=== PATIENT | female | born 1955 | race Caucasian/White ===

== ENCOUNTER 2019-02-06 10:57 | Emergency (ER) | payer MEDICARE, MEDICAID, SELFPAY ==
[2019-02-06 11:20] VITALS: BP 136/90; PULSE 78; RESP 16; TEMP 36.8; O2SAT 97; BMI 28.1
--- NOTE | 2019-02-06 11:35 | W.ED.BACK ---
HPI - Back Pain/Injury General: Chief Complaint: Back Pain/Injury Stated Complaint: back pain lower Time Seen by Provider: 02/06/19 11:35 Source: patient Mode of arrival: ambulatory Limitations: no limitations History of Present Illness: HPI Narrative: back pain x yesterday; went to stand up and immediately noticed pain; reports chronic lower back pain; has first appointment with pain management next month MD elicited complaint: back pain Pertinent past history: prior back pain Onset (ago): day(s) Timing: constant Severity: moderate Similar Symptoms Previously: Yes Radiation: none Exacerbating factors: movement Relieving factors: supine Associated symptoms: Reports no associated symptoms and difficulty walking (secondary to pain) Work related injury: No Review of Systems Musc: Reports: back pain; Denies: neck pain, extremity pain or extremity swelling Neuro: Reports: difficulty walking (secondary to pain); Denies: headache, numbness in extremities, weakness in extremities, changes in sensation, lack of coordination or frequent falls PFSH ED PFSH: Statuses (acute, chronic, etc) shown below reflect problem list status as previously entered and may not be historically accurate Family History Grandmother Breast cancer Maternal Mother Hypertension Heart disease Father Abdominal aneurysm Hypertension Social History Smoking and tobacco status: current every day smoker cigarettes Packs smoked per day: 1 Alcohol intake: never Lives independently: Yes Household members: children Marital status: Legally Current occupational status: disabled History of recent travel: No Physical Exam Const: COMMON NORMALS: no apparent distress, average body habitus, oriented x3, no limitations, healthy appearing, alert and well nourished Resp: COMMON NORMALS: normal respiratory effort and clear to auscultation bilaterally AUSCULTATION: clear to auscultation bilaterally Cardio: COMMON NORMALS: regular rate and regular rhythm RATE: regular rate RHYTHM: regular rhythm Back/Pelvis: LUMBAR SPINE/LOWER BACK: Yes pain with ROM and Yes lumbar spinal tenderness Lumbar spinal tenderness location: L3, L4 and L5 Neuro: COMMON NORMALS: oriented x3 SENSORIUM/ORIENTATION: Yes alert Course ED course: [address] [address] XRay Report Signed Patient: Rachana Gomez MR#: [id number] : 1955 Acct:[id number] Age/Sex: 63 / F ADM Date: 02/06/19 Loc: ER Attending Dr: Ordering Physician: Kavitha Plummer Date of Service: 02/06/19 Procedure(s): XR lumbar spine 2-3V* 25354 Accession Number(s): [id number] Report Number: [id number] WS: [id number] Lumbar spine, 3 views, 02/06/2019 Clinical Data: back injury Comparison: Lateral lumbar spine, 12/05/2018. Findings: No compression fractures or subluxation is seen. There is disc space narrowing at L3-L4, L4-L5 and L5-S1. The transverse processes and SI joints are normal. There is a posterior lumbar fusion with bilateral pedicle screws at L4, L5 and S1 and connected with rods. Laminectomies at L4 and L5 are noted. There is a slight dextroscoliosis. There are clips in the right upper quadrant from a cholecystectomy. There is calcification in the wall of the abdominal aorta but no aneurysm is seen. XR/XR lumbar spine 2-3V* 32614 Impression: 1. Intact posterior lumbar fusion from L4 through S1. 2. Degenerative disc narrowing at L3-L4, L4-L5 and L5-S1. 3. Slight dextroscoliosis of lumbar spine. 4. Laminectomies at L4 and L5. Dictated By: Ros Muller MD Signed By: Ros Muller MD Signed Date/Time:02/06/19 1230 DD/ 1224 Vital Signs: Vital signs: Vital Signs Temperature 98.3 F 02/06/19 11:20 Pulse Rate 78 02/06/19 11:20 Respiratory Rate 16 02/06/19 11:20 Blood Pressure 136/90 02/06/19 11:20 Pulse Oximetry 97 02/06/19 11:20 MDM - Back Pain/Injury Medical Records: Attestation: I reviewed the patient's medical records. Discharge Plan Discharge Patient Disposition: Home, Self-Care Clinical Impression: Lumbar back pain Condition: Stable Prescriptions: New cyclobenzaprine 10 mg tablet 10 mg PO Q8H Qty: 14 RF: 0 prednisone 10 mg tablets,dose pack See Rx Instructions .ROUTE .COMPLEX Qty: 21 RF: 0 No Action sumatriptan succinate 100 mg tablet 100 mg PO PRN PRN (Reason: Migraine Headache) RF: 0 multivitamin Capsule 1 cap PO DAILY RF: 0 olmesartan 40 mg tablet 40 mg PO DAILY RF: 0 Discharge Orders: Discharge Order (Routine); Ordered 02/06/19 Ordered By: Kavitha Plummer Referrals: Padmini Haddad NP [Primary Care Provider] - Discharge Activity: Increase activity as tolerated Patient Instructions: Chronic Back Pain (ED), Back Pain (ED) Activity Restrictions/Additional Instructions: Follow up with primary care within a week for continued pain Coding Level of Care Code ED Blast Furnace Keeper for Chg Fwd Exam Problem Focused
--- NOTE | 2019-02-06 11:36 | PC.NURSE ---
pt to room. pt c/o severe pain to lower mid back. Pt reports lifting a lot yesterday. pt has trouble ambulating today.
--- NOTE | 2019-02-06 11:46 | XR_ITS ---
WS: [id number] Lumbar spine, 3 views, 02/06/2019 Clinical Data: back injury Comparison: Lateral lumbar spine, 12/05/2018. Findings: No compression fractures or subluxation is seen. There is disc space narrowing at L3-L4, L4-L5 and L5 -S1. The transverse processes and SI joints are normal. There is a posterior lumbar fusion with bilateral pedicle screws at L4, L5 and S1 and connected with rods. Laminectomies at L4 and L5 are noted. There is a slight dextroscoliosis. There are clips in the right upper quadrant from a cholecystectomy. There is calcification in the wall of the abdominal aor ta but no aneurysm is seen. XR/XR lumbar spine 2-3V* 25919 Impression: 1. Intact posterior lumbar fusion from L4 through S1. 2. Degenerative disc narrowing at L3-L4, L4-L5 and L5-S1. 3. Slight dextroscoliosis of lumbar spine. 4. Laminectomies at L4 and L5.
--- NOTE | 2019-02-06 11:57 | PC.NURSE ---
pt off unit to radiology by stretcher with tech at this time
[2019-02-06] MEDS: fentaNYL 50 mcg/mL INJ 2mL IV (12:12)
[2019-02-06] MEDS: ondansetron 2 mg/ML SDV 2 mL 4 MG IM (12:12)
--- NOTE | 2019-02-06 12:16 | PC.NURSE ---
fentanyl given IM injection
[2019-02-06 12:51] VITALS: BP 122/79; PULSE 80; RESP 18; O2SAT 94
== END 2019-02-06 12:51 | disposition home or self-care (01) ==
PROVIDERS: Emergency Provider Physician Assistant; Family Provider Nurse Practitioner Family; PCP Nurse Practitioner Family
DX: M54.5 Low back pain (principal); F17.210 Nicotine dependence, cigarettes, uncomplicated
CPT/HCPCS: 72100; 96374; 99281; J2405; J3010

== ENCOUNTER → 2019-02-14 10:21 | Outpatient (BNVA) | payer MEDICARE, MEDICAID, SELFPAY | PROVIDERS: Family Provider Nurse Practitioner Family; PCP Nurse Practitioner Family; Visit Provider Nurse Practitioner Family | DX: N30.90 Cystitis, unspecified without hematuria (principal) | CPT/HCPCS: 81001; 87086 ==

== ENCOUNTER 2019-03-11 06:00 | Outpatient (CLI) | payer MEDICARE, MEDICAID, SELFPAY | END 2019-03-11 06:01 | disposition home or self-care (01) | LOC: SPT 11:18 | PROVIDERS: Family Provider Nurse Practitioner Family; PCP Nurse Practitioner Family; Referring Provider Specialist; Visit Provider Specialist | DX: M96.1 Postlaminectomy syndrome, not elsewhere classified (principal) | CPT/HCPCS: L0637 ==

== ENCOUNTER → 2019-03-27 08:53 | Outpatient (BNVA) | payer MEDICARE, MEDICAID, SELFPAY | PROVIDERS: Family Provider Nurse Practitioner Family; PCP Nurse Practitioner Family; Referring Provider Nurse Practitioner Family; Visit Provider Anesthesiology Pain Medicine | DX: M43.17 Spondylolisthesis, lumbosacral region (principal); M96.1 Postlaminectomy syndrome, not elsewhere classified; M79.651 Pain in right thigh; M79.652 Pain in left thigh; M54.2 Cervicalgia; M25.512 Pain in left shoulder; F17.210 Nicotine dependence, cigarettes, uncomplicated; Z79.891 Long term (current) use of opiate analgesic | CPT/HCPCS: 99214; 99999 ==

== ENCOUNTER 2019-04-03 10:41 | Outpatient (CLI) | payer MEDICARE, MEDICAID, SELFPAY ==
--- NOTE | 2019-04-03 11:37 | ECG_ITS ---
NAME OF STUDY: DOBUTAMINE STRESS ECHOCARDIOGRAM INDICATION: Chest Pain, PROCEDURE: At the baseline, the blood pressure was with a heart rate of. The electrocardiogram showed normal sinus rhythm with some nonspecific T wave changes; poor R wave progression. Echocardiogram pictures were taken of the standard views prior to the dobutamine fusion The dobutamine was infused over a period of 10 minutes and 28 seconds. The maximum heart rate obtained was 146 (92 % of the maximum predicted heart rate). The blood pressure at that time was 199/101 mmHg. The patient did not have any chest pain or any significant electrocardiogram changes with the dobutamine infusion. The physical examination remained unchanged. No arrhythmias were seen on the monitor. Echocardiographic pictures were taken of the standard views with a low and peak dobutamine infusion and also during the recovery phase During the recovery phase, the patient did not have any specific symptoms. The blood pressure at the end of the recovery phase was 153/93 with a heart rate of 93 per minute. CONCLUSION: 1. Normal EKG response to dobutamine fusion. 2. No dobutamine induced chest pain or cardiac arrhythmia. 3. Hypertensive response to dobutamine fusion 4. Echocardiogram which was retaken at the baseline, during the dobutamine infusion and at the recovery phases; see separate report. Electronically Signed On 04-04-2019 11:11:49 SENIOR MAINTENANCE TECHNICIAN by Apolinar Lara M.D. [email or web address]
--- NOTE | 2019-04-03 11:37 | USCV_ITS ---
Rachana Gomez Age: 63 Gender: F : 1955 Exam Date: 04/03/2019 12:07 Ordering Phys: Apolinar Lara MD ([email or web address]) Technologist: Margie Cervantes Exam Location: [facility] [place] Indication: CHEST PAIN Rhythm: Sinus Patient History: AAA,HLD,HTN,Asthma,Smoking Cardiac Medications: Olmesartan Medications in past 24 hours: Olmesartan Contrast: Total Dose (mL): Stress Results Protocol: Pharmacologic Peak Dose (???g/kg/min): 30 Duration (min:sec): 10:28 Atropine:(mg) 0.5 Target HR: 134 Double Product: 48446 Resting HR: 68 Resting BP: 142 / 97 Peak HR: 146 Peak BP: 202 / 102 Max Predicted HR: 158 92 % Max Predicted HR Stress Summary: The hemodynamic response to stress was normal. BP Response: Normal Reason for Termination: The patients target heart rate was achieved, Protocol complete Cardiac Symptoms: None ECG Analysis Resting EKG: Please see separate report Stress EKG: Please see separate report Arrhythmia: Please see separate report MEASUREMENTS (Male/Female) Normal Values FINDINGS The baseline echocardiogram revealed normal LV size and ejection fraction. Segmental wall motion analysis revealing no gross wall motion normalities. The aortic valve was found to be minimally thickened. Aortic root appeared to be of normal size. The mitral valve morphology appears to be within normal limits. Because of the heavy artifacts are noted with the extracardiac structures, the other cardiac structures could not be visualized well With the low and the peak dobutamine fusion, there was good augmentation of all the segments with no dobutamine induced wall motion normalities. During the recovery phase, there was no new wall motion normalities. CONCLUSIONS Normal echocardiographic response to dobutamine fusion No significant coronary ischemia, based on the above findings Dr Apolinar Lara MD FAC (Electronically Signed) Final Date: 04 April 2019 10:30 S
[2019-04-03 11:38] VITALS: BMI 28.3
[2019-04-03] MEDS: DOBUTtamine 200 MG in sodium chloride 0.9% 34 ML 12 MG IV (12:09)
[2019-04-03] MEDS: atropine 0.1 mg/mL Syr 10 mL 0.5 MG IVP (12:24)
[2019-04-03 12:26] VITALS: BP 161/93; PULSE 93
== END 2019-04-03 10:42 | disposition home or self-care (01) ==
LOC: CDL 10:42
PROVIDERS: Family Provider Nurse Practitioner Family; PCP Nurse Practitioner Family; Visit Provider Internal Medicine Cardiovascular Disease
DX: R07.89 Other chest pain (principal)
CPT/HCPCS: 93017; 93350; 96375; J0461; J1250; J7050

== ENCOUNTER 2019-04-14 13:00 | Outpatient (CLI) | payer MEDICARE, MEDICAID, SELFPAY ==
--- NOTE | 2019-04-14 13:07 | CT_ITS ---
WS: [id number] CT LUNG CANCER SCREENING DLP: 65.79 mGy.cm DIvol: 1.97 mGy CLINICAL INFORMATION SCREENING VISIT: Baseline COMPARISON: 02/06/2015 FINDINGS Diagnostic quality: Satisfactory Comments: None. Lung Nodules: 2 mm micronodule LEFT upper lobe. Benign granulomata lingula. There is some very minima l groundglass attenuation in the periphery of the lower lung alex bilaterally. Lungs: Hyperexpanded lungs from emphysema. Heart: Normal size heart. Slight increased amount of pericardial fat. Other findings: No mediastinal or hilar adenopathy. Small hiatal hernia. Increase in thoracic kyphosi s. No osteoblastic or osteolytic bone disease. Prior gastric bypass. Bilateral breast implants. CT/CT lung screening [id number] IMPRESSION: LUNG-RADS: 1-Negative FOLLOW UP:
== END 2019-04-14 13:01 | disposition home or self-care (01) ==
LOC: CT 13:01
PROVIDERS: Family Provider Nurse Practitioner Family; PCP Nurse Practitioner Family; Visit Provider Nurse Practitioner Family
DX: Z12.2 Encounter for screening for malignant neoplasm of respiratory organs (principal); Z87.891 Personal history of nicotine dependence
CPT/HCPCS: G0297

== ENCOUNTER → 2019-04-24 09:35 | Outpatient (BNVA) | payer MEDICARE, MEDICAID, SELFPAY | PROVIDERS: Family Provider Nurse Practitioner Family; PCP Nurse Practitioner Family; Visit Provider Anesthesiology Pain Medicine | DX: M43.17 Spondylolisthesis, lumbosacral region (principal); M96.1 Postlaminectomy syndrome, not elsewhere classified; M79.651 Pain in right thigh; M79.652 Pain in left thigh; J45.40 Moderate persistent asthma, uncomplicated; F17.210 Nicotine dependence, cigarettes, uncomplicated; Z79.891 Long term (current) use of opiate analgesic | CPT/HCPCS: 99214 ==

== ENCOUNTER 2019-05-07 08:22 | Outpatient (CLI) | payer MEDICARE, MEDICAID, SELFPAY ==
--- NOTE | 2019-05-07 09:00 | IR_ITS ---
WS: [id number] LUMBAR MYELOGRAM HISTORY: lumbar pain COMPARISON: 12/05/2018 FLUOROSCOPY TIME: 1.5 minutes. Procedure, risks and complications were explained to the patient. Risks including bleeding, infection , headaches, allergic reaction and seizures. Consent has been obtained. With the patient in prone position the skin over the lumbar region is cleansed with ChloraPrep and an esthetized with lidocaine. 22-gauge spinal needle is inserted into the thecal sac at the appropriate level determined by fluoroscopy. Omnipaque 240; 12 ml is injected slowly under fluoroscopy with no co mplications. Needle bevel is perpendicular to the longitudinal fibers of the dura. Stylet is reinsert ed prior to removal of the needle. Patient tolerated the procedure well. Patient will proceed to CT f or further evaluation. Posterior lumbar fusion from L4 to S1. Hardware is intact. Suspect L5 anterolisthesis. This will be b mao evaluated on the CT to follow. Large laminectomy defects at L4 and L5. Bone grafting at the L4- 5 levels bilaterally. Posterior lumbar alignment is normal from L1 to L5. There is focal stenosis at the L3-4 level due to combination of disc disease and ligamentum flavum hypertrophy. Mild narrowing of the thecal sac also at the L2-3 level and L1-2. Scattered calcifications within the aorta. Less than 2 mm retrolisthesis of L3 on neutral imaging. During flexion L3 anterolisthesis by 4 mm and 1 mm retrolisthesis during extension. IR/[place] [id number] IMPRESSION: 1. Status post lumbar myelogram. 2. Flexion-extension instability of L3. 3. Prior posterior lumbar fusion from L4 to S1 with large laminectomy defects at L4 and L5. 4. Central canal stenosis at L3-4 is moderate to severe. Additional mild steno sis at the L2-3 and L1-2 levels. These will be further evaluated on the CT to f ollow.
[2019-05-07 09:11] LABS: INR 0.94 (0.8-1.2)
[2019-05-07] MEDS: iohexol 240 mg/mL 50 mL Btl INTRATHECA (09:30)
--- NOTE | 2019-05-07 11:30 | CT_ITS ---
WS: [id number] CT MYELOGRAM LUMBAR SPINE HISTORY: lumbar pain TECHNIQUE: Contiguous 2.5 mm axial imaging performed from T12 through the mid sacral level. Bone and soft tissue windows reviewed. Sagittal and coronal reformats are submitted and reviewed. DLP: 5727.[address] scans at [facility] use at least one of these dose optimization techniques: automat ed exposure control; mA and/or kV adjustment per patient size (includes targeted exams where dose is matched to clinical indication); or iterative reconstruction. COMPARISON: 12/05/2018 Imaging performed in supine and prone position to better distribute the contrast within the thecal sa c. Study is limited by motion. L5 anterolisthesis by 8.9 mm. Prior posterior lumbar fusion from L4 to S1 bilaterally. No lucency ab und the hardware or fracture identified. Bone grafting is also present at the surgical site. Large la minectomy defects at L4 and L5. Moderate disc space narrowing at L4-5 and L5-S1. No fracture. Mild ar achnoiditis at the L4-5 level. L1-L2: Mild ligamentum flavum hypertrophy. No stenosis. L2-L3: Ligamentum flavum hypertrophy and facet arthropathy. No significant stenosis. L3-L4: Significant diffuse disc bulging. There is ligamentum flavum hypertrophy and facet arthropathy . There is at least moderate central and subarticular recess stenosis. Unfortunately patient was unab le to remain still for this examination. Only mild bilateral foraminal narrowing. There is mass effec t upon the RIGHT lateral thecal sac suspicious for a disc protrusion. L4-L5: Significant artifact at the L4-5 level. Cannot exclude new disc protrusions but there is no st enosis appreciated. L5-S1: Significant artifact from the patient's hardware. No significant stenosis. Since of atherosclerosis within the aorta. Prior cholecystectomy. Nonobstructing LEFT renal calcifica tion. CT/CT lumbar spine w con [id number] IMPRESSION: 1. Status post lumbar myelogram. 2. Significant limitations due to extensive motion artifact and hardware artif act. 3. Prior lumbar fusion from L4 to S1 is intact with no complications apparent. 4. At least moderate central and subarticular recess stenosis at L3-4 due to d isc disease and facet disease. 5. L5 anterolisthesis by 8.9 mm.
== END 2019-05-07 08:23 | disposition home or self-care (01) ==
LOC: RAD 08:23
PROVIDERS: Family Provider Nurse Practitioner Family; PCP Nurse Practitioner Family; Visit Provider Specialist
DX: Z01.812 Encounter for preprocedural laboratory examination (principal); M43.27 Fusion of spine, lumbosacral region; M51.36 Other intervertebral disc degeneration, lumbar region; M48.061 Spinal stenosis, lumbar region without neurogenic claudication
CPT/HCPCS: 62304; 72120; 72132; 85610; Q9966

== ENCOUNTER 2019-06-10 07:59 | Outpatient (CLI) | payer MEDICARE, MEDICAID, SELFPAY ==
--- NOTE | 2019-06-10 08:00 | USCV_ITS ---
BadgerRachana parker Age: 63 Gender: F : 1955 Exam Date: 06/10/2019 08:05 Ordering Phys: Padmini Haddad NP Technologist: Yusra Junior [place] [facility] [place]ication: VISION CHANGE IN RT EYE Risk Factors: Unknown Previous Vascular Surgery: RT EYE SURGERY TO REPAIR HOLE PER PT Right Brachial BP: / Left Brachial BP: / Right Left Velocity (cm/s) Spectral Plaque Velocity (cm/s) Spectral Plaque Syst/Diast Broadening Syst/Diast Broadening 73.90/ 17.60 Prox CCA 63.40 / 17.80 79.40/ 29.80 Mid CCA 102.90/ 41.40 43.00/ 15.40 Distal CCA 101.80/ 34.70 58.80/ 21.80 Prox ICA 60.10 / 23.10 67.40/ 21.80 Mid ICA 61.40 / 24.30 56.20/ 19.80 Distal ICA 64.80 / 27.50 76.10 ECA 98.40 0.85 ICA/CCA 0.63 Antegrade Vertebral Antegrade 44.30/ 12.60 cm/s 44.50/ 15.50 cm/s Tri Subclavian Tri 48.90 78.70 FINDINGS Moderate scattered plaques of the right bifurcation proximal internal carotid artery. Minimal plaques of the left bifurcation and internal carotid artery. Normal Doppler flow velocities. Antegrade flow in the vertebral arteries bilaterally. CONCLUSIONS Moderate scattered plaques at the right bifurcation proximal internal carotid artery. Minimal plaques of the left bifurcation and internal carotid artery. No significant stenosis, based on the above findings. No previous studies available for comparison Dr Apolinar Lara MD [facility] (Electronically Signed) Final Date: 10 Jun 2019 15:48 S
== END 2019-06-10 08:00 | disposition home or self-care (01) ==
PROVIDERS: Family Provider Nurse Practitioner Family; PCP Nurse Practitioner Family; Visit Provider Nurse Practitioner Family
DX: H53.9 Unspecified visual disturbance (principal); H53.8 Other visual disturbances; I65.21 Occlusion and stenosis of right carotid artery
CPT/HCPCS: 93880

== ENCOUNTER → 2019-07-01 14:59 | Outpatient (BNVA) | payer MEDICARE, MEDICAID, SELFPAY | PROVIDERS: Family Provider Nurse Practitioner Family; PCP Nurse Practitioner Family; Visit Provider Anesthesiology Pain Medicine | DX: M54.41 Lumbago with sciatica, right side (principal); M54.42 Lumbago with sciatica, left side; M43.17 Spondylolisthesis, lumbosacral region; M96.1 Postlaminectomy syndrome, not elsewhere classified; M54.9 Dorsalgia, unspecified; J45.40 Moderate persistent asthma, uncomplicated; F17.210 Nicotine dependence, cigarettes, uncomplicated; Z79.891 Long term (current) use of opiate analgesic | CPT/HCPCS: 99213 ==

== ENCOUNTER 2019-07-08 06:00 | Outpatient (RCR) | payer MEDICARE, MEDICAID, SELFPAY | END 2019-08-05 23:59 | disposition home or self-care (01) | LOC: GPT 06:00 | PROVIDERS: PCP Nurse Practitioner Family; Referring Provider Specialist; Visit Provider Specialist | DX: G89.29 Other chronic pain (principal); M54.2 Cervicalgia; M54.9 Dorsalgia, unspecified | CPT/HCPCS: 97032; 97110; 97140; 97162; 97530; G0283 ==

== ENCOUNTER 2019-07-17 14:22 | Outpatient (CLI) | payer MEDICARE, MEDICAID, SELFPAY ==
--- NOTE | 2019-07-17 14:30 | XRR_ITS ---
PROCEDURE INFORMATION: Exam: XR Lumbosacral Spine, 2 or 3 Views Exam date and time: 07/17/2019 2:47 PM Age: 64 years old Clinical indication: Low back pain; Prior surgery; Surgery type: Date and type of surgery not provided; Additional info: Lumbar pain TECHNIQUE: Imaging protocol: XR of the lumbosacral spine, 2 or 3 views. COMPARISON: No relevant prior studies available. FINDINGS: Vertebrae: Laminectomy and pedicle screw fixation extending from L4-S1 with poor visualization of the L5-S1 articulation. No significant malalignment or instability in the visualized lumbar spine. Degenerative change. Gastrointestinal tract: Bowel dilatation and prominent stool. Vasculature: Vascular calcification. XR/XR lumbar spine f/e only [id number] IMPRESSION: Laminectomy and pedicle screw fixation extending from L4-S1 with poor visualization of the L5-S1 articulation.
== END 2019-07-17 14:23 | disposition home or self-care (01) ==
LOC: RADWPI 14:24
PROVIDERS: Family Provider Nurse Practitioner Family; PCP Nurse Practitioner Family; Visit Provider Specialist
DX: M54.5 Low back pain (principal); M96.1 Postlaminectomy syndrome, not elsewhere classified
CPT/HCPCS: 72120

== ENCOUNTER 2019-07-23 11:40 | Outpatient (CLI) | payer MEDICARE, MEDICAID, SELFPAY ==
--- NOTE | 2019-07-23 11:48 | MM_ITS ---
WS: [id number] BILATERAL DIGITAL SCREENING MAMMOGRAPHY WITH CAD CLINICAL INFORMATION: screening HISTORY: Screening mammogram. No current complaints. COMPARISON: April 05, 2017 TECHNIQUE: Bilateral CC and MLO views. FINDINGS: Postoperative changes bilateral breast implants. History of bilateral breast reduction. Scattered fibroglandular densities bilaterally. No suspicious focal mass, asymmetry, calcifications, or architectural distortion. No evidence of malignancy. Stable lucent centered and dystrophic calcifi cations. MM/[place] [id number] IMPRESSION: BI-RADS: 2-Benign FOLLOW UP: 1 Year Follow-up Recommend return to annual screening mammography.
== END 2019-07-23 11:41 | disposition home or self-care (01) ==
PROVIDERS: PCP Nurse Practitioner Family; Visit Provider Nurse Practitioner
DX: Z12.31 Encounter for screening mammogram for malignant neoplasm of breast (principal)
CPT/HCPCS: 77067

== ENCOUNTER → 2019-07-30 09:57 | Outpatient (BNVA) | payer MEDICARE, MEDICAID, SELFPAY | PROVIDERS: PCP Nurse Practitioner Family; Visit Provider Anesthesiology Pain Medicine | DX: M54.2 Cervicalgia (principal); M43.17 Spondylolisthesis, lumbosacral region; M54.9 Dorsalgia, unspecified; M96.1 Postlaminectomy syndrome, not elsewhere classified; J45.40 Moderate persistent asthma, uncomplicated; F17.210 Nicotine dependence, cigarettes, uncomplicated; Z79.891 Long term (current) use of opiate analgesic | CPT/HCPCS: 99213; 99214 ==

== ENCOUNTER → 2019-08-29 08:20 | Outpatient (BNVA) | payer MEDICARE, MEDICAID, SELFPAY | PROVIDERS: PCP Nurse Practitioner Family; Visit Provider Anesthesiology Pain Medicine | DX: M54.2 Cervicalgia (principal); M43.17 Spondylolisthesis, lumbosacral region; M96.1 Postlaminectomy syndrome, not elsewhere classified; M54.9 Dorsalgia, unspecified; J45.40 Moderate persistent asthma, uncomplicated; F17.210 Nicotine dependence, cigarettes, uncomplicated; Z79.891 Long term (current) use of opiate analgesic | CPT/HCPCS: 99213; 99214 ==

== ENCOUNTER → 2019-09-03 09:49 | Outpatient (BNVA) | payer MEDICARE, MEDICAID, SELFPAY | PROVIDERS: PCP Nurse Practitioner Family; Visit Provider Podiatrist Foot & Ankle Surgery | DX: M25.571 Pain in right ankle and joints of right foot (principal) | CPT/HCPCS: 73610 ==

== ENCOUNTER 2019-09-03 14:27 | Outpatient (CLI) | payer MEDICARE, MEDICAID, SELFPAY | END 2019-09-03 14:28 | disposition home or self-care (01) | LOC: SPT 14:28 | PROVIDERS: PCP Nurse Practitioner Family; Visit Provider Podiatrist Foot & Ankle Surgery | DX: G57.80 Other specified mononeuropathies of unspecified lower limb (principal); M25.571 Pain in right ankle and joints of right foot | CPT/HCPCS: 73610; 97760; L1902 ==

== ENCOUNTER → 2019-09-29 08:46 | Outpatient (BNVA) | payer MEDICARE, MEDICAID, SELFPAY | PROVIDERS: PCP Nurse Practitioner Family; Visit Provider Anesthesiology Pain Medicine | DX: M54.42 Lumbago with sciatica, left side (principal); M54.41 Lumbago with sciatica, right side; M43.17 Spondylolisthesis, lumbosacral region; M96.1 Postlaminectomy syndrome, not elsewhere classified; M54.9 Dorsalgia, unspecified; M54.2 Cervicalgia; J45.40 Moderate persistent asthma, uncomplicated; F17.210 Nicotine dependence, cigarettes, uncomplicated; Z79.891 Long term (current) use of opiate analgesic | CPT/HCPCS: 99213; 99214 ==

== ENCOUNTER → 2019-12-18 09:19 | Outpatient (BNVA) | payer MEDICARE, MEDICAID, SELFPAY | PROVIDERS: PCP Nurse Practitioner Family; Visit Provider Anesthesiology Pain Medicine | DX: M43.17 Spondylolisthesis, lumbosacral region (principal); M96.1 Postlaminectomy syndrome, not elsewhere classified; M54.9 Dorsalgia, unspecified; M54.2 Cervicalgia; J45.40 Moderate persistent asthma, uncomplicated; E16.2 Hypoglycemia, unspecified; F17.210 Nicotine dependence, cigarettes, uncomplicated; Z79.891 Long term (current) use of opiate analgesic | CPT/HCPCS: 99213 ==

== ENCOUNTER → 2020-01-15 08:59 | Outpatient (BNVA) | payer MEDICARE, MEDICAID, SELFPAY | PROVIDERS: PCP Nurse Practitioner Family; Visit Provider Anesthesiology Pain Medicine | DX: M54.9 Dorsalgia, unspecified (principal); M96.1 Postlaminectomy syndrome, not elsewhere classified; M54.2 Cervicalgia; M43.17 Spondylolisthesis, lumbosacral region; J45.909 Unspecified asthma, uncomplicated; M79.18 Myalgia, other site | CPT/HCPCS: 20553; 99213; J1030; J3490 ==

== ENCOUNTER → 2020-02-12 09:02 | Outpatient (BNVA) | payer MEDICARE, MEDICAID, SELFPAY | PROVIDERS: PCP Nurse Practitioner Family; Visit Provider Anesthesiology Pain Medicine | DX: M54.9 Dorsalgia, unspecified (principal); M96.1 Postlaminectomy syndrome, not elsewhere classified; M54.2 Cervicalgia; M43.17 Spondylolisthesis, lumbosacral region; J45.40 Moderate persistent asthma, uncomplicated; F17.210 Nicotine dependence, cigarettes, uncomplicated; Z79.891 Long term (current) use of opiate analgesic | CPT/HCPCS: 99213; 99214 ==

== ENCOUNTER → 2020-02-13 08:54 | Outpatient (BNVA) | payer MEDICARE, MEDICAID, SELFPAY | PROVIDERS: PCP Nurse Practitioner Family; Visit Provider Nurse Practitioner Family | DX: E78.2 Mixed hyperlipidemia (principal); I10 Essential (primary) hypertension | CPT/HCPCS: 80053; 80061; 84439; 84443; 85025 ==

== ENCOUNTER → 2020-02-27 08:16 | Outpatient (BNVA) | payer MEDICARE, MEDICAID, SELFPAY | PROVIDERS: PCP Nurse Practitioner Family; Visit Provider Anesthesiology Pain Medicine | DX: G89.29 Other chronic pain (principal); M54.5 Low back pain; F17.210 Nicotine dependence, cigarettes, uncomplicated | CPT/HCPCS: 62323 ==

== ENCOUNTER 2020-07-12 07:50 | Outpatient (CLI) | payer MEDICARE, MEDICAID, SELFPAY ==
--- NOTE | 2020-07-12 07:56 | MM_ITS ---
WS: [id number] BILATERAL DIGITAL DIAGNOSTIC MAMMOGRAM MAMMOGRAPHY WITH CAD CLINICAL INFORMATION: RIGHT BREAST LUM COMPARISON: July 23, 2019 TECHNIQUE: Bilateral CC, MLO, and ML views. FINDINGS: History of breast reduction Scattered fibroglandular densities bilaterally. Punctate and lucent centered calcifications. Postoper ative changes bilateral breast implants appear intact. No mammographic abnormalities in the area of p alpable concern. No suspicious focal mass, asymmetry, calcifications, or architectural distortion. Ultrasound right br east is pending. ULTRASOUND BREAST RIGHT TECHNIQUE: Ultrasound right breast focused area of concern. CLINICAL INFORMATION: RIGHT BREAST LUMP FINDINGS: Ultrasound right breast 5:00 position and 11:00 position. Additional ultrasound right axilla in the a debbie of concern. Ultrasound in the areas of concern demonstrate no evidence of cystic or solid lesion. Normal breast parenchyma. No suspicious abnormalities. No lesions to target for biopsy. MM/[id number] IMPRESSION: BI-RADS: 2-Benign FOLLOW UP: 1 Year Follow-up Recommend return to annual screening mammography.
== END 2020-07-12 07:51 | disposition home or self-care (01) ==
LOC: RADSHAW 07:55
PROVIDERS: PCP Nurse Practitioner Family; Visit Provider Nurse Practitioner Family
DX: N63.10 Unspecified lump in the right breast, unspecified quadrant (principal)
CPT/HCPCS: 76642; 77066

== ENCOUNTER 2020-07-20 08:10 | Outpatient (CLI) | payer MEDICARE, MEDICAID, SELFPAY ==
--- NOTE | 2020-07-20 08:18 | CT_ITS ---
WS: [id number] LDCT LUNG CANCER SCREENING TECHNIQUE: Noncontrast CT of the chest with coronal and sagittal reformatted images. CLINICAL INFORMATION: NICOTINE DEPENDENCE,CIGARETTES COMPARISON: April 14, 2019 DLP: 53.79 mGy.cm DIvol: 1.[address] scans at [facility] use at least one of these dose optimization techniques: automat ed exposure control; mA and/or kV adjustment per patient size (includes targeted exams where dose is matched to clinical indication); or iterative reconstruction. FINDINGS: Hyperinflation. Mild chronic emphysematous changes. Calcified granuloma left upper lobe. Noncalcified nodule right lower lobe measuring 4.3 mm unchanged since April 14, 2019. Small amount of subpleural fibrosis or atelectasis right lower lobe. Small cluster of nodules in the super segment left lower lo be largest measuring 3.5 mm in a tree-in-bud configuration Aortic calcification. No mediastinal or hilar lymphadenopathy. Bilateral breast implants. Prior gastr ic bypass. Small esophageal hiatal hernia. Adrenal glands are normal. CT/CT lung screening [id number] IMPRESSION: LUNG-RADS: 2-Benign Appearance or Behavior FOLLOW UP: 12 Month: Continue annual screening with LDCT
--- NOTE | 2020-07-20 08:32 | USCV_ITS ---
Rachana Gomez Age: 65 Gender: F : 1955 Exam Date: 07/20/2020 08:42 Ordering Phys: Warren Grigsby Technologist: BEATA Exam Location: [facility] [place] Indication: FAM HX AAA AND CARDIAC ANEURYSM HISTORY: GASTRIC BYPASS-INC BOWEL GAS AND PT PAIN LEVEL Diameter (cm) AP x Transverse x Length Velocity (cm/s) Waveform Prox Aorta: 2.16 x 2.16 x 2.12 24.90 Mid Aorta: 2.48 x 2.35 x 2.61 22.90 Distal Aorta: 2.48 x 2.32 x 2.06 26.30 Right Iliac Prox: 0.91 x x Left Iliac Prox: 0.82 x x Stent Prox Landing x x Aneurysmal Sac Max x x Lt Lat Sac Dim Rt Lat Sac Dim Stent Dist Landing x x Right Iliac Stent x x Left Iliac Stent x x Right Renal Art Left Renal Art FINDINGS: Normal abdominal aortic dimensions Minimal plaques in the abdominal aorta. Normal Doppler flow velocity CONCLUSIONS Normal abdominal aortic dimensions with no evidence of aneurysm. Minimal plaques in the abdominal aorta. No significant stenosis in the abdominal aorta, based on the above findings Dr Apolinar Lara MD [facility] (Electronically Signed) Final Date: 20 July 2020 10:08 S
--- NOTE | 2020-07-20 09:17 | XR_ITS ---
WS: [id number] DEXA (DUAL ENERGY X-RAY ABSORPTIOMETRY) Bone mineral density was performed using a Pricelock machine. HISTORY: DETENTION USE OF SYSTEMIC STEROID, VITAMIN D DEFICIENCY COMPARISON: None available. Left forearm BMD: 0.702 g/cm2. T score: -2.0 Z score: -0.7 Total hip BMD: Left: 0.788 g/cm2. T score: -1.7 Z score: -1.1 Right: 0.773 g/cm2. T score: -1.9 Z score: -1.2 10 year probability of a major osteoporotic fracture is 18%. XR/XR DEXA axial skeleton* [id number] IMPRESSION: OSTEOPENIA based upon the WHO classification for females.
== END 2020-07-20 08:11 | disposition home or self-care (01) ==
LOC: RAD 08:13
PROVIDERS: PCP Nurse Practitioner Family; Visit Provider Nurse Practitioner
DX: Z12.2 Encounter for screening for malignant neoplasm of respiratory organs (principal); F17.210 Nicotine dependence, cigarettes, uncomplicated; Z79.52 Long term (current) use of systemic steroids; E55.9 Vitamin D deficiency, unspecified; Z84.89 Family history of other specified conditions; M85.88 Other specified disorders of bone density and structure, other site
CPT/HCPCS: 71271; 76706; 77080

== ENCOUNTER → 2020-08-12 17:05 | Outpatient (BNVA) | payer MEDICARE, MEDICAID, SELFPAY | PROVIDERS: PCP Nurse Practitioner Family; Visit Provider Nurse Practitioner Family | DX: R53.1 Weakness (principal); M79.661 Pain in right lower leg; M25.561 Pain in right knee; I83.90 Asymptomatic varicose veins of unspecified lower extremity; Z68.29 Body mass index [BMI] 29.0-29.9, adult | CPT/HCPCS: 81000 ==

== ENCOUNTER 2020-08-13 10:54 | Outpatient (CLI) | payer MEDICARE, MEDICAID, SELFPAY ==
--- NOTE | 2020-08-13 11:00 | USCV_ITS ---
[place] Age: 65 Gender: F : 1955 Exam Date: 08/13/2020 11:08 Ordering Phys: Padmini Haddad NP Technologist: Yusra Junior Exam Location: [facility] [place] Indication: PAIN IN RT LEG IN RT POP FOSSA HISTORY: Pt has pain in RT leg at and below knee. PROCEDURES: Venous duplex imaging was performed in only the right lower extremity. The following venous structures were evaluated: common femoral vein, profunda vein, proximal portion of the greater saphenous vein, superficial femoral vein, and the popliteal vein. In addition, the posterior tibial and peroneal trunk were evaluated. Serial compression, augmentation maneuvers, and spectral Doppler flow evaluation were performed. FINDINGS: NO DVT seen in any vessel examined. There is a 2 cm section of a superficial vessel below the know that is non compressible and has no color flow seen. CONCLUSIONS No DVT right lower extremity. Acute, below the knee right lower extremity superficial vein thrombosis. Dr. Zofia Salazar DO (Electronically Signed) Final Date: 13 August 2020 12:48 S
== END 2020-08-13 10:55 | disposition home or self-care (01) ==
PROVIDERS: PCP Nurse Practitioner Family; Visit Provider Nurse Practitioner Family
DX: M79.661 Pain in right lower leg (principal); M25.561 Pain in right knee; I83.90 Asymptomatic varicose veins of unspecified lower extremity; I82.811 Embolism and thrombosis of superficial veins of right lower extremity
CPT/HCPCS: 93971

== ENCOUNTER 2020-08-24 13:32 | Outpatient (CLI) | payer MEDICARE, MEDICAID, SELFPAY | END 2020-08-24 13:33 | disposition home or self-care (01) | LOC: LAB 10-26 12:35 | PROVIDERS: PCP Nurse Practitioner Family; Visit Provider Nurse Practitioner Family | DX: R53.83 Other fatigue (principal); S30.861A Insect bite (nonvenomous) of abdominal wall, initial encounter; W57.XXXA Bitten or stung by nonvenomous insect and other nonvenomous arthropods, initial encounter | CPT/HCPCS: 80053; 85025; 85651; 86000; 86140; 86618; 86666; 86757 ==

== ENCOUNTER 2020-09-07 12:32 | Outpatient (CLI) | payer MEDICARE, MEDICAID, SELFPAY ==
--- NOTE | 2020-09-07 12:39 | CT_ITS ---
WS: [id number] CT scan of the head, 09/07/2020 Clinical Data: M62.81 - Muscle weakness (generalized) Comparison: MRI of the head and brain, 07/12/2018. DLP: 992.[address] scans at [facility] use at least one of these dose optimization techniques: automat ed exposure control; mA and/or kV adjustment per patient size (includes targeted exams where dose is matched to clinical indication); or iterative reconstruction. Findings: The ventricular system is normal without shift. No recent infarct or hemorrhage is seen. There are no abnormal intracerebral masses. The cerebellum and brainstem are not remarkable. Bony windows of the skull and skull base show no fractures or erosions. The mastoid air cells, data analysis intern al auditory canals, sella turcica, intraorbital contents, and paranasal sinuses are unremarkable. CT/CT head wo con* [id number] Impression: Negative CT scan of the head
== END 2020-09-07 12:33 | disposition home or self-care (01) ==
PROVIDERS: PCP Nurse Practitioner Family; Visit Provider Nurse Practitioner Family
DX: M62.81 Muscle weakness (generalized) (principal); R29.898 Other symptoms and signs involving the musculoskeletal system; R51.9 Headache, unspecified
CPT/HCPCS: 70450; 80053; 85025; 85651; 86000; 86140; 86618; 86666; 86757

== ENCOUNTER 2021-01-11 20:00 | Outpatient (CLI) | payer MEDICARE, MEDICAID, SELFPAY | END 2021-01-11 20:01 | disposition home or self-care (01) | LOC: SLEEP 01-12 07:16 | PROVIDERS: PCP Nurse Practitioner Family; Visit Provider Nurse Practitioner | DX: G47.33 Obstructive sleep apnea (adult) (pediatric) (principal) | CPT/HCPCS: 95810 ==

== ENCOUNTER 2021-01-19 12:36 | Outpatient (CLI) | payer MEDICARE, MEDICAID, SELFPAY ==
--- NOTE | 2021-01-19 12:45 | USCV_ITS ---
Rachana Gomez Age: 65 Gender: F : 1955 Exam Date: 01/19/2021 13:23 Ordering Phys: Warren Grigsby Technologist: Roxanne Enciso [place]am [place] [facility] [place] Indication: RLE PAIN AND SWELLING HISTORY: Lower extremity swelling. Lower extremity pain. PROCEDURES: Venous duplex imaging was performed in only the right lower extremity. The following venous structures were evaluated: common femoral vein, profunda vein, proximal portion of the greater saphenous vein, superficial femoral vein, and the popliteal vein. In addition, the posterior tibial and peroneal trunk were evaluated. Serial compression, augmentation maneuvers, and spectral Doppler flow evaluation were performed. FINDINGS: No evidence of DVT seen in any vessel visualized at this time. CONCLUSIONS No evidence of right lower extremity DVT. Chet Quintero MD (Electronically Signed) Final Date: 19 January 2021 17:05 S
== END 2021-01-19 12:37 | disposition home or self-care (01) ==
PROVIDERS: PCP Nurse Practitioner Family; Visit Provider Nurse Practitioner
DX: M79.661 Pain in right lower leg (principal); I83.11 Varicose veins of right lower extremity with inflammation; M79.89 Other specified soft tissue disorders
CPT/HCPCS: 93971

== ENCOUNTER 2021-02-07 20:00 | Outpatient (CLI) | payer MEDICARE, MEDICAID, SELFPAY | END 2021-02-07 20:01 | disposition home or self-care (01) | LOC: SLEEP 02-08 07:32 | PROVIDERS: PCP Nurse Practitioner Family; Visit Provider Nurse Practitioner | DX: G47.33 Obstructive sleep apnea (adult) (pediatric) (principal) | CPT/HCPCS: 95811 ==

== ENCOUNTER → 2021-04-05 09:43 | Outpatient (BNVA) | payer MEDICARE, MEDICAID, SELFPAY | PROVIDERS: PCP Nurse Practitioner Family; Visit Provider Nurse Practitioner Family | DX: E53.8 Deficiency of other specified B group vitamins (principal); E61.1 Iron deficiency; I10 Essential (primary) hypertension; E55.9 Vitamin D deficiency, unspecified | CPT/HCPCS: 80053; 80061; 82306; 82607; 82728; 83550; 84443; 85025 ==

== ENCOUNTER → 2021-05-24 13:57 | Outpatient (BNVA) | payer MEDICARE, MEDICAID, SELFPAY | PROVIDERS: PCP Nurse Practitioner Family; Referring Provider Nurse Practitioner; Visit Provider Orthopaedic Surgery | DX: M25.512 Pain in left shoulder (principal); F17.210 Nicotine dependence, cigarettes, uncomplicated | CPT/HCPCS: 73030; 99203 ==

== ENCOUNTER 2021-06-08 13:55 | Outpatient (CLI) | payer MEDICARE, MEDICAID, SELFPAY ==
--- NOTE | 2021-06-08 15:07 | XR_ITS ---
WS: [id number] Lumbar spine with flexion and extension lateral, 06/08/2021. Clinical Data: LOW BACK PAIN Comparison: Lateral lumbar spine, 07/17/2019. Findings: There are pedicle screws at L4, L5 and S1 with connecting rods. There is degenerative disc narrowing at L4-L5 and L5-S1 with 0.6 cm anterior subluxation of L5 on S1. The posterior lumbar fusion is stabl e. There is mild limitation of motion. Osteoporosis of the lumbar vertebral bodies is noted. No limitation of motion or subluxation is seen. There is calcification of the wall of the abdominal aorta but no aneurysm. There are clips in the abd omen from surgery. XR/XR lumbar spine f/e only [id number] Impression: 1. Stable posterior lumbar fusion L4-S1. 2. Degenerative disc narrowing at L4-L5 and L5-S1 with 0.6 cm anterior subluxat ion of L5 on S1.
== END 2021-06-08 13:56 | disposition home or self-care (01) ==
LOC: RAD 13:58
PROVIDERS: PCP Nurse Practitioner Family; Visit Provider Nurse Practitioner Family
DX: R32 Unspecified urinary incontinence (principal); M54.50 Low back pain, unspecified; R29.898 Other symptoms and signs involving the musculoskeletal system; M48.07 Spinal stenosis, lumbosacral region; Z98.1 Arthrodesis status
CPT/HCPCS: 72120

== ENCOUNTER 2021-06-13 07:32 | Outpatient (CLI) | payer MEDICARE, MEDICAID, SELFPAY ==
--- NOTE | 2021-06-13 08:45 | MR_ITS ---
WS: [id number] MRI LEFT SHOULDER NONCONTRAST TECHNIQUE: Sagittal T2, coronal T1, T2 and proton density imaging. Axial gradient PDE imaging. CLINICAL INFORMATION: pain COMPARISON: None. FINDINGS: Moderate degenerative arthritis AC joint with mild edema. Slight downsloping acromion. Slight subacro mial spurring. Subacromial space is preserved. Tiny undersurface tear in the distal supraspinatus. Mild tendinopathy distal supraspinatus. Normal in fraspinatus. Normal teres minor. Normal subscapularis. Normal biceps tendon in the bicipital groove. Normal biceps labral anchor. Glenoid labrum appears grossly normal. Normal bone marrow signal. Mild t hickening with T2 signal abnormality involving the intra-articular biceps tendon compatible with tend inopathy MR/MR shoulder LT wo con* [id number] IMPRESSION: 1. Moderate degenerative arthritis at the AC joint with slight downsloping acr omion. Subacromial spurring. 2. Tiny undersurface tear distal supraspinatus with mild tendinopathy. 3. Rotator cuff is otherwise normal. 4. Mild thickening with tendinopathy involving the intra-articular biceps tend on. Normal biceps tendon in the bicipital groove. 5. Normal biceps labral anchor. Glenoid labrum appears grossly normal.
== END 2021-06-13 07:33 | disposition home or self-care (01) ==
LOC: RAD 07:33
PROVIDERS: PCP Nurse Practitioner Family; Visit Provider Orthopaedic Surgery
DX: R52 Pain, unspecified (principal); M25.512 Pain in left shoulder; M19.012 Primary osteoarthritis, left shoulder; M75.22 Bicipital tendinitis, left shoulder
CPT/HCPCS: 73221

== ENCOUNTER → 2021-07-05 15:35 | Outpatient (BNVA) | payer MEDICARE, MEDICAID, SELFPAY | PROVIDERS: PCP Nurse Practitioner Family; Visit Provider Orthopaedic Surgery | DX: M25.511 Pain in right shoulder (principal); M25.512 Pain in left shoulder; M67.911 Unspecified disorder of synovium and tendon, right shoulder; M67.912 Unspecified disorder of synovium and tendon, left shoulder | CPT/HCPCS: 20610; 99213; J0702; J3490 ==

== ENCOUNTER → 2021-07-11 14:04 | Outpatient (BNVA) | payer MEDICARE, MEDICAID, SELFPAY | PROVIDERS: PCP Nurse Practitioner; Visit Provider Internal Medicine Cardiovascular Disease | DX: I10 Essential (primary) hypertension (principal); E78.2 Mixed hyperlipidemia; R53.83 Other fatigue; R00.2 Palpitations; R07.89 Other chest pain; R55 Syncope and collapse; I49.1 Atrial premature depolarization; I49.3 Ventricular premature depolarization | CPT/HCPCS: 93229; 99204 ==

== ENCOUNTER 2021-08-09 09:00 | Outpatient (CLI) | payer MEDICARE, MEDICAID, SELFPAY ==
--- NOTE | 2021-08-09 09:18 | MR_ITS ---
WS: [id number] MRI BRAIN WITHOUT CONTRAST HISTORY: MIOSIS/MUSCLE WEAKNESS COMPARISON: 07/12/2018 TECHNIQUE: Diffusion imaging, multiplanar T1, T2 and FLAIR imaging obtained. No evidence for acute infarct or hemorrhage. Hatfield-white matter differentiation is normal. Moderate progression of T2 and FLAIR signal hyperintensities. Distribution is periventricular and sub cortical throughout the white matter. Patchy and confluent signal abnormalities with progression. No hemorrhage. Ventricles and extra-axial spaces are normal. No inferior displacement of cerebellar tonsils. The sella turcica and pituitary gland are unremarkabl e. Dural venous sinuses and hopland of Teresa demonstrate no abnormality on this unenhanced studies. Paranasal sinuses: Clear. Mastoid air cells: Normal. Calvarium and scalp: Intact. MR/MR head wo con* [id number] IMPRESSION: 1. No acute infarct. 2. Advancing T2 and FLAIR signal hyperintensities throughout the brain since 2 019. More than expected signal abnormalities for patient's age. These findings can be related to smoking history, hypertension, migraines or small vessel dise ase. Less likely demyelination.
== END 2021-08-09 09:01 | disposition home or self-care (01) ==
PROVIDERS: PCP Nurse Practitioner; Visit Provider Nurse Practitioner
DX: H57.03 Miosis (principal); M62.81 Muscle weakness (generalized)
CPT/HCPCS: 70551

== ENCOUNTER 2021-08-10 12:43 | Outpatient (CLI) | payer MEDICARE, MEDICAID, SELFPAY ==
--- NOTE | 2021-08-10 13:45 | USCV_ITS ---
Rachana Gomez Age: 66 Gender: F : 1955 Exam Date: 08/10/2021 13:11 Ordering Phys: Apolinar Lara MD ([email or web address]) Technologist: Scott Christie Exam Location: [facility] – [place] Indication: chest pain BP: 142 / 88 HR: 72 Rhythm: Sinus Technical Quality: Adequate MEASUREMENTS (Male / Female) Normal Values 2D ECHO LV Diastolic Diameter PLAX 3.7 cm 4.2 - 5.9 / 3.9 - 5.3 cm LV Systolic Diameter PLAX 2.5 cm IVS Diastolic Thickness 1.1 cm 0.6 - 1.0 / 0.6 - 0.9 cm IVS Systolic Thickness 1.3 cm LVPW Diastolic Thickness 1.0 cm 0.6 - 1.0 / 0.6 - 0.9 cm LVPW Systolic Thickness 0.9 cm LVOT Diameter 2.0 cm LV Ejection Fraction 2D Teich 58.9 % LV Ejection Fraction MOD 2C 66.7 % LV Ejection Fraction 2C AL 67.1 % LA Diameter 3.2 cm LA Width 3.6 cm LA Height 3.9 cm RA Width 3.2 cm RA Height 4.0 cm Aorta at Sinotubular Diameter 2.4 cm IVC Diameter 2.0 cm M-MODE Aortic Annulus Diameter 3.2 cm LA Ao Ratio MM 1.0 MV E Point Septal Separation 0.8 cm DOPPLER AV Peak Velocity 131.0 cm/s LVOT Peak Velocity 104.0 cm/s AV Area Cont Eq vti 3.0 cm squared AV Area Cont Eq pk 2.5 cm squared MV Peak Velocity 108.0 cm/s MV Area PHT 5.1 cm squared Mitral E to A Ratio 0.9 MV E' Velocity 42.5 cm/s Mitral E to MV E' Ratio 9.3 Mitral E to LV E' Lateral Ratio 11.3 Mitral E to LV E' Septal Ratio 7.9 Right Atrial Pressure 3.0 mmHg RV Acceleration Time 0.1 s RV Ejection Time 0.3 s RV AcT/ET 0.3 FINDINGS Left Ventricle Normal left ventricular size and systolic function, EF 68 %. Mild left ventricular hypertrophy. No regional wall motion abnormalities. Right Ventricle Normal right ventricular size and systolic function. Right Atrium Normal right atrial size. Left Atrium Normal left atrial size. Mitral Valve Mild mitral valve regurgitation. Aortic Valve No gross abnormalities noted Tricuspid Valve No gross abnormalities noted Pulmonic Valve Pulmonic valve not well visualized. Pericardium No pericardial effusion. Aorta Normal ascending aorta dimension. IVC Normal inferior vena cava. CONCLUSIONS Normal left ventricular size and systolic function, EF 68 %. Mild left ventricular hypertrophy. No regional wall motion abnormalities. Mild mitral valve regurgitation. There is no pericardial effusion. There are no intracardiac masses. No similar previous studies are available for comparison Dr Apolinar Lara MD FACC (Electronically Signed) Final Date: 10 August 2021 22:40 S
== END 2021-08-10 12:44 | disposition home or self-care (01) ==
LOC: RAD 12:44
PROVIDERS: PCP Nurse Practitioner; Visit Provider Internal Medicine Cardiovascular Disease
DX: I34.0 Nonrheumatic mitral (valve) insufficiency (principal); R06.00 Dyspnea, unspecified; R07.9 Chest pain, unspecified
CPT/HCPCS: 93306

== ENCOUNTER → 2021-09-05 08:24 | Outpatient (BNVA) | payer MEDICARE, MEDICAID, SELFPAY | PROVIDERS: PCP Nurse Practitioner; Visit Provider Internal Medicine Rheumatology | DX: M05.79 Rheumatoid arthritis with rheumatoid factor of multiple sites without organ or systems involvement (principal); Z11.59 Encounter for screening for other viral diseases; Z98.1 Arthrodesis status; M43.16 Spondylolisthesis, lumbar region; Z71.85 Encounter for immunization safety counseling; Z11.1 Encounter for screening for respiratory tuberculosis | CPT/HCPCS: 73130; 99204 ==

== ENCOUNTER 2021-09-05 19:18 | Emergency (ER) | payer MEDICARE, MEDICAID, SELFPAY ==
[2021-09-05 19:24] VITALS: BP 151/81; PULSE 90; RESP 28; TEMP 37.1; O2SAT 92; BMI 30.9
--- NOTE | 2021-09-05 19:27 | ECG_ITS ---
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 Measurements Intervals [place] Rate: 94 P: 70 [place]: 176 QRS: -3 QRSD: 72 T: 77 QT: 329 QTc: 413 Interpretive Statements SINUS RHYTHM LOW QRS VOLTAGE IN PRECORDIAL LEADS [QRS DEFLECTION < 1.0 mV IN CHEST LEADS] POSSIBLE ANTERIOR MYOCARDIAL INFARCTION , PROBABLY OLD [30 ms Q WAVE IN V3/V4, OR R < 0.2 mV IN V4] Compared to ECG 01/22/2019 12:43:51 Low QRS voltage now present Myocardial infarct finding still present Electronically Signed On 09-06-2021 7:11:08 CDT by Juan Flores M.D. [email or web address]
--- NOTE | 2021-09-05 19:27 | XRR_ITS ---
PROCEDURE INFORMATION: Exam: XR Chest Exam date and time: 09/05/2021 11:39 PM Age: 66 years old Clinical indication: Chest pressure; Patient HX: C/O chest pain; Additional info: Cp TECHNIQUE: Imaging protocol: Radiologic exam of the chest. Views: 1 view. COMPARISON: CR Chest 1 [place] [id number] 01/22/2019 11:28 AM FINDINGS: Lungs: Trace bibasilar atelectasis. No significant airspace consolidation concerning for pneumonia. Pleural spaces: No pneumothorax. No pleural effusion. Heart/Mediastinum: The cardiomediastinal silhouette is within normal limits. Bones/joints: Unremarkable. XR/XR chest 1V portable [id number] IMPRESSION: Trace bibasilar atelectasis. No significant airspace consolidation concerning for pneumonia.
[2021-09-05 19:52] LABS: Basophils % 0.4 %; Eosinophils # 0.2 10^3/uL (0.0-0.8); Eosinophils % 2.5 %; Hematocrit 45.6 % (37.0-47.0); Hemoglobin 14.6 g/dL (11.5-15.3); Lymphocytes # 3.2 10^3/uL (0.8-4.8); Lymphocytes % 33.7 %; Mean Corpuscular Hemoglobin 28.6 pg (28.0-34.0); Mean Corpuscular Volume 89.2 fl (81-99); Mean Platelet Volume 10.2 fL (7.4-10.4); Monocytes # 0.8 10^3/uL (0.2-0.9); Monocytes % 8.1 %; Neutrophils # 5.22 10^3/uL (1.8-7.7); Neutrophils % 54.9 %; Nucleated Red Blood Cells % 0 %; Platelet Count 293 10^3/cmm (130-400); Red Blood Count 5.11 10^6/uL (4.1-5.3); Red Cell Distribution Width 14.3 % (12.1-15.1); White Blood Count 9.5 10^3/uL (4.0-10.0)
[2021-09-05 20:19] LABS: Troponin(5th) Baseline 6 ng/L (0-10)
[2021-09-05 20:27] LABS: Alanine Aminotransferase 11 U/L (0-33); Alkaline Phosphatase 95 IU/L (35-105); Blood Urea Nitrogen 17 mg/dL (8-23); Calcium 9.1 mg/dL (8.5-10.5); Carbon Dioxide 20 mmol/L (22-29); Chloride 102 mmol/L (98-107); Glucose 99 mg/dL (65-115); Lipase 55 U/L (13-60); Osmolality Calculated 288 mOsm/kg (285-295); Sodium 138 mmol/L (136-145); Total Bilirubin 0.2 mg/dL (0.15-1.2)
[2021-09-05 20:28] LABS: Anion Gap 20.4 (5-19); Potassium 4.4 mmol/L (3.5-5.1)
[2021-09-05 20:29] LABS: Aspartate Amino Transferase 16 U/L (0-32)
--- NOTE | 2021-09-05 21:27 | ECG_ITS ---
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 Measurements Intervals [place] Rate: 83 P: 52 PA: 185 QRS: -3 QRSD: 78 T: 67 QT: 368 QTc: 434 Interpretive Statements SINUS RHYTHM LOW QRS VOLTAGE IN PRECORDIAL LEADS [QRS DEFLECTION < 1.0 mV IN CHEST LEADS] PATTERN CONSISTENT WITH PULMONARY DISEASE Compared to ECG 09/05/2021 19:24:41 Myocardial infarct finding no longer present Electronically Signed On 09-07-2021 6:38:06 CDT by Apolinar Lara M.D. [id number]
[2021-09-05 23:09] VITALS: BP 130/79; PULSE 78; RESP 18; TEMP 36.6; O2SAT 96
--- NOTE | 2021-09-05 23:13 | PC.NURSE ---
patient brought back into triage and vitals rechecked , IV to left forearm removed 2ndary to pain. patient c/o increased wrapping around pain. j carlos instructed of wait and awaiting room in back.
[2021-09-05 23:41] LABS: Troponin 5 2HR 9.42 ng/L (0-10); Troponin 5 2HR Delta 3.42 ABS# (0-10)
--- NOTE | 2021-09-05 23:49 | W.ED.CHESTPA ---
HPI - Chest Pain General: Chief Complaint: Chest Pain Stated Complaint: back/chest pain Time Seen by Provider: 09/05/21 23:08 Source: patient and EMS Mode of arrival: EMS Limitations: no limitations History of Present Illness: 66-year-old female states that tonight around 5:30 PM started having some back pain states the pain started in her right upper back and then wrapped around to her chest. States pain is sharp in nature seem to be worse with some movement. She denies any shortness of breath states her pain is improved since been here and is currently 1-2 out of 10. She denies any fevers denies any vomiting or diarrhea. Associated symptoms: Deny abdominal pain, dyspnea, fever(s), nausea or vomiting Review of Systems Const: Denies: fever(s), chills, body aches or change in appetite Eyes: Denies: blurry vision or eye discomfort ENMT: Denies: throat pain or dental pain Card: Reports: chest pain Resp: Denies: dyspnea GI: Denies: abdominal pain, nausea, vomiting or diarrhea : Denies: dysuria Musc: Reports: back pain Skin/Breast: Denies: rash Neuro: Denies: headache(s) Psych: Denies: depression Jose Juan/Lymph: Denies: easy bruising All/Imm: Denies: urticaria PFSH ED PFSH: Medical History Enrolled in chronic care management High risk medication use History of tobacco use Hyperlipidemia Pt had severe muscle cramps with statins and Zetia. Zetia was not bad Hypertension Patient has a family history of aneurysm, father had a aneurysm of the abdominal aorta. Mother had aneurysm in the heart?. She had a CTA of the abdomen and was found to have no evidence of aneurysm. She had an abnormal aortic duplex lamination July 2020 which was unremarkable. Immunization counseling Joint pain Lumbar post-laminectomy syndrome Opioid contract exists Reactive airway disease Recurrent cystitis Seropositive rheumatoid arthritis of multiple sites Smoker Spondylolisthesis at L5-S1 level Ulcer Surgical History H/O gastric bypass (~2000) H/O left wrist surgery H/O: hysterectomy History of cholecystectomy History of lumbar fusion (2006) Hx of appendectomy Status post lumbar spine surgery for decompression of spinal cord (~1995) Status post lumbar spine surgery for decompression of spinal cord (~1991) Family History Grandmother Breast cancer Maternal Cancer Mother Heart abnormality, Onset Age: 47 aneurysm ruptured CAD (coronary artery disease) at 57 of heart aneurysm Cancer Father Abdominal aneurysm, Onset Age: 67 of the same Hypertension Family/Other CAD (coronary artery disease) Cancer Brother CAD (coronary artery disease) always had heart problems Diabetes Lung disease Brother Diabetes Grandfather Stroke Other Aneurysm of abdominal aorta Denies family history of Clotting disorder Dementia Chronic kidney disease (CKD) Suicide Anesthesia complication Bleeding disorder Social History Smoking and tobacco status: current every day smoker (1.5 PPD) cigarettes [ Other cigarette details: 1 pk in the last week ] Alcohol intake: never Caregiver/support person: Yes Lives independently: Yes Household members: children Marital status: Legally Current occupational status: disabled Current occupation: disabled History of recent travel: No Physical Exam Const: COMMON NORMALS: no acute distress, patient oriented x3 and healthy appearing HENMT: COMMON NORMALS: normocephalic and atraumatic HEAD & SCALP: normocephalic and atraumatic Eye: COMMON NORMALS: Equal, round and reactive pupils present and EOMs intact bilaterally PUPIL: Yes Equal, round and reactive pupils present Neck/C-Spine: COMMON NORMALS: full ROM and supple Chest: COMMONS NORMALS: normal inspection of the chest and normal palpation of entire chest wall Resp: COMMON NORMALS: normal respiratory effort, No retractions, No use of accessory muscles and clear to auscultation bilaterally AUSCULTATION: clear to auscultation bilaterally Cardio: COMMON NORMALS: regular rate, regular rhythm and No murmurs present (Cardio) RATE: regular rate RHYTHM: regular rhythm GI: COMMON NORMALS: Normal to inspection, nondistended, normoactive bowel sounds present, Soft to palpation, non-tender and no masses PALPATION: Yes Soft to palpation Extremity: COMMON NORMALS: normal to inspection and full ROM Neuro: COMMON NORMALS: patient oriented x3, moves all extremities and no focal motor deficits Psych: COMMON NORMALS: mental status grossly normal, Normal thought process present and cooperative THOUGHT PROCESS: Normal thought process present Skin: COMMON NORMALS: no rashes or lesions noted and no wounds GENERAL SKIN EXAM: no rashes or lesions noted Course Vital Signs: Vital signs: Vital Signs Temperature 98 F 09/05/21 23:09 Pulse Rate 75 09/06/21 02:00 Respiratory Rate 15 09/06/21 02:00 Blood Pressure 129/74 09/06/21 02:00 Pulse Oximetry 93 09/06/21 01:30 Oxygen Delivery Me thod 09/05/21 23:09 MDM - Chest Pain Medical Decision Making Patient presents for chest pains atypical in nature her troponins here are negative patient CT showed a possible pneumonia versus atelectasis we will start her on antibiotic she is stable for discharge she already has cardiology follow-up and follow-up as scheduled return if worsening she understands agrees to plan. Lab Data : 09/05/21 19:33 09/05/21 19:33 Radiology Impressions Chest X-Ray 09/05/21 19:27 IMPRESSION: Trace bibasilar atelectasis. No significant airspace consolidation concerning for pneumonia. Chest CTA 09/06/21 00:22 IMPRESSION: 1. No pulmonary embolism identified. 2. Focal area of peripheral consolidation in the right middle lobe may be consistent with pneumonia versus atelectasis. The remainder of the lung parenchyma is clear. 3. Small hiatal hernia. Laboratory Results WBC 9.5 10^3/uL (4.0-10.0) 09/05/21 19:33 RBC 5.11 10^6/uL (4.1-5.3) 09/05/21 19:33 Hgb 14.6 g/dL (11.5-15.3) 09/05/21 19:33 Hct 45.6 % (37.0-47.0) 09/05/21 19:33 MCV 89.2 fl (81-99) 09/05/21 19:33 MCH 28.6 pg (28.0-34.0) 09/05/21 19: MCHC 32.0 g/dL (30.0-36.0) 09/05/21 19:33 RDW 14.3 % (12.1-15.1) 09/05/21 19:33 Plt Count 293 10^3/cmm (130-400) 09/05/21 19: MPV 10.2 fL (7.4-10.4) 09/05/21 19:33 Neut % (Auto) 54.9 % 09/05/21 19: Lymph % (Auto) 33.7 % 09/05/21 19: Mcmullen % (Auto) 8.1 % 09/05/21 19:33 Eos % (Auto) 2.5 % 09/05/21 19:33 Baso % (Auto) 0.4 % 09/05/21 19: Neut # (Auto) 5.22 10^3/uL (1.8-7.7) 09/05/21 19: Lymph # (Auto) 3.2 10^3/uL (0.8-4.8) 09/05/21 19: Mcmullen # (Auto) 0.8 10^3/uL (0.2-0.9) 09/05/21 19: Eos # (Auto) 0.2 10^3/uL (0.0-0.8) 09/05/21 19: Baso # (Auto) 0.0 10^3/uL (0.0-0.1) 09/05/21 19: Nucleated RBC % (auto) 0 % 09/05/21: Nucleated RBCs # 0.0 /100WBC 09/05/21 19: D-Dimer 0.96 ug/mIFEU (0-0.59) H 09/05/21 23:58 Sodium 138 mmol/L (136-145) 09/05/21 19:33 Potassium 4.4 mmol/L (3.5-5.1) 09/05/21 19:33 Chloride 102 mmol/L (98-107) 09/05/21 19:33 Carbon Dioxide 20 mmol/L (22-29) L 09/05/21 19:33 Anion Gap 20.4 (5-19) H 09/05/21 19:33 BUN 17 mg/dL (8-23) 09/05/21 19:33 Creatinine 0.8 mg/dL (0.5-0.9) 09/05/21 19:33 GFR Calculation 72.0 mL/min (90-130) L 09/05/21 19:33 Glucose 99 mg/dL (65-115) 09/05/21 19:33 Calculated Osmolality 288 mOsm/kg (285-295) 09/05/21 19:33 Calcium 9.1 mg/dL (8.5-10.5) 09/05/21 19:33 Total Bilirubin 0.2 mg/dL (0.15-1.2) 09/05/21 19:33 AST 16 U/L (0-32) 09/05/21 19:33 ALT 11 U/L (0-33) 09/05/21 19:33 Alkaline Phosphatase 95 IU/L (35-105) 09/05/21 19:33 Troponin T Baseline 6 ng/L (0-10) 09/05/21 19:33 Troponin T 120 Minute 9.42 ng/L (0-10) 09/05/21 23:18 Delta Troponin T 3.42 ABS# (0-10) 09/05/21 23:18 Troponin T Hi Sens 6Hr 6.96 ng/L (0-10) 09/06/21 01:09 Troponin T Hi Sens 6Hr Delta 0.96 ng/L (0-12) 09/06/21 01:09 Total Protein 7.0 g/dL (6.6-8.7) 09/05/21 19:33 Albumin 4.0 g/dL (3.5-5.2) 09/05/21 19:33 Globulin 3.0 g/dL (1.3-4.6) 09/05/21 19:33 Lipase 55 U/L (13-60) 09/05/21 19:33 EKG Data EKG 1: I personally reviewed and interpreted this EKG as follows: EKG interpretation date: 09/05/21 EKG interpretation time: 19:24 Interpretation: nsr hr [address] or t wave abnormalities qrs 72 qtc 381 EKG 2: I personally reviewed and interpreted this EKG as follows: EKG interpretation date: 09/05/21 EKG interpretation time: 23:14 Interpretation: nsr hr [address] or t wave abnormalities qrs 78 qtc 408 Discharge Plan Discharge Patient Disposition: Home Clinical Impression: Chest pain, Pneumonia Condition: Stable Prescriptions: New doxycycline hyclate 100 mg capsule 100 mg PO BID 7 Days Qty: 14 0RF No Action coenzyme Q10 [Co Q-10] 200 mg capsule 200 mg PO DAILY tizanidine 4 mg tablet 4 mg PO TID PRN (Reason: muscle spasticity) Qty: 90 0RF triamcinolone acetonide 0.1 % ointment 1 applic topical BID Qty: 80 0RF Rx Instructions: to itchy areas prn ammonium lactate 12 % cream 1 applic topical DAILY Qty: 385 3RF Rx Instructions: neck down sucralfate [Carafate] 1 gram tablet 1 g PO Q6H Qty: 360 2RF albuterol sulfate 2.5 mg/0.5 mL solution for nebulization 2.5 mg INHALATION Q4H PRN [id number] Injectable IM calcium carbonate 600 mg calcium (1,500 mg) tablet 1,200 mg PO DAILY (DME) ASO ankle brace See Rx Instructions .Route .MEDSUPPLY Qty: 1 0RF Rx Instructions: As directed All Day Allergy (cetirizine) 10 mg capsule 10 mg PO DAILY PRN zolpidem [Ambien] 10 mg tablet 10 mg PO .at night PRN (Reason: insomnia) Qty: 30 2RF diclofenac sodium 1 % gel 2 g TOPICAL QID Qty: 100 1RF tramadol 50 mg tablet 50 mg PO TID PRN (Reason: pain) Qty: 60 1RF prednisone 10 mg tablet See Rx Instructions PO DAILY Qty: 90 1RF Rx Instructions: take BID [id number] then 1 tab daily [id number] then stay on 0.5 tab daily orally daily; lamotrigine 200 mg tablet 200 mg PO DAILY amlodipine 10 mg tablet 10 mg PO DAILY 90 Days Qty: 90 3RF albuterol sulfate [ProAir HFA] 90 mcg/actuation HFA aerosol inhaler 2 puff INHALATION Q6H PRN (Reason: shortness of breath or wheezing) Qty: 18 3RF (DME) OneTouch Ultra Blue Test Strip Strip See Rx Instructions .ROUTE .MEDSUPPLY Qty: 100 3RF Rx Instructions: As directed fluticasone propionate [Flonase Allergy Relief] 50 mcg/actuation spray,suspension 1 spray intranasal DAILY Qty: 15.8 5RF Rx Instructions: administer into each nostril Breo Ellipta 200-25 mcg/dose blister with device See Rx Instructions .ROUTE .COMPLEX Qty: 180 0RF Dose Instruction: INHALE 1 PUFF BY MOUTH DAILY Rx Instructions: INHALE 1 PUFF BY MOUTH DAILY ezetimibe 10 mg tablet See Rx Instructions .ROUTE .COMPLEX Qty: 90 0RF Dose Instruction: TAKE 1 TABLET BY MOUTH DAILY Rx Instructions: TAKE 1 TABLET BY MOUTH DAILY magnesium oxide 400 mg (241.3 mg magnesium) tablet 400 mg PO BID Qty: 180 3RF dexlansoprazole [Dexilant] 30 mg capsule,biphase delayed releas See Rx Instructions .ROUTE .COMPLEX Qty: 90 0RF Dose Instruction: TAKE 1 CAPSULE BY MOUTH DAILY Rx Instructions: TAKE 1 CAPSULE BY MOUTH DAILY metoprolol tartrate 25 mg tablet 25 mg PO BID Qty: 180 3RF olmesartan 40 mg tablet See Rx Instructions .ROUTE .COMPLEX Qty: 90 3RF Dose Instruction: TAKE 1 TABLET BY MOUTH DAILY Rx Instructions: TAKE 1 TABLET BY MOUTH DAILY multivitamin Capsule 1 cap PO DAILY Discharge Orders: Discharge ED (Routine); Ordered 09/06/21 Ordered By: Sherry Jean Referrals: Warren Grigsby FNP [Primary Care Provider] - 1-3 days Discharge Diet: Advance as tolerated Discharge Activity: Resume usual activity Patient Instructions: Chest Pain (ED), Pneumonia (ED) Coding Level of Care Code ED Dust 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
[2021-09-05 23:57] VITALS: RESP 20
[2021-09-05] MEDS: fentaNYL 50 mcg/mL INJ 2mL IVP (23:57)
[2021-09-05] MEDS: ondansetron 2 mg/ML SDV 2 mL 4 MG IVP (23:57)
[2021-09-06] VITALS: BP 186/98; PULSE 74; RESP 20; O2SAT 96
[2021-09-06 00:21] LABS: D Dimer 0.96 ug/mIFEU (0-0.59)
--- NOTE | 2021-09-06 00:22 | CTR_ITS ---
PROCEDURE INFORMATION: Exam: CTA Chest With Contrast Exam date and time: 09/06/2021 12:50 AM Age: 66 years old Clinical indication: Pain and abnormal findings; Abnormal diagnostic tests; Elevated d-dimer; Chest pressure; Prior surgery; Surgery type: Breast aug. Patient HX: C/O chest pain with radiation to RT upper back. Elevated ddimer. ; Additional info: Cp TECHNIQUE: Imaging protocol: Computed tomographic angiography of the chest with contrast. 3D rendering (Not supervised by radiologist): MIP and/or 3D reconstructed images were created by the technologist. Radiation optimization: All CT scans at this facility use at least one of these dose optimization techniques: automated exposure control; mA and/or kV adjustment per patient size (includes targeted exams where dose is matched to clinical indication); or iterative reconstruction. Contrast material: OMNI 350; Contrast volume: 64 ml; Contrast route: INTRAVENOUS (IV); COMPARISON: CT Chest/Abdomen/Pelvis w IV* 02/06/2015 12:41 AM RADIATION DOSE METRICS: Total DLP (mGy-cm): 387.36 FINDINGS: Pulmonary arteries: No central or segmental filling pulmonary artery filling defects are identified. Aorta: The aorta is not opacified with contrast. The aorta is normal in course and caliber. Lungs: Dependent bibasilar atelectasis. Peripheral consolidation in the lateral segment of the right middle lobe along the peripheral margin adjacent to the oblique and horizontal fissures measuring up to 1.7 cm. Pleural spaces: No pneumothorax. No pleural effusion. Heart: The heart is within normal limits for size. No pericardial effusion is seen. Lymph nodes: Calcified left hilar lymph node. Gallbladder and bile ducts: The gallbladder is surgically absent. Stomach and bowel: Postsurgical changes in the stomach noted. Small hiatal hernia. Bones/joints: Multilevel degenerative changes in the spine. Soft tissues: Partially visualized bilateral breast implants noted. CT/CT angio chest PE protcl [id number] IMPRESSION: 1. No pulmonary embolism identified. 2. Focal area of peripheral consolidation in the right middle lobe may be consistent with pneumonia versus atelectasis. The remainder of the lung parenchyma is clear. 3. Small hiatal hernia.
[2021-09-06] MEDS: ondansetron 2 mg/ML SDV 2 mL 4 MG IVP (00:48)
[2021-09-06] MEDS: iohexol 350 mg/mL 100 mL Btl IV (01:04)
--- NOTE | 2021-09-06 01:27 | ECG_ITS ---
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 Measurements Intervals [place] Rate: 64 P: 44 [place]: 191 QRS: -29 QRSD: 88 T: 56 QT: 403 QTc: 418 Interpretive Statements SINUS RHYTHM BORDERLINE LEFT AXIS DEVIATION [QRS AXIS < -20] Compared to ECG 09/05/2021 23:14:06 No significant changes Electronically Signed On 09-07-2021 6:39:47 CDT by Apolinar Lara M.D. [id number]
[2021-09-06 01:30] VITALS: BP 135/73; PULSE 70; RESP 19; O2SAT 93
[2021-09-06 01:35] LABS: Troponin 5 6HR 6.96 ng/L (0-10)
[2021-09-06 01:45] LABS: Troponin 5 6HR Delta 0.96 ng/L (0-12)
[2021-09-06 02:00] VITALS: BP 129/74; PULSE 75; RESP 15
[2021-09-06 03:15] VITALS: BP 132/68; PULSE 59; RESP 20; O2SAT 94
[2021-09-06 03:47] VITALS: BP 132/68; PULSE 59; RESP 20; O2SAT 94
== END 2021-09-06 03:52 | disposition home or self-care (01) ==
PROVIDERS: Emergency Provider Emergency Medicine; PCP Nurse Practitioner
DX: R07.9 Chest pain, unspecified (principal); J18.9 Pneumonia, unspecified organism; E78.5 Hyperlipidemia, unspecified; I10 Essential (primary) hypertension; F17.210 Nicotine dependence, cigarettes, uncomplicated
CPT/HCPCS: 36415; 71045; 71275; 80053; 83540; 83690; 84484; 85025; 85378; 86480; 86803; 86812; 87517; 93005; 96374; 96375; 96376; 99285; J2405; J3010; Q9967

== ENCOUNTER 2021-09-07 13:56 | Oncology outpatient (recurring) (ONCR) | payer MEDICARE, MEDICAID, SELFPAY ==
[2021-09-17 11:34] LABS: Basophils # 0.1 10^3/uL (0.0-0.1); Basophils % 0.4 %; Eosinophils # 0.1 10^3/uL (0.0-0.8); Eosinophils % 0.5 %; Hematocrit 45.2 % (37.0-47.0); Hemoglobin 14.5 g/dL (11.5-15.3); Lymphocytes # 2.3 10^3/uL (0.8-4.8); Lymphocytes % 18.7 %; Mean Corpuscular HGB Conc 32.1 g/dL (30.0-36.0); Mean Corpuscular Hemoglobin 28.3 pg (28.0-34.0); Mean Corpuscular Volume 88.3 fl (81-99); Mean Platelet Volume 10.2 fL (7.4-10.4); Monocytes # 0.5 10^3/uL (0.2-0.9); Monocytes % 4.5 %; Neutrophils % 75.3 %; Nucleated Red Blood Cells % 0 %; Platelet Count 362 10^3/cmm (130-400); Red Blood Count 5.12 10^6/uL (4.1-5.3); Red Cell Distribution Width 14.2 % (12.1-15.1); White Blood Count 12.1 10^3/uL (4.0-10.0)
[2021-09-17 11:49] LABS: Ferritin 19 ng/mL (15-150); Homocysteine 18.13; Iron 63 ug/dL (37-145); Percent Saturation 15.4 % (20-50); Total Iron Binding Capacity 407 mcg/dl; Unsaturated Iron Binding 344 ug/dL (112-347)
[2021-09-17 12:04] LABS: Vitamin B12 508 pg/mL (232-1245)
[2021-09-17 12:05] LABS: Folate Level 6.8 ng/mL (4.8-37.3)
[2021-09-17 12:58] LABS: 25 Hydroxy Vitamin D > 100 ng/mL (30-100)
[2021-09-19 18:43] LABS: Copper Level 122 mcg/dL (70-175)
[2021-09-21 22:43] LABS: Methylmalonic Acid 343 nmol/L (87-318)
== END 2021-10-05 23:59 | disposition home or self-care (01) ==
PROVIDERS: PCP Nurse Practitioner; Visit Provider Internal Medicine Medical Oncology
DX: D50.9 Iron deficiency anemia, unspecified (principal); D51.9 Vitamin B12 deficiency anemia, unspecified; E55.9 Vitamin D deficiency, unspecified; K90.9 Intestinal malabsorption, unspecified; F17.210 Nicotine dependence, cigarettes, uncomplicated; Z79.899 Other long term (current) drug therapy
CPT/HCPCS: 36415; 82306; 82525; 82607; 82728; 82746; 83090; 83540; 83550; 83921; 85025; 99204

== ENCOUNTER → 2021-09-12 13:51 | Outpatient (BNVA) | payer MEDICARE, MEDICAID, SELFPAY | PROVIDERS: PCP Nurse Practitioner; Visit Provider Internal Medicine Cardiovascular Disease | DX: R07.89 Other chest pain (principal); E78.2 Mixed hyperlipidemia; J45.40 Moderate persistent asthma, uncomplicated; I10 Essential (primary) hypertension; I77.9 Disorder of arteries and arterioles, unspecified; F17.210 Nicotine dependence, cigarettes, uncomplicated | CPT/HCPCS: 99214 ==

== ENCOUNTER 2021-09-27 13:55 | Outpatient (CLI) | payer MEDICARE, MEDICAID, SELFPAY ==
--- NOTE | 2021-09-27 14:12 | PFTS_ITS ---
Date of Study:09/27/21 Date of Dictation: MECHANICS: Forced vital capacity (FVC) is . Forced expiratory volume in one second (FEV1) is . FEV1/FVC is . FLOW VOLUME LOOP: . LUNG VOLUMES: Total lung capacity (TLC) is . Residual volume (RV) is . DIFFUSING CAPACITY FOR CARBON MONOXIDE: . INTERPRETATION: The pulmonary function tests are . mechanics and lung volumes. Gas exchange (DLCO) is . MTDD
== END 2021-09-27 13:56 | disposition home or self-care (01) ==
LOC: RT 13:56
PROVIDERS: PCP Nurse Practitioner; Visit Provider Internal Medicine Rheumatology
DX: M06.9 Rheumatoid arthritis, unspecified (principal); R09.89 Other specified symptoms and signs involving the circulatory and respiratory systems
CPT/HCPCS: 94060; 94726; J7611

== ENCOUNTER 2021-10-07 08:46 | Outpatient (CLI) | payer MEDICARE, MEDICAID, SELFPAY ==
--- NOTE | 2021-10-07 09:18 | CT_ITS ---
WS: [id number] LDCT LUNG CANCER SCREENING HISTORY: HX OF TOBACCO USE/NICOTINE Dependence, cigarettes TECHNIQUE: Axial imaging performed from the apices to 1 cm below the costophrenic angles. Coronal and sagittal reformats are submitted with axial MIP series. All CT scans at [facility] use at least one of these dose optimization techniques: automated exposure control; mA and/or kV adjustment per patient size (includes targeted exams where dose is matched to clinical indication); or iterativ e reconstruction. DLP: 75.81 mGy.cm DIvol: Mean CTDIvol: 1.60 (mGy) COMPARISON: 04/14/2019 and 07/20/2020 Diagnostic quality: Satisfactory Lung Nodules: New noncalcified nodule in the superior segment LEFT lower lobe measures 5 mm. Stable R IGHT lower lobe pulmonary nodule measuring 4 mm. No additional nodules are identified of concern. Hyp erexpansion with chronic emphysema. Heart: Normal size heart. No pericardial effusion. Other findings: Mild atherosclerosis aorta. No adenopathy. Bilateral breast implants. Moderate-sized hiatal hernia with postoperative clips at the GE junction. History of prior gastric bypass. No adrena l mass. Our cholecystectomy. Increase in thoracic kyphosis. CT/CT lung screening [id number] IMPRESSION: LUNG-RADS: 3-Probably Benign FOLLOW UP: 6 Month LDCT OTHER FINDINGS (S MODIFIER): None.
== END 2021-10-07 08:47 | disposition home or self-care (01) ==
LOC: RAD 08:48
PROVIDERS: PCP Nurse Practitioner; Visit Provider Nurse Practitioner
DX: Z12.2 Encounter for screening for malignant neoplasm of respiratory organs (principal); Z87.891 Personal history of nicotine dependence
CPT/HCPCS: 71271

== ENCOUNTER 2021-10-07 10:09 | Outpatient (CLI) | payer MEDICARE, MEDICAID, SELFPAY ==
--- NOTE | 2021-10-07 10:30 | CTR_ITS ---
PROCEDURE INFORMATION: Exam: CT Chest Without Contrast; Diagnostic Exam date and time: 10/07/2021 10:23 AM Age: 66 years old Clinical indication: Pain and condition or disease; Other: Rheumatoid arthritis; Angina pectoris; Prior surgery; Surgery type: Gb, breast reduction; Additional info: M06.9 - rheumatoid arthritis, unspecified TECHNIQUE: Imaging protocol: Diagnostic computed tomography of the chest without contrast. Radiation optimization: All CT scans at this facility use at least one of these dose optimization techniques: automated exposure control; mA and/or kV adjustment per patient size (includes targeted exams where dose is matched to clinical indication); or iterative reconstruction. COMPARISON: CT angio chest PE protcl [id number] 09/06/2021 12:50 AM RADIATION DOSE METRICS: Total DLP (mGy-cm): 700.67 FINDINGS: Tubes, catheters and devices: Bilateral mammographic implants. Lungs: Stable small peripheral 3 mm right upper lobe nodule image 5/28. 4 mm right lower lobe nodule image 5/30. New. Left upper lobe granuloma. Stable left upper lobe 4 mm nodule superior segment image 5/13. Pleural spaces: Unremarkable. No pneumothorax. No pleural effusion. Heart: Mild coronary artery calcifications. Lymph nodes: Unremarkable. No enlarged lymph nodes. Vasculature: Unremarkable. No aortic aneurysm. Diaphragm: Bariatric surgery with small hiatal hernia. Gallbladder and bile ducts: Cholecystectomy clips. Bones/joints: Unremarkable. No acute fracture. Soft tissues: Unremarkable. Other findings: Granulomatous disease involving the left hilum. CT/CT chest wo con [id number] IMPRESSION: 1. Small nodules. Most are stable with 1 new. 2. For patients at low risk (minimal or absent history of smoking and of other known risk factors), no routine follow-up is indicated. For patients at high risk (history of smoking or of other known risk factors), consider optional CT Chest at 12 months. (Reference: Bharat) REFERENCES: Bharat Dover, et al. Guidelines for Management of Incidental Pulmonary Nodules Detected on CT Images: From the Fleischner Society 2017. Radiology. 2017;284(1):228-243.
== END 2021-10-07 10:10 | disposition home or self-care (01) ==
PROVIDERS: PCP Nurse Practitioner; Visit Provider Internal Medicine Rheumatology
DX: R06.9 Unspecified abnormalities of breathing (principal); R91.8 Other nonspecific abnormal finding of lung field; Z12.2 Encounter for screening for malignant neoplasm of respiratory organs; Z87.891 Personal history of nicotine dependence
CPT/HCPCS: 71250; 71271

== ENCOUNTER 2021-10-07 10:12 | Outpatient (CLI) | payer MEDICARE, MEDICAID, SELFPAY ==
--- NOTE | 2021-10-07 10:18 | CTR_ITS ---
PROCEDURE INFORMATION: Exam: CT Neck With Contrast Exam date and time: 10/07/2021 10:29 AM Age: 66 years old Clinical indication: Prior surgery; Surgery type: Tmj; Patient HX: RT ear pain with swelling around ear, but none today x 1 year; Additional info: Otalgia right ear, localized swelling mass and lump neck TECHNIQUE: Imaging protocol: Computed tomography of the neck with contrast. Radiation optimization: All CT scans at this facility use at least one of these dose optimization techniques: automated exposure control; mA and/or kV adjustment per patient size (includes targeted exams where dose is matched to clinical indication); or iterative reconstruction. Contrast material: OMNI 350; Contrast volume: 95 ml; Contrast route: INTRAVENOUS (IV); COMPARISON: CT cervical spin wo con* [id number] 06/08/2018 5:18 PM RADIATION DOSE METRICS: Total DLP (mGy-cm): 270.46 FINDINGS: Pharynx: Unremarkable. No significant tonsillar enlargement. Larynx: Unremarkable. Epiglottis is normal. Prevertebral and retropharyngeal spaces: Unremarkable. Salivary glands: Normal. Glands are normal in size. Thyroid: Normal. No enlarged or calcified nodules. Lymph nodes: Unremarkable. No lymphadenopathy. Trachea: Visualized trachea is unremarkable. Lungs: Visualized lungs appear clear. Bones/joints: There is no evidence of spinal stenosis or neural foraminal narrowing. Temporomandibular joints appear well aligned. Internal derangement or meniscal pathology not evaluated with CT. Vasculature: There is atherosclerotic change at carotid bifurcations. There is no hemodynamically significant carotid or vertebral artery stenosis. Soft tissues: No evidence of soft tissue abscess or definite soft tissue swelling. No evidence focal mass. CT/CT neck w con* [id number] IMPRESSION: Unremarkable soft tissue neck.
[2021-10-07] MEDS: iohexol 350 mg/mL 100 mL Btl IV (10:38)
== END 2021-10-07 10:13 | disposition home or self-care (01) ==
LOC: RAD 10:14
PROVIDERS: PCP Nurse Practitioner; Visit Provider Specialist
DX: H92.01 Otalgia, right ear (principal); R22.1 Localized swelling, mass and lump, neck
CPT/HCPCS: 70491

== ENCOUNTER 2021-10-18 12:54 | Oncology outpatient (recurring) (ONCR) | payer MEDICARE, MEDICAID, SELFPAY ==
[2021-10-18] MEDS: ferric carboxy (IVPB) 750 MG in sodium chloride 0.9% (100 ml) 100 ML 345 MG IV (13:15)
[2021-10-18 13:46] VITALS: BP 119/76; PULSE 71; RESP 16; TEMP 36.7; O2SAT 95
== END 2021-11-04 23:59 | disposition home or self-care (01) ==
PROVIDERS: PCP Nurse Practitioner; Visit Provider Internal Medicine Medical Oncology
DX: Z79.899 Other long term (current) drug therapy (principal); E61.1 Iron deficiency; M67.911 Unspecified disorder of synovium and tendon, right shoulder; M25.512 Pain in left shoulder
CPT/HCPCS: 96365; 99213; 99214; J1439

== ENCOUNTER 2021-10-25 06:00 | Outpatient (RCR) | payer MEDICARE, MEDICAID, SELFPAY | END 2021-11-04 23:59 | disposition home or self-care (01) | LOC: GPT 06:00 | PROVIDERS: PCP Nurse Practitioner; Visit Provider Orthopaedic Surgery | DX: M25.512 Pain in left shoulder (principal); M25.511 Pain in right shoulder | CPT/HCPCS: 97110; 97140; 97162 ==

== ENCOUNTER → 2021-10-31 13:31 | Outpatient (BNVA) | payer MEDICARE, MEDICAID, SELFPAY | PROVIDERS: PCP Nurse Practitioner; Visit Provider Internal Medicine Rheumatology | DX: M05.79 Rheumatoid arthritis with rheumatoid factor of multiple sites without organ or systems involvement (principal); R94.2 Abnormal results of pulmonary function studies; Z79.899 Other long term (current) drug therapy; Z71.85 Encounter for immunization safety counseling; R91.8 Other nonspecific abnormal finding of lung field; Z98.890 Other specified postprocedural states; Z98.84 Bariatric surgery status; M76.61 Achilles tendinitis, right leg; M76.62 Achilles tendinitis, left leg | CPT/HCPCS: 99214 ==

== ENCOUNTER 2021-11-05 06:00 | Outpatient (RCR) | payer MEDICARE, MEDICAID, SELFPAY | END 2021-12-05 23:59 | disposition home or self-care (01) | LOC: GPT 06:00 | PROVIDERS: PCP Nurse Practitioner; Visit Provider Orthopaedic Surgery | DX: M25.512 Pain in left shoulder (principal); M25.511 Pain in right shoulder | CPT/HCPCS: 97110; 97140; 97535 ==

== ENCOUNTER → 2021-11-17 08:53 | Outpatient (BNVA) | payer MEDICARE, MEDICAID, SELFPAY | PROVIDERS: PCP Nurse Practitioner; Visit Provider Internal Medicine Pulmonary Disease | DX: R91.8 Other nonspecific abnormal finding of lung field (principal); M05.79 Rheumatoid arthritis with rheumatoid factor of multiple sites without organ or systems involvement; J45.40 Moderate persistent asthma, uncomplicated; F17.210 Nicotine dependence, cigarettes, uncomplicated; Z98.84 Bariatric surgery status; D50.9 Iron deficiency anemia, unspecified | CPT/HCPCS: 99204 ==

== ENCOUNTER 2021-11-21 13:55 | Oncology outpatient (recurring) (ONCR) | payer MEDICARE, MEDICAID, SELFPAY ==
[2021-11-17 10:40] LABS: Basophils # 0.1 10^3/uL (0.0-0.1); Basophils % 0.6 %; Eosinophils # 0.7 10^3/uL (0.0-0.8); Eosinophils % 5.8 %; Hematocrit 48.4 % (37.0-47.0); Hemoglobin 15.3 g/dL (11.5-15.3); Lymphocytes # 3.4 10^3/uL (0.8-4.8); Lymphocytes % 28.4 %; Mean Corpuscular HGB Conc 31.6 g/dL (30.0-36.0); Mean Corpuscular Hemoglobin 28.5 pg (28.0-34.0); Mean Corpuscular Volume 90.3 fl (81-99); Mean Platelet Volume 10.6 fL (7.4-10.4); Monocytes # 1.3 10^3/uL (0.2-0.9); Monocytes % 10.9 %; Neutrophils # 6.35 10^3/uL (1.8-7.7); Neutrophils % 53.9 %; Nucleated Red Blood Cells % 0 %; Platelet Count 258 10^3/cmm (130-400); Red Blood Count 5.36 10^6/uL (4.1-5.3); Red Cell Distribution Width 17.2 % (12.1-15.1); White Blood Count 11.8 10^3/uL (4.0-10.0)
[2021-11-17 11:07] LABS: Alanine Aminotransferase 16 U/L (0-33); Albumin Level 4.3 g/dL (3.5-5.2); Alkaline Phosphatase 101 U/L (35-105); Anion Gap 14.3 (5-19); Aspartate Amino Transferase 14 U/L (0-32); Blood Urea Nitrogen 21 mg/dL (8-23); Calcium 9.4 mg/dL (8.5-10.5); Carbon Dioxide 28 mmol/L (22-29); Chloride 103 mmol/L (98-107); Ferritin 367 ng/mL (15-150); Globulin 3.1 g/dL (1.3-4.6); Glucose 74 mg/dL (65-115); Iron 99 ug/dL (37-145); Osmolality Calculated 294 mOsm/kg (285-295); Percent Saturation 32.7 % (20-50); Potassium 4.3 mmol/L (3.5-5.1); Sodium 141 mmol/L (136-145); Total Bilirubin 0.3 mg/dL (0.15-1.2); Total Iron Binding Capacity 302 mcg/dl; Total Protein 7.4 g/dL (6.6-8.7); Unsaturated Iron Binding 203 ug/dL (112-347)
[2021-11-18 17:07] LABS: Alternaria Alternata (M6) Ige <0.10 kU/L; Alternaria Class 0; Bermuda Class 0; Bermuda Grass (G2) Ige <0.10 kU/L; Cat Dander (E1) Ige <0.10 kU/L; Cat Dander Class 0; Common Ragweed (Short) (W1) Ig <0.10 kU/L; D. Farinae Class 0; Dermatophagoides Class 0; Dermatophagoides Farinae (D2) <0.10 kU/L; Dermatophagoides Pteronyssinus <0.10 kU/L; Dog Dander (E5) Ige <0.10 kU/L; Dog Dander Class 0; Elm (T8) Ige <0.10 kU/L; Elm Class 0; English Plantain (W9) Ige <0.10 kU/L; English Plantain Class 0; House Dust (Greer) (H1) Ige <0.10 kU/L; House Dust (Hollister- Stier) <0.10 kU/L; House Dust Class 0; Immunoglobulin E 70 kU/L (<OR=114); Johnson Grass (G10) Ige <0.10 kU/L; Johnson Grass Cl 0; June Grass Class 0; June Grass(Kentucky Blue) (G8) <0.10 kU/L; Lamb'S Quarters (Goose Foot) <0.10 kU/L; Lamb'S Quarters Class 0; Maple (Box Elder) (T1) Ige <0.10 kU/L; Maple Class 0; Meadow Fescue (G4) Ige <0.10 kU/L; Meadow Fescue Class 0; Mucor Racemosus Class 0; Oak (T7) Ige <0.10 kU/L; Oak Class 0; Orchard Grass (Cocksfoot) (G3) <0.10 kU/L; Penicillium Class 0; Penicillium Notatum (M1) Ige <0.10 kU/L; Perennial Rye Grass (G5) Ige <0.10 kU/L; Perennial Rye Grass Class 0; Ragweeed Class 0; Rough Marsh Elder (W16) Ige <0.10 kU/L; Rough Marsh Elder Class 0; Sweet Vernal Class 0; Sweet Vernal Grass (G1) Ige <0.10 kU/L; Timothy Grass (G6) Ige <0.10 kU/L; Timothy Grass Class 0
[2021-11-21 15:54] LABS: Add Urine Microscopic? NO; Charge for UA Resulting for Rev
[2021-11-21 16:09] LABS: Urine Appearance Clear (CLEAR); Urine Color Yellow (Yellow)
[2021-11-21 16:10] LABS: Bilirubin Urine Neg (Negative); Blood Urine Neg (Negative); Glucose Urine UA Norm (Normal); Ketones Urine Negative (Negative); Leukocyte Esterase Urine Negative (Negative); Nitrate Urine Negative (Negative); Protein Urine Neg (Negative); Specific Gravity, Urine 1.015 (1.005-1.030); Sulfosalicylic Acid Urine Negative (Negative); Urobilinogen Urine Norm (Negative); pH Urine 5 (5-7)
== END 2021-12-05 23:59 | disposition home or self-care (01) ==
PROVIDERS: Internal Medicine Pulmonary Disease; PCP Nurse Practitioner; Visit Provider Internal Medicine Medical Oncology
DX: Z79.899 Other long term (current) drug therapy (principal); E61.1 Iron deficiency; D51.9 Vitamin B12 deficiency anemia, unspecified; E55.9 Vitamin D deficiency, unspecified; F17.210 Nicotine dependence, cigarettes, uncomplicated; Z98.84 Bariatric surgery status
CPT/HCPCS: 80053; 81003; 82728; 82785; 83540; 83550; 85025; 86003; 99213

== ENCOUNTER 2021-11-25 15:08 | Outpatient (CLI) | payer MEDICARE, MEDICAID, SELFPAY ==
--- NOTE | 2021-11-25 15:00 | USCV_ITS ---
[place] Rachana Age: 66 Gender: F : 1955 Exam Date: 11/25/2021 15:22 Ordering Phys: Apolinar Lara MD ([email or web address]) Technologist: LILY [place] [facility] [place]ication: WEAK RT FOOT PULSE Risk Factors: Previous Vascular Surgery: RIGHT LEFT BP: 98.00 / 63.00 BP: 110.0/ 63.00 0 Waveform Velocity (cm/s) Velocity (cm/s) Waveform Monophasic 50.5 Iliac Prox Monophasic 52.0 Iliac Mid Monophasic 59.0 Iliac Distal Monophasic 46.6 GUEST RELATIONS REPRESENTATIVE Monophasic 40.4 SFA Prox Monophasic 46.6 SFA Mid Monophasic 31.6 SFA Dist Monophasic 28.3 POP Monophasic 16.4 CLINICAL RESEARCH MANAGER Monophasic 15.0 DPA 0.7 YORDY FINDINGS See measurements listed above. Monophasic flow throughout RT leg Resting YORDY of 0.7 on the right side. Monophasic Doppler waveforms throughout with a slightly diminished velocity Mild to moderate diffuse plaques iliac and minimal plaques in the femoral artery CONCLUSIONS 1. Abnormal resting YORDY on the right side, suggesting moderate peripheral artery disease. 2. Abnormal Doppler waveforms and velocities suggesting hemodynamically significant aortoiliac disease. Consider exercise YORDY to better evaluate the functional significance . Dr Apolinar Lara MD [facility] (Electronically Signed) Final Date: 25 November 2021 16:36 S
== END 2021-11-25 15:09 | disposition home or self-care (01) ==
LOC: RAD 15:11
PROVIDERS: PCP Nurse Practitioner; Visit Provider Internal Medicine Cardiovascular Disease
DX: R09.89 Other specified symptoms and signs involving the circulatory and respiratory systems (principal); M79.604 Pain in right leg; R60.0 Localized edema
CPT/HCPCS: 93926

== ENCOUNTER → 2021-12-01 09:30 | Outpatient (BNVA) | payer MEDICARE, MEDICAID, SELFPAY | PROVIDERS: PCP Nurse Practitioner; Visit Provider Physician Assistant | DX: M54.50 Low back pain, unspecified (principal); M79.604 Pain in right leg; M79.605 Pain in left leg; R53.1 Weakness; Z98.1 Arthrodesis status; T84.216A Breakdown (mechanical) of internal fixation device of vertebrae, initial encounter; M47.814 Spondylosis without myelopathy or radiculopathy, thoracic region; M43.9 Deforming dorsopathy, unspecified | CPT/HCPCS: 72072; 72110 ==

== ENCOUNTER 2021-12-01 12:20 | Emergency (ER) | payer MEDICARE, MEDICAID, SELFPAY ==
[2021-12-01 13:02] VITALS: BP 111/73; PULSE 74; RESP 15; TEMP 36.6; O2SAT 95; BMI 29.8
--- NOTE | 2021-12-01 13:09 | PC.NURSE ---
Urine collected in triage and taken to lab
[2021-12-01 13:14] LABS: Add Urine Microscopic? NO; Charge for UA Resulting for Rev
[2021-12-01 13:18] LABS: Bilirubin Urine Neg (Negative); Blood Urine Neg (Negative); Glucose Urine UA Trace (Normal); Ketones Urine Negative (Negative); Leukocyte Esterase Urine Negative (Negative); Nitrate Urine Negative (Negative); Protein Urine Neg (Negative); Specific Gravity, Urine 1.015 (1.005-1.030); Urine Appearance Clear (CLEAR); Urine Color Yellow (Yellow); Urobilinogen Urine Norm (Negative); pH Urine 5 (5-7)
== END 2021-12-01 14:41 | disposition left against medical advice (07) ==
PROVIDERS: Emergency Medicine; Emergency Provider Family Medicine; PCP Nurse Practitioner
DX: Z53.21 Procedure and treatment not carried out due to patient leaving prior to being seen by health care provider (principal)
CPT/HCPCS: 81003

== ENCOUNTER 2021-12-02 13:50 | Emergency (ER) | payer MEDICARE, MEDICAID, SELFPAY ==
[2021-12-02 13:54] VITALS: BP 109/69; PULSE 71; RESP 15; TEMP 36.4; O2SAT 96; BMI 29.9
--- NOTE | 2021-12-02 14:20 | W.ED.ABDPA2 ---
Documented by User: Lorri Rucker PA-C 12/02/21 16:50 HPI - Abdominal Pain General: Chief Complaint: Abdominal Pain Stated Complaint: low abd pain Time Seen by Provider: 12/02/21 14:19 Source: patient Mode of arrival: ambulatory Limitations: no limitations History of Present Illness: 66-year-old female presents to the ER today for abdominal pain that is been worsening over the last 2 weeks. Patient reports it started about 2 weeks ago in the lower abdomen and was intermittent. Patient reports last night during the night the pain became severe and began migrating upwards. Patient reports she has pain around her umbilicus at this time. She reports it is a burning/stabbing pain that is constant. Patient denies any pain with urination. She reports 3 bowel movements yesterday which were normal. Patient went to her doctor who sent her to the ER yesterday however patient reports there was a significant wait so she went home. Patient reports pain worsened overnight so she is here again today. She reports nausea but no vomiting. Denies any fever or chills. Patient history of cholecystectomy, appendectomy, and total hysterectomy. Review of Systems General: Reports: 10 or more systems reviewed and unremarkable except in HPI and below PFSH ED PFSH: Medical History B12 deficiency COPD (chronic obstructive pulmonary disease) Enrolled in chronic care management High risk medication use History of hepatitis B History of nephrolithiasis History of tobacco use Hyperlipidemia Pt had severe muscle cramps with statins and Zetia. Zetia was not bad Hypertension Patient has a family history of aneurysm, father had a aneurysm of the abdominal aorta. Mother had aneurysm in the heart?. She had a CTA of the abdomen and was found to have no evidence of aneurysm. She had an abnormal aortic duplex lamination July 2020 which was unremarkable. Iron deficiency anemia Lumbar post-laminectomy syndrome Lung nodules Opioid contract exists Reactive airway disease Recurrent cystitis Seropositive rheumatoid arthritis of multiple sites Spondylolisthesis at L5-S1 level Ulcer Surgical History H/O gastric bypass (~2000) H/O left wrist surgery H/O: hysterectomy History of cholecystectomy History of lumbar fusion (2006) Hx of appendectomy Status post lumbar spine surgery for decompression of spinal cord (~1995) Status post lumbar spine surgery for decompression of spinal cord (~1991) Family History Grandmother Breast cancer Maternal Cancer Mother Heart abnormality, Onset Age: 47 aneurysm ruptured CAD (coronary artery disease) at 57 of heart aneurysm Cancer Father Abdominal aneurysm, Onset Age: 67 of the same Hypertension Family/Other CAD (coronary artery disease) Cancer Brother CAD (coronary artery disease) always had heart problems Diabetes Lung disease Brother Diabetes Grandfather Stroke Other Aneurysm of abdominal aorta Denies family history of Clotting disorder Dementia Chronic kidney disease (CKD) Suicide Anesthesia complication Bleeding disorder Social History Smoking and tobacco status: current every day smoker cigarettes Packs smoked per day: 1 [ Other cigarette details: 1 pk in the last week ] Quit status (tobacco): has quit using tobacco Year quit tobacco: 1998 through 2013 Former quit date comment: 4ppd x 50 years; wants to quit; currently 2ppd Alcohol intake: never Caregiver/support person: Yes Lives independently: Yes Household members: children Marital status: Legally Current occupational status: disabled Current occupation: disabled History of recent travel: No Physical Exam Const: COMMON NORMALS: average body habitus, patient oriented x3, no limitations, healthy appearing, alert and well nourished; apparent distress (pt appears very uncomfortable) HENMT: COMMON NORMALS: external ears normal, Normal external nose present and moist oral mucous membranes NOSE: Normal external nose present EXTERNAL EAR: Yes external ears normal Eye: COMMON NORMALS: conjunctivae normal CONJUNCTIVA: Yes conjunctivae normal Resp: COMMON NORMALS: normal respiratory effort EFFORT & INSPECTION: Yes able to speak in complete sentences Cardio: COMMON NORMALS: regular rate and regular rhythm RATE: regular rate RHYTHM: regular rhythm GI: COMMON NORMALS: Soft to palpation AUSCULTATION: Yes normoactive bowel sounds PALPATION: Yes Soft to palpation, Yes Tenderness to palpation present (GI) (periumbilical, suprapubic) and No Palpable mass present Extremity: COMMON NORMALS: full ROM Neuro: COMMON NORMALS: patient oriented x3 SENSORIUM/ORIENTATION: Yes alert Psych: COMMON NORMALS: mental status grossly normal, Normal thought process present and cooperative THOUGHT PROCESS: Normal thought process present Skin: COMMON NORMALS: no rashes or lesions noted and no wounds GENERAL SKIN EXAM: no rashes or lesions noted Course ED course: Patient presents to the ER today for worsening abdominal pain x2 weeks. This became severe last night during the night. This is described as lower abdominal pain now working its way into the mid abdomen. Patient is tender to palpation and appears uncomfortable. We will get lab work, UA, and CT abdomen pelvis with contrast. Vital Signs: Vital signs: Vital Signs Temperature 97.6 F 12/02/21 13:54 Pulse Rate 81 12/02/21 17:13 Respiratory Rate 16 12/02/21 17:13 Blood Pressure 154/88 12/02/21 17:13 Pulse Oximetry 96 12/02/21 13:54 Oxygen Delivery Me thod 12/02/21 13:54 MDM - Abdominal Pain Medical Decision Making UA is normal, lab work is unremarkable. CT is unremarkable. Patient reports pain is slightly better with the fentanyl. Discussed results with patient. There is nothing that indicates any acute abdomen. Dr. Guevara also saw this patient and felt abdominal exam was unremarkable. We did discuss treatment options with patient. We will try Bentyl in the case of abdominal spasms. Patient last had a colonoscopy about 6 years ago so she likely would be due for another given these issues. We discussed a referral however patient would like to see a physician at [place] as it is closer to home for her. She will follow-up with her PCP to discuss referral. Return to the ER with new or worsening symptoms. Patient verbalized understanding and is in agreement with the treatment plan. Lab Data : 12/02/21 14:45 12/02/21 15:10 Labs/Radiology: Radiology Impressions Abdomen/Pelvis CT 12/02/21 14:35 IMPRESSION: No acute intra-abdominal or intrapelvic pathology. Laboratory Results WBC 5.8 10^3/uL (4.0-10.0) 12/02/21 14:45 RBC 4.79 10^6/uL (4.1-5.3) 12/02/21 14:45 Hgb 13.7 g/dL (11.5-15.3) 12/02/21 14:45 Hct 41.7 % (37.0-47.0) 12/02/21 14:45 MCV 87.1 fl (81-99) 12/02/21 14:45 MCH 28.6 pg (28.0-34.0) 12/02/21 14:45 MCHC 32.9 g/dL (30.0-36.0) 12/02/21 14:45 RDW 15.7 % (12.1-15.1) H 12/02/21 14:45 Plt Count 306 10^3/cmm (130-400) 12/02/21 14:45 MPV 9.7 fL (7.4-10.4) 12/02/21 14:45 Neut % (Auto) 42.3 % 12/02/21 14:45 Lymph % (Auto) 41.5 % 12/02/21 14:45 [place] % (Auto) 8.9 % 12/02/21 14:45 Eos % (Auto) 6.3 % 12/02/21 14:45 Baso % (Auto) 0.7 % 12/02/21 14:45 Neut # (Auto) 2.44 10^3/uL (1.8-7.7) 12/02/21 14:45 Lymph # (Auto) 2.4 10^3/uL (0.8-4.8) 12/02/21 14:45 [place] # (Auto) 0.5 10^3/uL (0.2-0.9) 12/02/21 14:45 Eos # (Auto) 0.4 10^3/uL (0.0-0.8) 12/02/21 14:45 Baso # (Auto) 0.0 10^3/uL (0.0-0.1) 12/02/21 14:45 Nucleated RBC % (auto) 0 % 12/02/21 14:45 Nucleated RBCs # 0.0 /100WBC 12/02/21 14:45 Sodium 137 mmol/L (136-145) 12/02/21 15:10 Potassium 4.4 mmol/L (3.5-5.1) 12/02/21 15:10 Chloride 103 mmol/L (98-107) 12/02/21 15:10 Carbon Dioxide 23 mmol/L (22-29) 12/02/21 15:10 Anion Gap 15.4 (5-19) 12/02/21 15:10 BUN 15 mg/dL (8-23) 12/02/21 15:10 Creatinine 0.8 mg/dL (0.5-0.9) 12/02/21 15:10 GFR Calculation 72.0 mL/min (90-130) L 12/02/21 15:10 Glucose 96 mg/dL (65-115) 12/02/21 15:10 Calculated Osmolality 285 mOsm/kg (285-295) 12/02/21 15:10 Calcium 9.2 mg/dL (8.5-10.5) 12/02/21 15:10 Total Bilirubin 0.2 mg/dL (0.15-1.2) 12/02/21 15:10 AST 15 U/L (0-32) 12/02/21 15:10 ALT 14 U/L (0-33) 12/02/21 15:10 Alkaline Phosphatase 90 U/L (35-105) 12/02/21 15:10 Total Protein 7.1 g/dL (6.6-8.7) 12/02/21 15:10 Albumin 3.6 g/dL (3.5-5.2) 12/02/21 15:10 Globulin 3.5 g/dL (1.3-4.6) 12/02/21 15:10 Lipase 65 U/L (13-60) H 12/02/21 15:10 Urine Color Yellow (Yellow) 12/02/21 14:20 Urine Appearance Clear (CLEAR) 12/02/21 14:20 Urine pH 5 (5-7) 12/02/21 14:20 Ur Specific [place] 1.010 (1.005-1.030) 12/02/21 14:20 Urine Protein Neg (Negative) 12/02/21 14:20 Urine Glucose (UA) Norm (Normal) 12/02/21 14:20 Urine Ketones Negative (Negative) 12/02/21 14:20 Urine Blood Neg (Negative) 12/02/21 14:20 Urine Nitrate Negative (Negative) 12/02/21 14:20 Urine Bilirubin Neg (Negative) 12/02/21 14:20 Urine Urobilinogen Norm mg/dL (Negative) 12/02/21 14:20 Ur Leukocyte Esterase Negative (Negative) 12/02/21 14:20 Critical Care Time Critical Care Time: Critical Care Time: No Discharge Plan Discharge Patient Disposition: Home Clinical Impression: Abdominal pain, acute Condition: Stable Prescriptions: New dicyclomine 10 mg capsule 10 mg PO TID Qty: 20 0RF No Action coenzyme Q10 [Co Q-10] 200 mg capsule 200 mg PO DAILY tizanidine 4 mg tablet 4 mg PO TID PRN (Reason: muscle spasticity) Qty: 90 0RF triamcinolone acetonide 0.1 % ointment 1 applic topical BID Qty: 80 0RF Rx Instructions: to itchy areas prn ammonium lactate 12 % cream 1 applic topical DAILY Qty: 385 3RF Rx Instructions: neck down albuterol sulfate 2.5 mg/0.5 mL solution for nebulization 2.5 mg INHALATION Q4H PRN [id number] Injectable IM calcium carbonate 600 mg calcium (1,500 mg) tablet 1,200 mg PO DAILY All Day Allergy (cetirizine) 10 mg capsule 10 mg PO DAILY PRN diclofenac sodium 1 % gel 2 g TOPICAL QID Qty: 100 1RF tramadol 50 mg tablet 50 mg PO TID PRN (Reason: pain) Qty: 60 1RF prednisone 10 mg tablet See Rx Instructions PO DAILY Qty: 90 1RF Rx Instructions: take BID [id number] then 1 tab daily [id number] then stay on 0.5 tab daily orally daily; lamotrigine 200 mg tablet 200 mg PO DAILY amlodipine 10 mg tablet 10 mg PO DAILY 90 Days Qty: 90 3RF fluticasone propionate [Flonase Allergy Relief] 50 mcg/actuation spray,suspension 1 spray intranasal DAILY PRN Rx Instructions: administer into each nostril magnesium oxide 400 mg (241.3 mg magnesium) tablet 400 mg PO BID PRN zaleplon 10 mg capsule 10 mg PO BEDTIME Qty: 30 0RF clopidogrel [Plavix] 75 mg tablet 75 mg PO DAILY nifedipine 60 mg tablet extended release 60 mg PO BID albuterol sulfate [ProAir HFA] 90 mcg/actuation HFA aerosol inhaler 2 puff INHALATION Q6H PRN (Reason: shortness of breath or wheezing) Qty: 18 3RF (DME) OneTouch Ultra Blue Test Strip Strip See Rx Instructions .ROUTE .MEDSUPPLY Qty: 100 3RF Rx Instructions: As directed Breo Ellipta 200-25 mcg/dose blister with device See Rx Instructions .ROUTE .COMPLEX Qty: 180 0RF Dose Instruction: INHALE 1 PUFF BY MOUTH DAILY Rx Instructions: INHALE 1 PUFF BY MOUTH DAILY metoprolol tartrate 25 mg tablet 25 mg PO BID Qty: 180 3RF leflunomide 20 mg tablet 20 mg PO DAILY Qty: 30 3RF olmesartan 40 mg tablet See Rx Instructions .ROUTE .COMPLEX Qty: 90 0RF Dose Instruction: TAKE 1 TABLET BY MOUTH DAILY Rx Instructions: TAKE 1 TABLET BY MOUTH DAILY dexlansoprazole [Dexilant] 30 mg capsule,biphase delayed releas See Rx Instructions .ROUTE .COMPLEX Qty: 90 0RF Dose Instruction: TAKE 1 CAPSULE BY MOUTH DAILY Rx Instructions: TAKE 1 CAPSULE BY MOUTH DAILY methocarbamol 750 mg tablet See Rx Instructions .ROUTE .COMPLEX Qty: 90 0RF Dose Instruction: TAKE 1 TABLET BY MOUTH THREE TIMES A DAY NEEDED FOR SPASMS Rx Instructions: TAKE 1 TABLET BY MOUTH THREE TIMES A DAY NEEDED FOR SPASMS multivitamin Capsule 1 cap PO DAILY Discharge Orders: Discharge ED (Routine); Ordered 12/02/21 Ordered By: Lorri Rucker Referrals: Warren Grigsby WELDER APPRENTICE [Primary Care Provider] - Discharge Diet: Usual diet Discharge Activity: Resume usual activity Patient Instructions: Abdominal Pain (ED), Opioid Safety, Pain Management Activity Restrictions/Additional Instructions: Take dicyclomine as prescribed. Follow-up with PCP to discuss a referral for a possible colonoscopy. Return to the ER with new or worsening symptoms. Coding Level of Care Code ED Court Specialist for Chg Fwd Exam Comprehensive Documented by User: Richmond Guevara DO 12/02/21 17:58 HPI - Abdominal Pain General: Chief Complaint: Abdominal Pain Stated Complaint: low abd pain Time Seen by Provider: 12/02/21 14:19 PFSH ED PFSH: Medical History B12 deficiency COPD (chronic obstructive pulmonary disease) Enrolled in chronic care management High risk medication use History of hepatitis B History of nephrolithiasis History of tobacco use Hyperlipidemia Pt had severe muscle cramps with statins and Zetia. Zetia was not bad Hypertension Patient has a family history of aneurysm, father had a aneurysm of the abdominal aorta. Mother had aneurysm in the heart?. She had a CTA of the abdomen and was found to have no evidence of aneurysm. She had an abnormal aortic duplex lamination July 2020 which was unremarkable. Iron deficiency anemia Lumbar post-laminectomy syndrome Lung nodules Opioid contract exists Reactive airway disease Recurrent cystitis Seropositive rheumatoid arthritis of multiple sites Spondylolisthesis at L5-S1 level Ulcer Surgical History H/O gastric bypass (~2000) H/O left wrist surgery H/O: hysterectomy History of cholecystectomy History of lumbar fusion (2006) Hx of appendectomy Status post lumbar spine surgery for decompression of spinal cord (~1995) Status post lumbar spine surgery for decompression of spinal cord (~1991) Family History Grandmother Breast cancer Maternal Cancer Mother Heart abnormality, Onset Age: 47 aneurysm ruptured CAD (coronary artery disease) at 57 of heart aneurysm Cancer Father Abdominal aneurysm, Onset Age: 67 of the same Hypertension Family/Other CAD (coronary artery disease) Cancer Brother CAD (coronary artery disease) always had heart problems Diabetes Lung disease Brother Diabetes Grandfather Stroke Other Aneurysm of abdominal aorta Denies family history of Clotting disorder Dementia Chronic kidney disease (CKD) Suicide Anesthesia complication Bleeding disorder Social History Smoking and tobacco status: current every day smoker cigarettes Packs smoked per day: 1 [ Other cigarette details: 1 pk in the last week ] Quit status (tobacco): has quit using tobacco Year quit tobacco: 1998 through 2013 Former quit date comment: 4ppd x 50 years; wants to quit; currently 2ppd Alcohol intake: never Caregiver/support person: Yes Lives independently: Yes Household members: children Marital status: Legally Current occupational status: disabled Current occupation: disabled History of recent travel: No Course Vital Signs: Vital signs: Vital Signs Temperature 97.6 F 12/02/21 13:54 Pulse Rate 81 12/02/21 17:13 Respiratory Rate 16 12/02/21 17:13 Blood Pressure 154/88 12/02/21 17:13 Pulse Oximetry 96 12/02/21 13:54 Oxygen Delivery Me thod 12/02/21 13:54 MDM - Abdominal Pain Medical Decision Making UA is normal, lab work is unremarkable. CT is unremarkable. Patient reports pain is slightly better with the fentanyl. Discussed results with patient. There is nothing that indicates any acute abdomen. Dr. Guevara also saw this patient and felt abdominal exam was unremarkable. We did discuss treatment options with patient. We will try Bentyl in the case of abdominal spasms. Patient last had a colonoscopy about 6 years ago so she likely would be due for another given these issues. We discussed a referral however patient would like to see a physician at [place] as it is closer to home for her. She will follow-up with her PCP to discuss referral. Return to the ER with new or worsening symptoms. Patient verbalized understanding and is in agreement with the treatment plan. Patient seen and examined reviewed the chart agree with assessment history and plan my exam was unremarkable particularly the abdomen is nontender no guarding or rebound normal bowel sounds chest and lungs are clear. Patient will be discharged home with dicyclomine follow-up with primary care we offered to set up the patient with surgery for possible endoscopy if symptoms persist she would rather follow-up with her primary care doctor. Medical Records I reviewed the patient's medical records. Lab Data I reviewed the patient's lab results. : 12/02/21 14:45 12/02/21 15:10 Labs/Radiology: Radiology Impressions Abdomen/Pelvis CT 12/02/21 14:35 IMPRESSION: No acute intra-abdominal or intrapelvic pathology. Laboratory Results WBC 5.8 10^3/uL (4.0-10.0) 12/02/21 14:45 RBC 4.79 10^6/uL (4.1-5.3) 12/02/21 14:45 Hgb 13.7 g/dL (11.5-15.3) 12/02/21 14:45 Hct 41.7 % (37.0-47.0) 12/02/21 14:45 MCV 87.1 fl (81-99) 12/02/21 14:45 MCH 28.6 pg (28.0-34.0) 12/02/21 14:45 MCHC 32.9 g/dL (30.0-36.0) 12/02/21 14:45 RDW 15.7 % (12.1-15.1) H 12/02/21 14:45 Plt Count 306 10^3/cmm (130-400) 12/02/21 14:45 MPV 9.7 fL (7.4-10.4) 12/02/21 14:45 Neut % (Auto) 42.3 % 12/02/21 14:45 Lymph % (Auto) 41.5 % 12/02/21 14:45 [place] % (Auto) 8.9 % 12/02/21 14:45 Eos % (Auto) 6.3 % 12/02/21 14:45 Baso % (Auto) 0.7 % 12/02/21 14:45 Neut # (Auto) 2.44 10^3/uL (1.8-7.7) 12/02/21 14:45 Lymph # (Auto) 2.4 10^3/uL (0.8-4.8) 12/02/21 14:45 [place] # (Auto) 0.5 10^3/uL (0.2-0.9) 12/02/21 14:45 Eos # (Auto) 0.4 10^3/uL (0.0-0.8) 12/02/21 14:45 Baso # (Auto) 0.0 10^3/uL (0.0-0.1) 12/02/21 14:45 Nucleated RBC % (auto) 0 % 12/02/21 14:45 Nucleated RBCs # 0.0 /100WBC 12/02/21 14:45 Sodium 137 mmol/L (136-145) 12/02/21 15:10 Potassium 4.4 mmol/L (3.5-5.1) 12/02/21 15:10 Chloride 103 mmol/L (98-107) 12/02/21 15:10 Carbon Dioxide 23 mmol/L (22-29) 12/02/21 15:10 Anion Gap 15.4 (5-19) 12/02/21 15:10 BUN 15 mg/dL (8-23) 12/02/21 15:10 Creatinine 0.8 mg/dL (0.5-0.9) 12/02/21 15:10 GFR Calculation 72.0 mL/min (90-130) L 12/02/21 15:10 Glucose 96 mg/dL (65-115) 12/02/21 15:10 Calculated Osmolality 285 mOsm/kg (285-295) 12/02/21 15:10 Calcium 9.2 mg/dL (8.5-10.5) 12/02/21 15:10 Total Bilirubin 0.2 mg/dL (0.15-1.2) 12/02/21 15:10 AST 15 U/L (0-32) 12/02/21 15:10 ALT 14 U/L (0-33) 12/02/21 15:10 Alkaline Phosphatase 90 U/L (35-105) 12/02/21 15:10 Total Protein 7.1 g/dL (6.6-8.7) 12/02/21 15:10 Albumin 3.6 g/dL (3.5-5.2) 12/02/21 15:10 Globulin 3.5 g/dL (1.3-4.6) 12/02/21 15:10 Lipase 65 U/L (13-60) H 12/02/21 15:10 Urine Color Yellow (Yellow) 12/02/21 14:20 Urine Appearance Clear (CLEAR) 12/02/21 14:20 Urine pH 5 (5-7) 12/02/21 14:20 Ur Specific [place] 1.010 (1.005-1.030) 12/02/21 14:20 Urine Protein Neg (Negative) 12/02/21 14:20 Urine Glucose (UA) Norm (Normal) 12/02/21 14:20 Urine Ketones Negative (Negative) 12/02/21 14:20 Urine Blood Neg (Negative) 12/02/21 14:20 Urine Nitrate Negative (Negative) 12/02/21 14:20 Urine Bilirubin Neg (Negative) 12/02/21 14:20 Urine Urobilinogen Norm mg/dL (Negative) 12/02/21 14:20 Ur Leukocyte Esterase Negative (Negative) 12/02/21 14:20 Discharge Plan Discharge Patient Disposition: Home Clinical Impression: Abdominal pain, acute Condition: Stable Prescriptions: New dicyclomine 10 mg capsule 10 mg PO TID Qty: 20 0RF No Action coenzyme Q10 [Co Q-10] 200 mg capsule 200 mg PO DAILY tizanidine 4 mg tablet 4 mg PO TID PRN (Reason: muscle spasticity) Qty: 90 0RF triamcinolone acetonide 0.1 % ointment 1 applic topical BID Qty: 80 0RF Rx Instructions: to itchy areas prn ammonium lactate 12 % cream 1 applic topical DAILY Qty: 385 3RF Rx Instructions: neck down albuterol sulfate 2.5 mg/0.5 mL solution for nebulization 2.5 mg INHALATION Q4H PRN [id number] Injectable IM calcium carbonate 600 mg calcium (1,500 mg) tablet 1,200 mg PO DAILY All Day Allergy (cetirizine) 10 mg capsule 10 mg PO DAILY PRN diclofenac sodium 1 % gel 2 g TOPICAL QID Qty: 100 1RF tramadol 50 mg tablet 50 mg PO TID PRN (Reason: pain) Qty: 60 1RF prednisone 10 mg tablet See Rx Instructions PO DAILY Qty: 90 1RF Rx Instructions: take BID [id number] then 1 tab daily [id number] then stay on 0.5 tab daily orally daily; lamotrigine 200 mg tablet 200 mg PO DAILY amlodipine 10 mg tablet 10 mg PO DAILY 90 Days Qty: 90 3RF fluticasone propionate [Flonase Allergy Relief] 50 mcg/actuation spray,suspension 1 spray intranasal DAILY PRN Rx Instructions: administer into each nostril magnesium oxide 400 mg (241.3 mg magnesium) tablet 400 mg PO BID PRN zaleplon 10 mg capsule 10 mg PO BEDTIME Qty: 30 0RF clopidogrel [Plavix] 75 mg tablet 75 mg PO DAILY nifedipine 60 mg tablet extended release 60 mg PO BID albuterol sulfate [ProAir HFA] 90 mcg/actuation HFA aerosol inhaler 2 puff INHALATION Q6H PRN (Reason: shortness of breath or wheezing) Qty: 18 3RF (DME) OneTouch Ultra Blue Test Strip Strip See Rx Instructions .ROUTE .MEDSUPPLY Qty: 100 3RF Rx Instructions: As directed Breo Ellipta 200-25 mcg/dose blister with device See Rx Instructions .ROUTE .COMPLEX Qty: 180 0RF Dose Instruction: INHALE 1 PUFF BY MOUTH DAILY Rx Instructions: INHALE 1 PUFF BY MOUTH DAILY metoprolol tartrate 25 mg tablet 25 mg PO BID Qty: 180 3RF leflunomide 20 mg tablet 20 mg PO DAILY Qty: 30 3RF olmesartan 40 mg tablet See Rx Instructions .ROUTE .COMPLEX Qty: 90 0RF Dose Instruction: TAKE 1 TABLET BY MOUTH DAILY Rx Instructions: TAKE 1 TABLET BY MOUTH DAILY dexlansoprazole [Dexilant] 30 mg capsule,biphase delayed releas See Rx Instructions .ROUTE .COMPLEX Qty: 90 0RF Dose Instruction: TAKE 1 CAPSULE BY MOUTH DAILY Rx Instructions: TAKE 1 CAPSULE BY MOUTH DAILY methocarbamol 750 mg tablet See Rx Instructions .ROUTE .COMPLEX Qty: 90 0RF Dose Instruction: TAKE 1 TABLET BY MOUTH THREE TIMES A DAY NEEDED FOR SPASMS Rx Instructions: TAKE 1 TABLET BY MOUTH THREE TIMES A DAY NEEDED FOR SPASMS multivitamin Capsule 1 cap PO DAILY Discharge Orders: Discharge ED (Routine); Ordered 12/02/21 Ordered By: Lorri Rucker Referrals: Warren Grigsby FNP [Primary Care Provider] - Discharge Diet: Usual diet Discharge Activity: Resume usual activity Patient Instructions: Abdominal Pain (ED), Opioid Safety, Pain Management Activity Restrictions/Additional Instructions: Take dicyclomine as prescribed. Follow-up with PCP to discuss a referral for a possible colonoscopy. Return to the ER with new or worsening symptoms. Coding Level of Care Code ED Court Specialist for Cindi Fwd Exam Comprehensive
[2021-12-02 14:31] LABS: Add Urine Microscopic? NO; Charge for UA Resulting for Rev
--- NOTE | 2021-12-02 14:35 | CTR_ITS ---
PROCEDURE INFORMATION: Exam: CT Abdomen And Pelvis With Contrast Exam date and time: 12/02/2021 3:27 PM Age: 66 years old Clinical indication: Abdominal pain; Localized; Lower; Prior surgery; Surgery date: 6+ months; Surgery type: Gastric bypass, hyster, gb, appy, lumbar fusion; Additional info: Lower abdominal pain TECHNIQUE: Imaging protocol: Computed tomography of the abdomen and pelvis with contrast. Radiation optimization: All CT scans at this facility use at least one of these dose optimization techniques: automated exposure control; mA and/or kV adjustment per patient size (includes targeted exams where dose is matched to clinical indication); or iterative reconstruction. Contrast material: OMNI 350; Contrast volume: 100 ml; Contrast route: INTRAVENOUS (IV); COMPARISON: CT abdomen pelvis wo/w [id number] 08/21/2016 9:26 AM RADIATION DOSE METRICS: Total DLP (mGy-cm): 704.25 FINDINGS: Liver: Normal. No mass. Gallbladder and bile ducts: The gallbladder has been surgically removed. There is mild intra and extrahepatic biliary ductal dilatation, likely secondary to post cholecystectomy status. Pancreas: Normal. No ductal dilation. Spleen: Normal. No splenomegaly. Adrenal glands: Normal. No mass. Kidneys and ureters: Normal. No hydronephrosis. Stomach and bowel: The patient is status post Judith-en-Y gastric bypass. There is diverticulosis without evidence of diverticulitis. Appendix: There has been an appendectomy. Intraperitoneal space: Unremarkable. No free air. No significant fluid collection. Vasculature: Moderate diffuse atherosclerotic disease is present. Right proximal renal artery stent noted. Lymph nodes: Unremarkable. No enlarged lymph nodes. Urinary bladder: Unremarkable as visualized. Reproductive: The uterus is surgically absent. Bones/joints: The patient is status post L4-S1 posterior fusion. Degenerative changes of the spine seen. Soft tissues: Bilateral breast implants noted. CT/CT abdomen pelvis w con* [id number] IMPRESSION: No acute intra-abdominal or intrapelvic pathology.
[2021-12-02 14:36] LABS: Bilirubin Urine Neg (Negative); Blood Urine Neg (Negative); Glucose Urine UA Norm (Normal); Ketones Urine Negative (Negative); Leukocyte Esterase Urine Negative (Negative); Nitrate Urine Negative (Negative); Protein Urine Neg (Negative); Urine Appearance Clear (CLEAR); Urine Color Yellow (Yellow); Urobilinogen Urine Norm (Negative); pH Urine 5 (5-7)
[2021-12-02 14:48] VITALS: RESP 16
[2021-12-02] MEDS: fentaNYL 50 mcg/mL INJ 2mL IVP (14:48)
[2021-12-02 14:51] LABS: Basophils % 0.7 %; Eosinophils # 0.4 10^3/uL (0.0-0.8); Eosinophils % 6.3 %; Hematocrit 41.7 % (37.0-47.0); Hemoglobin 13.7 g/dL (11.5-15.3); Lymphocytes # 2.4 10^3/uL (0.8-4.8); Lymphocytes % 41.5 %; Mean Corpuscular HGB Conc 32.9 g/dL (30.0-36.0); Mean Corpuscular Hemoglobin 28.6 pg (28.0-34.0); Mean Corpuscular Volume 87.1 fl (81-99); Mean Platelet Volume 9.7 fL (7.4-10.4); Monocytes # 0.5 10^3/uL (0.2-0.9); Monocytes % 8.9 %; Neutrophils # 2.44 10^3/uL (1.8-7.7); Neutrophils % 42.3 %; Nucleated Red Blood Cells % 0 %; Platelet Count 306 10^3/cmm (130-400); Red Blood Count 4.79 10^6/uL (4.1-5.3); Red Cell Distribution Width 15.7 % (12.1-15.1); White Blood Count 5.8 10^3/uL (4.0-10.0)
[2021-12-02] MEDS: iohexol 350 mg/mL 100 mL Btl IV (15:29)
[2021-12-02 15:34] LABS: Alanine Aminotransferase 14 U/L (0-33); Albumin Level 3.6 g/dL (3.5-5.2); Alkaline Phosphatase 90 U/L (35-105); Anion Gap 15.4 (5-19); Aspartate Amino Transferase 15 U/L (0-32); Blood Urea Nitrogen 15 mg/dL (8-23); Calcium 9.2 mg/dL (8.5-10.5); Carbon Dioxide 23 mmol/L (22-29); Chloride 103 mmol/L (98-107); Globulin 3.5 g/dL (1.3-4.6); Glucose 96 mg/dL (65-115); Lipase 65 U/L (13-60); Osmolality Calculated 285 mOsm/kg (285-295); Potassium 4.4 mmol/L (3.5-5.1); Sodium 137 mmol/L (136-145); Total Bilirubin 0.2 mg/dL (0.15-1.2); Total Protein 7.1 g/dL (6.6-8.7)
[2021-12-02 17:13] VITALS: BP 154/88; PULSE 81; RESP 16
== END 2021-12-02 17:15 | disposition home or self-care (01) ==
PROVIDERS: Emergency Provider Physician Assistant; PCP Nurse Practitioner
DX: R10.9 Unspecified abdominal pain (principal)
CPT/HCPCS: 74177; 80053; 81003; 83690; 85025; 96374; 99285; J3010; Q9967

== ENCOUNTER 2021-12-06 06:00 | Outpatient (RCR) | payer MEDICARE, MEDICAID, SELFPAY | END 2022-01-04 23:59 | disposition home or self-care (01) | LOC: GPT 06:00 | PROVIDERS: PCP Nurse Practitioner; Visit Provider Orthopaedic Surgery | DX: M25.512 Pain in left shoulder (principal); M25.511 Pain in right shoulder | CPT/HCPCS: 97110; 97140 ==

== ENCOUNTER 2021-12-26 12:57 | Outpatient (CLI) | payer MEDICARE, MEDICAID, SELFPAY ==
--- NOTE | 2021-12-26 13:00 | MR_ITS ---
WS: [id number] MRI LUMBAR SPINE NONCONTRAST TECHNIQUE: Sagittal T1, T2 and STIR imaging. Axial T1 and T2 imaging. CLINICAL INFORMATION: pain COMPARISON: CT May 07, 2019 FINDINGS: Mild lumbar curve convex RIGHT. No acute compression. Pedicle screw fixation L4-S1. Hardware results in susceptibility artifact which degrades images in the lower lumbar spine. L1-L2: Normal. L2-L3: Mild annular bulging with moderate central canal stenosis. Impingement traversing L3 nerve ric ts bilaterally. Moderate facet arthropathy. Foramen are patent. L3-L4: Moderate central canal stenosis. Images degraded at this level. Narrowing of the subarticular recess bilaterally. Foramen appear patent. L4-L5: Hardware degrades images at this level. Spinal canal appears patent. Laminectomy defects. L5-S1: Not well visualized due to susceptibility artifact. Spinal canal appears patent with laminecto my defects. Visualized pelvic bony structures: Normal. Paravertebral soft tissues: Normal. A few small disc protrusions in the mid thoracic spine seen on the licensed massage therapist imaging. Moderate atheromatous disease in the distal abdominal aorta. Aorta measures 2.5 x 2.8 cm AP by transv erse. MR/MR lumbar spine wo con* [id number] IMPRESSION: 1. Images degraded in the lower lumbar spine due to susceptibility artifact fr om hardware. 2. Mild annular bulging L2-L3 with mild to moderate central canal stenosis and impingement traversing L3 nerve roots bilaterally. This is similar to the prio r myelogram May 07, 2019 3. Moderate central canal stenosis L3-L4 with narrowing of the subarticular re cess bilaterally. This appears progressed compared to the prior myelogram. 4. Spinal canal appears patent at L4-L5 and L5-S1.
== END 2021-12-26 12:58 | disposition home or self-care (01) ==
LOC: RAD 12:58
PROVIDERS: PCP Nurse Practitioner; Visit Provider Physician Assistant
DX: M51.26 Other intervertebral disc displacement, lumbar region (principal); M48.061 Spinal stenosis, lumbar region without neurogenic claudication
CPT/HCPCS: 72148; 99203

== ENCOUNTER 2022-01-05 06:00 | Outpatient (RCR) | payer MEDICARE, MEDICAID, SELFPAY | END 2022-02-04 23:59 | disposition home or self-care (01) | LOC: GPT 06:00 | PROVIDERS: PCP Nurse Practitioner; Visit Provider Orthopaedic Surgery | DX: M25.512 Pain in left shoulder (principal); M25.511 Pain in right shoulder | CPT/HCPCS: 97110; 97140; 97530 ==

== ENCOUNTER 2022-02-03 13:07 | Outpatient (CLI) | payer MEDICARE, MEDICAID, SELFPAY ==
--- NOTE | 2022-02-03 13:45 | USCV_ITS ---
Rachana Gomez Age: 66 Gender: F : 1955 Exam Date: 02/03/2022 14:47 Ordering Phys: Apolinar Lara MD ([email or web address]) Technologist: Christ Reyes Exam Location: [facility] [place] Indication: claudication/hx of rt iliac stent RIGHT LEFT Brachial 128.00 mmHg Brachial 127.00 mmHg Pressure (mmHg) Waveform Pressure (mmHg) Waveform 1.07 Ankle/Brachial Index 1.05 1.04 Post-Exercise Ankle Brachial Index 0.99 FINDINGS Resting YORDY 1.07 on the right and 1.05 on the left Post exercise YORDY of 1.04 on the right and 0.99 on the left CONCLUSIONS No significant arterial obstruction based on the above findings Dr Apolinar Lara MD [facility] (Electronically Signed) Final Date: 03 February 2022 18:04 S
== END 2022-02-03 13:08 | disposition home or self-care (01) ==
LOC: RAD 13:10
PROVIDERS: PCP Nurse Practitioner; Visit Provider Internal Medicine Cardiovascular Disease
DX: I77.9 Disorder of arteries and arterioles, unspecified (principal); I73.9 Peripheral vascular disease, unspecified
CPT/HCPCS: 93922

== ENCOUNTER → 2022-02-08 12:47 | Outpatient (BNVA) | payer MEDICARE, MEDICAID, SELFPAY | PROVIDERS: PCP Nurse Practitioner; Visit Provider Internal Medicine Rheumatology | DX: M05.79 Rheumatoid arthritis with rheumatoid factor of multiple sites without organ or systems involvement (principal); Z79.899 Other long term (current) drug therapy; Z71.85 Encounter for immunization safety counseling; R91.8 Other nonspecific abnormal finding of lung field; F17.210 Nicotine dependence, cigarettes, uncomplicated; Z98.84 Bariatric surgery status; M43.27 Fusion of spine, lumbosacral region; Z98.890 Other specified postprocedural states; M76.61 Achilles tendinitis, right leg; M76.62 Achilles tendinitis, left leg | CPT/HCPCS: 36415; 80076; 82565; 85025; 86140; 99214 ==

== ENCOUNTER → 2022-03-20 13:48 | Outpatient (BNVA) | payer MEDICARE, MEDICAID, SELFPAY | PROVIDERS: PCP Nurse Practitioner; Visit Provider Internal Medicine Cardiovascular Disease | DX: I10 Essential (primary) hypertension (principal); R07.89 Other chest pain; J45.40 Moderate persistent asthma, uncomplicated; E78.2 Mixed hyperlipidemia; I83.811 Varicose veins of right lower extremity with pain; M79.606 Pain in leg, unspecified; F17.210 Nicotine dependence, cigarettes, uncomplicated | CPT/HCPCS: 99214 ==

== ENCOUNTER → 2022-05-10 12:55 | Outpatient (BNVA) | payer MEDICARE, MEDICAID, SELFPAY | PROVIDERS: PCP Nurse Practitioner; Visit Provider Internal Medicine Rheumatology | DX: M05.79 Rheumatoid arthritis with rheumatoid factor of multiple sites without organ or systems involvement (principal); Z79.899 Other long term (current) drug therapy; Z71.85 Encounter for immunization safety counseling; R91.8 Other nonspecific abnormal finding of lung field | CPT/HCPCS: 36415; 80076; 82565; 85025; 86140; 99214 ==

== ENCOUNTER 2022-06-15 12:13 | Outpatient (CLI) | payer MEDICARE, MEDICAID, SELFPAY ==
--- NOTE | 2022-06-15 12:30 | USCV_ITS ---
Rachana Gomez Age: 66 Gender: F : 1955 Exam Date: 06/15/2022 13:18 Ordering Phys: Apolinar Lara MD ([email or web address]) Technologist: [place] [facility] [place]: HISTORY: hx rt leg ablation PROCEDURES: Right duplex Venous Insufficiency study of the Deep and Superficial systems was carried out according to normal protocol with the patient in supine positon for deep system and dependent position for the superficial system. FINDINGS: there is some reflux in the juntion of the great saph on the rt. The rest of the gsaph has been ablated the are several varicositys in the leg that are random and not connected to the great or lesser saph system. Venous reflux was noted at the right saphenofemoral junction. Reflux time of 0.817-second. No significant venous reflux in the greater saphenous vein distal to the saphenofemoral junction. The proximal, mid and distal greater saphenous vein segments were found to be absent the greater saphenous vein at the below-knee segment was found to be patent with no significant reflux. The proximal and mid segments of the small saphenous veins also were found to be patent there were no significant venous reflux. CONCLUSIONS 1. The greater saphenous vein on the right side was found to be ablated. 2. Patent saphenofemoral junction with significant reflux of greater than 500 ms was noted on the right side 3. No significant venous reflux was noted at the below-knee segment of the greater saphenous vein or in the small saphenous vein segments Dr Apolinar Lara MD [facility] (Electronically Signed) Final Date: 15 Jun 2022 16:54 S
== END 2022-06-15 12:14 | disposition home or self-care (01) ==
LOC: RAD 12:16
PROVIDERS: PCP Nurse Practitioner; Visit Provider Internal Medicine Cardiovascular Disease
DX: I83.811 Varicose veins of right lower extremity with pain (principal); I77.9 Disorder of arteries and arterioles, unspecified; M79.606 Pain in leg, unspecified; R29.898 Other symptoms and signs involving the musculoskeletal system
CPT/HCPCS: 93971

== ENCOUNTER → 2022-07-05 13:03 | Outpatient (BNVA) | payer MEDICARE, MEDICAID, SELFPAY | PROVIDERS: PCP Nurse Practitioner; Referring Provider Nurse Practitioner; Visit Provider Dermatology | DX: L70.0 Acne vulgaris (principal); L57.0 Actinic keratosis; L57.8 Other skin changes due to chronic exposure to nonionizing radiation; D69.2 Other nonthrombocytopenic purpura; D17.24 Benign lipomatous neoplasm of skin and subcutaneous tissue of left leg; D17.23 Benign lipomatous neoplasm of skin and subcutaneous tissue of right leg | CPT/HCPCS: 11104; 17000; 17003; 99213 ==

== ENCOUNTER → 2022-07-17 13:05 | Outpatient (BNVA) | payer MEDICARE, MEDICAID, SELFPAY | PROVIDERS: PCP Nurse Practitioner; Visit Provider Nurse Practitioner Family | DX: L82.0 Inflamed seborrheic keratosis (principal); L02.91 Cutaneous abscess, unspecified; Z48.02 Encounter for removal of sutures; L85.3 Xerosis cutis; L57.8 Other skin changes due to chronic exposure to nonionizing radiation; L81.4 Other melanin hyperpigmentation; D22.5 Melanocytic nevi of trunk; Z71.89 Other specified counseling | CPT/HCPCS: 17110; 99024; 99213 ==

== ENCOUNTER 2022-07-21 13:11 | Outpatient (CLI) | payer MEDICARE, MEDICAID, SELFPAY ==
[2022-07-21 13:54] LABS: Anion Gap 14.4 (5-19); Blood Urea Nitrogen 21 mg/dL (8-23); Calcium 8.5 mg/dL (8.5-10.5); Carbon Dioxide 24 mmol/L (22-29); Chloride 108 mmol/L (98-107); Glomerular Filtration Rate 62.6 mL/min (90-130); Glucose 79 mg/dL (65-115); Osmolality Calculated 296 mOsm/kg (285-295); Potassium 4.4 mmol/L (3.5-5.1); Sodium 142 mmol/L (136-145)
== END 2022-07-21 13:12 | disposition home or self-care (01) ==
LOC: LAB 13:14
PROVIDERS: PCP Nurse Practitioner; Visit Provider Nurse Practitioner Family
DX: R00.2 Palpitations (principal); R07.9 Chest pain, unspecified; I77.9 Disorder of arteries and arterioles, unspecified; R07.89 Other chest pain; R03.0 Elevated blood-pressure reading, without diagnosis of hypertension
CPT/HCPCS: 36415; 80048

== ENCOUNTER 2022-08-05 06:00 | Outpatient (RCR) | payer MEDICARE, MEDICAID, SELFPAY | END 2022-09-04 23:59 | disposition home or self-care (01) | LOC: GPT 06:00 | PROVIDERS: Visit Provider Nurse Practitioner | DX: M54.6 Pain in thoracic spine (principal) | CPT/HCPCS: 97110; 97140; 97161 ==

== ENCOUNTER → 2022-08-15 12:41 | Outpatient (BNVA) | payer MEDICARE, MEDICAID, SELFPAY | PROVIDERS: PCP Nurse Practitioner; Visit Provider Internal Medicine Rheumatology | DX: M05.79 Rheumatoid arthritis with rheumatoid factor of multiple sites without organ or systems involvement (principal); Z79.899 Other long term (current) drug therapy; Z71.85 Encounter for immunization safety counseling | CPT/HCPCS: 99214 ==

== ENCOUNTER → 2022-08-17 15:50 | Outpatient (BNVA) | payer MEDICARE, MEDICAID, SELFPAY | PROVIDERS: Visit Provider Nurse Practitioner Family | DX: L57.8 Other skin changes due to chronic exposure to nonionizing radiation (principal); L57.0 Actinic keratosis; L85.3 Xerosis cutis; D22.5 Melanocytic nevi of trunk | CPT/HCPCS: 17004; 99213 ==

== ENCOUNTER 2022-09-05 06:00 | Outpatient (RCR) | payer MEDICARE, MEDICAID, SELFPAY | END 2022-10-05 23:59 | disposition home or self-care (01) | LOC: GPT 06:00 | PROVIDERS: PCP Internal Medicine Rheumatology; Visit Provider Nurse Practitioner | DX: M54.6 Pain in thoracic spine (principal) | CPT/HCPCS: 97032; 97110; 97112; 97140; 97164 ==

== ENCOUNTER 2022-09-13 13:49 | Outpatient (CLI) | payer MEDICARE, MEDICAID, SELFPAY ==
--- NOTE | 2022-09-13 14:02 | MR_ITS ---
WS: [id number] MRI RIGHT WRIST WITHOUT CONTRAST. COMPARISON: None Multiplanar, multisequence imaging is performed without contrast. Moderate narrowing of the radial ulnar joint. There is also narrowing of the distal ulnar carpal join t. Marrow edema in the lunate is probably from impaction from the distal ulna. There is a large amoun t of fluid in the distal radial ulnar joint and abnormal signal throughout a large portion of the TFC C. Findings are consistent with significant tear involving the TFCC. Suspect ulnar impaction syndrome also against the lunate. There is a small amount of fluid extending through the TFCC along the tract extending towards the abnormal lunate. Scapholunate interval is not widened. IMPRESSION: 1. Abnormal signal throughout a large portion of the TFCC and distal radial ulnar joint effusion. Fin dings consistent with a TFCC tear. 2. Edema and subchondral cystic changes in the lunate. Suspect there is impaction upon the lunate fro m the ulna.
== END 2022-09-13 13:50 | disposition home or self-care (01) ==
PROVIDERS: Visit Provider Nurse Practitioner
DX: M25.531 Pain in right wrist (principal); R93.6 Abnormal findings on diagnostic imaging of limbs; R60.0 Localized edema
CPT/HCPCS: 73221

== ENCOUNTER 2022-09-18 14:53 | Outpatient (CLI) | payer MEDICARE, MEDICAID, SELFPAY ==
[2022-09-18 15:27] LABS: Basophils % 0.5 %; Eosinophils # 0.2 10^3/uL (0.0-0.8); Hematocrit 43.2 % (37.0-47.0); Hemoglobin 13.7 g/dL (11.5-15.3); Lymphocytes # 2.4 10^3/uL (0.8-4.8); Lymphocytes % 31.5 %; Mean Corpuscular HGB Conc 31.7 g/dL (30.0-36.0); Mean Corpuscular Hemoglobin 30.5 pg (28.0-34.0); Mean Corpuscular Volume 96.2 fl (81-99); Mean Platelet Volume 10.2 fL (7.4-10.4); Monocytes # 0.8 10^3/uL (0.2-0.9); Monocytes % 10.8 %; Neutrophils # 4.07 10^3/uL (1.8-7.7); Neutrophils % 53.9 %; Nucleated Red Blood Cells % 0 %; Platelet Count 283 10^3/cmm (130-400); Red Blood Count 4.49 10^6/uL (4.1-5.3); Red Cell Distribution Width 15.5 % (12.1-15.1); White Blood Count 7.6 10^3/uL (4.0-10.0)
[2022-09-18 15:50] LABS: Alanine Aminotransferase 21 U/L (0-33); Albumin Level 4.2 g/dL (3.5-5.2); Alkaline Phosphatase 78 U/L (35-105); Aspartate Amino Transferase 18 U/L (0-32); C Reactive Protein 4.8 mg/L (0.0-4.9); Globulin 2.3 g/dL (1.3-4.6); Glomerular Filtration Rate 71.8 mL/min (90-130); Total Bilirubin 0.2 mg/dL (0.15-1.2); Total Protein 6.5 g/dL (6.6-8.7)
== END 2022-09-18 14:54 | disposition home or self-care (01) ==
LOC: LAB 14:57
PROVIDERS: PCP Internal Medicine Rheumatology; Visit Provider Internal Medicine Rheumatology
DX: M05.79 Rheumatoid arthritis with rheumatoid factor of multiple sites without organ or systems involvement (principal); Z79.899 Other long term (current) drug therapy; I49.9 Cardiac arrhythmia, unspecified; I10 Essential (primary) hypertension; J45.40 Moderate persistent asthma, uncomplicated; E78.2 Mixed hyperlipidemia; I83.811 Varicose veins of right lower extremity with pain; F17.210 Nicotine dependence, cigarettes, uncomplicated
CPT/HCPCS: 36415; 80076; 82565; 85025; 86140; 99214

== ENCOUNTER 2022-10-06 06:00 | Outpatient (RCR) | payer MEDICARE, MEDICAID, SELFPAY | END 2022-11-04 23:59 | disposition home or self-care (01) | LOC: GPT 06:00 | PROVIDERS: PCP Internal Medicine Rheumatology; Visit Provider Nurse Practitioner | DX: M54.6 Pain in thoracic spine (principal) | CPT/HCPCS: 97110; 97112; 97140; 97164 ==

== ENCOUNTER 2022-10-13 12:54 | Outpatient (CLI) | payer MEDICARE, MEDICAID, SELFPAY ==
--- NOTE | 2022-10-13 13:03 | USCV_ITS ---
Rachana Gomez Age: 67 Gender: F : 1955 Exam Date: 10/13/2022 13:37 Ordering Phys: Warren Grigsby Technologist: USHA Exam Location: [facility] [place] Indication: Abnormal diagnostic imaging HISTORY: Diameter (cm) AP x Transverse x Length Velocity (cm/s) Waveform Prox Aorta: 1.64 x 1.94 x 62.10 Mid Aorta: 1.91 x 1.97 x 57.90 Distal Aorta: 2.75 x 2.28 x 4.21 Right Iliac Prox: 0.94 x 1.23 x 229.70 Left Iliac Prox: 0.89 x 1.18 x 125.60 Stent Prox Landing x x Aneurysmal Sac Max x x Lt Lat Sac Dim Rt Lat Sac Dim Stent Dist Landing x x Right Iliac Stent x x Left Iliac Stent x x Right Renal Art Left Renal Art FINDINGS: CONCLUSIONS Aneurysmal fusiform distal abdominal aorta measuring 2.7 x 2.2 x 4.2cm Minimal arteriovascular disease within the abdominal aorta. Normal iliac arteries Chet Quintero MD (Electronically Signed) Final Date: 13 October 2022 15:43 S
== END 2022-10-13 12:55 | disposition home or self-care (01) ==
PROVIDERS: PCP Internal Medicine Rheumatology; Visit Provider Nurse Practitioner
DX: I71.40 Abdominal aortic aneurysm, without rupture, unspecified (principal); R93.89 Abnormal findings on diagnostic imaging of other specified body structures
CPT/HCPCS: 76706

== ENCOUNTER 2022-10-18 12:43 | Outpatient (CLI) | payer MEDICARE, MEDICAID, SELFPAY ==
--- NOTE | 2022-10-18 12:58 | MM_ITS ---
WS: [id number] BILATERAL 3D TOMOSYNTHESIS DIGITAL SCREENING MAMMOGRAPHY WITH CAD CLINICAL INFORMATION: SCREENING HISTORY: Screening mammogram. No current complaints. COMPARISON: 2020 TECHNIQUE: Bilateral CC and MLO views. FINDINGS: History of breast reduction. Bilateral breast implants appear intact. Scattered fibroglandular densities bilaterally. No suspicious focal mass, asymmetry, calcifications, or architectural distortion. No evidence of malignancy. Punctate and lucent centered calcifications. IMPRESSION: MM/[place] [id number] BI-RADS: 2-Benign FOLLOW UP: 1 Year Follow-up Recommend return to annual screening mammography.
== END 2022-10-18 12:44 | disposition home or self-care (01) ==
PROVIDERS: PCP Internal Medicine Rheumatology; Visit Provider Nurse Practitioner
DX: Z12.31 Encounter for screening mammogram for malignant neoplasm of breast (principal)
CPT/HCPCS: 77063; 77067

== ENCOUNTER 2022-11-05 06:00 | Outpatient (RCR) | payer MEDICARE, MEDICAID, SELFPAY | END 2022-12-05 23:59 | disposition home or self-care (01) | LOC: GPT 06:00 | PROVIDERS: PCP Internal Medicine Rheumatology; Visit Provider Nurse Practitioner | DX: M54.6 Pain in thoracic spine (principal) | CPT/HCPCS: 97110; 97112; 97140; 97535 ==

== ENCOUNTER → 2022-11-14 13:16 | Outpatient (BNVA) | payer MEDICARE, MEDICAID, SELFPAY | PROVIDERS: PCP Internal Medicine Rheumatology; Visit Provider Internal Medicine Rheumatology | DX: Z79.899 Other long term (current) drug therapy; M05.79 Rheumatoid arthritis with rheumatoid factor of multiple sites without organ or systems involvement; Z71.85 Encounter for immunization safety counseling; R91.8 Other nonspecific abnormal finding of lung field | CPT/HCPCS: 36415; 86704; 86706; 87340; 99214 ==

== ENCOUNTER → 2022-11-15 16:29 | Outpatient (BNVA) | payer MEDICARE, MEDICAID, SELFPAY | PROVIDERS: PCP Internal Medicine Rheumatology; Visit Provider Internal Medicine Pulmonary Disease | DX: R04.2 Hemoptysis (principal); R91.8 Other nonspecific abnormal finding of lung field; M05.79 Rheumatoid arthritis with rheumatoid factor of multiple sites without organ or systems involvement; J45.40 Moderate persistent asthma, uncomplicated; F17.210 Nicotine dependence, cigarettes, uncomplicated; J98.8 Other specified respiratory disorders; J30.2 Other seasonal allergic rhinitis | CPT/HCPCS: 87070; 87205; 99214 ==

== ENCOUNTER 2022-11-24 06:14 | Outpatient (CLI) | payer MEDICARE, MEDICAID, SELFPAY ==
--- NOTE | 2022-11-24 06:30 | CTR_ITS ---
PROCEDURE INFORMATION: Exam: CT Chest Without Contrast; Diagnostic Exam date and time: 11/24/2022 6:29 AM Age: 67 years old Clinical indication: Condition or disease and abnormal findings; Abnormal radiologic exam of lung or chest; Lung condition and disease; Pulmonary nodule, solitary; Prior surgery; Surgery date: 6+ months; Surgery type: Breast reduction; Additional info: F/u lung nodules TECHNIQUE: Imaging protocol: Diagnostic computed tomography of the chest without contrast. Radiation optimization: All CT scans at this facility use at least one of these dose optimization techniques: automated exposure control; mA and/or kV adjustment per patient size (includes targeted exams where dose is matched to clinical indication); or iterative reconstruction. REPORTING DATA: Count of CT and Cardiac NM exams in prior 12 months: This patient has received [address] and 0 known cardiac nuclear medicine studies in the 12 months prior to the current study. COMPARISON: CT chest wo con [id number] 10/07/2021 10:23 AM RADIATION DOSE METRICS: Total DLP (mGy-cm): 480.5 FINDINGS: Lungs: Lung windows demonstrate noncalcified nodule with mild lobular/irregular border in the posterior aspect of the left upper lobe. This demonstrates an increase in size from prior exam 10/07/2021 suggesting developing mass. This measures 12 x 9 mm on axial image 17 of series 5 (lung windows). Small 4 mm noncalcified nodule lower right lung is unchanged with prior exam. Small calcified granuloma again seen mid to upper left lung. Previously noted small nodule peripheral mid to upper right lung is improved from prior exam. No focal infiltrate or consolidation. Mild emphysematous change. Pleural spaces: No pleural effusion or pneumothorax. Heart: No cardiomegaly. No pericardial effusion. Mild coronary artery calcification. Lymph nodes: A few calcified nodes around the mediastinal and hilar region, chronic with prior exam. Findings indicate benign healed granulomatous disease with small calcified granuloma mid to upper left lung. No significant lymphadenopathy. Vasculature: Mild arteriosclerosis of the thoracic aorta. Thoracic aorta and pulmonary arteries appear unremarkable for unenhanced exam. Proximal right renal artery stent. Diaphragm: Mild hiatal hernia. Postsurgical changes involving the stomach and GE junction. Gallbladder and bile ducts: Postsurgical changes of prior cholecystectomy. Bones/joints: Mild spondylotic change thoracic spine. Soft tissues: Bilateral breast implants noted. CT/CT chest wo con [id number] IMPRESSION: 1. Interval change with increase in size of noncalcified nodule with mild lobular/irregular borders within the posterior aspect of the left upper lobe in relation to prior exam, measuring 12 x 9 mm. Findings are worrisome for developing mass and malignancy requires exclusion. This is not pleural-based. 2. Other nonacute findings as noted above, which are without significant change with prior exam. COMMENTS: In the absence of a history or active diagnosis of lung cancer, it is recommended that this patient with emphysema be evaluated for enrollment in a low dose CT lung cancer screening program.
== END 2022-11-24 06:15 | disposition home or self-care (01) ==
LOC: RAD 06:15
PROVIDERS: PCP Nurse Practitioner; Visit Provider Internal Medicine Pulmonary Disease
DX: R91.8 Other nonspecific abnormal finding of lung field (principal)
CPT/HCPCS: 71250

== ENCOUNTER 2022-12-05 05:29 | Day surgery (SDC) | payer MEDICARE, MEDICAID, SELFPAY ==
[2022-12-05] VITALS (14 sets, daily range): BP systolic 98–131; BP diastolic 52–84; PULSE 60–78; RESP 14–27; TEMP 36.1–36.3; O2SAT 92–100; BMI 30.3
--- NOTE | 2022-12-05 05:54 | ECG_ITS ---
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 Measurements Intervals Fonda Rate: 56 P: 39 NV: 200 QRS: -3 QRSD: 80 T: 44 QT: 421 QTc: 407 Interpretive Statements SINUS BRADYCARDIA Compared to ECG 09/06/2021 01:20:31 Sinus rhythm no longer present Electronically Signed On 12-05-2022 8:27:09 CDT by Zandra Draper M.D. [id number]
[2022-12-05] MEDS: sodium chloride 0.9% 1,000 ML 30 ML IV (06:20)
--- NOTE | 2022-12-05 06:22 | SC_ITS ---
WS: [id number] C-ARM RADIOGRAPHS CHEST; 2 IMAGES HISTORY: left lower lobe lung nodule COMPARISON: None available. Imaging is provided for Dr. Cook during bronchoscopy guided lung biopsy. IMPRESSION: Imaging provided for lung biopsy by bronchoscopy..
[2022-12-05 06:40] LABS: Basophils # 0.1 10^3/uL (0.0-0.1); Basophils % 0.4 %; Eosinophils # 0.2 10^3/uL (0.0-0.8); Hematocrit 41.6 % (36-47); Lymphocytes # 3.6 10^3/uL (0.8-4.8); Lymphocytes % 30.9 %; Mean Corpuscular HGB Conc 32.9 g/dL (30-55); Mean Corpuscular Hemoglobin 31.4 pg (27-33); Mean Corpuscular Volume 95.4 fl (85-98); Mean Platelet Volume 10.1 fL (7.4-10.4); Monocytes % 8.4 %; Neutrophils # 6.79 10^3/uL (1.8-7.7); Nucleated Red Blood Cells % 0 %; Platelet Count 266 10^3/cmm (157-399); Red Blood Count 4.36 10^6/uL (3.85-5.65); Red Cell Distribution Width 15.3 % (12.1-15.1); White Blood Count 11.72 10^3/uL (3.29-11.43)
[2022-12-05 06:55] LABS: Anion Gap 12.3 (5-19); Blood Urea Nitrogen 21 mg/dL (8-23); Calcium 9.1 mg/dL (8.5-10.5); Carbon Dioxide 27 mmol/L (22-29); Chloride 103 mmol/L (98-107); Glomerular Filtration Rate 83.7 mL/min (90-130); Glucose 97 mg/dL (65-115); Osmolality Calculated 289 mOsm/kg (285-295); Potassium 4.3 mmol/L (3.5-5.1); Sodium 138 mmol/L (136-145)
--- NOTE | 2022-12-05 07:02 | P.ANESASSM_ITS ---
Pre-Anesthetic Assessment Height/Weight: Height 1.68 m Weight 85.275 kg Temp Pulse Resp BP Pulse Ox O2 Del Method 97.4 F L 60 18 116/84 97 Room Air 12/05/22 06:29 12/05/22 06:29 12/05/22 06:29 12/05/22 06:29 12/05/22 06:29 12/05/22 06:29 Operation Date: 12/05/22 07:00 Proposed Procedures p ION navigational bronch with EBUS, 44214, 25315, 71183, 35131, 13768, 50963, 61090, 26280, 26738, 65942, 34991, 00922, 28103,R91.8(Not Applicable) - Shailesh Cook MD s Ebus(Not Applicable) - Shailesh Cook MD Familial anesthetic complications: None Was Beta Roseanne taken within 24 hours: N/A Was Clonidine taken within 24 hours: N/A Last intake: Intake Last Liquid Date 12/04/22 Last Liquid Time 20:00 Last Solid Date 12/04/22 Last Solid Time 18:00 Social No alcohol and No tobacco Exam alert, oriented x 3, clear to auscultation bilaterally and regular rate & rhythm Airway Mallampati: Class II Dentition: false Pulmonary Asthma CV/HEM Stable Angina (negative stress test in 2019), Arrythmia (15 beat V tach on holter), Hypertension and Peripheral Vascular Disease GI Gastroesophageal Reflux Disease [facility] [place] Rheumatoid Arthritis Anesthetic Plan ASA status: 3 Anesthesia: General Risk of > 500 ml blood loss (7ml/kg in children): No Medications/Allergies Home Medications Medication Instructions Recorded Confirmed Last Taken Type multivitamin 1 cap PO DAILY 02/06/19 12/01/22 12/04/22 History albuterol sulfate 2.5 mg/0.5 mL 2.5 mg inhalation Q4H PRN 02/07/19 12/01/22 12/04/22 History solution for nebulization Shortness Of Breath [id number] intramuscular 1 ea IM .QMONTH 02/07/19 12/01/22 11/28/22 History calcium carbonate 600 mg calcium 1,200 mg PO DAILY 04/21/19 12/01/22 12/04/22 History (1,500 mg) tablet albuterol sulfate 90 mcg/actuation 2 puff inhalation Q6H PRN 05/19/19 12/01/22 12/01/22 Rx aerosol inhaler (ProAir HFA) shortness of breath or wheezing #18 grams blood sugar diagnostic (OneTouch #100 ea 02/09/20 11/15/22 Unknown Rx Ultra Blue Test Strip) cetirizine 10 mg capsule (All Day 10 mg PO DAILY PRN Allergic 02/02/21 12/01/22 Unknown History Allergy (cetirizine)) Reaction fluticasone propionate 50 1 spray intranasal DAILY PRN 09/07/21 12/01/22 Unknown History mcg/actuation nasal Congestion spray,suspension (Flonase Allergy Relief) zaleplon 10 mg capsule 10 mg PO BEDTIME #30 caps 09/07/21 12/01/22 11/30/22 Rx clopidogrel 75 mg tablet (Plavix) 75 mg PO DAILY 11/21/21 12/01/22 11/29/22 History prednisone 10 mg tablet 5 mg PO DAILY PRN joint pain #30 02/08/22 12/01/22 Unknown Rx tabs dicyclomine 10 mg capsule 10 mg PO QID 03/20/22 12/01/22 12/04/22 History furosemide 20 mg tablet (Lasix) 20 mg PO DAILY #90 tabs 10/04/22 12/01/22 12/04/22 Rx prednisone 20 mg tablet See Rx Instructions PO .COMPLEX 10/10/22 12/01/22 Unknown Rx PRN joint pain flare #30 tabs metoprolol tartrate 25 mg tablet 25 mg PO BID 30 days #60 tabs 10/25/22 12/01/22 12/05/22 04:30 Rx adalimumab 40 mg/0.8 mL 40 mg (0.8 mL) SUBCUT Q14D #2 ea 11/14/22 12/01/22 12/01/22 Rx subcutaneous pen kit (Humira Pen) folic acid 1 mg tablet 1 mg PO DAILY #30 tabs 11/14/22 12/01/22 12/04/22 Rx tramadol 50 mg tablet 50 mg PO TID PRN pain #30 tabs 11/14/22 12/01/22 Unknown Rx shankar 1 tab PO DAILY 11/15/22 12/01/22 12/04/22 History methotrexate sodium 2.5 mg tablet See Rx Instructions PO .Q7days #90 11/21/22 12/01/22 12/01/22 Rx tabs ammonium lactate 12 % topical cream 1 applic topical DAILY PRN Rash 12/01/22 12/01/22 Unknown History dexlansoprazole 30 mg 30 mg PO .QOTHERDAY 12/01/22 12/01/22 12/04/22 History capsule,biphase delayed release (Dexilant) fluticasone furoate 200 1 inh inhalation DAILY 12/01/22 12/01/22 11/30/22 History mcg-vilanterol 25 mcg/dose inhalation powder (Breo Ellipta) methocarbamol 750 mg tablet 750 mg PO TID PRN muscle spasms 12/01/22 12/01/22 Unknown History olmesartan 40 mg tablet 40 mg PO DAILY 12/01/22 12/01/22 12/04/22 History triamcinolone acetonide 0.1 % 1 applic topical BID PRN Itching 12/01/22 12/01/22 Unknown History topical ointment diclofenac sodium 1 % topical gel 2 g topical QID PRN pain 12/05/22 12/01/22 12/01/22 History Allergies Allergy/AdvReac Type Severity Reaction Status Date / Time aspirin Allergy ALGY-Difficulty Verified 12/01/22 11:53 Breathing cyclobenzaprine Allergy ANGRY Verified 12/01/22 11:53 [From Flexeril] hydromorphone [From Dilaudid] Allergy ALGY-Anaphy Verified 12/01/22 11:53 laxis morphine Allergy ALGY-Anaphy Verified 12/01/22 11:53 laxis Penicillins Allergy ALGY-Anaphy Verified 12/01/22 11:53 laxis sulfacetamide Allergy ALGY-Anaphy Verified 12/01/22 11:53 laxis dobutamine AdvReac Severe unknown Verified 12/01/22 11:53 ketorolac [From Toradol] AdvReac Unknown abdominal Verified 12/01/22 11:53 pain Current Medications Generic Name Dose Route Start Last Admin Trade Name Freq PRN Reason Stop Dose Admin Sodium Chloride 1,000 mls @ 30 mls/hr 12/05/22 06:00 12/05/22 06:20 Sodium Chloride 0.9% IV 12/06/22 05:59 30 mls/hr .Q24H BÁRBARA Administration PFSH Anesthesia Medical History B12 deficiency COPD (chronic obstructive pulmonary disease) Enrolled in chronic care management High risk medication use History of hepatitis B History of nephrolithiasis History of tobacco use Hyperlipidemia Pt had severe muscle cramps with statins and Zetia. Hypertension Patient has a family history of aneurysm, father had a aneurysm of the abdominal aorta. Mother had aneurysm in the heart?. She had a CTA of the abdomen and was found to have no evidence of aneurysm. She had an abnormal aortic duplex lamination July 2020 which was unremarkable. Iron deficiency anemia Lumbar post-laminectomy syndrome Lung nodules Opioid contract exists Reactive airway disease Recurrent cystitis Seropositive rheumatoid arthritis of multiple sites Spondylolisthesis at L5-S1 level Ulcer Surgical History H/O gastric bypass (~2000) H/O left wrist surgery H/O: hysterectomy History of cholecystectomy History of lumbar fusion (2006) Hx of appendectomy Status post lumbar spine surgery for decompression of spinal cord (~1995) Status post lumbar spine surgery for decompression of spinal cord (~1991) Family History Grandmother Breast cancer Maternal Cancer Mother Heart abnormality, Onset Age: 47 aneurysm ruptured CAD (coronary artery disease) at 57 of heart aneurysm Cancer Father Abdominal aneurysm, Onset Age: 67 of the same Hypertension Family/Other CAD (coronary artery disease) Cancer Brother CAD (coronary artery disease) always had heart problems Diabetes Lung disease Brother Diabetes Grandfather Stroke Other Aneurysm of abdominal aorta Denies family history of Clotting disorder Dementia Chronic kidney disease (CKD) Suicide Anesthesia complication Bleeding disorder Social History Smoking and tobacco/nicotine status: current every day tobacco/nicotine user cigarettes Packs smoked per day: 2 Years cigarettes smoked: 51 [ Other cigarette details: currently smoking 0.5-1.0 ppd] Alcohol intake: never Substance/Drug Use: never Caregiver/support person: Yes Lives independently: Yes Household members: children Marital status: Legally Current occupational status: disabled Current occupation: disabled Data Anesthesia 12/05/22 06:30 12/05/22 06:30 Short CBC 12/05/22 Range/Units 06:30 WBC 11.72 H (3.29-11.43) 10^3/uL Hgb 13.70 (11.27-16.99) g/dL Hct 41.6 (36-47) % MCV 95.4 (85-98) fl Plt Count 266 (157-399) 10^3/cmm Neut % (Auto) 58.0 % Neut # (Auto) 6.79 (1.8-7.7) 10^3/uL BMP 12/05/22 06:30 Sodium 138 Potassium 4.3 Chloride 103 Carbon Dioxide 27 BUN 21 Creatinine 0.7 Glucose 97 Calcium 9.1 Cardiac Studies: Echocardiogram 08/10/21 Stress Echocardiogram 04/03/19 Cardiac Event Monitor 07/12/21
--- NOTE | 2022-12-05 07:05 | P.HPUD_ITS ---
Surgery/Procedure H&P Update DATE OF PROCEDURE: December 05, 2022 DATE H&P PERFORMED: 11/15/22 H&P UPDATE INFORMATION: I have reviewed H&P completed within last 30 days, I have examined patient prior to procedure, No changes to prior documentation and Changes to prior documentation as noted here (Follow-up CT chest 11/24/2022- interval increase in noncalcified left lower lobe nodule 12 x 9 mm) CHANGES TO PREVIOUS DOCUMENTATION: #Multiple small pulmonary nodules on CT chest 10/07/2021 with new 5 mm left upper lobe granuloma-rest of them were stable In this patient with underlying rheumatoid arthritis-these nodules may be rhe umatoid nodules -However given her significant smoking history over 100 pack years (4 pack/day for 25 years ; quit in 1998 and again restarted smoking 1 pack/day from 2013 and continues to half to 1 pack/day)-as per screening protocol for lesions less than 6 mm in high risk patients-she underwent annual CT chest 11/24/2022-which showed interval change in increase in size of noncalcified nodule with mild lobar/irregular borders within the posterior aspect of left upper lobe measuring 12 x 9 mm. Findings worrisome for developing mass and malignancy requires exclusion. PREOP DIAGNOSIS: Suspicious left upper lobe nodule for malignancy PRIMARY INDICATION FOR PROCEDURE: Suspicious left upper lobe nodule-to rule out malignancy PLANNED PROCEDURE: Operation Date: 12/05/22 07:00 Proposed Procedures p ION navigational bronch with EBUS, 36664, 61220, 95260, 13185, 40910, 16076, 05328, 57367, 32734, 90530, 11187, 76678, 39018,R91.8(Not Applicable) - Shailesh Cook MD s Ebus(Not Applicable) - Shailesh Cook MD
[2022-12-05] MEDS: lidocaine 1% INJ 10 mL (per mL) 20 ML XX (08:54)
--- NOTE | 2022-12-05 08:58 | P.OP_ITS ---
Operative Report Date of procedure: December 05, 2022 Pre-op diagnosis: Increasing noncalcified superior segment of left lower lobe-suspicious for malignancy Post-op diagnosis: other (Atypical cells/histiocytes) Procedure done: 48546 Dx Bronchoscope w/Washings or airway inspection 10556 Bx Bronchoscope w/Brushings or protected brushings 07211 Dx Bronchoscope w/BAL 68235 Bronch with computer image guided Navigational Bronchoscopy 85033 Bronchoscopy w/Transbronchial lung biopsy(s), single lobe 22921 Bronchoscopy w/Transbronchial needle aspiration biopsy(s), tracheal, main stem, and/or lobar bronchus 84817 Bronchoscopy w/ therapeutic aspiration of the tracheobronchial tree (clearance of airway secretions, removal of mucus plugs) 31074 EBUS Sampling 1/2 nodes 29601 EBUS Diag or Interven Peripheral lesion (radial EBUS) Surgeon: Shailesh Cook MD Complications: none Brief History: Ms. Rachana Gomez is a 67-year-old female with past medical history of seropositive rheumatoid arthritis, COPD initially in November [address] Urrutia for pulmonary nodule.? Patient had for back per day for 50 years smoking history; she quit interim from 1998 through 2013. She is using Breo inhaler and albuterol inhaler and neb marla.? Patient had a pulmonary function test on 09/27/2021 which showed postbronchodilator FVC 3.32 L 99% predicted and FEV1 2.85 L 110% predicted with significant bronchodilator response.? Lung volumes are normal.? Gas transfer is not measured.? Pulmonary function test suggestive of reversible mild? obstructive ventilatory disease Patient had a low-dose CT on 10/07/2021 mentioned small peripheral 4 mm right lower lobe nodule, 4 mm right lower lobe nodule, new left upper lobe 5 mm nodule superior segment . For some reason on the same day CT chest reported stable 3 mm right upper lobe nodule, 4 mm right lower lobe nodule, stable left upper lobe 4 mm nodule superior segment, a new left upper lobe granuloma Given her significant smoking history-at high risk for malignancy-a 12-month CT scan is ordered for follow-up. Patient comes after 1 year to my clinic with complaint of mild hemoptysis in 1st week of november 2022 and resolved by itself; she has cough and productive sputum and slightly brownish. no fever and chills. Repeat CT scan 11/24/2022-showed interval increase in size of noncalcified nodule in superior segment of left lower lobe now measuring 12 x 9 mm. Findings worrisome for developing mass and malignancy. There are few calcified nodes around the mediastinal hilar region which are chronic. Today she comes for bronchoscopic evaluation-navigational bronchoscopy guided biopsy of superior segment left lower lobe nodule, endobronchial ultrasound- guided biopsies of hilar/mediastinal lymph nodes. Currently she is on Humira, Mtx, for? seropositive rheumatoid arthritis She has iron deficiency anemia following previous gastric bypass-being followed up? hematology She had rigth femoral angiogram at [facility] november 2021 and had a stent placed and started on plavix, which was temporarily held 5 days prior to the procedure today. Procedure: 15641 Dx Bronchoscope w/Washings or airway inspection 18885 Bx Bronchoscope w/Brushings or protected brushings 23234 Dx Bronchoscope w/BAL 48479 Bronch with computer image guided Navigational Bronchoscopy 20428 Bronchoscopy w/Transbronchial lung biopsy(s), single lobe 09558 Bronchoscopy w/Transbronchial needle aspiration biopsy(s), tracheal, main stem, and/or lobar bronchus 75711 Bronchoscopy w/ therapeutic aspiration of the tracheobronchial tree (clearance of airway secretions, removal of mucus plugs) 88997 EBUS Sampling 1/2 nodes 69259 EBUS Diag or Interven Peripheral lesion (radial EBUS) Indication: Description of the procedure: The procedure was explained to the patient and the consent was obtained. The patient was brought to the OR. Anesthesia: The patient underwent endotracheal intubation for general anesthesia. Local anesthesia: The distal trachea-Adela, right and left mainstem bronchi were anesthetized with 1% lidocaine, 3 mL. Following induction of general anesthesia, the flexible bronchoscope was advanced through the ET tube. The lower trachea mucosa appeared normal, no endotracheal lesion was seen. The adela was sharp. The adela, the right and left mainstem bronchi are anesthetized with 1% lidocaine. In a systematic manner bilateral bronchial tree was then examined. The bronchoscope was then introduced into the right mainstem bronchus. The right upper lobe, right middle lobe and right lower lobe bronchi were examined up to the third subsegmental level and no abnormalities were identified.Mucosa appeared normal with no endobronchial lesion, active bleeding or mucous plug.There were significant clear secretions which were suctioned right away.(88547). The bronchoscope was advanced into the left mainstem bronchus. The mucosa appeared normal with no endobronchial lesions. The left upper lobe, lingula and left lower lobe bronchi were examined up to the third subsegmental level and no abnormalities were identified. Mucosa appeared normal with no endobronchial lesion, active bleeding or mucous plug. There were clear secretions in left lower lobe-which were suctioned right away.(89844) After initial inspection as well as airway clearance with flexible bronchoscope(46631), ION robotic assisted navigational bronchoscope (29160) was introduced-and Lesion in superior segment of left lower lobe was accessed. After confirming the location with radial EBUS (64046), noted to have good eccentric signal, under the fluoroscopy guidance -we were able to obtain biopsies using fine-needle, brushing, forceps.There was some evidence of grade 2 bleeding-cold saline was instilled. BAL was also taken from superior segment of left lower lobe segment. After making sure there is no active bleeding navigational bronchoscope was retracted and introduced Endobronchial ultrasound EBUS (15183). With the help of EBUS, identified lymph nodes at station 11 L. Fine-needle aspiration biopsies were taken from lymph nodes at station 11 L. (94036) After taking the biopsies EBUS retracted-diagnostic bronchoscope was introduced to check for any evidence of active bleeding. There was some evidence of bleeding-controlled with instillation of cold saline. After making sure there is no active bleeding bronchoscope was retracted and procedure terminated. Samples: A. Lesion in superior segment of left lower lobe 1. Total of 5 passes were made using needle aspiration(45385); 1 pass was placed on a slide and sent for rapid onsite evaluation-pathology reported seeing histiocytes; rest of the material placed in formalin for histopathology review. 2. Targeting the same area 5 passes were made using forceps (32642); 1 pass was placed on a slide and sent for rapid onsite evaluation-pathology reported seeing histiocytes; rest of the material placed in formalin for histopathology review 3. Targeting the same area 1 pass were made using Cytobrush (19707);material placed in formalin for histopathology review 4. Bronchoscope was wedged at the entrance of the superior segment of left lower lobe, 20 mL of saline was instilled and returned 13 mL of bronchoalveolar lavage (47511). The fluid was mixed with blood and specks of tissue. Samples for cell count, cytology, cultures B. EBUS guided Fine-needle aspiration biopsies were taken from station 11 L (47813) 1. Total of 4 passes were made using needle aspiration(91852) from station 11 L; 1 pass was placed on a slide and sent for rapid onsite evaluation-pathology reported Highly suspicious cells for malignancy; all the material was placed in formalin and sent for histopathology Complications: None.The patient was extubated and brought to the PACU in stable condition. Patient has been complaining of right-sided chest pain-EKG did not show Acute ST-T wave changes. Chest x-ray no evidence of pneumothorax. She received fentanyl 25 mcg and DuoNeb nebulization-tells that the pain has improved. Postprocedure chest x-ray: There is no evidence of pneumothorax Disposition: Patient can be discharged home in stable condition. Discharge instructions: Counseled patient to return to ER if she develops persistent chest pain or shortness of breath Pt is aware that I am going to call her to update final biopsy results once available. Related Problem List Diagnoses (1) Left lower lobe pulmonary nodule:
[2022-12-05 09:00] LABS: Cyto Order Verification Order Verified
[2022-12-05] MEDS: fentaNYL 50 mcg/mL INJ 2mL IVP (09:20)
--- NOTE | 2022-12-05 09:33 | XR_ITS ---
WS: [id number] PORTABLE CHEST HISTORY: post ion COMPARISON: 09/05/2021 Subsegmental atelectasis at the LEFT lung base. No mass. No hemorrhage or lobar collapse post biopsy. No pleural effusion or pneumothorax. Cardiac size: Normal. Mediastinum/Aorta: Mild atherosclerosis aorta. No osseous abnormality seen. IMPRESSION: 1. No pneumothorax or complication status post LEFT lung biopsy. 2. Notified Shailesh Cook MD at 12/05/2022 10:00 AM.
--- NOTE | 2022-12-05 09:38 | ECG_ITS ---
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 Measurements Intervals [place] Rate: 58 P: 43 [place]: 175 QRS: 5 QRSD: 91 T: 46 QT: 440 QTc: 433 Interpretive Statements SINUS BRADYCARDIA Compared to ECG 12/05/2022 06:33:54 No significant changes Electronically Signed On 12-05-2022 12:20:59 CDT by Zandra Draper M.D. [id number]
[2022-12-05] MEDS: ipratropium-albuterol 3 mL Neb INHALATION (09:44)
--- NOTE | 2022-12-05 10:40 | ANE.PACU2 ---
Inpatient post-anesthesia follow up: Airway intact: Yes Vital signs: Temperature 97 F Pulse Rate 62 Respiratory Rate 18 Blood Pressure 101/60 Pulse Oximetry 97 Oxygen Delivery Me thod Room Air Oxygen Flow Rate 1 Fraction of Inspir ed Oxygen Hydration adequate: Yes Pain level: 1 Mental status: Baseline
[2022-12-05 11:18] LABS: Total Cells Counted Bronch 200
[2022-12-05 11:19] LABS: Apprearance, Bronch Wash Bloody (CLEAR); Color, Bronc Wash Slight Pink
== END 2022-12-05 10:44 | disposition home or self-care (01) ==
PROVIDERS: Anesthesiology; PCP Nurse Practitioner; Visit Provider Internal Medicine Pulmonary Disease
PROC: 0BJ08ZZ Inspection of Tracheobronchial Tree, Via Natural or Artificial Opening Endoscopic (ICD-10-PCS; CPT 31622; principal; 2022-12-05 07:00)
PROC: BB4BZZZ Ultrasonography of Pleura (ICD-10-PCS; 2022-12-05 07:00)
DX: C34.32 Malignant neoplasm of lower lobe, left bronchus or lung (principal); K21.9 Gastro-esophageal reflux disease without esophagitis; M06.9 Rheumatoid arthritis, unspecified; J44.9 Chronic obstructive pulmonary disease, unspecified; Z79.899 Other long term (current) drug therapy; E78.5 Hyperlipidemia, unspecified; I10 Essential (primary) hypertension; F17.210 Nicotine dependence, cigarettes, uncomplicated
CPT/HCPCS: 31623; 31624; 31627; 31628; 31629; 31645; 31652; 31654; 36415; 71045; 76000; 80048; 80503; 85025; 87070; 87205; 88112; 88305; 89050; 93005; A7003; J0330; J1100; J2250; J2405; J2704; J2710; J3010; J3490; J7030

== ENCOUNTER 2022-12-06 06:00 | Outpatient (RCR) | payer MEDICARE, MEDICAID, SELFPAY | END 2023-01-04 23:59 | disposition home or self-care (01) | LOC: GPT 06:00 | PROVIDERS: PCP Nurse Practitioner; Visit Provider Nurse Practitioner | DX: M54.6 Pain in thoracic spine (principal) | CPT/HCPCS: 97110; 97112; 97140; 97164 ==

== ENCOUNTER 2023-01-02 14:17 | Outpatient (CLI) | payer MEDICARE, MEDICAID, SELFPAY ==
--- NOTE | 2023-01-02 08:00 | PETR_ITS ---
PROCEDURE INFORMATION: Exam: PET/CT Skull Base to Mid-thigh Exam date and time: 01/02/2023 9:52 AM Age: 67 years old Clinical indication: Abnormal findings; Pulmonary nodules; Prior surgery; Surgery date: 6+ months; Surgery type: Breast reduction LABS AND CLINICAL REPORTS: Glucose: 95 mg/dl Treatment strategy for malignancy (PET staging): Initial Staging (PI) TECHNIQUE: Imaging protocol: Following at least four-hour fasting and following the injection of radiopharmaceutical, low dose CT images were obtained. Then, PET images were obtained. Attenuation corrected images were constructed using the CT scan. Fused images of PET and CT were reviewed. The standardized uptake values (SUV) reported below are maximum values within a region of interest, expressed in gm/ml. Exam includes orbital meatal line to mid-thigh. Radiopharmaceutical: 10.74 mCi F-18 FDG (Fluorodeoxyglucose), IV. Time of imaging post radiopharmaceutical administration: 1 hour Injection site: Right wrist COMPARISON: CT chest con [id number] 11/24/2022 6:29 AM FINDINGS: Brain: Visualized brain has normal physiologic uptake. Pharynx: No abnormal uptake. Larynx: No abnormal uptake. Lungs, pleura and trachea: 1.5 x 1.4 cm nodule in the superior segment of the left lower lobe measures 9 SUV compatible with malignancy. 5 mm calcified granuloma in the left upper lobe, 3 mm calcified granuloma in the right middle lobe. No pleural effusion. Heart: Normal physiologic uptake. There is no cardiomegaly. Coronary artery calcification is present. There is no pericardial effusion. Mediastinal space: No abnormal uptake. There is a small hiatal hernia. Liver: No abnormal uptake. Gallbladder and bile ducts: No abnormal uptake. Status post cholecystectomy. Pancreas: No abnormal uptake. Spleen: No abnormal uptake. No splenomegaly. Adrenal glands: No abnormal uptake. No nodules. Kidneys and ureters: Normal physiologic uptake. No hydronephrosis. Stomach and bowel: Short segments of increased uptake in the small bowel in the lower and mid abdomen with no corresponding CT abnormality are likely benign. No abnormal dilatation of the bowel. Status post proximal partial gastrectomy with anastomosis between the distal esophagus and jejunum. Mild diverticulosis in the sigmoid colon. Intraperitoneal and retroperitoneal spaces: No abnormal uptake. No ascites. Urinary bladder: Normal physiologic uptake. Reproductive: No abnormal uptake. The uterus is absent post surgically. Vasculature: No abnormal uptake. No aortic aneurysm. Stent in the right renal artery. Stent in the right external iliac artery. Lymph nodes: No abnormal uptake. No lymphadenopathy in the head, neck, chest, abdomen, pelvis, and extremities. 0.9 cm calcified granuloma within normal size left hilar lymph node. Bones/joints: No abnormal uptake in the visualized axial and appendicular skeleton. Status post L4 and L5 posterior laminectomy with L4-S1 fusion with bilateral transpedicular internal fixation. Soft tissues: No abnormal uptake in the visualized head, neck, chest, abdomen, pelvis, and extremities. Bilateral breast implants are in place. PET/PET skulltothi INITIAL [id number] IMPRESSION: 1.5 cm lung nodule in the left lower lobe with high uptake of 9 SUV suggestive of malignancy. No evidence of FDG avid metastatic disease.
== END 2023-01-02 14:18 | disposition home or self-care (01) ==
LOC: RAD 14:18
PROVIDERS: PCP Nurse Practitioner; Visit Provider Internal Medicine Pulmonary Disease
DX: R91.8 Other nonspecific abnormal finding of lung field (principal); Z98.890 Other specified postprocedural states
CPT/HCPCS: 78815; A9552

== ENCOUNTER 2023-01-05 06:00 | Outpatient (RCR) | payer MEDICARE, MEDICAID, SELFPAY | END 2023-02-04 23:59 | disposition home or self-care (01) | LOC: GPT 06:00 | PROVIDERS: PCP Nurse Practitioner; Visit Provider Nurse Practitioner | DX: M54.6 Pain in thoracic spine (principal) | CPT/HCPCS: 97110; 97112; 97140; 97164 ==

== ENCOUNTER 2023-01-09 07:41 | Outpatient (CLI) | payer MEDICARE, MEDICAID, SELFPAY | END 2023-01-09 07:42 | disposition home or self-care (01) | LOC: RT 07:41 | PROVIDERS: PCP Nurse Practitioner; Visit Provider Internal Medicine Pulmonary Disease | DX: R91.1 Solitary pulmonary nodule (principal) | CPT/HCPCS: 94010; 94726; 94729 ==

== ENCOUNTER 2023-01-17 08:16 | Outpatient (CLI) | payer MEDICARE, MEDICAID, SELFPAY ==
--- NOTE | 2023-01-17 08:45 | MR_ITS ---
WS: [id number] MRI BRAIN WITH AND WITHOUT CONTRAST HISTORY: lung cancer COMPARISON: 08/09/2021 TECHNIQUE: Multiplanar imaging performed through the brain with MultiHance 5 ml's IV. Limited contras t injection. No acute infarcts are seen. [place]-white matter differentiation is well preserved. There are numerous p atchy bilateral T2 and FLAIR signal hyperintensities throughout the white matter. Greatest distributi on in the periventricular region. Mild progression since 08/10/2019. None of these areas enhance. No susceptibility artifacts or prior lacunar infarcts. Ventricles and extra-axial spaces are normal. Clivus and pituitary gland are normal. Visualized posterior fossa and brainstem are also normal. Postcontrast images are negative for masses or vascular malformations. Dural venous sinuses are normal. Paranasal sinuses: Well aerated with no significant disease. Mastoid air cells: Small bilateral mastoid air cell effusions. Calvarium and scalp: Normal. IMPRESSION: 1. No enhancing masses or vascular malformations identified. 2. Advanced patchy T2 and FLAIR signal abnormalities throughout the white matter. More than expected for the patient's age. Very mild progression since 08/09/2021. Consider additional etiologies beyond s mall vessel ischemic disease such as vasculitis, demyelination. These changes can be seen with diabet es and hypertension and migraines.
[2023-01-17] MEDS: gadobenate dimeglumine 20 mL vial IV (09:58)
== END 2023-01-17 08:17 | disposition home or self-care (01) ==
LOC: RAD 08:17
PROVIDERS: PCP Nurse Practitioner; Visit Provider Internal Medicine
DX: C34.92 Malignant neoplasm of unspecified part of left bronchus or lung (principal)
CPT/HCPCS: 70553; A9577

== ENCOUNTER 2023-02-21 10:26 | Oncology outpatient (recurring) (ONCR) | payer MEDICARE, MEDICAID, SELFPAY ==
--- NOTE | 2023-02-21 12:14 | PC.NURSE ---
Patient scheduled today for peripheral lab draw. Attempt to obtain vascular access was attempted four times without success. Patient was taken to [facility] lab for peripheral lab draw. Patient verbalized understanding.
[2023-02-21 12:17] LABS: Basophils # 0.1 10^3/uL (0.0-0.1); Basophils % 0.5 %; Eosinophils # 0.3 10^3/uL (0.0-0.8); Eosinophils % 2.4 %; Hematocrit 43.1 % (36-47); Lymphocytes # 3.2 10^3/uL (0.8-4.8); Lymphocytes % 26.9 %; Mean Corpuscular HGB Conc 32.5 g/dL (30-55); Mean Corpuscular Volume 95.6 fl (85-98); Mean Platelet Volume 9.5 fL (7.4-10.4); Monocytes # 1.3 10^3/uL (0.2-0.9); Neutrophils # 7.03 10^3/uL (1.8-7.7); Neutrophils % 58.7 %; Nucleated Red Blood Cells % 0 %; Platelet Count 332 10^3/cmm (157-399); Red Blood Count 4.51 10^6/uL (3.85-5.65); Red Cell Distribution Width 13.8 % (12.1-15.1); White Blood Count 11.99 10^3/uL (3.29-11.43)
[2023-02-21 12:32] LABS: Alanine Aminotransferase 48 U/L (0-33); Albumin Level 3.8 g/dL (3.5-5.2); Alkaline Phosphatase 114 U/L (35-105); Anion Gap 17.3 (5-19); Aspartate Amino Transferase 18 U/L (0-32); Blood Urea Nitrogen 21 mg/dL (8-23); Calcium 9.9 mg/dL (8.5-10.5); Carbon Dioxide 26 mmol/L (22-29); Chloride 97 mmol/L (98-107); Globulin 3.5 g/dL (1.3-4.6); Glomerular Filtration Rate 71.8 mL/min (90-130); Glucose 103 mg/dL (65-115); Osmolality Calculated 285 mOsm/kg (285-295); Potassium 4.3 mmol/L (3.5-5.1); Sodium 136 mmol/L (136-145); Total Bilirubin 0.5 mg/dL (0.15-1.2); Total Protein 7.3 g/dL (6.6-8.7)
== END 2023-03-07 23:59 | disposition home or self-care (01) ==
PROVIDERS: PCP Nurse Practitioner; Visit Provider Internal Medicine
DX: C34.92 Malignant neoplasm of unspecified part of left bronchus or lung (principal); Z87.891 Personal history of nicotine dependence; J44.9 Chronic obstructive pulmonary disease, unspecified; Z79.899 Other long term (current) drug therapy
CPT/HCPCS: 36415; 80053; 85025; 99213

== ENCOUNTER → 2023-03-07 10:00 | Outpatient (BNVA) | payer MEDICARE, MEDICAID, SELFPAY | PROVIDERS: PCP Nurse Practitioner; Visit Provider Nurse Practitioner Family | DX: L57.8 Other skin changes due to chronic exposure to nonionizing radiation (principal); D22.4 Melanocytic nevi of scalp and neck; L81.4 Other melanin hyperpigmentation; L56.5 Disseminated superficial actinic porokeratosis (DSAP); L82.0 Inflamed seborrheic keratosis | CPT/HCPCS: 17000; 17110; 99213 ==

== ENCOUNTER → 2023-03-13 13:25 | Outpatient (BNVA) | payer MEDICARE, MEDICAID, SELFPAY | PROVIDERS: PCP Nurse Practitioner; Visit Provider Internal Medicine Rheumatology | DX: M05.79 Rheumatoid arthritis with rheumatoid factor of multiple sites without organ or systems involvement (principal); Z79.899 Other long term (current) drug therapy; Z71.85 Encounter for immunization safety counseling; R91.8 Other nonspecific abnormal finding of lung field | CPT/HCPCS: 99214 ==

== ENCOUNTER → 2023-03-15 15:00 | Outpatient (BNVA) | payer MEDICARE, MEDICAID, SELFPAY | PROVIDERS: PCP Nurse Practitioner; Visit Provider Surgery | DX: Z90.2 Acquired absence of lung [part of] (principal); C34.92 Malignant neoplasm of unspecified part of left bronchus or lung; M79.2 Neuralgia and neuritis, unspecified | CPT/HCPCS: 71046; 99204; 99214 ==

== ENCOUNTER 2023-03-29 13:30 | Oncology outpatient (recurring) (ONCR) | payer MEDICARE, MEDICAID, SELFPAY ==
[2023-03-28 08:14] VITALS: BP 164/92; PULSE 78; RESP 18; TEMP 36.6; O2SAT 98
[2023-03-28 08:20] LABS: Basophils % 0.2 %; Eosinophils # 0.3 10^3/uL (0.0-0.8); Eosinophils % 3.5 %; Hematocrit 39.4 % (36-47); Lymphocytes # 3.2 10^3/uL (0.8-4.8); Lymphocytes % 38.2 %; Mean Corpuscular HGB Conc 33.5 g/dL (30-55); Mean Corpuscular Hemoglobin 30.3 pg (27-33); Mean Corpuscular Volume 90.4 fl (85-98); Mean Platelet Volume 9.6 fL (7.4-10.4); Monocytes # 0.8 10^3/uL (0.2-0.9); Monocytes % 9.3 %; Neutrophils % 48.6 %; Nucleated Red Blood Cells % 0 %; Platelet Count 277 10^3/cmm (157-399); Red Blood Count 4.36 10^6/uL (3.85-5.65); Red Cell Distribution Width 13.5 % (12.1-15.1); White Blood Count 8.46 10^3/uL (3.29-11.43)
[2023-03-28 08:35] LABS: Alanine Aminotransferase 13 U/L (0-33); Alkaline Phosphatase 95 U/L (35-105); Anion Gap 15.5 (5-19); Aspartate Amino Transferase 14 U/L (0-32); Blood Urea Nitrogen 17 mg/dL (8-23); Calcium 9.2 mg/dL (8.5-10.5); Carbon Dioxide 25 mmol/L (22-29); Chloride 103 mmol/L (98-107); Creatinine Clr Calc Pharmacy 78.4022; Glomerular Filtration Rate 83.7 mL/min (90-130); Glucose 93 mg/dL (65-115); Osmolality Calculated 289 mOsm/kg (285-295); Potassium 4.5 mmol/L (3.5-5.1); Sodium 139 mmol/L (136-145); Total Bilirubin 0.3 mg/dL (0.15-1.2)
[2023-03-29 13:28] VITALS: BP 148/78; PULSE 74; RESP 18; TEMP 36.6; O2SAT 98
[2023-03-29 14:57] VITALS: BP 152/80; PULSE 60; RESP 18; TEMP 36.6; O2SAT 96
[2023-03-29] MEDS: ondansetron 4 MG Tablet 8 MG PO (15:24)
--- NOTE | 2023-03-29 16:15 | PC.NURSE ---
Patient came into the infusion center with nausea and emesis of liquid mucous. New orders for IV hydration and zofran. I attemptedd to start IV with veins rolling and hard to get it started with her request to just give her the Zofran oral and she would be ok because she didn't want to be stuck again. I did give her oral zofran and offered water or soda but she decline except to swallow what she had with her pills. She left the infusion suite with no emesis.[email or web address]
== END 2023-04-05 23:59 | disposition home or self-care (01) ==
PROVIDERS: PCP Nurse Practitioner; Visit Provider Internal Medicine
DX: I49.9 Cardiac arrhythmia, unspecified (principal); I77.9 Disorder of arteries and arterioles, unspecified; I10 Essential (primary) hypertension; E78.2 Mixed hyperlipidemia; I83.811 Varicose veins of right lower extremity with pain; Z79.899 Other long term (current) drug therapy; Z53.9 Procedure and treatment not carried out, unspecified reason
CPT/HCPCS: 36415; 80053; 85025; 87517; 99214; 99215; Q0162

== ENCOUNTER → 2023-04-04 11:17 | Outpatient (BNVA) | payer MEDICARE, MEDICAID, SELFPAY | PROVIDERS: PCP Nurse Practitioner; Referring Provider Internal Medicine; Visit Provider Surgery | DX: Z95.828 Presence of other vascular implants and grafts (principal); C34.92 Malignant neoplasm of unspecified part of left bronchus or lung; M79.2 Neuralgia and neuritis, unspecified; Z79.899 Other long term (current) drug therapy | CPT/HCPCS: 99204 ==

== ENCOUNTER 2023-04-13 11:13 | Day surgery (SDC) | payer MEDICARE, MEDICAID, SELFPAY ==
--- NOTE | 2023-04-13 11:36 | ECG_ITS ---
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 Measurements Intervals [place] Rate: 64 P: 50 NC: 182 QRS: -47 QRSD: 88 T: 43 QT: 402 QTc: 417 Interpretive Statements SINUS RHYTHM PATTERN CONSISTENT WITH PULMONARY DISEASE LEFT ANTERIOR FASCICULAR BLOCK [QRS AXIS <= -45, QR IN I, RS IN II] Compared to ECG 12/05/2022 09:55:56 Left anterior fascicular block now present Sinus bradycardia no longer present Electronically Signed On 04-13-2023 18:03:23 IT RISK AND ASSURANCE MANAGER by Apolinar Lara M.D. [id number]
[2023-04-13 11:38] VITALS: BP 156/78; PULSE 66; RESP 18; TEMP 36.7; O2SAT 97
--- NOTE | 2023-04-13 11:39 | P.HPUD_ITS ---
Surgery/Procedure H&P Update DATE OF PROCEDURE: April 13, 2023 DATE H&P PERFORMED: 04/04/23 H&P UPDATE INFORMATION: I have reviewed H&P completed within last 30 days, I have examined patient prior to procedure, No changes to prior documentation and H&P is in [facility] E[place] on date indicated PLANNED PROCEDURE: Operation Date: 04/13/23 13:00 Proposed Procedures p [id number] port placement C34.92(Not Applicable) - Chris Posadas MD
--- NOTE | 2023-04-13 11:39 | W.PM.OPSUD ---
Surgery/Procedure H&P Update DATE OF PROCEDURE: April 13, 2023 DATE H&P PERFORMED: 04/04/23 H&P UPDATE INFORMATION: I have reviewed H&P completed within last 30 days, I have examined patient prior to procedure, No changes to prior documentation and H&P is in [facility] [place] EMR on date indicated PLANNED PROCEDURE: Operation Date: 04/13/23 13:00 Proposed Procedures p [id number] port placement C34.92(Not Applicable) - Chris Posadas MD
[2023-04-13] MEDS: sodium chloride 0.9% 1,000 ML 30 ML IV (12:29)
--- NOTE | 2023-04-13 12:50 | ANES.PREANE2 ---
Pre-Anesthetic Assessment Height/Weight: Height 1.7 m Weight 86.183 kg Temp Pulse Resp BP Pulse Ox O2 Del Method 98.0 F 66 18 156/78 97 Room Air 04/13/23 11:38 04/13/23 11:38 04/13/23 11:38 04/13/23 11:38 04/13/23 11:38 04/13/23 11:44 Operation Date: 04/13/23 13:00 Proposed Procedures p [id number] port placement C34.92(Not Applicable) - Chris Posadas MD Familial anesthetic complications: None Was Beta Roseanne taken within 24 hours: Yes Was Clonidine taken within 24 hours: N/A Last intake: Intake Last Liquid Date 04/12/23 Last Liquid Time 03:00 Last Solid Date 04/12/23 Last Solid Time 19:00 Social No alcohol and No tobacco Exam alert, oriented x 3, clear to auscultation bilaterally and regular rate & rhythm Airway Mallampati: Class II Dentition: false Pulmonary Asthma CV/HEM Stable Angina (negative stress test in 2019), Arrythmia (15 beat V tach on holter), Hypertension and Peripheral Vascular Disease GI Gastroesophageal Reflux Disease [facility] [place] Rheumatoid Arthritis Anesthetic Plan ASA status: 3 Anesthesia: General and MAC Risk of > 500 ml blood loss (7ml/kg in children): No Medications/Allergies Home Medications Medication Instructions Recorded Confirmed Last Taken Type albuterol sulfate 2.5 mg/0.5 mL 2.5 mg inhalation Q4H PRN 02/07/19 04/12/23 12/04/22 History solution for nebulization Shortness Of Breath [id number] intramuscular 1 ea IM .QMONTH 02/07/19 04/12/23 03/22/23 History albuterol sulfate 90 mcg/actuation 2 puff inhalation Q6H PRN 05/19/19 04/12/23 04/13/23 Rx aerosol inhaler (ProAir HFA) shortness of breath or wheezing #18 grams blood sugar diagnostic (OneTouch #100 ea 02/09/20 04/04/23 Unknown Rx Ultra Blue Test Strip) cetirizine 10 mg capsule (All Day 10 mg PO DAILY PRN Allergic 02/02/21 04/12/23 Unknown History Allergy (cetirizine)) Reaction fluticasone propionate 50 1 spray intranasal DAILY PRN 09/07/21 04/12/23 Unknown History mcg/actuation nasal Congestion spray,suspension (Flonase Allergy Relief) clopidogrel 75 mg tablet (Plavix) 75 mg PO DAILY 11/21/21 04/12/23 04/05/23 History dicyclomine 10 mg capsule 10 mg PO QID 03/20/22 04/12/23 04/12/23 History furosemide 20 mg tablet (Lasix) 20 mg PO DAILY #90 tabs 10/04/22 04/12/23 04/05/23 Rx metoprolol tartrate 25 mg tablet 25 mg PO BID 30 days #60 tabs 10/25/22 04/12/23 04/13/23 Rx dexlansoprazole 30 mg 30 mg PO DAILY 12/01/22 04/13/23 04/12/23 History capsule,biphase delayed release (Dexilant) fluticasone furoate 200 1 inh inhalation DAILY 12/01/22 04/12/23 04/13/23 History mcg-vilanterol 25 mcg/dose inhalation powder (Breo Ellipta) methocarbamol 750 mg tablet 750 mg PO TID PRN muscle spasms 12/01/22 04/12/23 Unknown History olmesartan 40 mg tablet 40 mg PO DAILY 12/01/22 04/12/23 04/13/23 History prednisone 20 mg tablet See Rx Instructions .Route 01/15/23 04/12/23 Unknown Rx .COMPLEX #30 tabs lactulose 20 gram/30 mL oral 20 g (30 mL) PO .COMPLEX 02/27/23 04/12/23 Unknown Rx solution constipation #1,200 mL folic acid 1 mg tablet 1 mg PO DAILY #30 tabs 03/13/23 04/12/23 04/05/23 Rx methotrexate sodium 2.5 mg tablet See Rx Instructions PO Q7D #30 tabs 03/13/23 04/13/23 03/30/23 Rx prednisone 5 mg tablet 5 mg PO DAILY #30 tabs 03/13/23 04/12/23 Unknown Rx tramadol 50 mg tablet 50 mg PO TID PRN pain #60 tabs 03/13/23 04/12/23 03/29/23 Rx hydrocodone 10 mg-acetaminophen 1 tab PO Q6H PRN pain 3 days #10 03/29/23 04/12/23 Unknown Rx 325 mg tablet tabs ondansetron HCl 8 mg tablet 8 mg PO Q8H 5 days #15 tabs 03/29/23 04/12/23 Unknown Rx zolpidem 10 mg tablet (Ambien) 10 mg PO ONCE SLEEP 04/04/23 04/12/23 04/12/23 History ondansetron HCl 4 mg tablet 4 mg PO QID PRN Nausea/vomiting 04/09/23 04/12/23 Unknown Rx #30 tabs Allergies Allergy/AdvReac Type Severity Reaction Status Date / Time aspirin Allergy ALGY-Difficulty Verified 04/04/23 11:59 Breathing cyclobenzaprine Allergy ANGRY Verified 04/04/23 11:59 [From Flexeril] hydromorphone [From Dilaudid] Allergy ALGY-Anaphy Verified 04/04/23 11:59 laxis morphine Allergy ALGY-Anaphy Verified 04/04/23 11:59 laxis oxycodone [From OxyContin] Allergy ADR-Irritab Verified 04/04/23 11:59 le Penicillins Allergy ALGY-Anaphy Verified 04/04/23 11:59 laxis Sulfa (Sulfonamide Allergy ALGY-Anaphy Verified 04/13/23 11:31 Antibiotics) laxis ketorolac [From Toradol] AdvReac Unknown abdominal Verified 04/04/23 11:59 pain Current Medications Generic Name Dose Route Start Last Admin Trade Name Freq PRN Reason Stop Dose Admin Sodium Chloride 1,000 mls @ 30 mls/hr 04/13/23 11:30 04/13/23 12:29 Sodium Chloride 0.9% IV 04/14/23 11:29 30 mls/hr .Q24H BÁRBARA Administration PFSH Anesthesia Medical History Squamous cell carcinoma of left lung Lung nodules COPD (chronic obstructive pulmonary disease) History of hepatitis B B12 deficiency Iron deficiency anemia History of nephrolithiasis High risk medication use Seropositive rheumatoid arthritis of multiple sites Ulcer Recurrent cystitis Enrolled in chronic care management Opioid contract exists History of tobacco use Spondylolisthesis at L5-S1 level Lumbar post-laminectomy syndrome Hyperlipidemia Pt had severe muscle cramps with statins and Zetia. Reactive airway disease Hypertension Patient has a family history of aneurysm, father had a aneurysm of the abdominal aorta. Mother had aneurysm in the heart?. She had a CTA of the abdomen and was found to have no evidence of aneurysm. She had an abnormal aortic duplex lamination July 2020 which was unremarkable. Surgical History History of lobectomy of lung LL lobectomy due to Cancer...02/14/23 Spfd Hx of appendectomy H/O: hysterectomy History of cholecystectomy H/O gastric bypass (~2000) H/O left wrist surgery Status post lumbar spine surgery for decompression of spinal cord (~1991) History of lumbar fusion (2006) Status post lumbar spine surgery for decompression of spinal cord (~1995) Family History Grandmother Breast cancer Maternal Cancer Mother Heart abnormality, Onset Age: 47 aneurysm ruptured CAD (coronary artery disease) at 57 of heart aneurysm Cancer Father Abdominal aneurysm, Onset Age: 67 of the same Hypertension Family/Other CAD (coronary artery disease) Cancer Brother CAD (coronary artery disease) always had heart problems Diabetes Lung disease Brother Diabetes Grandfather Stroke Other Aneurysm of abdominal aorta Denies family history of Clotting disorder Dementia Chronic kidney disease (CKD) Suicide Anesthesia complication Bleeding disorder Social History Smoking and tobacco/nicotine status: former use of tobacco/nicotine Quit status (tobacco/nicotine): has quit using Year quit tobacco: January 2023 Former quit date comment: smoked 35 years Alcohol intake: never Substance/Drug Use: never Caregiver/support person: Yes Lives independently: Yes Household members: children Marital status: Legally Current occupational status: disabled Current occupation: disabled Data Anesthesia Cardiac Studies: Echocardiogram 08/10/21 Stress Echocardiogram 04/03/19 Cardiac Event Monitor 07/12/21
--- NOTE | 2023-04-13 14:03 | SC_ITS ---
WS: [id number] C-ARM RADIOGRAPHS CHEST; 2 IMAGES HISTORY: port placement COMPARISON: None available. Intraoperative imaging during RIGHT Mediport placement. Mediport projects over the RIGHT thorax. IMPRESSION: Intraoperative imaging during RIGHT Mediport placement.
[2023-04-13] MEDS: vancomycin 1,000 MG in sodium chloride 0.9% 250 ML 250 MG IV (14:26)
[2023-04-13] MEDS: lidocaine-epi 1% 20 mL INJ INJECTION (15:04)
[2023-04-13] MEDS: heparin, porcine 1,000 unit/mL INJ 10 mL 10000 UNIT IRRIGATION (15:05)
--- NOTE | 2023-04-13 15:17 | P.OP_ITS ---
Operative Report Date of procedure: April 13, 2023 Pre-op diagnosis: Lung cancer Post-op diagnosis: lung cancer Post-op findings: Normal vascular anatomy Procedure done: Insertion of right IJ Port-A-Cath Implants: Bard Port-A-Cath Specimens removed/disposition: None Surgeon: Chris Posadas MD Manipulator Operator: MINERVA OR Staff Estimated blood loss: 5 Complications: None Brief History: 67-year-old female who presents to my clinic for evaluation for Port-A-Cath placement. After discussion of all risk and benefits as documented in my preop note we decided to proceed. Procedure: Patient was brought into the OR. She was placed in the supine position. Mother anesthesia sedation was given. The neck was prepped and draped in the usual sterile fashion and a timeout was conducted. The right IJ vein was localized with ultrasound and local anesthesia was infiltrated on the subcutaneous tissue on top of the vein. The right IJ vein was then cannulated with an 18-gauge needle under direct ultrasound visualization, needle tip was seen entering the vein and immediate return of blood was noted, a wire was advanced over the needle into the vein and the needle was removed. Position of the wire was verified with ultrasound and fluoroscopy. The wire was clamped to the drapes and I placed my attention to the chest. Local anesthesia was infiltrated in the right upper chest in the area that was marked in the preoperative evaluation, I also infiltrated local in a tract from these area of the chest to the wire insertion site in the neck. A 15 blade was used to make a 3.5 cm incision on the skin of the chest, the incision was deepened with electrocautery and electrocautery was used to create a subcutaneous pocket to help support. I then used a hemostat to create a tunnel between the chest and the neck area. A 0.5 cm incision was made at the level of the wire insertion site on the neck. I then placed the Port-A-Cath in the pocket and tunneled the catheter using the provided tunneler from the chest to the neck. The catheter was cut to length after being measured under fluoroscopy. I then advanced an introducer and peel- off sheath over the wire under direct fluoroscopic guidance, I subsequently removed the introducer and wire leaving the peel-off sheath in place. The catheter was advanced through the peel-off sheath and the peel-off sheath was removed leaving the catheter in place. Fluoroscopy confirmed adequate position of the catheter. The catheter was accessed and was noted to have good blood return and flushing correctly, I then hep-locked the catheter. The wound was closed in layers using #3-0 Vicryl for the subcutaneous tissue and #4 Monocryl for the skin, Dermabond was applied. At the end of the procedure all counts were correct, the patient tolerated well the procedure and transferred to the PACU in stable condition.
[2023-04-13 15:28] VITALS: BP 144/89; PULSE 71; RESP 14; TEMP 36.4; O2SAT 96
[2023-04-13 15:33] VITALS: BP 120/82; PULSE 75; RESP 16; O2SAT 96
[2023-04-13 15:38] VITALS: BP 142/82; PULSE 76; RESP 16; O2SAT 96
[2023-04-13 15:41] VITALS: BP 134/73; PULSE 74; RESP 16; O2SAT 96
[2023-04-13] MEDS: TRAMadol 50 mg Tablet PO (15:52)
--- NOTE | 2023-04-13 15:59 | ANE.PACU2 ---
Inpatient post-anesthesia follow up: Airway intact: Yes Vital signs: Temperature 97.6 F Pulse Rate 74 Respiratory Rate 16 Blood Pressure 134/73 Pulse Oximetry 96 Oxygen Delivery Me thod Room Air Oxygen Flow Rate Fraction of Inspir ed Oxygen Hydration adequate: Yes Nausea and vomiting: No Pain level: 2 Pain level: Chronic back pain; no surgical pain. Mental status: Baseline
== END 2023-04-13 16:10 | disposition home or self-care (01) ==
PROVIDERS: PCP Nurse Practitioner; Visit Provider Surgery
PROC: (CPT 36561; principal; 2023-04-13 13:00)
DX: C34.90 Malignant neoplasm of unspecified part of unspecified bronchus or lung (principal); K21.9 Gastro-esophageal reflux disease without esophagitis; M05.89 Other rheumatoid arthritis with rheumatoid factor of multiple sites; Z79.891 Long term (current) use of opiate analgesic; E78.5 Hyperlipidemia, unspecified; I10 Essential (primary) hypertension; Z87.891 Personal history of nicotine dependence
CPT/HCPCS: 36561; 76000; 77001; 93005; C1788; J1644; J2250; J2704; J3010; J3370; J7030; J7050

== ENCOUNTER 2023-04-18 13:10 | Outpatient (CLI) | payer MEDICARE, MEDICAID, SELFPAY ==
[2023-04-18] MEDS: iohexol 350 mg/mL 500 mL Btl (per mL) PO (14:17)
[2023-04-18] MEDS: iohexol 350 mg/mL 500 mL Btl (per mL) IV (14:29)
--- NOTE | 2023-04-18 16:00 | CT_ITS ---
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 TECHNIQUE: Contiguous 5 mm axial imaging performed through the chest, abdomen and pelvis with IV cont rast, oral contrast has been provided. Coronal and sagittal reformats chest. Coronal and sagittal ref ormats through the abdomen and pelvis. All CT scans at [facility] use at least one of these d ose optimization techniques: automated exposure control; mA and/or kV adjustment per patient size (in cludes targeted exams where dose is matched to clinical indication); or iterative reconstruction. CONTRAST: Omnipaque 350; 100 mL IV. DLP: 981.00 mGy.cm COMPARISON: 11/24/2022 and 12/02/[address]: Status post LEFT lower lobectomy. There is a small layering LEFT pleural effusion which is new since 11/24/2022. Benign granuloma LEFT upper lobe. Surgical anastomotic sutures proximal LEFT lo wer lobe bronchus. No new mass or pulmonary nodule. Atherosclerosis aorta. No mediastinal or hilar ad enopathy. Heart size remains normal. Postsurgical changes at the GE junction. Bilateral breast implan ts. RIGHT subclavian Mediport. No destructive bone lesions. Abdomen CT: Negative liver and spleen. Prior cholecystectomy with mild intrahepatic and extrahepatic bile duct dilatation. No obstructing lesion or stones in the distal common bile duct. Mild pancreatic atrophy. No pancreatic duct dilatation. No adrenal mass. Moderate plaque abdominal aorta. Celiac axi s and SMA are well opacified. Renal artery calcifications. No renal obstruction. Focal areas of corti pratik thinning RIGHT kidney. No GI tract obstruction. No colitis or enteritis. Constipation. Normal appendix. Pelvic CT: No well-distended urinary bladder. No free fluid or adenopathy. Prior hysterectomy. RIGHT iliac artery stent. Posterior lumbar fusion L4-S1. IMPRESSION: 1. Status post LEFT lower lobectomy since the prior study. 2. New small LEFT pleural effusion. 3. No mediastinal or hilar adenopathy. 4. Prior cholecystectomy and hysterectomy. 5. No metastatic disease to the liver or adrenal glands.
== END 2023-04-18 13:11 | disposition home or self-care (01) ==
LOC: RAD 13:11
PROVIDERS: PCP Nurse Practitioner; Visit Provider Internal Medicine
DX: C34.32 Malignant neoplasm of lower lobe, left bronchus or lung (principal); J90 Pleural effusion, not elsewhere classified; Z90.2 Acquired absence of lung [part of]; Z90.49 Acquired absence of other specified parts of digestive tract; Z90.710 Acquired absence of both cervix and uterus
CPT/HCPCS: 71260; 74177; Q9967

== ENCOUNTER 2023-04-22 19:22 | Emergency (ER) | payer MEDICARE, MEDICAID, SELFPAY ==
[2023-04-22 19:23] VITALS: BP 111/88; PULSE 80; RESP 22; TEMP 36.6; O2SAT 100; BMI 28.1
--- NOTE | 2023-04-22 19:41 | ECG_ITS ---
[facility] Test Date: 2023-04-22 Pat Name: Rachana Gomez Department: Room: Gender: Female Ash Collector: : 1955 Requested By: German Yan Order Number: [id number] Jay Jay MD: Apolinar Lara M.D. Measurements Intervals [place] Rate: 77 P: 68 OH: 183 QRS: -2 QRSD: 94 T: 78 QT: 411 QTc: 467 Interpretive Statements SINUS RHYTHM Non specific T wave changes Compared to ECG 04/13/2023 11:42:18 Left anterior fascicular block no longer present Electronically Signed On 04-22-2023 21:44:47 CDT by Apolinar Lara M.D. [id number]
[2023-04-22] MEDS: sodium chloride 0.9% 1,000 ML 999 ML IV (20:17)
[2023-04-22] MEDS: haloperidol inj 5 mg/mL INJ 1 mL 3 MG IVP (20:23)
--- NOTE | 2023-04-22 20:23 | CTR_ITS ---
PROCEDURE INFORMATION: Exam: CT Abdomen And Pelvis With Contrast Exam date and time: 04/22/2023 8:54 PM Age: 67 years old Clinical indication: Abdominal pain; Localized; Right upper quadrant (ruq); Prior surgery; Surgery date: 6+ months; Surgery type: Chest port. Mastectomy. Gastric bypass. Left lower lobectomy. Gb. Appy. Hysterectomy. Lubar fusion. Patient HX: C/O ruq pain. History of squamous cell lung cancer. ; Additional info: Abd pain, ruq HX of lung cancer TECHNIQUE: Imaging protocol: Computed tomography of the abdomen and pelvis with contrast. Radiation optimization: All CT scans at this facility use at least one of these dose optimization techniques: automated exposure control; mA and/or kV adjustment per patient size (includes targeted exams where dose is matched to clinical indication); or iterative reconstruction. Contrast material: OMNI 350; Contrast volume: 100 ml; Contrast route: INTRAVENOUS (IV); COMPARISON: CT chest abdpel w/*[id number] 04/18/2023 2:24 PM RADIATION DOSE METRICS: Total DLP (mGy-cm): 676.55 FINDINGS: Pleural spaces: Continued mild loculated left pleural fluid collection. Liver: Normal. No mass. Gallbladder and bile ducts: Stable cholecystectomy. Dilatation of the intra-and extrahepatic biliary tree which can be normal following cholecystectomy. Pancreas: Normal. No ductal dilation. Spleen: Normal. No splenomegaly. Adrenal glands: Normal. No mass. Kidneys and ureters: Normal. No hydronephrosis. Stomach and bowel: Continued partial gastrectomy gastrojejunostomy. Interval appearance of mild bowel wall thickening in the transverse colon, splenic flexure and ascending colon consistent with mild infectious colitis versus inflammatory bowel disease. Residual high density barium in the left colon. Appendix: No evidence of appendicitis. Intraperitoneal space: Unremarkable. No free air. No significant fluid collection. Vasculature: Calcification of the thoracic aorta and/or great vessels consistent with atherosclerotic vessel disease. Calcification of the abdominal aorta and/or iliac arteries consistent with atherosclerotic vessel disease. Stable right renal artery endovascular stent which appears patent. Continued patent right external iliac artery endovascular stent. Stable one or more calcified pelvic phleboliths. Lymph nodes: Stable calcified bilateral hilar nodes and/or mediastinal nodes and/or lung granulomas consistent with old granulomatous disease. Urinary bladder: Unremarkable as visualized. Reproductive: Stable hysterectomy. Bones/joints: Stable multilevel lower lumbar laminectomy. Soft tissues: Stable bilateral breast implants. Other findings: Stable postoperative changes over the lumbar spine with metallic fixation and metallic artifact. CT/CT abdomen pelvis w con* [id number] IMPRESSION: 1. Continued mild loculated left pleural fluid collection. 2. Continued partial gastrectomy gastrojejunostomy. 3. Dilatation of the intra-and extrahepatic biliary tree which can be normal following cholecystectomy. 4. Interval appearance of mild bowel wall thickening in the transverse colon, splenic flexure and ascending colon consistent with mild infectious colitis versus inflammatory bowel disease.
[2023-04-22 20:24] LABS: Basophils # 0.1 10^3/uL (0.0-0.1); Basophils % 1.4 %; Eosinophils # 0.1 10^3/uL (0.0-0.8); Eosinophils % 3.3 %; Hematocrit 38.1 % (36-47); Lymphocytes % 47.8 %; Mean Corpuscular HGB Conc 33.9 g/dL (30-55); Mean Corpuscular Hemoglobin 29.9 pg (27-33); Mean Corpuscular Volume 88.2 fl (85-98); Mean Platelet Volume 10.9 fL (7.4-10.4); Monocytes # 0.6 10^3/uL (0.2-0.9); Monocytes % 13.3 %; Neutrophils # 1.43 10^3/uL (1.8-7.7); Neutrophils % 33.5 %; Nucleated Red Blood Cells % 0 %; Platelet Count 169 10^3/cmm (157-399); Red Blood Count 4.32 10^6/uL (3.85-5.65); Red Cell Distribution Width 14.1 % (12.1-15.1); White Blood Count 4.27 10^3/uL (3.29-11.43)
[2023-04-22 20:26] VITALS: RESP 22; O2SAT 99
[2023-04-22] MEDS: fentaNYL 50 mcg/mL INJ 2mL IVP (20:26)
--- NOTE | 2023-04-22 20:39 | ED_ITS ---
HPI - Abdominal Pain 2 General: Chief Complaint: Abdominal Pain Stated Complaint: abdomen pain post chemo Time Seen by Provider: 04/22/23 19:38 History of Present Illness: 67-year-old female with a history of lef t-sided lung cancer. She had her first chemotherapy induction 6 days ago. She comes in complaining of widespread pain, vomiting several times today, generalized weakness. Most of her pain is to the right upper quadrant. She has a history of multiple abdominal surgeries including gastric bypass and cholecystectomy. She notes that her kidneys hurt, and her esophagus feels tight . She is quite anxious on presentation and exam. Associated Symptoms: Reports chills, nausea and vomiting; Denies diarrhea, dysuria, fever(s) and hematemesis Review of Systems 2 Const: Reports: chills, body aches and change in appetite; Denies: fever(s) ENMT: Reports: throat pain Card: Reports: chest pain and palpitations Resp: Reports: dyspnea; Denies: productive cough or non-productive cough GI: Reports: abdominal pain, nausea and vomiting; Denies: hematemesis or diarrhea : Reports: flank pain; Denies: dysuria Musc: Reports: back pain Neuro: Reports: headache(s) Psych: Reports: anxiety PFSH ED 2 PFSH: Medical History Squamous cell carcinoma of left lung Lung nodules COPD (chronic obstructive pulmonary disease) History of hepatitis B B12 deficiency Iron deficiency anemia History of nephrolithiasis High risk medication use Seropositive rheumatoid arthritis of multiple sites Ulcer Recurrent cystitis Enrolled in chronic care management Opioid contract exists History of tobacco use Spondylolisthesis at L5-S1 level Lumbar post-laminectomy syndrome Hyperlipidemia Pt had severe muscle cramps with statins and Zetia. Reactive airway disease Hypertension Patient has a family history of aneurysm, father had a aneurysm of the abdominal aorta. Mother had aneurysm in the heart?. She had a CTA of the abdomen and was found to have no evidence of aneurysm. She had an abnormal aortic duplex lamination July 2020 which was unremarkable. Surgical History History of lobectomy of lung LL lobectomy due to Cancer...02/14/23 Spfd Hx of appendectomy H/O: hysterectomy History of cholecystectomy H/O gastric bypass (~2000) H/O left wrist surgery Status post lumbar spine surgery for decompression of spinal cord (~1991) History of lumbar fusion (2006) Status post lumbar spine surgery for decompression of spinal cord (~1995) Family History Grandmother Breast cancer Maternal Cancer Mother Heart abnormality, Onset Age: 47 aneurysm ruptured CAD (coronary artery disease) at 57 of heart aneurysm Cancer Father Abdominal aneurysm, Onset Age: 67 of the same Hypertension Family/Other CAD (coronary artery disease) Cancer Brother CAD (coronary artery disease) always had heart problems Diabetes Lung disease Brother Diabetes Grandfather Stroke Other Aneurysm of abdominal aorta Denies family history of Clotting disorder Dementia Chronic kidney disease (CKD) Suicide Anesthesia complication Bleeding disorder Social History Smoking and tobacco/nicotine status: former use of tobacco/nicotine Quit status (tobacco/nicotine): has quit using Year quit tobacco: January 2023 Former quit date comment: smoked 35 years Alcohol intake: never Substance/Drug Use: never Caregiver/support person: Yes Lives independently: Yes Household members: children Marital status: Legally Current occupational status: disabled Current occupation: disabled Physical Exam 2 Const: GENERAL APPEARANCE: in distress and anxious HENMT: COMMON NORMALS: normocephalic, atraumatic and Normal external nose present HEAD & SCALP: normocephalic and atraumatic FACE & SINUS: normal facial exam NOSE: Normal external nose present Eye: COMMON NORMALS: Equal, round and reactive pupils present and EOMs intact bilaterally PUPIL: Yes Equal, round and reactive pupils present Neck/C-Spine: GENERAL: Yes trachea midline Chest: CHEST: Yes Symmetrical chest wall rise Resp: COMMON NORMALS: normal respiratory effort, No use of accessory muscles and clear to auscultation bilaterally AUSCULTATION: clear to auscultation bilaterally Cardio: COMMON NORMALS: regular rate and regular rhythm RATE: regular rate RHYTHM: regular rhythm GI: COMMON NORMALS: Soft to palpation PALPATION: Yes Soft to palpation, Yes Tenderness to palpation present (GI) Details: RUQ and No Guarding due to palpation present (GI) : BLADDER/KIDNEY EXAM: Yes CVA tenderness (Bilateral) Back/Pelvis: GENERAL BACK: Yes CVA tenderness (Bilateral) Extremity: COMMON NORMALS: no pedal edema Course 2 Vital Signs: Vital signs: Vital Signs Temperature 97.9 F 04/22/23 19:23 Pulse Rate 78 04/22/23 23:01 Respiratory Rate 18 04/22/23 23:01 Blood Pressure 152/91 04/22/23 23:01 Pulse Oximetry 96 04/22/23 23:01 Oxygen Delivery Me thod Room Air 04/22/23 19:23 MDM - Abdominal Pain Medical Decision Making Patient was given IV fluid, fentanyl, haloperidol for nausea. She is much calmer now. Laboratories pending. Creatinine is 1.2. Laboratory including CBC and BMP are otherwise nonremarkable. She is not neutropenic. Liver enzymes are nonremarkable. Urinalysis is not acute. 2-hour delta troponin is 0.47. CRP is only 10. CT of the abdomen pelvis shows mild bowel wall thickening in the transverse colon splenic flexure and ascending colon consistent with mild infectious colitis versus inflammatory colitis. Other findings appear chronic. She will be treated for enteritis/colitis with antibiotics, liquid diet, pain and nausea medication. She knows to return for any worsening or new symptoms. Lab Data 04/22/23 20:17 04/22/23 20:17 Labs/Radiology: Radiology Impressions Abdomen/Pelvis CT 04/22/23 20:23 IMPRESSION: 1. Continued mild loculated left pleural fluid collection. 2. Continued partial gastrectomy gastrojejunostomy. 3. Dilatation of the intra-and extrahepatic biliary tree which can be normal following cholecystectomy. 4. Interval appearance of mild bowel wall thickening in the transverse colon, splenic flexure and ascending colon consistent with mild infectious colitis versus inflammatory bowel disease. Laboratory Results WBC 4.27 10^3/uL (3.29-11.43) 04/22/23 20:17 RBC 4.32 10^6/uL (3.85-5.65) 04/22/23 20:17 Hgb 12.90 g/dL (11.27-16.99) 04/22/23 20:17 Hct 38.1 % (36-47) 04/22/23 20:17 MCV 88.2 fl (85-98) 04/22/23 20:17 MCH 29.9 pg (27-33) 04/22/23 20: MCHC 33.9 g/dL (30-55) 04/22/23 20:17 RDW 14.1 % (12.1-15.1) 04/22/23 20:17 Plt Count 169 10^3/cmm (157-399) 04/22/23 20:17 MPV 10.9 fL (7.4-10.4) H 04/22/23 20:17 Neut % (Auto) 33.5 % 04/22/23 20:17 Lymph % (Auto) 47.8 % 04/22/23 20:17 [place] % (Auto) 13.3 % 04/22/23 20:17 Eos % (Auto) 3.3 % 04/22/23 20:17 Baso % (Auto) 1.4 % 04/22/23 20:17 Neut # (Auto) 1.43 10^3/uL (1.8-7.7) L 04/22/23 20:17 Lymph # (Auto) 2.0 10^3/uL (0.8-4.8) 04/22/23 20:17 [place] # (Auto) 0.6 10^3/uL (0.2-0.9) 04/22/23 20:17 Eos # (Auto) 0.1 10^3/uL (0.0-0.8) 04/22/23 20:17 Baso # (Auto) 0.1 10^3/uL (0.0-0.1) 04/22/23 20:17 Nucleated RBC % (auto) 0 % 04/22/23 20:17 Nucleated RBCs # 0.0 /100WBC 04/22/23 20:17 Sodium 136 mmol/L (136-145) 04/22/23 20:17 Potassium 3.9 mmol/L (3.5-5.1) 04/22/23 20:17 Chloride 101 mmol/L (98-107) 04/22/23 20:17 Carbon Dioxide 22 mmol/L (22-29) 04/22/23 20:17 Anion Gap 16.9 (5-19) 04/22/23 20:17 BUN 25 mg/dL (8-23) H 04/22/23 20:17 Creatinine 1.2 mg/dL (0.5-0.9) H 04/22/23 20:17 GFR Calculation 44.9 mL/min (90-130) L 04/22/23 20:17 Glucose 101 mg/dL (65-115) 04/22/23 20:17 Calculated Osmolality 287 mOsm/kg (285-295) 04/22/23 20:17 Lactic Acid 1.1 mmol/L (0.5-2.2) 04/22/23 20:17 Calcium 9.3 mg/dL (8.5-10.5) 04/22/23 20:17 Total Bilirubin 0.8 mg/dL (0.15-1.2) 04/22/23 20:17 AST 15 U/L (0-32) 04/22/23 20:17 ALT 11 U/L (0-33) 04/22/23 20:17 Alkaline Phosphatase 133 U/L (35-105) H 04/22/23 20:17 Troponin T Baseline 10 ng/L (0-10) 04/22/23 20:17 Troponin T 120 Minute 10.47 ng/L (0-10) H 04/22/23 22:14 Delta Troponin T 0.47 ABS# (0-10) 04/22/23 22:14 C-Reactive Protein 10.4 mg/L (0.0-4.9) H 04/22/23 20:17 Total Protein 6.3 g/dL (6.6-8.7) L 04/22/23 20:17 Albumin 4.0 g/dL (3.5-5.2) 04/22/23 20:17 Globulin 2.3 g/dL (1.3-4.6) 04/22/23 20:17 Lipase 26 U/L (13-60) 04/22/23 20:17 Urine Color Dark yellow (Yellow) 04/22/23 21:20 Urine Appearance Sl hazy (CLEAR) A 04/22/23 21:20 Urine pH 5 (5-7) 04/22/23 21:20 Ur Specific [employer] 1.010 (1.005-1.030) 04/22/23 21:20 Urine Protein 2+ (Negative) H 04/22/23 21:20 Urine Glucose (UA) Trace (Normal) H 04/22/23 21:20 Urine Ketones 1+ (Negative) H 04/22/23 21:20 Urine Blood Neg (Negative) 04/22/23 21:20 Urine Nitrate Negative (Negative) 04/22/23 21:20 Urine Bilirubin 1+ (Negative) H 04/22/23 21:20 Urine Urobilinogen 1 mg/dL (Negative) H 04/22/23 21:20 Ur Leukocyte Esterase Negative (Negative) 04/22/23 21:20 Urine RBC 0-4 /hpf (0-2) H 04/22/23 21:20 Urine WBC 5-10 /hpf (0-5) H 04/22/23 21:20 Ur Squamous Epith Cells 5-10 /hpf (0-5) H 04/22/23 21:20 Amorphous Sediment Not Reportable 04/22/23 21:20 Urine Bacteria 1+ /hpf (NONE) H 04/22/23 21:20 Hyaline Casts 0-4 /lpf H 04/22/23 21:20 Urine Mucus 1+ /hpf 04/22/23 21:20 All radiology interpretation(s) finalized by discharge Discharge Plan Discharge Patient Disposition: Home Clinical Impression: Enteritis Condition: Stable Prescriptions: New Reglan 10 mg tablet 10 mg PO TID Qty: 21 0RF levofloxacin 500 mg tablet 500 mg PO DAILY 7 Days Qty: 7 0RF metronidazole 500 mg tablet 500 mg PO BID 7 Days Qty: 14 0RF Continued hydrocodone-acetaminophen 10-325 mg tablet 1 tab PO Q6H PRN (Reason: pain) Qty: 10 0RF No Action albuterol sulfate 2.5 mg/0.5 mL solution for nebulization 2.5 mg INHALATION Q4H PRN (Reason: Shortness Of Breath) [id number] Injectable 1 ea IM .QMONTH All Day Allergy (cetirizine) 10 mg capsule 10 mg PO DAILY PRN (Reason: Allergic Reaction) fluticasone propionate [Flonase Allergy Relief] 50 mcg/actuation spray,suspension 1 spray intranasal DAILY PRN (Reason: Congestion) Rx Instructions: administer into each nostril dicyclomine 10 mg capsule 10 mg PO QID clopidogrel [Plavix] 75 mg tablet 75 mg PO DAILY prednisone 5 mg tablet 5 mg PO DAILY Qty: 30 3RF methotrexate sodium 2.5 mg tablet See Rx Instructions PO Q7D Qty: 30 3RF Rx Instructions: take 6 tabs once weekly/every SUNDAY PO every 14 DAYS folic acid 1 mg tablet 1 mg PO DAILY Qty: 30 3RF zolpidem [Ambien] 10 mg tablet 10 mg PO ONCE albuterol sulfate [ProAir HFA] 90 mcg/actuation HFA aerosol inhaler 2 puff INHALATION Q6H PRN (Reason: shortness of breath or wheezing) Qty: 18 3RF (DME) OneTouch Ultra Blue Test Strip Strip See Rx Instructions .ROUTE .MEDSUPPLY Qty: 100 3RF Rx Instructions: As directed furosemide [Lasix] 20 mg tablet 20 mg PO DAILY Qty: 90 3RF metoprolol tartrate 25 mg tablet 25 mg PO BID 30 Days Qty: 60 5RF prednisone 20 mg tablet See Rx Instructions .ROUTE .COMPLEX Qty: 30 0RF Dose Instruction: TAKE 2 TABLETS EVERY DAY FOR 7 DAYS NEEDED FOR ARTHRITIS FLARE Rx Instructions: TAKE 2 TABLETS EVERY DAY FOR 7 DAYS NEEDED FOR ARTHRITIS FLARE lactulose 20 gram/30 mL solution 20 g PO .COMPLEX MDD 180 ml Qty: 1200 0RF Rx Instructions: 30 mL Q2H PRN until bowel movement, repeat every 72 hours as needed ondansetron HCl 8 mg tablet 8 mg PO Q8H 5 Days Qty: 15 1RF methocarbamol 750 mg tablet 750 mg PO TID PRN (Reason: muscle spasms) Rx Instructions: TAKE 1 TABLET BY MOUTH THREE TIMES A DAY NEEDED FOR SPASMS olmesartan 40 mg tablet 40 mg PO DAILY Rx Instructions: TAKE 1 TABLET BY MOUTH DAILY dexlansoprazole [Dexilant] 30 mg capsule,biphase delayed releas 30 mg PO DAILY fluticasone furoate-vilanterol [Breo Ellipta] 200-25 mcg/dose blister with device 1 inh inhalation DAILY Rx Instructions: INHALE 1 PUFF BY MOUTH DAILY ondansetron HCl 4 mg Tablet 4 mg PO QID PRN (Reason: Nausea/vomiting) Qty: 30 3RF tramadol 50 mg tablet 50 mg PO Q8H Qty: 14 0RF Discharge Orders: Discharge ED (Routine); Ordered 04/22/23 Ordered By: German Amos Referrals: Warren Grigsby FNP [Primary Care Provider] - Patient Instructions: Enteritis (ED), Opioid Safety, Pain Management Activity Restrictions/Additional Instructions: Follow a liquid diet for at least the next 24 hours. Take nausea medication scheduled as we discussed, Zofran every 8 hours, metoclopramide every 8 hours and alternating doses every 4. Pain medication as needed. Antibiotics as directed. Return for vomiting liquids or medications despite treatment as above, fever greater than 100 despite antibiotics as above, any other concerning symptoms. Call your doctor in the morning. Coding Level of Care Code ED [employer] Broker for Cindi Schmitz
[2023-04-22 20:42] LABS: Lactic Sepsis W/Reflex 1.1 mmol/L (0.5-2.2)
[2023-04-22 20:47] LABS: Alanine Aminotransferase 11 U/L (0-33); Alkaline Phosphatase 133 U/L (35-105); Anion Gap 16.9 (5-19); Aspartate Amino Transferase 15 U/L (0-32); Blood Urea Nitrogen 25 mg/dL (8-23); C Reactive Protein 10.4 mg/L (0.0-4.9); Calcium 9.3 mg/dL (8.5-10.5); Carbon Dioxide 22 mmol/L (22-29); Chloride 101 mmol/L (98-107); Creatinine Clr Calc Pharmacy 50.6831; Globulin 2.3 g/dL (1.3-4.6); Glomerular Filtration Rate 44.9 mL/min (90-130); Glucose 101 mg/dL (65-115); Lipase 26 U/L (13-60); Osmolality Calculated 287 mOsm/kg (285-295); Potassium 3.9 mmol/L (3.5-5.1); Sodium 136 mmol/L (136-145); Total Bilirubin 0.8 mg/dL (0.15-1.2); Total Protein 6.3 g/dL (6.6-8.7)
[2023-04-22 20:49] LABS: Troponin(5th) Baseline 10 ng/L (0-10)
[2023-04-22] MEDS: iohexol 350 mg/mL 500 mL Btl (per mL) IV (20:54)
[2023-04-22 21:38] LABS: Add Urine Microscopic? YES
[2023-04-22 21:39] LABS: Bilirubin Urine 1+ (Negative); Blood Urine Neg (Negative); Glucose Urine UA Trace (Normal); Ketones Urine 1+ (Negative); Leukocyte Esterase Urine Negative (Negative); Nitrate Urine Negative (Negative); Protein Urine 2+ (Negative); Urine Appearance SL Hazy (CLEAR); Urine Color Dark Yellow (Yellow); Urobilinogen Urine 1 mg/dL (Negative); pH Urine 5 (5-7)
[2023-04-22 21:40] LABS: Bacteria Urine 1+ /hpf; Hyaline Casts Urine 0-4 /lpf; Mucus Urine 1+ /hpf; RBC Urine 0-4 /hpf (0-2)
[2023-04-22 22:45] LABS: Troponin 5 2HR 10.47 ng/L (0-10); Troponin 5 2HR Delta 0.47 ABS# (0-10)
[2023-04-22 23:01] VITALS: BP 152/91; PULSE 78; RESP 18; O2SAT 96
== END 2023-04-22 22:56 | disposition home or self-care (01) ==
PROVIDERS: Emergency Provider Emergency Medicine; PCP Nurse Practitioner
DX: K52.9 Noninfective gastroenteritis and colitis, unspecified (principal); Z79.02 Long term (current) use of antithrombotics/antiplatelets; Z87.891 Personal history of nicotine dependence; Z85.118 Personal history of other malignant neoplasm of bronchus and lung; J44.9 Chronic obstructive pulmonary disease, unspecified; Z86.19 Personal history of other infectious and parasitic diseases; E78.5 Hyperlipidemia, unspecified; I10 Essential (primary) hypertension
CPT/HCPCS: 74177; 80053; 81001; 83605; 83690; 84484; 85025; 86140; 93005; 96361; 96374; 96375; 99285; J1630; J1642; J3010; J7030; Q9967

== ENCOUNTER 2023-04-23 12:30 | Oncology outpatient (recurring) (ONCR) | payer MEDICARE, MEDICAID, SELFPAY ==
[2023-04-11 15:59] LABS: Basophils # 0.1 10^3/uL (0.0-0.1); Basophils % 0.7 %; Eosinophils # 0.3 10^3/uL (0.0-0.8); Eosinophils % 2.5 %; Hematocrit 40.9 % (36-47); Lymphocytes # 4.2 10^3/uL (0.8-4.8); Lymphocytes % 42.9 %; Mean Corpuscular HGB Conc 32.5 g/dL (30-55); Mean Corpuscular Hemoglobin 30.2 pg (27-33); Mean Platelet Volume 9.6 fL (7.4-10.4); Monocytes % 9.9 %; Neutrophils % 43.8 %; Nucleated Red Blood Cells % 0 %; Platelet Count 368 10^3/cmm (157-399); Red Cell Distribution Width 14.3 % (12.1-15.1); White Blood Count 9.85 10^3/uL (3.29-11.43)
[2023-04-11 16:33] LABS: Alanine Aminotransferase 10 U/L (0-33); Albumin Level 4.4 g/dL (3.5-5.2); Alkaline Phosphatase 112 U/L (35-105); Anion Gap 18.2 (5-19); Aspartate Amino Transferase 13 U/L (0-32); Blood Urea Nitrogen 15 mg/dL (8-23); Calcium 9.7 mg/dL (8.5-10.5); Carbon Dioxide 25 mmol/L (22-29); Chloride 99 mmol/L (98-107); Globulin 3.5 g/dL (1.3-4.6); Glomerular Filtration Rate 71.8 mL/min (90-130); Glucose 111 mg/dL (65-115); Osmolality Calculated 288 mOsm/kg (285-295); Potassium 4.2 mmol/L (3.5-5.1); Sodium 138 mmol/L (136-145); Total Bilirubin 0.2 mg/dL (0.15-1.2); Total Protein 7.9 g/dL (6.6-8.7)
[2023-04-11 16:52] LABS: Hepatitis A Antibody IgM Non-Reactive (Nonreactive); Hepatitis B Core AB, Total Reactive (Nonreactive); Hepatitis B Surface Antigen Non-Reactive (Nonreactive); Hepatitis C Virus Antibody Non-Reactive (Nonreactive)
[2023-04-16 08:10] LABS: Basophils % 0.2 %; Eosinophils % 0.1 %; Hematocrit 39.9 % (36-47); Lymphocytes # 2.7 10^3/uL (0.8-4.8); Lymphocytes % 18.9 %; Mean Corpuscular HGB Conc 32.8 g/dL (30-55); Mean Corpuscular Volume 91.5 fl (85-98); Mean Platelet Volume 9.3 fL (7.4-10.4); Monocytes # 1.5 10^3/uL (0.2-0.9); Monocytes % 10.7 %; Neutrophils # 9.88 10^3/uL (1.8-7.7); Neutrophils % 69.5 %; Nucleated Red Blood Cells % 0 %; Platelet Count 367 10^3/cmm (157-399); Red Blood Count 4.36 10^6/uL (3.85-5.65); Red Cell Distribution Width 14.5 % (12.1-15.1); White Blood Count 14.22 10^3/uL (3.29-11.43)
[2023-04-16 08:47] LABS: Alanine Aminotransferase 11 U/L (0-33); Albumin Level 4.1 g/dL (3.5-5.2); Alkaline Phosphatase 95 U/L (35-105); Anion Gap 16.3 (5-19); Aspartate Amino Transferase 14 U/L (0-32); Blood Urea Nitrogen 17 mg/dL (8-23); Calcium 9.3 mg/dL (8.5-10.5); Carbon Dioxide 26 mmol/L (22-29); Chloride 102 mmol/L (98-107); Globulin 3.1 g/dL (1.3-4.6); Glomerular Filtration Rate 83.7 mL/min (90-130); Glucose 103 mg/dL (65-115); Osmolality Calculated 292 mOsm/kg (285-295); Potassium 4.3 mmol/L (3.5-5.1); Sodium 140 mmol/L (136-145); Thyroid Stimulating Hormone 0.93 uIU/mL (0.27-4.20); Total Bilirubin 0.2 mg/dL (0.15-1.2); Total Protein 7.2 g/dL (6.6-8.7)
[2023-04-16] MEDS: sodium chloride 0.9% 250 ML 75 ML IV (11:59)
[2023-04-16] MEDS: diphenhydrAMINE 50 mg/mL SDV 1mL 25 MG IVP (12:00)
[2023-04-16] MEDS: famotidine 20 mg/2 mL INJ IVP (12:06)
[2023-04-16] MEDS: OLANZapine 5 mg TABLET PO (12:09)
[2023-04-16] MEDS: acetaminophen 325 mg Tablet 650 MG PO (12:10)
[2023-04-16] MEDS: palonosetron 0.25 mg/5 mL SDV IVP (12:10)
[2023-04-16] MEDS: fosaprepitant 150 MG in sodium chloride 0.9% 150 ML 300 MG IV (12:14)
[2023-04-16] MEDS: DOCEtaxeL 149 MG in sodium chloride 0.9%(non-DEHP) 250 ML 264.899999999999977 MG IV (13:21)
[2023-04-16] MEDS: SODIUM CHLORIDE 0.9% IV (14:28)
[2023-04-16] MEDS: CISPLATIN IV (14:28)
[2023-04-16] MEDS: potassium chloride 20 MEQ in sodium chloride 0.9% 500 ML 500 MEQ IV (16:19)
[2023-04-16] MEDS: FUROsemide 10 mg/mL SDV 2mL 20 MG IVP (16:19)
[2023-04-16] MEDS: pegfilgrastim 6 mg/0.6 mL Kit (onpro) SUBCUT (17:17)
[2023-04-16 17:24] VITALS: BP 146/85; PULSE 65; RESP 16; TEMP 36.3; O2SAT 96
[2023-04-17 13:30] LABS: Hepatitis BE Antibody NON-REACTIVE (NON-REACTIVE)
[2023-04-17 15:41] LABS: Hepatitis B Virus DNA NOT DETECTED (NOT DETECTED); Hepatitis B Virus DNA PCR NOT DETECTED Log IU/mL (NOT DETECTED)
[2023-04-23] MEDS: sodium chloride 0.9% 1,000 ML 999 ML IV (12:47)
[2023-04-23] MEDS: famotidine 20 mg/2 mL INJ IVP (12:47)
[2023-04-23] MEDS: LORazepam 2 mg/mL INJ 1 mL 0.5 MG IVP (12:50)
[2023-04-23 13:39] VITALS: BP 145/87; PULSE 71; O2SAT 99
== END 2023-05-06 23:59 | disposition home or self-care (01) ==
PROVIDERS: PCP Nurse Practitioner; Visit Provider Internal Medicine
DX: C34.92 Malignant neoplasm of unspecified part of left bronchus or lung (principal); C34.32 Malignant neoplasm of lower lobe, left bronchus or lung; Z79.899 Other long term (current) drug therapy; Z53.9 Procedure and treatment not carried out, unspecified reason
CPT/HCPCS: 17110; 36415; 36591; 71260; 74177; 80053; 84443; 85025; 86705; 86706; 86707; 86709; 86803; 87340; 87517; 96365; 96367; 96375; 96377; 96413; 96415; 96417; 99214; 99215; J1100; J1200; J1453; J1642; J1940; J2060; J2469; J2506; J3475; J3480; J3490; J7030; J7040; J7050; J9060; J9171; Q9967

== ENCOUNTER 2023-04-24 12:45 | Outpatient (CLI) | payer MEDICARE, MEDICAID, SELFPAY | END 2023-04-24 12:46 | disposition home or self-care (01) | LOC: RT 12:46 | PROVIDERS: PCP Nurse Practitioner; Visit Provider Internal Medicine Pulmonary Disease | DX: R91.1 Solitary pulmonary nodule (principal) | CPT/HCPCS: 94010; 94726; 94729 ==

== ENCOUNTER → 2023-05-17 13:59 | Outpatient (BNVA) | payer MEDICARE, MEDICAID, SELFPAY | PROVIDERS: PCP Nurse Practitioner; Visit Provider Internal Medicine Pulmonary Disease | DX: C34.92 Malignant neoplasm of unspecified part of left bronchus or lung (principal); J45.40 Moderate persistent asthma, uncomplicated; M05.79 Rheumatoid arthritis with rheumatoid factor of multiple sites without organ or systems involvement; Z90.2 Acquired absence of lung [part of]; Z87.891 Personal history of nicotine dependence | CPT/HCPCS: 99214 ==

== ENCOUNTER 2023-05-18 10:26 | Emergency (ER) | payer MEDICARE, MEDICAID, SELFPAY ==
[2023-05-18 10:29] VITALS: BP 124/85; PULSE 63; RESP 16; TEMP 36.4; O2SAT 97; BMI 28.5
--- NOTE | 2023-05-18 11:27 | W.ED.EXTPRO ---
HPI - Extremity Problem General: Chief complaint: Extremity Problem,Nontraumatic Stated complaint: Right hand pain Time Seen by Provider: 05/18/23 10:39 Source: patient Mode of arrival: ambulatory Limitations: no limitations History of Present Illness: Patient is a 67-year-old female presents to ED today with a complaint of painful areas to her bilateral feet and right hand/finger. She began noticing these areas several days ago. She states it started on her feet. She noticed red knots that were very painful with walking. She initially thought it was related to her peripheral neuropathy that she was told was normal with her chemotherapy agents. She feels like her feet have slowly improved but has now noticed a red nodule near her right index MCP joint and feels like the finger itself is red and swollen. She has not had any recent injury or trauma or anything to introduce infection. She still maintains full range of motion of the digit. She has not noticed any lymphangitic streaking. Denies systemic symptoms, no fevers. As previously mentioned, she is undergoing active chemotherapy with cisplatin/docetaxel. MD Complaint: extremity pain, joint swelling and joint pain Onset (ago): day(s) Pain Consistency: constant Location: upper extremity and lower extremity Radiation: none Relieving factors: nothing Exacerbating factors: other (walking on feet) Associated symptoms: Reports no associated symptoms; Deny chest pain or fever(s) Context: other (chemotherapy, RA) Review of Systems Const: Denies: fever(s), chills, body aches, fatigue or malaise Card: Denies: chest pain Resp: Denies: dyspnea Musc: Reports: extremity pain (bilateral feet, R index finger) and joint pain (nodule overlying R MCP index joint); Denies: extremity swelling Skin/Breast: Reports: skin tenderness and new lesions Neuro: Reports: numbness in extremities (peripheral neuropathy); Denies: headache(s), weakness in extremities or sensory changes PFSH ED PFSH: Medical History Non-small cell lung cancer Squamous cell carcinoma of left lung Lung nodules COPD (chronic obstructive pulmonary disease) History of hepatitis B B12 deficiency Iron deficiency anemia History of nephrolithiasis High risk medication use Seropositive rheumatoid arthritis of multiple sites Ulcer Recurrent cystitis Enrolled in chronic care management Opioid contract exists History of tobacco use Spondylolisthesis at L5-S1 level Lumbar post-laminectomy syndrome Hyperlipidemia Pt had severe muscle cramps with statins and Zetia. Reactive airway disease Hypertension Patient has a family history of aneurysm, father had a aneurysm of the abdominal aorta. Mother had aneurysm in the heart?. She had a CTA of the abdomen and was found to have no evidence of aneurysm. She had an abnormal aortic duplex lamination July 2020 which was unremarkable. Surgical History History of lobectomy of lung LL lobectomy due to Cancer...02/14/23 Spfd Hx of appendectomy H/O: hysterectomy History of cholecystectomy H/O gastric bypass (~2000) H/O left wrist surgery Status post lumbar spine surgery for decompression of spinal cord (~1991) History of lumbar fusion (2006) Status post lumbar spine surgery for decompression of spinal cord (~1995) Family History Grandmother Breast cancer Maternal Cancer Mother Heart abnormality, Onset Age: 47 aneurysm ruptured CAD (coronary artery disease) at 57 of heart aneurysm Cancer Father Abdominal aneurysm, Onset Age: 67 of the same Hypertension Family/Other CAD (coronary artery disease) Cancer Brother CAD (coronary artery disease) always had heart problems Diabetes Lung disease Brother Diabetes Grandfather Stroke Other Aneurysm of abdominal aorta Denies family history of Clotting disorder Dementia Chronic kidney disease (CKD) Suicide Anesthesia complication Bleeding disorder Social History Smoking and tobacco/nicotine status: former use of tobacco/nicotine Quit status (tobacco/nicotine): has quit using Year quit tobacco: January 2023 Former quit date comment: smoked 35 years Alcohol intake: never Substance/Drug Use: never Caregiver/support person: Yes Lives independently: Yes Household members: children Marital status: Legally Current occupational status: disabled Current occupation: disabled Physical Exam Const: COMMON NORMALS: no acute distress, average body habitus, patient oriented x3, no limitations, alert and well nourished Lymph: LYMPHATIC: no lymphadenopathy noted and no lymphedema noted Extremity: COMMON NORMALS: full ROM, capillary refill normal, no clubbing, cyanosis or edema and no pedal edema GENERAL: Yes normal exam except as noted RIGHT UPPER EXTREMITY: Yes hand & digits OTHER: she states most of the nodules/areas to her feet have pretty well subsided; she has a erythematous nodule overlying R index dorsal MCP and radial aspect of digit appears red and tender; she maintains full ROM of IP joints and MCP joint; negative [place] signs; nothing to suggest infection/trauma Neuro: COMMON NORMALS: patient oriented x3, moves all extremities, no focal motor deficits and no sensory deficits noted SENSORIUM/ORIENTATION: Yes alert Course Vital Signs: Vital signs: Vital Signs Temperature 97.5 F L 05/18/23 10:29 Pulse Rate 100 05/18/23 13:10 Respiratory Rate 15 05/18/23 13:10 Blood Pressure 124/85 05/18/23 10:29 Pulse Oximetry 97 05/18/23 10:29 Oxygen Delivery Me thod Room Air 05/18/23 10:29 MDM - Extremity (Nontraumatic) Medical Decision Making DDx broad. She cannot take NSAIDs secondary to previous gastric bypass. She reportedly saw her primary care provider for this to placed her on antibiotics which she has yet to fill. Doubtful this is bacterial in nature however she can start these. Will place her on a steroid taper. I would like her to follow-up with primary care or possibly even her academic computing director. Return to ED precautions given. Lab Data 05/18/23 11:49 05/18/23 11:49 Laboratory Results WBC 11.69 10^3/uL (3.29-11.43) H 05/18/23 11:49 RBC 3.56 10^6/uL (3.85-5.65) L 05/18/23 11:49 Hgb 10.80 g/dL (11.27-16.99) L 05/18/23 11:49 Hct 33.8 % (36-47) L 05/18/23 11:49 MCV 94.9 fl (85-98) 05/18/23 11:49 MCH 30.3 pg (27-33) 05/18/23 11:49 MCHC 32.0 g/dL (30-55) 05/18/23 11:49 RDW 16.1 % (12.1-15.1) H 05/18/23 11:49 Plt Count 209 10^3/cmm (157-399) 05/18/23 11:49 MPV 10.2 fL (7.4-10.4) 05/18/23 11:49 Neut % (Auto) 67.7 % 05/18/23 11:49 Lymph % (Auto) 21.2 % 05/18/23 11:49 [place] % (Auto) 7.9 % 05/18/23 11:49 Eos % (Auto) 1.1 % 05/18/23 11:49 Baso % (Auto) 0.6 % 05/18/23 11:49 Neut # (Auto) 7.91 10^3/uL (1.8-7.7) H 05/18/23 11:49 Lymph # (Auto) 2.5 10^3/uL (0.8-4.8) 05/18/23 11:49 [place] # (Auto) 0.9 10^3/uL (0.2-0.9) 05/18/23 11:49 Eos # (Auto) 0.1 10^3/uL (0.0-0.8) 05/18/23 11:49 Baso # (Auto) 0.1 10^3/uL (0.0-0.1) 05/18/23 11:49 Nucleated RBC % (auto) 0 % 05/18/23 11:49 Nucleated RBCs # 0.0 /100WBC 05/18/23 11:49 Sodium 138 mmol/L (136-145) 05/18/23 11:49 Potassium 4.0 mmol/L (3.5-5.1) 05/18/23 11:49 Chloride 105 mmol/L (98-107) 05/18/23 11:49 Carbon Dioxide 24 mmol/L (22-29) 05/18/23 11:49 Anion Gap 13.0 (5-19) 05/18/23 11:49 BUN 13 mg/dL (8-23) 05/18/23 11:49 Creatinine 0.9 mg/dL (0.5-0.9) 05/18/23 11:49 GFR Calculation 62.6 mL/min (90-130) L 05/18/23 11:49 Glucose 130 mg/dL (65-115) H 05/18/23 11:49 Calculated Osmolality 288 mOsm/kg (285-295) 05/18/23 11:49 Calcium 8.7 mg/dL (8.5-10.5) 05/18/23 11:49 Total Bilirubin 0.2 mg/dL (0.15-1.2) 05/18/23 11:49 AST 20 U/L (0-32) 05/18/23 11:49 ALT 12 U/L (0-33) 05/18/23 11:49 Alkaline Phosphatase 131 U/L (35-105) H 05/18/23 11:49 C-Reactive Protein 3.0 mg/L (0.0-4.9) 05/18/23 11:49 Total Protein 6.1 g/dL (6.6-8.7) L 05/18/23 11:49 Albumin 3.7 g/dL (3.5-5.2) 05/18/23 11:49 Globulin 2.4 g/dL (1.3-4.6) 05/18/23 11:49 No radiology studies performed this visit Discharge Plan Discharge Patient Disposition: Home Clinical Impression: Painful skin lesion Condition: Stable Prescriptions: New prednisone 10 mg tablet 10 mg PO DAILY 7 Days Qty: 27 0RF Rx Instructions: 6 tabs on days 1-2, 5 tabs on days 3, 4 tabs on day 4, 3 tabs on day 5, 2 tabs on day 6, 1 tab on day 7 No Action albuterol sulfate 2.5 mg/0.5 mL solution for nebulization 2.5 mg INHALATION Q4H PRN (Reason: Shortness Of Breath) [id number] Injectable 1 ea IM .QMONTH fluticasone propionate [Flonase Allergy Relief] 50 mcg/actuation spray,suspension 1 spray intranasal DAILY PRN (Reason: Congestion) Rx Instructions: administer into each nostril dicyclomine 10 mg capsule 10 mg PO QID clopidogrel [Plavix] 75 mg tablet 75 mg PO DAILY prednisone 5 mg tablet 5 mg PO DAILY Qty: 30 3RF folic acid 1 mg tablet 1 mg PO DAILY Qty: 30 3RF dexamethasone 4 mg tablet 4 mg PO .COMPLEX PRN Rx Instructions: 4 mg orally twice a day for 3 days then once a day for 3 days; PRN; zolpidem [Ambien] 10 mg tablet 10 mg PO .qhs Qty: 30 0RF albuterol sulfate [ProAir HFA] 90 mcg/actuation HFA aerosol inhaler 2 puff INHALATION Q6H PRN (Reason: shortness of breath or wheezing) Qty: 18 3RF (DME) OneTouch Ultra Blue Test Strip Strip See Rx Instructions .ROUTE .MEDSUPPLY Qty: 100 3RF Rx Instructions: As directed furosemide [Lasix] 20 mg tablet 20 mg PO DAILY Qty: 90 3RF metoprolol tartrate 25 mg tablet 25 mg PO BID 30 Days Qty: 60 5RF prednisone 20 mg tablet See Rx Instructions .ROUTE .COMPLEX Qty: 30 0RF Dose Instruction: TAKE 2 TABLETS EVERY DAY FOR 7 DAYS NEEDED FOR ARTHRITIS FLARE Rx Instructions: TAKE 2 TABLETS EVERY DAY FOR 7 DAYS NEEDED FOR ARTHRITIS FLARE lactulose 20 gram/30 mL solution 20 g PO .COMPLEX MDD 180 ml Qty: 1200 0RF Rx Instructions: 30 mL Q2H PRN until bowel movement, repeat every 72 hours as needed ondansetron HCl 8 mg tablet 8 mg PO Q8H 5 Days Qty: 15 1RF prochlorperazine maleate [Compazine] 10 mg tablet 10 mg PO Q4H PRN (Reason: mild nausea and vomiting) Qty: 30 3RF lorazepam 1 mg tablet 0.5 - 1 mg PO Q6H PRN (Reason: Severe Nausea) Qty: 30 3RF methocarbamol 750 mg tablet 750 mg PO TID PRN (Reason: muscle spasms) Rx Instructions: TAKE 1 TABLET BY MOUTH THREE TIMES A DAY NEEDED FOR SPASMS olmesartan 40 mg tablet 40 mg PO DAILY Rx Instructions: TAKE 1 TABLET BY MOUTH DAILY dexlansoprazole [Dexilant] 30 mg capsule,biphase delayed releas 30 mg PO DAILY tramadol 50 mg tablet 50 mg PO Q8H Qty: 14 0RF Reglan 10 mg tablet 10 mg PO TID Qty: 21 0RF hydrocodone-acetaminophen 10-325 mg tablet 1 tab PO Q6H PRN (Reason: pain) Qty: 10 0RF Discharge Orders: Discharge ED (Routine); Ordered 05/18/23 Ordered By: Kavitha Plummer Referrals: Warren Grigsby FNP [Primary Care Provider] - Coding Level of Care Code ED Balance Truing Inspector for g Ainsley
[2023-05-18 11:57] LABS: Basophils # 0.1 10^3/uL (0.0-0.1); Basophils % 0.6 %; Eosinophils # 0.1 10^3/uL (0.0-0.8); Eosinophils % 1.1 %; Hematocrit 33.8 % (36-47); Lymphocytes # 2.5 10^3/uL (0.8-4.8); Lymphocytes % 21.2 %; Mean Corpuscular Hemoglobin 30.3 pg (27-33); Mean Corpuscular Volume 94.9 fl (85-98); Mean Platelet Volume 10.2 fL (7.4-10.4); Monocytes # 0.9 10^3/uL (0.2-0.9); Monocytes % 7.9 %; Neutrophils # 7.91 10^3/uL (1.8-7.7); Neutrophils % 67.7 %; Nucleated Red Blood Cells % 0 %; Platelet Count 209 10^3/cmm (157-399); Red Blood Count 3.56 10^6/uL (3.85-5.65); Red Cell Distribution Width 16.1 % (12.1-15.1); White Blood Count 11.69 10^3/uL (3.29-11.43)
[2023-05-18 12:17] LABS: Alanine Aminotransferase 12 U/L (0-33); Albumin Level 3.7 g/dL (3.5-5.2); Alkaline Phosphatase 131 U/L (35-105); Aspartate Amino Transferase 20 U/L (0-32); Blood Urea Nitrogen 13 mg/dL (8-23); Calcium 8.7 mg/dL (8.5-10.5); Carbon Dioxide 24 mmol/L (22-29); Chloride 105 mmol/L (98-107); Creatinine Clr Calc Pharmacy 67.9297; Globulin 2.4 g/dL (1.3-4.6); Glomerular Filtration Rate 62.6 mL/min (90-130); Glucose 130 mg/dL (65-115); Osmolality Calculated 288 mOsm/kg (285-295); Sodium 138 mmol/L (136-145); Total Bilirubin 0.2 mg/dL (0.15-1.2); Total Protein 6.1 g/dL (6.6-8.7)
[2023-05-18 13:10] VITALS: PULSE 100; RESP 15
== END 2023-05-18 13:11 | disposition home or self-care (01) ==
PROVIDERS: Emergency Provider Physician Assistant; PCP Nurse Practitioner
DX: L98.8 Other specified disorders of the skin and subcutaneous tissue (principal); Z79.02 Long term (current) use of antithrombotics/antiplatelets; Z87.891 Personal history of nicotine dependence; Z85.118 Personal history of other malignant neoplasm of bronchus and lung; J44.9 Chronic obstructive pulmonary disease, unspecified; Z86.19 Personal history of other infectious and parasitic diseases; E78.5 Hyperlipidemia, unspecified; I10 Essential (primary) hypertension; Z90.2 Acquired absence of lung [part of]
CPT/HCPCS: 80053; 85025; 86140; 99283

== ENCOUNTER 2023-06-05 07:30 | Oncology outpatient (recurring) (ONCR) | payer MEDICARE, MEDICAID, SELFPAY ==
[2023-05-07 08:40] LABS: Basophils # 0.1 10^3/uL (0.0-0.1); Basophils % 1.3 %; Eosinophils # 0.1 10^3/uL (0.0-0.8); Eosinophils % 1.7 %; Hematocrit 35.1 % (36-47); Lymphocytes # 2.7 10^3/uL (0.8-4.8); Lymphocytes % 32.2 %; Mean Corpuscular HGB Conc 32.2 g/dL (30-55); Mean Corpuscular Hemoglobin 29.7 pg (27-33); Mean Corpuscular Volume 92.4 fl (85-98); Mean Platelet Volume 9.9 fL (7.4-10.4); Monocytes # 1.2 10^3/uL (0.2-0.9); Monocytes % 14.2 %; Neutrophils # 4.23 10^3/uL (1.8-7.7); Nucleated Red Blood Cells % 0 %; Platelet Count 397 10^3/cmm (157-399); Red Cell Distribution Width 15.9 % (12.1-15.1); White Blood Count 8.45 10^3/uL (3.29-11.43)
[2023-05-07 08:48] LABS: Alanine Aminotransferase 10 U/L (0-33); Albumin Level 3.7 g/dL (3.5-5.2); Alkaline Phosphatase 108 U/L (35-105); Anion Gap 14.6 (5-19); Aspartate Amino Transferase 16 U/L (0-32); Blood Urea Nitrogen 12 mg/dL (8-23); Calcium 8.8 mg/dL (8.5-10.5); Carbon Dioxide 26 mmol/L (22-29); Chloride 107 mmol/L (98-107); Creatinine Clr Calc Pharmacy 51.2775; Globulin 2.5 g/dL (1.3-4.6); Glomerular Filtration Rate 44.9 mL/min (90-130); Glucose 96 mg/dL (65-115); Osmolality Calculated 298 mOsm/kg (285-295); Potassium 3.6 mmol/L (3.5-5.1); Sodium 144 mmol/L (136-145); Total Bilirubin 0.2 mg/dL (0.15-1.2); Total Protein 6.2 g/dL (6.6-8.7)
[2023-05-07] MEDS: acetaminophen 325 mg Tablet 650 MG PO (12:39)
[2023-05-07] MEDS: OLANZapine 5 mg TABLET PO (12:39)
[2023-05-07] MEDS: diphenhydrAMINE 50 mg/mL SDV 1mL 25 MG IVP (12:39)
[2023-05-07] MEDS: sodium chloride 0.9% 250 ML 75 ML IV (12:41)
[2023-05-07] MEDS: famotidine 20 mg/2 mL INJ IVP (12:43)
[2023-05-07] MEDS: palonosetron 0.25 mg/5 mL SDV IVP (12:49)
[2023-05-07] MEDS: fosaprepitant 150 MG in sodium chloride 0.9% 150 ML 300 MG IV (12:52)
[2023-05-07] MEDS: dexamethasone 10 mg/mL INJ 12 MG IVP (13:01)
[2023-05-07] MEDS: sodium chlor 0.9% + KCl 20 mEq 20 MEQ/1,000 ML BAG 1000 MEQ IV (13:07)
[2023-05-07] MEDS: magnesium sulfate premix 2 GM/50 ML PIGGYBACK IV (13:12)
[2023-05-07] MEDS: DOCEtaxeL 149 MG in sodium chloride 0.9%(non-DEHP) 250 ML 264.899999999999977 MG IV (14:23)
[2023-05-07] MEDS: SODIUM CHLORIDE 0.9% IV (15:28)
[2023-05-07] MEDS: CISPLATIN IV (15:28)
[2023-05-07] MEDS: potassium chloride 20 MEQ in sodium chloride 0.9% 500 ML 500 MEQ IV (16:45)
[2023-05-07] MEDS: FUROsemide 10 mg/mL SDV 2mL 20 MG IVP (16:46)
[2023-05-07] MEDS: pegfilgrastim 6 mg/0.6 mL Kit (onpro) SUBCUT (17:32)
[2023-05-07 17:43] VITALS: BP 137/83; PULSE 81; RESP 16; O2SAT 94
[2023-05-10] MEDS: sodium chloride 0.9% 1,000 ML 999 ML IV (13:30)
[2023-05-10] MEDS: OLANZapine 5 mg TABLET PO (14:07)
[2023-05-10 14:37] VITALS: BP 156/92; PULSE 74; RESP 16; TEMP 36.9; O2SAT 96
[2023-05-28 14:03] LABS: Basophils % 0.5 %; Eosinophils % 0.5 %; Hematocrit 33.3 % (36-47); Lymphocytes # 2.2 10^3/uL (0.8-4.8); Lymphocytes % 24.6 %; Mean Corpuscular HGB Conc 32.4 g/dL (30-55); Mean Corpuscular Hemoglobin 31.1 pg (27-33); Mean Platelet Volume 9.7 fL (7.4-10.4); Monocytes % 11.3 %; Neutrophils # 5.47 10^3/uL (1.8-7.7); Neutrophils % 62.6 %; Nucleated Red Blood Cells % 0 %; Platelet Count 221 10^3/cmm (157-399); Red Blood Count 3.47 10^6/uL (3.85-5.65); Red Cell Distribution Width 17.6 % (12.1-15.1); White Blood Count 8.73 10^3/uL (3.29-11.43)
[2023-05-28 14:22] LABS: Alanine Aminotransferase 9 U/L (0-33); Albumin Level 3.6 g/dL (3.5-5.2); Alkaline Phosphatase 89 U/L (35-105); Anion Gap 13.6 (5-19); Aspartate Amino Transferase 14 U/L (0-32); Blood Urea Nitrogen 18 mg/dL (8-23); Calcium 8.3 mg/dL (8.5-10.5); Carbon Dioxide 24 mmol/L (22-29); Chloride 104 mmol/L (98-107); Creatinine Clr Calc Pharmacy 61.4536; Globulin 2.4 g/dL (1.3-4.6); Glomerular Filtration Rate 55.5 mL/min (90-130); Glucose 307 mg/dL (65-115); Magnesium 1.8 mg/dL (1.7-2.3); Osmolality Calculated 297 mOsm/kg (285-295); Potassium 4.6 mmol/L (3.5-5.1); Sodium 137 mmol/L (136-145); Total Bilirubin 0.4 mg/dL (0.15-1.2)
[2023-06-05 07:57] LABS: Basophils % 0.5 %; Eosinophils # 0.1 10^3/uL (0.0-0.8); Eosinophils % 2.3 %; Hematocrit 34.2 % (36-47); Lymphocytes # 1.9 10^3/uL (0.8-4.8); Lymphocytes % 32.4 %; Mean Corpuscular HGB Conc 31.9 g/dL (30-55); Mean Corpuscular Hemoglobin 30.4 pg (27-33); Mean Corpuscular Volume 95.5 fl (85-98); Mean Platelet Volume 9.5 fL (7.4-10.4); Monocytes # 0.6 10^3/uL (0.2-0.9); Monocytes % 10.4 %; Neutrophils # 3.11 10^3/uL (1.8-7.7); Neutrophils % 53.9 %; Nucleated Red Blood Cells % 0 %; Platelet Count 294 10^3/cmm (157-399); Red Blood Count 3.58 10^6/uL (3.85-5.65); Red Cell Distribution Width 16.6 % (12.1-15.1); White Blood Count 5.77 10^3/uL (3.29-11.43)
[2023-06-05 08:28] LABS: Alanine Aminotransferase 10 U/L (0-33); Albumin Level 3.5 g/dL (3.5-5.2); Alkaline Phosphatase 99 U/L (35-105); Anion Gap 13.2 (5-19); Aspartate Amino Transferase 14 U/L (0-32); Blood Urea Nitrogen 11 mg/dL (8-23); Calcium 8.7 mg/dL (8.5-10.5); Carbon Dioxide 24 mmol/L (22-29); Chloride 105 mmol/L (98-107); Globulin 2.9 g/dL (1.3-4.6); Glomerular Filtration Rate 49.7 mL/min (90-130); Glucose 159 mg/dL (65-115); Magnesium 1.9 mg/dL (1.7-2.3); Osmolality Calculated 289 mOsm/kg (285-295); Potassium 4.2 mmol/L (3.5-5.1); Sodium 138 mmol/L (136-145); Total Bilirubin 0.2 mg/dL (0.15-1.2); Total Protein 6.4 g/dL (6.6-8.7)
[2023-06-05 08:32] LABS: Creatinine Clr Calc Pharmacy 53.8164
[2023-06-05] MEDS: sodium chlor 0.9% + KCl 20 mEq 20 MEQ/1,000 ML BAG 1000 MEQ IV (09:44)
[2023-06-05] MEDS: magnesium sulfate premix 2 GM/50 ML PIGGYBACK IV (09:45)
[2023-06-05] MEDS: sodium chloride 0.9% 250 ML 75 ML IV (10:55)
[2023-06-05] MEDS: fosaprepitant 150 MG in sodium chloride 0.9% 150 ML 300 MG IV (10:59)
[2023-06-05] MEDS: diphenhydrAMINE 50 mg/mL SDV 1mL 25 MG IVP (11:07)
[2023-06-05] MEDS: famotidine 20 mg/2 mL INJ IVP (11:08)
[2023-06-05] MEDS: palonosetron 0.25 mg/5 mL SDV IVP (11:08)
[2023-06-05] MEDS: [UNRECOGNIZED DRUG - REMARK] 264.300000000000011 MG IV (11:57)
[2023-06-05] MEDS: SODIUM CHLORIDE 0.9% IV (13:01)
[2023-06-05] MEDS: CISPLATIN IV (13:01)
[2023-06-05] MEDS: potassium chloride 20 MEQ in sodium chloride 0.9% 500 ML 425 MEQ IV (14:37)
[2023-06-05] MEDS: FUROsemide 10 mg/mL SDV 2mL 20 MG IVP (14:38)
[2023-06-05 16:09] VITALS: BP 150/88; PULSE 80; RESP 16; TEMP 36.5; O2SAT 97
== END 2023-06-05 23:59 | disposition home or self-care (01) ==
PROVIDERS: Nurse Practitioner Family; PCP Nurse Practitioner; Visit Provider Internal Medicine
DX: Z51.11 Encounter for antineoplastic chemotherapy (principal); Z53.9 Procedure and treatment not carried out, unspecified reason; C34.32 Malignant neoplasm of lower lobe, left bronchus or lung; Z87.891 Personal history of nicotine dependence; Z79.52 Long term (current) use of systemic steroids; R13.10 Dysphagia, unspecified; Z79.899 Other long term (current) drug therapy
CPT/HCPCS: 36591; 80053; 83735; 85025; 96360; 96367; 96368; 96375; 96377; 96413; 96415; 96417; 99213; 99214; J1100; J1200; J1453; J1642; J1940; J2469; J2506; J3475; J3480; J3490; J7030; J7040; J7050; J9060; J9171

== ENCOUNTER 2023-06-27 15:56 | Outpatient (CLI) | payer MEDICARE, MEDICAID, SELFPAY ==
--- NOTE | 2023-06-27 17:00 | CTR_ITS ---
PROCEDURE INFORMATION: Exam: CT Chest Without Contrast; Diagnostic Exam date and time: 06/27/2023 5:24 PM Age: 67 years old Clinical indication: Condition or disease; Other: Lung cancer; Lung condition and disease; Cancer of the lung; Unspecified; Prior surgery; Surgery date: 6+ months; Surgery type: Left lung surgery, gb, appy, hyst; Additional info: Restaging TECHNIQUE: Imaging protocol: Diagnostic computed tomography of the chest without contrast. Radiation optimization: All CT scans at this facility use at least one of these dose optimization techniques: automated exposure control; mA and/or kV adjustment per patient size (includes targeted exams where dose is matched to clinical indication); or iterative reconstruction. Other contrast: Oral, Omni, 50; COMPARISON: 1. CT chest abdpel w/*[id number] 04/18/2023 2:[address] chest 11/24/2022. RADIATION DOSE METRICS: Total DLP (mGy-cm): 764.08 FINDINGS: Tubes, catheters and devices: Right infusion port with tip in the SVC. Thyroid: The visualized thyroid gland is normal. Lungs: Postsurgical changes in the left lung, associated to prior lobectomy. Chronic scarring in the lower left lung segments. Benign calcified granuloma in the left lung. Compressive atelectasis in the left lower lung segments. Stable 4 mm nodule right lower lobe since November 2022 (series 3, image 33), of no particular concern at this time. It can be followed in future staging studies if necessary. No other discrete pulmonary nodules appreciated. No acute interstitial or airspace disease. Pleural spaces: There is a small left layering pleural effusion present. No right pleural effusion. There is no evidence of pneumothorax. Heart: There is calcification of the aortic valve annulus. Heart is of normal size and morphology. No pericardial thickening or effusion. Coronary arteries: There is mild atherosclerotic calcification of the coronary arteries. Mediastinal space: The mediastinal contour is normal. Lymph nodes: No concerning mediastinal, hilar, or axillary adenopathy by CT size criteria. Vasculature: The aorta demonstrates mild atherosclerotic calcification. The aorta is normal in course and caliber. The pulmonary arteries are normal in course and caliber. Diaphragm: A moderate hiatal hernia is present. Bones/joints: Mild multilevel degenerative changes of the spine, as manifested by multilevel anterior osteophytes and multilevel decrease in intervertebral disc space. No acute fracture, dislocation, or aggressive osseous lesion. Soft tissues: Bilateral breast implants are present. No acute body wall soft tissue findings. COMMENTS: Please review abdomen and pelvic CT performed on the same date for other findings. PROCEDURE INFORMATION: Exam: CT Abdomen And Pelvis Without Contrast Exam date and time: 06/27/2023 5:24 PM Age: 67 years old Clinical indication: Condition or disease; Other: Lung cancer; Lung condition and disease; Cancer of the lung; Unspecified; Prior surgery; Surgery date: 6+ months; Surgery type: Left lung surgery, gb, appy, hyst; Additional info: Restaging TECHNIQUE: Imaging protocol: Computed tomography of the abdomen and pelvis without contrast. Radiation optimization: All CT scans at this facility use at least one of these dose optimization techniques: automated exposure control; mA and/or kV adjustment per patient size (includes targeted exams where dose is matched to clinical indication); or iterative reconstruction. Other contrast: Oral, Omni, 50; COMPARISON: 1. CT abdomen pelvis w con* [id number] 04/22/2023 8:[address] chest 11/24/2022. RADIATION DOSE METRICS: Total DLP (mGy-cm): 764.08 FINDINGS: Esophagus: Prior gastrectomy with esophageal jejunal anastomosis. No anastomotic leakage or other complications. Diaphragm: A small hiatal hernia is present. Liver: Liver is enlarged measuring 18 cm. The liver is otherwise unremarkable. Gallbladder and bile ducts: Prior cholecystectomy. There is no evidence of biliary ductal dilation. Pancreas: There is diffuse atrophy of the pancreatic parenchyma. There is diffuse, benign fatty infiltration of the pancreas. The pancreas is otherwise unremarkable. Spleen: The spleen is normal. Adrenal glands: 12 mm nodule in the left adrenal gland with HU less than 10, consistent with a benign adrenal adenoma. It has been stable since November 2022. Adrenal glands are otherwise unremarkable. Kidneys and ureters: 8 mm hyperdense partially exophytic ovoid structure in the right kidney. The kidneys are otherwise unremarkable. There is no ureteral dilation. Stomach and bowel: Diffuse colonic diverticulosis is present. There is moderately excessive colonic stool content. No bowel obstruction or significant bowel wall thickening. Appendix: A normal appendix is identified. Intraperitoneal space: No free fluid, fluid collections, or pneumoperitoneum. Vasculature: The arterial vasculature demonstrates diffuse marked atherosclerotic calcification. Aneurysmal dilation of the infrarenal abdominal aorta measuring 3 cm in greatest diameter. This is stable from prior. Stable right external iliac artery stent. Stable right renal artery stent. Lymph nodes: There is no evidence of lymphadenopathy. Urinary bladder: The bladder is decompressed. Reproductive: There has been a hysterectomy. Bones/joints: Prior lumbosacral spine fixation without complications. Mild multilevel degenerative changes of the spine, as manifested by multilevel anterior osteophytes and multilevel decrease in intervertebral disc space. There is no evidence of acutely displaced skeletal fractures. Soft tissues: Calcified injection granulomas are noted in the subcutaneous tissues of the buttocks. No acute body wall soft tissue findings. CT/[place] [id number] IMPRESSION: 1. Stable small layering left pleural effusion. 2. Stable chronic left lung postsurgical changes. 3. No definite evidence for disease recurrence or metastasis, within the limits of this noncontrast examination. IMPRESSION: 1. No disease recurrence or metastasis, within the limits of this noncontrast examination. 2. 8 mm hyperdense partially exophytic ovoid structure in the right kidney. Too small to characterize but likely a hemorrhagic/proteinaceous cyst. Consider correlation with renal ultrasound. 3. Hepatomegaly. 4. Colonic diverticulosis. 5. Incidental findings as above. COMMENTS: 1. Please review chest CT performed concomitantly for other important findings. 2. Consistent with the [employer]'s Incidental Findings Committee white paper (J Am Padmini Radiol 2018): Any incidental renal lesion less than 1 cm or classified as too small to characterize, or any incidental cystic renal lesion characterized as simple-appearing, is likely benign. No follow-up imaging is recommended for these lesions per consensus recommendations based on imaging criteria.
[2023-06-27] MEDS: iohexol 350 mg/mL 500 mL Btl (per mL) PO (17:21)
== END 2023-06-27 15:57 | disposition home or self-care (01) ==
LOC: RAD 15:56
PROVIDERS: PCP Nurse Practitioner; Visit Provider Nurse Practitioner Family
DX: C34.32 Malignant neoplasm of lower lobe, left bronchus or lung (principal); J98.11 Atelectasis; I35.8 Other nonrheumatic aortic valve disorders; J84.10 Pulmonary fibrosis, unspecified; K44.9 Diaphragmatic hernia without obstruction or gangrene; R16.0 Hepatomegaly, not elsewhere classified; Z95.828 Presence of other vascular implants and grafts; Z90.49 Acquired absence of other specified parts of digestive tract; Z90.710 Acquired absence of both cervix and uterus; Z90.2 Acquired absence of lung [part of]; Z90.3 Acquired absence of stomach [part of]; K57.90 Diverticulosis of intestine, part unspecified, without perforation or abscess without bleeding
CPT/HCPCS: 71250; 74176; Q9967

== ENCOUNTER 2023-07-03 11:01 | Outpatient (CLI) | payer MEDICARE, MEDICAID, SELFPAY ==
[2023-07-03 11:51] LABS: Add Urine Microscopic? NO; Charge for UA Resulting for Rev
[2023-07-03 12:00] LABS: Bilirubin Urine Neg (Negative); Blood Urine Neg (Negative); Glucose Urine UA Norm (Normal); Ketones Urine Negative (Negative); Leukocyte Esterase Urine Negative (Negative); Nitrate Urine Negative (Negative); Protein Urine Neg (Negative); Specific Gravity, Urine 1.015 (1.005-1.030); Urine Appearance Clear (CLEAR); Urine Color Yellow (Yellow); Urobilinogen Urine Norm (Negative); pH Urine 5 (5-7)
[2023-07-03 12:22] LABS: Albumin Level 3.9 g/dL (3.5-5.2); Anion Gap 13.9 (5-19); Blood Urea Nitrogen 21 mg/dL (8-23); Calcium 8.5 mg/dL (8.5-10.5); Carbon Dioxide 25 mmol/L (22-29); Chloride 109 mmol/L (98-107); Glomerular Filtration Rate 32.2 mL/min (90-130); Glucose 86 mg/dL (65-115); Phosphorus 3.2 mg/dL (2.5-4.5); Potassium 4.9 mmol/L (3.5-5.1); Sodium 143 mmol/L (136-145)
[2023-07-03 14:53] LABS: Urine Creatinine 74 mg/dL (28-217); Urine Protein Random 11 mg/dL
[2023-07-03 14:55] LABS: UPRO/UCREAT Ratio 0.15 mg/mg CR
== END 2023-07-03 11:02 | disposition home or self-care (01) ==
PROVIDERS: PCP Nurse Practitioner; Visit Provider Nurse Practitioner Family
DX: N17.9 Acute kidney failure, unspecified (principal)
CPT/HCPCS: 36415; 80069; 81003; 82570; 84156; 99214

== ENCOUNTER 2023-07-04 13:04 | Oncology outpatient (recurring) (ONCR) | payer MEDICARE, MEDICAID, SELFPAY ==
[2023-06-26 08:44] LABS: Basophils % 0.4 %; Eosinophils # 0.1 10^3/uL (0.0-0.8); Eosinophils % 1.2 %; Hematocrit 31.3 % (36-47); Lymphocytes # 2.2 10^3/uL (0.8-4.8); Mean Corpuscular HGB Conc 32.3 g/dL (30-55); Mean Corpuscular Hemoglobin 30.6 pg (27-33); Mean Corpuscular Volume 94.8 fl (85-98); Mean Platelet Volume 9.1 fL (7.4-10.4); Monocytes # 0.8 10^3/uL (0.2-0.9); Monocytes % 15.8 %; Neutrophils # 1.77 10^3/uL (1.8-7.7); Neutrophils % 36.4 %; Nucleated Red Blood Cells % 0 %; Platelet Count 208 10^3/cmm (157-399); Red Cell Distribution Width 17.1 % (12.1-15.1); White Blood Count 4.87 10^3/uL (3.29-11.43)
[2023-06-26 09:01] LABS: Alanine Aminotransferase 8 U/L (0-33); Albumin Level 3.7 g/dL (3.5-5.2); Alkaline Phosphatase 99 U/L (35-105); Anion Gap 14.1 (5-19); Aspartate Amino Transferase 13 U/L (0-32); Carbon Dioxide 27 mmol/L (22-29); Chloride 104 mmol/L (98-107); Globulin 2.6 g/dL (1.3-4.6); Glomerular Filtration Rate 30.1 mL/min (90-130); Glucose 92 mg/dL (65-115); Potassium 5.1 mmol/L (3.5-5.1); Sodium 140 mmol/L (136-145); Total Bilirubin 0.2 mg/dL (0.15-1.2); Total Protein 6.3 g/dL (6.6-8.7)
[2023-06-26 09:17] LABS: Blood Urea Nitrogen 17 mg/dL (8-23); Calcium 8.9 mg/dL (8.5-10.5); Osmolality Calculated 291 mOsm/kg (285-295)
[2023-07-04 07:50] LABS: Basophils % 0.4 %; Eosinophils # 0.1 10^3/uL (0.0-0.8); Eosinophils % 1.6 %; Hematocrit 32.7 % (36-47); Lymphocytes # 1.9 10^3/uL (0.8-4.8); Lymphocytes % 34.4 %; Mean Corpuscular HGB Conc 31.8 g/dL (30-55); Mean Corpuscular Hemoglobin 30.3 pg (27-33); Mean Corpuscular Volume 95.3 fl (85-98); Mean Platelet Volume 9.1 fL (7.4-10.4); Monocytes # 0.4 10^3/uL (0.2-0.9); Monocytes % 7.9 %; Neutrophils # 3.08 10^3/uL (1.8-7.7); Neutrophils % 55.5 %; Nucleated Red Blood Cells % 0 %; Platelet Count 223 10^3/cmm (157-399); Red Blood Count 3.43 10^6/uL (3.85-5.65); White Blood Count 5.55 10^3/uL (3.29-11.43)
[2023-07-04 08:17] LABS: Alanine Aminotransferase 7 U/L (0-33); Albumin Level 3.6 g/dL (3.5-5.2); Alkaline Phosphatase 91 U/L (35-105); Anion Gap 14.3 (5-19); Aspartate Amino Transferase 14 U/L (0-32); Blood Urea Nitrogen 20 mg/dL (8-23); Calcium 8.5 mg/dL (8.5-10.5); Carbon Dioxide 23 mmol/L (22-29); Chloride 110 mmol/L (98-107); Globulin 2.6 g/dL (1.3-4.6); Glomerular Filtration Rate 32.2 mL/min (90-130); Glucose 176 mg/dL (65-115); Osmolality Calculated 303 mOsm/kg (285-295); Potassium 4.3 mmol/L (3.5-5.1); Sodium 143 mmol/L (136-145); Total Bilirubin 0.2 mg/dL (0.15-1.2); Total Protein 6.2 g/dL (6.6-8.7)
[2023-07-04] MEDS: ondansetron 2 mg/ML SDV 2 mL 8 MG IVP (09:28)
[2023-07-04] MEDS: sodium chloride 0.9% 1,000 ML 900 ML IV (09:28)
[2023-07-04 10:33] VITALS: BP 104/64; PULSE 66; RESP 17; TEMP 36.2; O2SAT 99
--- NOTE | 2023-07-04 13:09 | US_ITS ---
WS: [id number] ULTRASOUND RENAL TECHNIQUE: Ultrasound examination of both kidneys. CLINICAL INFORMATION: 8mm hyperdense ovoid structure in right kidney. COMPARISON: CT 06/27/2023 FINDINGS: RIGHT: RIGHT inferior pole cortical cyst measuring 6 x 7 x 5 mm corresponds to the prior CT findings Right kidney is normal in size and appearance. Echogenicity: Normal. Cortical thickness: 1.1 cm; Normal. Hydronephrosis: None. Perinephric fluid: None. Right kidney measures: 10.3 cm x 6.1 cm x 4.7 cm. LEFT: Left kidney is normal in size and appearance. Echogenicity: Normal. Cortical thickness: 1.2 cm; Normal. Hydronephrosis: None. Perinephric fluid: None. Left kidney measures: 10.6 cm x 4.6 cm x 4.7 cm. Normal visualized aorta with moderate atheromatous disease. Normal bladder. US/US renal BI* [id number] IMPRESSION: 1. No hydronephrosis in either kidney. 2. Normal bladder. 3. Tiny RIGHT renal cortical cyst with some internal debris measuring 6 x 7 x 5 mm corresponds to the prior CT findings inferior pole RIGHT kidney
--- NOTE | 2023-07-04 13:15 | USCV_ITS ---
Rachana Gomez Age: 67 Gender: F : 1955 Exam Date: 07/04/2023 10:50 Ordering Phys: Yue Ayala APRN Technologist: USHA [place] [facility] [place]ication: LLE PAIN AND SWELLING HISTORY: Lower extremity swelling. Lower extremity pain. PROCEDURES: Venous duplex imaging was performed in only the left lower extremity. The following venous structures were evaluated: common femoral vein, profunda vein, proximal portion of the greater saphenous vein, superficial femoral vein, and the popliteal vein. In addition, the posterior tibial and peroneal trunk were evaluated. Serial compression, augmentation maneuvers, and spectral Doppler flow evaluation were performed. FINDINGS: No evidence of DVT seen in any vessel visualized at this time. CONCLUSIONS No evidence of left lower extremity DVT. Chet Quintero MD (Electronically Signed) Final Date: 04 Jul 2023 13:34 S
== END 2023-07-06 23:59 | disposition home or self-care (01) ==
LOC: RAD 13:04 → ONCMED 18:41
PROVIDERS: Nurse Practitioner Family; PCP Nurse Practitioner; Visit Provider Internal Medicine Medical Oncology
DX: C34.32 Malignant neoplasm of lower lobe, left bronchus or lung (principal); Z53.9 Procedure and treatment not carried out, unspecified reason; R93.429 Abnormal radiologic findings on diagnostic imaging of unspecified kidney; M79.89 Other specified soft tissue disorders; I70.1 Atherosclerosis of renal artery; R39.11 Hesitancy of micturition; R13.10 Dysphagia, unspecified; Z79.899 Other long term (current) drug therapy
CPT/HCPCS: 36591; 76770; 80053; 83735; 85025; 93971; 96365; 96375; 99214; J2405; J7030

== ENCOUNTER 2023-07-13 06:04 | Outpatient (CLI) | payer MEDICARE, MEDICAID, SELFPAY ==
--- NOTE | 2023-07-13 06:15 | USCV_ITS ---
Rachana Gomez Age: 67 Gender: F : 1955 Exam Date: 07/13/2023 06:24 Ordering Phys: Stefania Jones Technologist: GAGE Exam Location[place] [facility] [place] Indication: HTN Aortic Velocity @ SMA (cm/s) 69.7 RIGHT KIDNEY LEFT KIDNEY Velocity (cm/s) Velocity (cm/s) Sys/Archuleta Sys/Archuleta Resistive Index Resistive Index 80.1 / 25.0 0.69 Proximal Renal Artery 39.1 / 15.2 0.61 70.5 / 27.5 0.61 Mid Renal Artery 36.7 / 12.9 0.65 92.3 / 23.7 0.74 Distal Renal Artery 45.0 / 14.1 0.69 38.3 / 13.7 0.64 Hilar 41.4 / 15.2 0.63 19.6 / 9.0 0.54 Upper Pole 27.5 / 8.7 0.68 17.5 / 5.1 0.71 Mid Pole 30.8 / 10.5 0.66 24.6 / 8.7 0.64 Lower Pole 19.9 / 6.9 0.65 0.80 Renal Aortic Ratio 0.64 Accleration Time (sec) 0.12 Hilar 0.12 0.12 Upper Pole 0.21 0.16 Mid Pole 0.30 0.17 Lower Pole 0.14 11.5 Kidney Length (cm) 10.3 FINDINGS No evidence of abdominal aortic aneurysm. There is no evidence of hemodynamically significant right renal artery stenosis. There is no evidence of hemodynamically significant left renal artery stenosis. CONCLUSIONS No sonographic evidence of hemodynamically significant renal artery stenosis bilaterally. Dr. Zofia Salazar DO (Electronically Signed) Final Date: 13 July 2023 10:02 S
== END 2023-07-13 06:05 | disposition home or self-care (01) ==
LOC: RAD 06:04
PROVIDERS: PCP Nurse Practitioner; Visit Provider Nurse Practitioner Family
DX: N17.9 Acute kidney failure, unspecified (principal); I70.1 Atherosclerosis of renal artery
CPT/HCPCS: 93975

== ENCOUNTER 2023-07-20 10:42 | Oncology outpatient (recurring) (ONCR) | payer MEDICARE, MEDICAID, SELFPAY ==
[2023-07-20 11:36] LABS: Basophils % 0.3 %; Eosinophils # 0.2 10^3/uL (0.0-0.8); Eosinophils % 2.2 %; Hematocrit 33.7 % (36-47); Lymphocytes # 2.4 10^3/uL (0.8-4.8); Lymphocytes % 24.1 %; Mean Corpuscular Hemoglobin 30.9 pg (27-33); Mean Corpuscular Volume 96.6 fl (85-98); Monocytes # 0.8 10^3/uL (0.2-0.9); Monocytes % 8.2 %; Neutrophils # 6.55 10^3/uL (1.8-7.7); Neutrophils % 64.8 %; Nucleated Red Blood Cells % 0 %; Platelet Count 234 10^3/cmm (157-399); Red Blood Count 3.49 10^6/uL (3.85-5.65); Red Cell Distribution Width 16.3 % (12.1-15.1); White Blood Count 10.11 10^3/uL (3.29-11.43)
[2023-07-20 11:56] LABS: Alanine Aminotransferase 12 U/L (0-33); Alkaline Phosphatase 96 U/L (35-105); Anion Gap 14.8 (5-19); Aspartate Amino Transferase 18 U/L (0-32); Blood Urea Nitrogen 27 mg/dL (8-23); Calcium 8.8 mg/dL (8.5-10.5); Carbon Dioxide 24 mmol/L (22-29); Chloride 107 mmol/L (98-107); Globulin 2.9 g/dL (1.3-4.6); Glomerular Filtration Rate 34.6 mL/min (90-130); Glucose 87 mg/dL (65-115); Osmolality Calculated 296 mOsm/kg (285-295); Potassium 4.8 mmol/L (3.5-5.1); Sodium 141 mmol/L (136-145); Total Bilirubin 0.2 mg/dL (0.15-1.2); Total Protein 6.9 g/dL (6.6-8.7)
== END 2023-08-05 23:59 | disposition home or self-care (01) ==
PROVIDERS: Nurse Practitioner Family; PCP Nurse Practitioner; Visit Provider Internal Medicine Medical Oncology
DX: C34.32 Malignant neoplasm of lower lobe, left bronchus or lung (principal)
CPT/HCPCS: 36591; 80053; 85025

== ENCOUNTER 2023-08-02 15:40 | Outpatient (CLI) | payer MEDICARE, MEDICAID, SELFPAY ==
[2023-08-02 16:46] LABS: Albumin Level 4.1 g/dL (3.5-5.2); Anion Gap 13.7 (5-19); Blood Urea Nitrogen 22 mg/dL (8-23); Calcium 8.9 mg/dL (8.5-10.5); Carbon Dioxide 24 mmol/L (22-29); Chloride 107 mmol/L (98-107); Glucose 73 mg/dL (65-115); Phosphorus 3.5 mg/dL (2.5-4.5); Potassium 4.7 mmol/L (3.5-5.1); Sodium 140 mmol/L (136-145)
[2023-08-02 16:51] LABS: Urine Creatinine 44 mg/dL (28-217); Urine Protein Random 5 mg/dL
[2023-08-02 16:52] LABS: UPRO/UCREAT Ratio 0.11 mg/mg CR
== END 2023-08-02 15:41 | disposition home or self-care (01) ==
LOC: RAD 15:43
PROVIDERS: PCP Nurse Practitioner; Visit Provider Nurse Practitioner Family
DX: N17.9 Acute kidney failure, unspecified (principal)
CPT/HCPCS: 36415; 80069; 82570; 84156

== ENCOUNTER 2023-08-08 09:52 | Oncology outpatient (recurring) (ONCR) | payer MEDICARE, MEDICAID, SELFPAY ==
[2023-08-08 10:36] LABS: Basophils % 0.4 %; Eosinophils # 0.3 10^3/uL (0.0-0.8); Eosinophils % 3.7 %; Hematocrit 33.2 % (36-47); Lymphocytes # 2.5 10^3/uL (0.8-4.8); Lymphocytes % 32.6 %; Mean Corpuscular HGB Conc 31.9 g/dL (30-55); Mean Corpuscular Hemoglobin 30.4 pg (27-33); Mean Corpuscular Volume 95.1 fl (85-98); Mean Platelet Volume 9.9 fL (7.4-10.4); Monocytes # 0.6 10^3/uL (0.2-0.9); Monocytes % 8.3 %; Neutrophils # 4.18 10^3/uL (1.8-7.7); Neutrophils % 54.7 %; Nucleated Red Blood Cells % 0 %; Platelet Count 214 10^3/cmm (157-399); Red Blood Count 3.49 10^6/uL (3.85-5.65); Red Cell Distribution Width 15.4 % (12.1-15.1); White Blood Count 7.63 10^3/uL (3.29-11.43)
[2023-08-08 11:07] LABS: Alanine Aminotransferase 11 U/L (0-33); Albumin Level 3.9 g/dL (3.5-5.2); Alkaline Phosphatase 93 U/L (35-105); Anion Gap 16.5 (5-19); Aspartate Amino Transferase 19 U/L (0-32); Blood Urea Nitrogen 26 mg/dL (8-23); Calcium 8.7 mg/dL (8.5-10.5); Carbon Dioxide 24 mmol/L (22-29); Chloride 106 mmol/L (98-107); Globulin 2.6 g/dL (1.3-4.6); Glomerular Filtration Rate 32.2 mL/min (90-130); Glucose 162 mg/dL (65-115); Osmolality Calculated 302 mOsm/kg (285-295); Potassium 4.5 mmol/L (3.5-5.1); Sodium 142 mmol/L (136-145); Thyroid Stimulating Hormone 2.09 uIU/mL (0.27-4.20); Total Bilirubin 0.2 mg/dL (0.15-1.2); Total Protein 6.5 g/dL (6.6-8.7)
[2023-08-08] MEDS: sodium chloride 0.9% 250 ML 75 ML IV (12:10)
[2023-08-08] MEDS: pembrolizumab 200 MG in sodium chloride 0.9% 250 ML 516 MG IV (12:12)
[2023-08-08 12:51] VITALS: BP 155/89; PULSE 78; RESP 17; TEMP 35.7; O2SAT 99
== END 2023-08-08 23:59 | disposition home or self-care (01) ==
PROVIDERS: PCP Nurse Practitioner; Visit Provider Internal Medicine Medical Oncology
DX: C34.32 Malignant neoplasm of lower lobe, left bronchus or lung (principal); Z51.12 Encounter for antineoplastic immunotherapy
CPT/HCPCS: 80053; 84443; 85025; 96413; A4222; J7050; J9271

== ENCOUNTER 2023-08-29 08:28 | Oncology outpatient (recurring) (ONCR) | payer MEDICARE, MEDICAID, SELFPAY ==
[2023-08-29 08:49] VITALS: BP 157/90; PULSE 75; RESP 16; TEMP 36.1; O2SAT 97
[2023-08-29] MEDS: pembrolizumab 200 MG in sodium chloride 0.9% 250 ML 516 MG IV (10:01)
== END 2023-08-29 23:59 | disposition home or self-care (01) ==
PROVIDERS: PCP Nurse Practitioner; Visit Provider Internal Medicine Medical Oncology
DX: C34.32 Malignant neoplasm of lower lobe, left bronchus or lung (principal); Z79.899 Other long term (current) drug therapy; Z51.12 Encounter for antineoplastic immunotherapy
CPT/HCPCS: A4222; J7050; J9271

== ENCOUNTER 2023-09-19 13:00 | Oncology outpatient (recurring) (ONCR) | payer MEDICARE, MEDICAID, SELFPAY ==
[2023-09-18 13:06] LABS: Basophils % 0.3 %; Eosinophils # 0.4 10^3/uL (0.0-0.8); Hematocrit 35.1 % (36-47); Lymphocytes # 2.5 10^3/uL (0.8-4.8); Lymphocytes % 28.8 %; Mean Corpuscular HGB Conc 32.8 g/dL (30-55); Mean Corpuscular Hemoglobin 30.7 pg (27-33); Mean Corpuscular Volume 93.6 fl (85-98); Mean Platelet Volume 9.5 fL (7.4-10.4); Monocytes # 0.6 10^3/uL (0.2-0.9); Monocytes % 6.9 %; Neutrophils # 5.27 10^3/uL (1.8-7.7); Neutrophils % 59.8 %; Nucleated Red Blood Cells % 0 %; Platelet Count 208 10^3/cmm (157-399); Red Blood Count 3.75 10^6/uL (3.85-5.65); Red Cell Distribution Width 14.4 % (12.1-15.1); White Blood Count 8.82 10^3/uL (3.29-11.43)
[2023-09-18 13:31] LABS: Alanine Aminotransferase 10 U/L (0-33); Alkaline Phosphatase 98 U/L (35-105); Anion Gap 14.3 (5-19); Aspartate Amino Transferase 14 U/L (0-32); Blood Urea Nitrogen 29 mg/dL (8-23); Calcium 8.8 mg/dL (8.5-10.5); Carbon Dioxide 24 mmol/L (22-29); Chloride 105 mmol/L (98-107); Globulin 2.9 g/dL (1.3-4.6); Glomerular Filtration Rate 32.2 mL/min (90-130); Glucose 110 mg/dL (65-115); Osmolality Calculated 294 mOsm/kg (285-295); Potassium 4.3 mmol/L (3.5-5.1); Sodium 139 mmol/L (136-145); Thyroid Stimulating Hormone 1.47 uIU/mL (0.27-4.20); Total Bilirubin 0.2 mg/dL (0.15-1.2); Total Protein 6.9 g/dL (6.6-8.7)
[2023-09-19] MEDS: pembrolizumab 200 MG in sodium chloride 0.9% 250 ML 516 MG IV (13:40)
[2023-09-19 14:04] LABS: Ferritin 102 ng/mL (15-150); Iron 39 ug/dL (37-145); Percent Saturation 13.4 % (20-50); Total Iron Binding Capacity 290 mcg/dl; Unsaturated Iron Binding 251 ug/dL (112-347)
[2023-09-19] MEDS: ondansetron 2 mg/ML SDV 2 mL 4 MG IVP (14:33)
[2023-09-19 14:44] VITALS: BP 131/85; PULSE 70; RESP 16; TEMP 36.4; O2SAT 96
== END 2023-09-19 23:59 | disposition home or self-care (01) ==
PROVIDERS: Nurse Practitioner Family; PCP Family Medicine; Visit Provider Internal Medicine Medical Oncology
DX: C34.32 Malignant neoplasm of lower lobe, left bronchus or lung (principal); Z79.899 Other long term (current) drug therapy; Z51.12 Encounter for antineoplastic immunotherapy; D64.9 Anemia, unspecified; Z53.9 Procedure and treatment not carried out, unspecified reason
CPT/HCPCS: 36591; 80053; 82728; 83540; 83550; 84443; 85025; 96375; 96413; 99214; A4222; J2405; J7050; J9271

== ENCOUNTER 2023-10-10 12:47 | Oncology outpatient (recurring) (ONCR) | payer MEDICARE, MEDICAID, SELFPAY ==
[2023-10-10 13:15] VITALS: BP 161/91; PULSE 66; RESP 16; TEMP 36.5; O2SAT 98
--- NOTE | 2023-10-10 14:09 | XR_ITS ---
WS: [id number] Examination: XR chest 2V* [id number] Reason for Exam: cough; shortness of breath Date: 10/09/2021 Comparison: 03/15/2023 Findings: The heart is not enlarged. The mediastinum is not widened. A right Port-A-Cath is identified in good position. The lungs are hyperinflated. Posterior basilar consolidative changes are noted on the left. This has improved in the interval XR/XR chest 2V* [id number] Impression: Persistent dense consolidation in the left posterior base
[2023-10-10] MEDS: pembrolizumab 200 MG in sodium chloride 0.9% 250 ML 516 MG IV (14:57)
[2023-10-10 15:37] VITALS: BP 173/80; PULSE 79; RESP 16; TEMP 36.7; O2SAT 98
== END 2023-10-10 23:59 | disposition home or self-care (01) ==
PROVIDERS: PCP Family Medicine; Visit Provider Internal Medicine Medical Oncology
DX: Z79.899 Other long term (current) drug therapy; Z51.12 Encounter for antineoplastic immunotherapy; R05.9 Cough, unspecified; R06.02 Shortness of breath; Z95.828 Presence of other vascular implants and grafts; J98.4 Other disorders of lung; J98.19 Other pulmonary collapse; C34.32 Malignant neoplasm of lower lobe, left bronchus or lung
CPT/HCPCS: 71046; 96413; A4222; J7050; J9271

== ENCOUNTER 2023-10-16 07:47 | Outpatient (CLI) | payer MEDICARE, MEDICAID, SELFPAY ==
--- NOTE | 2023-10-16 08:30 | PETR_ITS ---
PROCEDURE INFORMATION: Exam: PET/CT Skull Base to Mid-thigh Exam date and time: 10/16/2023 9:39 AM Age: 68 years old Clinical indication: Condition or disease; Prior surgery; Surgery date: 6+ months; Surgery type: Left lung lobectomy; Additional info: Surveillance LABS AND CLINICAL REPORTS: Glucose: 109 mg/dl Treatment strategy for malignancy (PET staging): Restaging (PS) TECHNIQUE: Imaging protocol: Following at least four-hour fasting and following the injection of radiopharmaceutical, low dose CT images were obtained. Then, PET images were obtained. Attenuation corrected images were constructed using the CT scan. Fused images of PET and CT were reviewed. The standardized uptake values (SUV) reported below are maximum values within a region of interest, expressed in gm/ml. Exam includes orbital meatal line to mid-thigh. Radiopharmaceutical: 11.9 mCi F-18 FDG (Fluorodeoxyglucose), IV. Time of imaging post radiopharmaceutical administration: 1 hour Injection site: Right internal jugular central venous port catheter COMPARISON: CT chest, abdomen and pelvis 06/27/2023, PT PET skull to thigh INIT [id number] 01/02/2023 9:52 AM FINDINGS: Brain: Visualized brain has normal physiologic uptake. Salivary glands: Uptake in the submandibular glands is likely physiologic or inflammatory, SUV max 3.2 on the right and 4.3 on the left, without definite correlating lesions on the CT images. Pharynx: No abnormal uptake. Larynx: No abnormal uptake. Lungs, pleura and trachea: There are postoperative changes in the left lung involving at least partial resection of the left lower lobe. The previously noted radiotracer avid left lower lobe nodule on the prior PET-CT is no longer identified. No new pulmonary nodules are identified. Uptake in the posterior pleural surface of the left lung at the level of the intercostal space between the posterior 6th and 7th ribs is new since the prior PET-CT, SUV max 5.8 on PET series 301, image 105, corresponding to CT series 202, image 240, associated with minimal pleural thickening in this region on the CT images. A small left pleural effusion has decreased in size compared with 06/27/2023. Heart: Normal physiologic uptake. Mediastinal space: No abnormal uptake. Esophagus: Uptake at the level of a surgical anastomosis between what appears to represent distal esophagus and small bowel is new adjacent 2 surgical clips, SUV max 5.3 on PET series 301, image 145, without a well-defined lesion in this location. Liver: No abnormal uptake. Gallbladder and biliary ducts: No abnormal uptake. Cholecystectomy clips are present. Pancreas: No abnormal uptake. Spleen: No abnormal uptake. Adrenal glands: No abnormal uptake. Kidneys and ureters: Normal physiologic uptake. Stomach and bowel: There are scattered colonic diverticula. Please refer to Esophagus findings above for additional findings. Vasculature: No abnormal uptake. There are diffuse atherosclerotic changes. A stent in the right external iliac artery is noted. Lymph nodes: No abnormal uptake. No lymphadenopathy in the head, neck, chest, abdomen, pelvis, and extremities. Skeleton: Degenerative changes in the spine are noted, with posterior metallic fusion from L4-L5 through L5-S1. Mild non radiotracer avid deformity of the right ischial tuberosity is noted, compatible with an old healed fracture. A bone graft harvest site involving the medial left iliac bone is noted on CT image 125. A rounded focus of sclerotic density in the anterolateral left 5th rib measuring 6 mm on series 202, image 219 is new compared with 06/27/2023, SUV max 2.0. There is a healed fracture of the posterior right 8th rib. Soft tissues: No abnormal uptake in the visualized head, neck, chest, abdomen, pelvis, and extremities. Bilateral breast implants are present. METRICS: Mediastinal blood pool: SUV max 2.5, SUV mean 2.1 PET/PET skull to thigh SUBS [id number] IMPRESSION: 1. Postoperative changes involving the left lower lobe are noted, with evidence of interval resection of the previously noted radiotracer avid left lower lobe nodule compared to the prior PET-CT. A new small focus of uptake (SUV max 5.8) in the posterior pleural surface on the left between the region of the 6th and 7th rib interspace is present, which may represent postoperative inflammatory changes. Residual or recurrent malignancy cannot be excluded. 2. A rounded focus of sclerotic density in the anterolateral left 5th rib is new compared with 06/27/2023 and demonstrates low-level uptake which is less than mediastinal blood pool activity. This uptake may reflect benign inflammatory changes associated with interval healing of a rib fracture in this location if there is history of interval trauma. A metastatic lesion cannot be excluded. 3. New uptake within a region surgical anastomosis between small bowel and the distal esophagus may be physiologic or inflammatory. A malignant etiology is less likely. Attention to this region on follow-up imaging is recommended. 4. Small left pleural effusion, decreased compared with 06/27/2023. 5. Additional nonurgent findings as detailed above.
== END 2023-10-16 07:48 | disposition home or self-care (01) ==
PROVIDERS: PCP Family Medicine; Visit Provider Nurse Practitioner Family
DX: C34.32 Malignant neoplasm of lower lobe, left bronchus or lung (principal); R91.8 Other nonspecific abnormal finding of lung field; Z90.2 Acquired absence of lung [part of]; R93.89 Abnormal findings on diagnostic imaging of other specified body structures; K57.90 Diverticulosis of intestine, part unspecified, without perforation or abscess without bleeding; Z95.820 Peripheral vascular angioplasty status with implants and grafts; M43.26 Fusion of spine, lumbar region; M51.36 Other intervertebral disc degeneration, lumbar region; R93.7 Abnormal findings on diagnostic imaging of other parts of musculoskeletal system
CPT/HCPCS: 78815; A9552

== ENCOUNTER → 2023-10-30 08:21 | Outpatient (BNVA) | payer MEDICARE, MEDICAID, SELFPAY | PROVIDERS: PCP Family Medicine; Visit Provider Internal Medicine Medical Oncology | DX: I10 Essential (primary) hypertension (principal); C34.32 Malignant neoplasm of lower lobe, left bronchus or lung | CPT/HCPCS: 80053; 84443; 85025 ==

== ENCOUNTER 2023-10-31 11:48 | Oncology outpatient (recurring) (ONCR) | payer MEDICARE, MEDICAID, SELFPAY | END 2023-11-05 23:59 | disposition home or self-care (01) | PROVIDERS: PCP Family Medicine; Visit Provider Internal Medicine Medical Oncology | DX: C34.32 Malignant neoplasm of lower lobe, left bronchus or lung (principal) | CPT/HCPCS: 78815; 99214; A9552 ==

== ENCOUNTER 2023-10-31 14:15 | Outpatient (CLI) | payer MEDICARE, MEDICAID, SELFPAY ==
[2023-10-31 14:42] LABS: Basophils % 0.6 %; Eosinophils # 0.3 10^3/uL (0.0-0.8); Eosinophils % 4.3 %; Hematocrit 35.3 % (36-47); Lymphocytes # 2.5 10^3/uL (0.8-4.8); Lymphocytes % 37.6 %; Mean Corpuscular HGB Conc 32.3 g/dL (30-55); Mean Corpuscular Hemoglobin 29.7 pg (27-33); Mean Corpuscular Volume 91.9 fl (85-98); Mean Platelet Volume 10.3 fL (7.4-10.4); Monocytes # 0.5 10^3/uL (0.2-0.9); Neutrophils # 3.35 10^3/uL (1.8-7.7); Neutrophils % 50.2 %; Nucleated Red Blood Cells % 0 %; Platelet Count 214 10^3/cmm (157-399); Red Blood Count 3.84 10^6/uL (3.85-5.65); Red Cell Distribution Width 14.3 % (12.1-15.1); White Blood Count 6.68 10^3/uL (3.29-11.43)
[2023-10-31 15:01] LABS: Albumin Level 3.7 g/dL (3.5-5.2); Anion Gap 15.4 (5-19); Blood Urea Nitrogen 25 mg/dL (8-23); Calcium 8.2 mg/dL (8.5-10.5); Carbon Dioxide 23 mmol/L (22-29); Chloride 103 mmol/L (98-107); Glomerular Filtration Rate 32.2 mL/min (90-130); Glucose 169 mg/dL (65-115); Phosphorus 3.9 mg/dL (2.5-4.5); Potassium 4.4 mmol/L (3.5-5.1); Sodium 137 mmol/L (136-145)
[2023-10-31 15:07] LABS: Urine Creatinine 103 mg/dL (28-217); Urine Protein Random 13 mg/dL
[2023-10-31 15:11] LABS: UPRO/UCREAT Ratio 0.13 mg/mg CR
== END 2023-10-31 14:16 | disposition home or self-care (01) ==
LOC: LAB 14:21
PROVIDERS: PCP Family Medicine; Visit Provider Nurse Practitioner Family
DX: N17.0 Acute kidney failure with tubular necrosis (principal)
CPT/HCPCS: 36415; 80069; 82570; 84156; 85025

== ENCOUNTER 2023-11-01 10:14 | Outpatient (CLI) | payer MEDICARE, MEDICAID, SELFPAY ==
--- NOTE | 2023-11-01 10:30 | CT_ITS ---
WS: [id number] CT CHEST, ABDOMEN AND PELVIS NONCONTRAST HISTORY: M89.9 - Disorder of bone, unspecified, history of lung cancer. TECHNIQUE: Contiguous 5 mm axial imaging performed through the chest, abdomen and pelvis without IV c ontrast, oral contrast has not been provided. Coronal and sagittal reformats chest. Coronal and sagit jessie reformats through the abdomen and pelvis. All CT scans at [facility] use at least one of these dose optimization techniques: automated exposure control; mA and/or kV adjustment per patient s ize (includes targeted exams where dose is matched to clinical indication); or iterative reconstructi on. CONTRAST: None DLP: 696.95 mGy.cm COMPARISON: 06/27/2023, 04/22/2023, PET/CT 10/16/[address]: Status post LEFT lower lobectomy. Volume loss in the LEFT thorax. No recurrent pulmonary ma ss or nodule identified by CT. The pleural nodule identified on the recent PET/CT is not identified b y CT. Stable 4 mm nodule RIGHT lower lobe since 04/14/2019. Mild postoperative pleural thickening and s carring on the LEFT. Mild atherosclerosis aorta. Normal size pulmonary artery. No adenopathy identifi ed on this unenhanced exam. Postoperative changes at the GE junction. No interval change in the appea augusto of the GE junction compared to prior CT examinations. Bilateral breast implants. RIGHT jugular Mediport. Heart size is normal. No pericardial or pleural effusions. No change in the sclerotic focus in the anterior LEFT fifth rib. Abdomen CT: Prior cholecystectomy. No mass is identified in the liver or spleen or adrenal glands on this unenhanced exam. Common bile duct is top normal size. Mild pancreatic atrophy. Mild ectasia abdo prudencio aorta to 2.9 cm. No renal obstruction. Reidentified is a very tiny hyperdense focus in the dante ex of the RIGHT kidney measuring 4 mm. Stomach is not distended. No small bowel obstruction or ischemic changes. Moderate constipation. Pelvic CT: Urinary bladder is well distended. No free fluid or adenopathy. RIGHT iliac artery stent. Posterior lumbar fusion from L4-S1. No destructive bone lesions. CT/[place] [id number] IMPRESSION: 1. No interval change in the sclerotic focus involving the anterior LEFT fifth rib. Sclerotic focus identified on the recent PET/CT of 10/16/2023. No addition al areas of sclerosis or suspicion. 2. LEFT lower lobectomy. No recurrent mass identified. The pleural nodule desc ribed by PET/CT between the sixth and seventh ribs is not evident by CT. 3. No adenopathy in the chest, abdomen or pelvis. 4. Postoperative changes at the GE junction are stable compared to the prior C Ts. No mass identified on this unenhanced exam. 5. Prior cholecystectomy.
== END 2023-11-01 10:15 | disposition home or self-care (01) ==
LOC: RAD 10:14
PROVIDERS: PCP Family Medicine; Visit Provider Family Medicine
DX: C34.90 Malignant neoplasm of unspecified part of unspecified bronchus or lung (principal); M89.9 Disorder of bone, unspecified; Z90.2 Acquired absence of lung [part of]; R91.1 Solitary pulmonary nodule; Z98.82 Breast implant status; Z90.49 Acquired absence of other specified parts of digestive tract; Z95.828 Presence of other vascular implants and grafts; K59.00 Constipation, unspecified; M43.26 Fusion of spine, lumbar region
CPT/HCPCS: 71250; 74176

== ENCOUNTER 2023-11-12 12:00 | Emergency (ER) | payer MEDICARE, MEDICAID, SELFPAY ==
--- NOTE | 2023-11-12 12:07 | XRR_ITS ---
PROCEDURE INFORMATION: Exam: XR Chest Exam date and time: 11/12/2023 12:19 PM Age: 68 years old Clinical indication: Pain; Angina pectoris; Prior surgery; Surgery date: 1-6 months; Surgery type: Breast aug lt lung port; Patient HX: HX of lung cancer; Additional info: Chest pain TECHNIQUE: Imaging protocol: Radiologic exam of the chest. Views: 1 view. COMPARISON: CT chest abdpel [id number] 11/01/2023 10:38 AM FINDINGS: Tubes, catheters and devices: Right-sided chest port catheter terminates over the area of the SVC. Lungs: No focal consolidation. Pleural spaces: No large pleural effusion. No distinct pneumothorax. Heart/Mediastinum: Cardiomediastinal silhouette is midline and normal in size. Vasculature: Calcific disease of the aorta. Bones/joints: Osseous structures are unchanged. XR/XR chest 1V portable [id number] IMPRESSION: No acute cardiopulmonary findings.
[2023-11-12 12:08] VITALS: BP 199/108; PULSE 77; RESP 24; TEMP 36.8; O2SAT 100; BMI 25.5
--- NOTE | 2023-11-12 12:51 | ECG_ITS ---
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 Measurements Intervals [place] Rate: 66 P: 62 SC: 162 QRS: -18 QRSD: 90 T: 51 QT: 401 QTc: 420 Interpretive Statements SINUS RHYTHM POSSIBLE RIGHT VENTRICULAR CONDUCTION DELAY [RSR (QR) IN V1/V2] Compared to ECG 04/22/2023 21:13:17 T-wave abnormality no longer present Electronically Signed On 11-13-2023 01:22:30 CDT by Apolinar Lara M.D. [id number]
[2023-11-12 12:59] VITALS: BP 182/105; PULSE 71; RESP 24; O2SAT 99
[2023-11-12] MEDS: nitroglycerin 0.4 mg sublingual Tablet SUBLINGUAL (12:59)
[2023-11-12 13:12] LABS: Basophils % 0.4 %; Eosinophils # 0.2 10^3/uL (0.0-0.8); Eosinophils % 2.5 %; Hematocrit 37.4 % (36-47); Lymphocytes # 2.8 10^3/uL (0.8-4.8); Lymphocytes % 36.8 %; Mean Corpuscular HGB Conc 32.4 g/dL (30-55); Mean Corpuscular Hemoglobin 29.7 pg (27-33); Mean Corpuscular Volume 91.9 fl (85-98); Mean Platelet Volume 9.9 fL (7.4-10.4); Monocytes # 0.7 10^3/uL (0.2-0.9); Monocytes % 8.6 %; Neutrophils # 3.95 10^3/uL (1.8-7.7); Neutrophils % 51.4 %; Nucleated Red Blood Cells % 0 %; Platelet Count 230 10^3/cmm (157-399); Red Blood Count 4.07 10^6/uL (3.85-5.65); Red Cell Distribution Width 15.1 % (12.1-15.1); White Blood Count 7.68 10^3/uL (3.29-11.43)
[2023-11-12 13:34] LABS: Troponin(5th) Baseline 14 ng/L (0-10)
[2023-11-12 13:42] LABS: Alanine Aminotransferase 7 U/L (0-33); Alkaline Phosphatase 60 U/L (35-105); Anion Gap 10.9 (5-19); Aspartate Amino Transferase 11 U/L (0-32); Blood Urea Nitrogen 15 mg/dL (8-23); Creatinine Clr Calc Pharmacy 63.7108; Globulin 1.3 g/dL (1.3-4.6); Glucose 65 mg/dL (65-115); Sodium 144 mmol/L (136-145); Total Bilirubin 0.2 mg/dL (0.15-1.2)
--- NOTE | 2023-11-12 13:55 | ED_ITS ---
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 She says been worsening for about 2 weeks now. She complains of a sharp chest pain in her left chest radiating to her left arm and her left upper back. She has no previous cardiac history. However she is on Plavix. No cough. Mild shortness of breath. No nausea or vomiting. No abdominal pain. Altered mental status. Related Data Home Medications Medication Instructions Recorded Confirmed albuterol sulfate 90 mcg/actuation 90 inh inhalation Q6H PRN Wheezing 11/12/23 11/12/23 aerosol inhaler (Proventil HFA) clopidogrel 75 mg tablet 75 mg PO DAILY 11/12/23 11/12/23 dexlansoprazole 30 mg 30 mg PO DAILY 11/12/23 11/12/23 capsule,biphase delayed release dicyclomine 10 mg capsule 10 mg PO TID 11/12/23 11/12/23 fluticasone furoate 200 1 inh inhalation DAILY 11/12/23 11/12/23 mcg-vilanterol 25 mcg/dose inhalation powder (Breo Ellipta) furosemide 20 mg tablet See Rx Instructions .Route 11/12/23 11/12/23 .COMPLEX PRN Edema metoprolol succinate 25 mg 25 mg PO DAILY 11/12/23 11/12/23 tablet,extended release 24 hr olmesartan 40 mg tablet 40 mg PO DAILY 11/12/23 11/12/23 sucralfate 1 gram tablet 1 mg PO DAILY 11/12/23 11/12/23 Previous Rx's Medication Instructions Recorded blood sugar diagnostic (OneTouch #100 ea 02/09/20 Ultra Blue Test Strip) zolpidem 10 mg tablet (Ambien) 10 mg PO .qhs SLEEP #30 tabs 10/22/23 prednisone 5 mg tablet 5 mg PO DIRECTED #60 tabs 10/31/23 amlodipine 10 mg tablet 10 mg PO DAILY #30 tabs 11/12/23 gabapentin 100 mg capsule 100 mg PO BID #60 caps 11/12/23 Allergies Allergy/AdvReac Type Severity Reaction Status Date / Time aspirin Allergy ALGY-Difficulty Verified 11/12/23 12:13 Breathing cyclobenzaprine Allergy ANGRY Verified 11/12/23 12:13 [From Flexeril] hydromorphone [From Dilaudid] Allergy ALGY-Anaphy Verified 11/12/23 12:13 laxis morphine Allergy ALGY-Anaphy Verified 11/12/23 12:13 laxis oxycodone [From OxyContin] Allergy ADR-Irritab Verified 11/12/23 12:13 le Penicillins Allergy ALGY-Anaphy Verified 11/12/23 12:13 laxis Sulfa (Sulfonamide Allergy ALGY-Anaphy Verified 11/12/23 12:13 Antibiotics) laxis ketorolac [From Toradol] AdvReac Unknown abdominal Verified 11/12/23 12:13 pain Review of Systems 2 Narrative: Constitutional symptoms: Negative except as documented in HPI. Skin symptoms: Negative except as documented in HPI. Eye symptoms: Negative except as documented in HPI. ENMT symptoms: Negative except as documented in HPI. Respiratory symptoms: Negative except as documented in HPI. Cardiovascular symptoms: Negative except as documented in HPI. Gastrointestinal symptoms: Negative except as documented in HPI. Genitourinary symptoms: Negative except as documented in HPI. Musculoskeletal symptoms: Negative except as documented in HPI. Neurologic symptoms: Negative except as documented in HPI. Psychiatric symptoms: Negative except as documented in HPI. Endocrine symptoms: Negative except as documented in HPI. PFSH ED 2 PFSH: Medical History B12 deficiency COPD (chronic obstructive pulmonary disease) Enrolled in chronic care management High risk medication use History of hepatitis B History of nephrolithiasis History of tobacco use Hyperlipidemia Pt had severe muscle cramps with statins and Zetia. Hypertension Patient has a family history of aneurysm, father had a aneurysm of the abdominal aorta. Mother had aneurysm in the heart?. She had a CTA of the abdomen and was found to have no evidence of aneurysm. She had an abnormal aortic duplex lamination July 2020 which was unremarkable. Iron deficiency anemia Lumbar post-laminectomy syndrome Lung nodules Non-small cell lung cancer Opioid contract exists Reactive airway disease Recurrent cystitis Seropositive rheumatoid arthritis of multiple sites Spondylolisthesis at L5-S1 level Squamous cell carcinoma of left lung Ulcer Surgical History H/O gastric bypass (~2000) H/O left wrist surgery H/O: hysterectomy History of cholecystectomy History of lobectomy of lung LL lobectomy due to Cancer...02/14/23 Spfd History of lumbar fusion (2006) Hx of appendectomy Status post lumbar spine surgery for decompression of spinal cord (~1995) Status post lumbar spine surgery for decompression of spinal cord (~1991) Family History Grandmother Breast cancer Maternal Cancer Mother Heart abnormality, Onset Age: 47 aneurysm ruptured CAD (coronary artery disease) at 57 of heart aneurysm Cancer Father Abdominal aneurysm, Onset Age: 67 of the same Hypertension Family/Other CAD (coronary artery disease) Cancer Brother CAD (coronary artery disease) always had heart problems Diabetes Lung disease Brother Diabetes Grandfather Stroke Other Aneurysm of abdominal aorta Denies family history of Clotting disorder Dementia Chronic kidney disease (CKD) Suicide Anesthesia complication Bleeding disorder Social History Smoking and tobacco/nicotine status: never used tobacco/nicotine Quit status (tobacco/nicotine): has quit using Year quit tobacco: January 2023 Former quit date comment: smoked 35 years Alcohol intake: never Substance/Drug Use: never Caregiver/support person: Yes Lives independently: Yes Household members: children Marital status: Legally Current occupational status: disabled Current occupation: disabled Female Reproductive History: Spontaneous abortions: No Physical Exam 2 Narrative: EXAM NARRATIVE: General: Alert, no acute distress. Skin: Warm, dry. Head: Normocephalic, atraumatic. Neck: Supple, trachea midline. Eye: Extraocular movements are intact. Ears, nose, mouth and throat: mucosa moist. Cardiovascular: Regular, Normal peripheral perfusion. Respiratory: Lungs are clear to auscultation, respirations are non-labored, breath sounds are equal, Symmetrical chest wall expansion. Gastrointestinal: Soft, Nontender, Non distended Musculoskeletal: Normal ROM, no deformity. Neurological: Alert and oriented, No focal neurological deficit observed. Psychiatric: Cooperative, appropriate mood & affect. Course 2 Vital Signs: Vital signs: Vital Signs Temperature 98.2 F 11/12/23 12:08 Pulse Rate 72 11/12/23 13:59 Respiratory Rate 25 H 11/12/23 13:59 Blood Pressure 161/116 11/12/23 13:59 Pulse Oximetry 100 11/12/23 13:59 Oxygen Delivery Me thod Room Air 11/12/23 13:59 MDM - Chest Pain Medical Decision Making Differential diagnosis for patient with chest pain includes but is not limited to and based on the above HPI, review of systems and physical exam: Pneumonia. unstable angina. angina. Acute coronary syndrome / PR. Pulmonary embolism. Costochondritis / musculoskeletal. Pleurisy. Pericarditis. Esophageal spasm. Pancreatis. Cholecystitis. Orders placed to evaluate differential diagnosis based on the above differential, HPI and physical exam EKG: Time 1201. Rate 76 normal sinus rhythm, No ST-T changes, no ectopy, normal SD & QRS intervals, This was reviewed and interpreted by myself the ER physician at 1205 Repeat EKG: Time 1251. Rate 66. Normal sinus rhythm, No ST-T changes, no ectopy, normal SD & QRS intervals, This was reviewed and interpreted by myself the ER physician at 1255. No significant changes from EKG done previously today in the emergency room. This EKG was repeated secondary to worsening chest pain Chest x-ray: No acute process. No infiltrate. No pneumothorax. This was reviewed and interpreted by myself the ER physician. Lab Review: Laboratory results were reviewed and interpreted by myself the emergency room physician. Lab work is unremarkable. No leukocytosis. No anemia. No renal failure. Serial markers are negative. I reviewed the patient's medical record. Reexamination: Patient is still complaining of chest pain. She has extensive allergy list. She is allergic to hydromorphone morphine and oxycodone. Also Toradol. She said she is taken a bunch of Tylenol already. She is basically demanding fentanyl, and whenever I tell her that I am not comfortable giving such a strong narcotic for chest pain with no obvious source she becomes angry and demands to be discharged. No increased work of breathing. No altered mental status. No focal motor deficits. Her blood pressure has come down. She also refused any nitroglycerin after the first dose. I did finally give the patient a Machias which she did not think she was allergic to. She is tolerated this. A CTA scan was done to complete her workup. CTA of the chest with PE protocol: No acute findings. There is evidence of previous left lung surgery but no evidence of any active cancer. The patient does have a hiatal hernia. This was reviewed and interpreted by myself the emergency room physician. I also reviewed the radiology report. Assessment and plan: Noncardiac chest pain - Discharged home - Discussed plan with patient. Answered any questions. - Evaluation and treatment of this problem were appropriate in the emergency setting. Lab Data 11/12/23 12:44 11/12/23 12:44 Radiology Impressions Chest X-Ray 11/12/23 12:07 IMPRESSION: No acute cardiopulmonary findings. Chest CTA 11/12/23 14:22 IMPRESSION: 1. No acute findings. 2. Hiatal hernia noted Laboratory Results WBC 7.68 10^3/uL (3.29-11.43) 11/12/23 12:44 RBC 4.07 10^6/uL (3.85-5.65) 11/12/23 12:44 Hgb 12.10 g/dL (11.27-16.99) 11/12/23 12:44 Hct 37.4 % (36-47) 11/12/23 12:44 MCV 91.9 fl (85-98) 11/12/23 12:44 MCH 29.7 pg (27-33) 11/12/23 12:44 MCHC 32.4 g/dL (30-55) 11/12/23 12:44 RDW 15.1 % (12.1-15.1) 11/12/23 12:44 Plt Count 230 10^3/cmm (157-399) 11/12/23 12:44 MPV 9.9 fL (7.4-10.4) 11/12/23 12:44 Neut % (Auto) 51.4 % 11/12/23 12:44 Lymph % (Auto) 36.8 % 11/12/23 12:44 [place] % (Auto) 8.6 % 11/12/23 12:44 Eos % (Auto) 2.5 % 11/12/23 12:44 Baso % (Auto) 0.4 % 11/12/23 12:44 Neut # (Auto) 3.95 10^3/uL (1.8-7.7) 11/12/23 12:44 Lymph # (Auto) 2.8 10^3/uL (0.8-4.8) 11/12/23 12:44 [place] # (Auto) 0.7 10^3/uL (0.2-0.9) 11/12/23 12:44 Eos # (Auto) 0.2 10^3/uL (0.0-0.8) 11/12/23 12:44 Baso # (Auto) 0.0 10^3/uL (0.0-0.1) 11/12/23 12:44 Nucleated RBC % (auto) 0 % 11/12/23 12:44 Nucleated RBCs # 0.0 /100WBC 11/12/23 12:44 Sodium 144 mmol/L (136-145) 11/12/23 12:44 Potassium 4.1 mmol/L (3.5-5.1) 11/12/23 12:44 Chloride 104 mmol/L (98-107) 11/12/23 12:44 Carbon Dioxide 22 mmol/L (22-29) 11/12/23 12:44 Anion Gap 10.9 (5-19) 11/12/23 12:44 BUN 15 mg/dL (8-23) 11/12/23 12:44 Creatinine 0.9 mg/dL (0.5-0.9) 11/12/23 12:44 GFR Calculation 37.5 mL/min (90-130) L 11/12/23 12:44 Glucose 65 mg/dL (65-115) 11/12/23 12:44 Calculated Osmolality 292 mOsm/kg (285-295) 11/12/23 12:44 Calcium 8.5 mg/dL (8.5-10.5) 11/12/23 12:44 Total Bilirubin 0.2 mg/dL (0.15-1.2) 11/12/23 12:44 AST 11 U/L (0-32) 11/12/23 12:44 ALT 7 U/L (0-33) 11/12/23 12:44 Alkaline Phosphatase 60 U/L (35-105) 11/12/23 12:44 Troponin T Baseline 14 ng/L (0-10) H 11/12/23 12:44 Troponin T 120 Minute 13.97 ng/L (0-10) H 11/12/23 14:08 Delta Troponin T -0.03 ABS# (0-10) L 11/12/23 14:08 NT-Pro-B Natriuret Pep 1140 pg/mL (0-125) H 11/12/23 12:44 Total Protein 6.5 g/dL (6.6-8.7) L 11/12/23 12:44 Albumin 4.0 g/dL (3.5-5.2) 11/12/23 12:44 Globulin 1.3 g/dL (1.3-4.6) 11/12/23 12:44 All radiology interpretation(s) finalized by discharge Discharge Plan Discharge Patient Disposition: Home Clinical Impression: Non-cardiac chest pain Condition: Stable Prescriptions: No Action zolpidem [Ambien] 10 mg tablet 10 mg PO .qhs Qty: 30 1RF prednisone 5 mg tablet 5 mg PO DIRECTED Qty: 60 0RF Rx Instructions: 2 tabs daily x 7 days, then 1 tab daily amlodipine 10 mg tablet 10 mg PO DAILY Qty: 30 5RF gabapentin 100 mg capsule 100 mg PO BID Qty: 60 1RF (DME) OneTouch Ultra Blue Test Strip Strip See Rx Instructions .ROUTE .MEDSUPPLY Qty: 100 3RF Rx Instructions: As directed sucralfate 1 gram tablet 1 mg PO DAILY clopidogrel 75 mg tablet 75 mg PO DAILY metoprolol succinate 25 mg tablet extended release 24 hr 25 mg PO DAILY albuterol sulfate [Proventil HFA] 90 mcg/actuation HFA aerosol inhaler 90 inh INHALATION Q6H PRN (Reason: Wheezing) dicyclomine 10 mg capsule 10 mg PO TID olmesartan 40 mg tablet 40 mg PO DAILY dexlansoprazole 30 mg capsule,biphase delayed releas 30 mg PO DAILY fluticasone furoate-vilanterol [Breo Ellipta] 200-25 mcg/dose blister with device 1 inh INHALATION DAILY furosemide 20 mg tablet See Rx Instructions .ROUTE .COMPLEX PRN (Reason: Edema) Rx Instructions: TAKE 1 TABLET BY MOUTH DAILY NEEDED FOR EDEMA PATIENT NEEDS A FOLLOW UP APPT FOR FURTHER REFILLS Discharge Orders: Discharge ED (Routine); Ordered 11/12/23 Ordered By: Frances Nina Referrals: Reno Jacob DO [Primary Care Provider] - Discharge Diet: Usual diet Discharge Activity: Increase activity as tolerated Patient Instructions: Noncardiac Chest Pain (ED) Activity Restrictions/Additional Instructions: Thank you for choosing [facility] for your healthcare needs today. Please realize this is an emergency room and that we are providing you with a medical screening exam and this may not be complete and all inclusive of all the testing and or work up that you may need to determine your ailment or severity of your illness. You have been screened and evaluated and felt safe for discharge. Health conditions do change or evolve sometimes and as such it is important that you follow up with your Primary Doctor to be re checked, 3-5 days is a general good time frame for follow up. You are always welcome to return to the ED for re assessment if your symptoms are worsening or you have new concerns Coding Level of Care Code ED Enterprise Systems Architect for Cindi Schmitz
[2023-11-12 13:59] VITALS: BP 161/116; PULSE 72; RESP 25; O2SAT 100
[2023-11-12] MEDS: hyDRALAzine 20 mg/mL INJ 1 mL 10 MG IVP (14:04)
--- NOTE | 2023-11-12 14:08 | ECG_ITS ---
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 Measurements Intervals [place] Rate: 76 P: 77 MN: 168 QRS: 10 QRSD: 78 T: 67 QT: 366 QTc: 413 Interpretive Statements SINUS RHYTHM Compared to ECG 04/22/2023 21:13:17 T-wave abnormality no longer present Electronically Signed On 11-13-2023 01:32:20 CDT by Apolinar Lara M.D. [id number] f
[2023-11-12 14:21] LABS: Calcium 8.5 mg/dL (8.5-10.5); Carbon Dioxide 22 mmol/L (22-29); Chloride 104 mmol/L (98-107); Glomerular Filtration Rate 37.5 mL/min (90-130); NT Pro B Type Natriuretic Pept 1140 pg/mL (0-125); Osmolality Calculated 292 mOsm/kg (285-295); Potassium 4.1 mmol/L (3.5-5.1); Total Protein 6.5 g/dL (6.6-8.7)
--- NOTE | 2023-11-12 14:22 | CTR_ITS ---
PROCEDURE INFORMATION: Exam: CTA Chest With Contrast Exam date and time: 11/12/2023 3:19 PM Age: 68 years old Clinical indication: Angina; Prior surgery; Surgery date: 6+ months; Surgery type: Lung; Additional info: Chest pain TECHNIQUE: Imaging protocol: Computed tomographic angiography of the chest with contrast. Exam focused on the arteries. 3D rendering (Not supervised by radiologist): MIP and/or 3D reconstructed images were created by the technologist. Radiation optimization: All CT scans at this facility use at least one of these dose optimization techniques: automated exposure control; mA and/or kV adjustment per patient size (includes targeted exams where dose is matched to clinical indication); or iterative reconstruction. Contrast material: OMNI 350; Contrast volume: 100 ml; Contrast route: INTRAVENOUS (IV); COMPARISON: CT angio chest PE protcl [id number] 09/06/2021 12:50 AM RADIATION DOSE METRICS: Total DLP (mGy-cm): 356 FINDINGS: Tubes, catheters and devices: A right-sided VAD is in good position with the catheter tip in the lower SVC. Pulmonary arteries: Normal. No pulmonary emboli. Aorta: Unremarkable. No aortic aneurysm. No aortic dissection. Lungs: There is evidence of previous left lung surgery. Pleural spaces: Unremarkable. No pneumothorax. No pleural effusion. Heart: Unremarkable. No cardiomegaly. No pericardial effusion. Lymph nodes: Unremarkable. No enlarged lymph nodes. Diaphragm: A hiatal hernia is noted in the lower mediastinum. Stomach: There is evidence of previous gastric surgery. Bones/joints: Unremarkable. No acute fracture. Soft tissues: Bilateral breast implants are noted. CT/CT angio chest PE protcl [id number] IMPRESSION: 1. No acute findings. 2. Hiatal hernia noted
[2023-11-12 14:49] LABS: Troponin 5 2HR 13.97 ng/L (0-10)
[2023-11-12 14:53] LABS: Troponin 5 2HR Delta -0.03 ABS# (0-10)
[2023-11-12] MEDS: HYDROcodone-acetaminophen 10-325 mg Tablet 1 TAB PO (15:03)
[2023-11-12] MEDS: iohexol 350 mg/mL 500 mL Btl (per mL) IV (15:27)
[2023-11-12 16:54] VITALS: BP 135/91; PULSE 80; RESP 19; O2SAT 98
--- NOTE | 2023-11-12 16:56 | PC.NURSE ---
At approximately 1445 nurse discovered patient at locked ED exit doors attempting to elope. Her port-a-cath was accessed, she stated she was going to go to the cancer center to have them take it out for her once she left. After redirecting patient to room patient verbalized she is frustrated because she wants fentanyl for pain and the doctor would not order it for her. She states she cannot take morphine, toradol, or dilaudid d/t hx of anaphylaxis. Successfully deescalated patient, she agreed to try hydrocodone for her pain.
== END 2023-11-12 17:01 | disposition home or self-care (01) ==
PROVIDERS: Physician Assistant; Emergency Provider Emergency Medicine; PCP Family Medicine
DX: R07.89 Other chest pain (principal); Z79.02 Long term (current) use of antithrombotics/antiplatelets; Z87.891 Personal history of nicotine dependence; Z85.118 Personal history of other malignant neoplasm of bronchus and lung; Z90.2 Acquired absence of lung [part of]; J44.9 Chronic obstructive pulmonary disease, unspecified; Z86.19 Personal history of other infectious and parasitic diseases; E78.5 Hyperlipidemia, unspecified; I10 Essential (primary) hypertension
CPT/HCPCS: 36415; 71045; 71275; 80053; 83880; 84484; 85025; 93005; 96374; 99285; J0360

== ENCOUNTER 2023-11-30 08:30 | Oncology outpatient (recurring) (ONCR) | payer MEDICARE, MEDICAID, SELFPAY ==
[2023-11-07 10:47] VITALS: BP 164/89; PULSE 84; RESP 16; TEMP 36.9; O2SAT 98
[2023-11-07] MEDS: iron sucrose 200 MG in sodium chloride 0.9% (100 ml) 100 ML 220 MG IV (11:16)
[2023-11-07] MEDS: sodium chloride 0.9% 250 ML 75 ML IV (11:16)
[2023-11-09] MEDS: iron sucrose 200 MG in sodium chloride 0.9% (100 ml) 100 ML 220 MG IV (10:39)
[2023-11-09 10:54] LABS: Basophils % 0.4 %; Eosinophils # 0.2 10^3/uL (0.0-0.8); Eosinophils % 2.5 %; Hematocrit 34.7 % (36-47); Lymphocytes # 1.7 10^3/uL (0.8-4.8); Lymphocytes % 24.1 %; Mean Corpuscular HGB Conc 32.9 g/dL (30-55); Mean Corpuscular Hemoglobin 30.1 pg (27-33); Mean Corpuscular Volume 91.6 fl (85-98); Mean Platelet Volume 9.8 fL (7.4-10.4); Monocytes # 0.5 10^3/uL (0.2-0.9); Monocytes % 6.6 %; Neutrophils % 66.3 %; Nucleated Red Blood Cells % 0 %; Platelet Count 224 10^3/cmm (157-399); Red Blood Count 3.79 10^6/uL (3.85-5.65); Red Cell Distribution Width 14.8 % (12.1-15.1)
[2023-11-09 11:09] LABS: Alanine Aminotransferase 9 U/L (0-33); Alkaline Phosphatase 90 U/L (35-105); Anion Gap 17.4 (5-19); Aspartate Amino Transferase 14 U/L (0-32); Blood Urea Nitrogen 26 mg/dL (8-23); Calcium 8.6 mg/dL (8.5-10.5); Carbon Dioxide 23 mmol/L (22-29); Chloride 100 mmol/L (98-107); Globulin 2.6 g/dL (1.3-4.6); Glomerular Filtration Rate 32.2 mL/min (90-130); Glucose 198 mg/dL (65-115); Osmolality Calculated 292 mOsm/kg (285-295); Potassium 4.4 mmol/L (3.5-5.1); Sodium 136 mmol/L (136-145); Total Bilirubin 0.3 mg/dL (0.15-1.2); Total Protein 6.6 g/dL (6.6-8.7)
[2023-11-14 12:41] VITALS: BP 170/102; PULSE 92; RESP 22; TEMP 36.8; O2SAT 99
[2023-11-14] MEDS: methylPREDNISolone sod succ 125 mg/2 mL INJ 60 MG IVP (12:50)
--- NOTE | 2023-11-14 12:50 | ECG_ITS ---
[facility] Test Date: 2023-11-14 Pat Name: Rachana Gomez Department: Room: Gender: Female Policy Adviser: : 1955 Requested By: Yue Ayala Order Number: [id number] Jay Jay MD: ABDIEL CHRISTENSEN Measurements Intervals [place] Rate: 85 P: 55 MD: 164 QRS: -16 QRSD: 72 T: 28 QT: 350 QTc: 418 Interpretive Statements SINUS RHYTHM LOW QRS VOLTAGE IN PRECORDIAL LEADS [QRS DEFLECTION < 1.0 mV IN CHEST LEADS] POSSIBLE RIGHT VENTRICULAR CONDUCTION DELAY [RSR (QR) IN V1/V2] POSSIBLE ANTERIOR MYOCARDIAL INFARCTION , PROBABLY OLD [30 ms Q WAVE IN V3/V4, OR R < 0.2 mV IN V4] POSSIBLE INFERIOR MYOCARDIAL INFARCTION , PROBABLY OLD [30 ms Q WAVE IN II/aVF] Compared to ECG 11/12/2023 12:51:28 Low QRS voltage now present Myocardial infarct finding now present Electronically Signed On 11-14-2023 20:05:13 CDT by ABDIEL CHRISTENSEN [email or web address].[email or web address].[employer]/store/[id number]
[2023-11-26 08:36] LABS: Basophils # 0.1 10^3/uL (0.0-0.1); Basophils % 0.6 %; Eosinophils # 0.1 10^3/uL (0.0-0.8); Eosinophils % 1.2 %; Hematocrit 34.7 % (36-47); Lymphocytes # 1.8 10^3/uL (0.8-4.8); Lymphocytes % 22.3 %; Mean Corpuscular HGB Conc 32.3 g/dL (30-55); Mean Corpuscular Hemoglobin 30.6 pg (27-33); Mean Corpuscular Volume 94.8 fl (85-98); Mean Platelet Volume 9.4 fL (7.4-10.4); Monocytes # 0.5 10^3/uL (0.2-0.9); Monocytes % 5.7 %; Neutrophils # 5.64 10^3/uL (1.8-7.7); Neutrophils % 69.8 %; Nucleated Red Blood Cells % 0 %; Platelet Count 213 10^3/cmm (157-399); Red Blood Count 3.66 10^6/uL (3.85-5.65); Red Cell Distribution Width 17.2 % (12.1-15.1); White Blood Count 8.08 10^3/uL (3.29-11.43)
[2023-11-26 09:01] LABS: Alanine Aminotransferase 10 U/L (0-33); Alkaline Phosphatase 81 U/L (35-105); Anion Gap 13.4 (5-19); Aspartate Amino Transferase 13 U/L (0-32); Blood Urea Nitrogen 29 mg/dL (8-23); Calcium 8.2 mg/dL (8.5-10.5); Carbon Dioxide 26 mmol/L (22-29); Chloride 106 mmol/L (98-107); Globulin 2.1 g/dL (1.3-4.6); Glomerular Filtration Rate 34.6 mL/min (90-130); Glucose 101 mg/dL (65-115); Osmolality Calculated 298 mOsm/kg (285-295); Potassium 4.4 mmol/L (3.5-5.1); Sodium 141 mmol/L (136-145); Total Bilirubin 0.3 mg/dL (0.15-1.2); Total Protein 6.1 g/dL (6.6-8.7)
[2023-11-26] MEDS: iron sucrose 200 MG in sodium chloride 0.9% (100 ml) 100 ML 220 MG IV (10:23)
[2023-11-26 11:08] VITALS: BP 135/93; PULSE 73; RESP 18; TEMP 36.8; O2SAT 97
== END 2023-12-06 23:59 | disposition home or self-care (01) ==
PROVIDERS: Nurse Practitioner Family; PCP Family Medicine; Visit Provider Internal Medicine Hematology & Oncology
DX: Z53.9 Procedure and treatment not carried out, unspecified reason (principal)
CPT/HCPCS: 36415; 80053; 85025; 93005; 96365; 99214; J1756; J2919; J7050

== ENCOUNTER 2023-12-11 08:23 | Oncology outpatient (recurring) (ONCR) | payer MEDICARE, MEDICAID, SELFPAY ==
[2023-12-11 08:47] LABS: Basophils % 0.5 %; Eosinophils # 0.1 10^3/uL (0.0-0.8); Eosinophils % 1.6 %; Hematocrit 35.9 % (36-47); Lymphocytes # 1.6 10^3/uL (0.8-4.8); Lymphocytes % 25.9 %; Mean Corpuscular HGB Conc 32.3 g/dL (30-55); Mean Corpuscular Hemoglobin 30.9 pg (27-33); Mean Corpuscular Volume 95.5 fl (85-98); Mean Platelet Volume 10.2 fL (7.4-10.4); Monocytes # 0.4 10^3/uL (0.2-0.9); Monocytes % 6.6 %; Neutrophils % 64.9 %; Nucleated Red Blood Cells % 0 %; Platelet Count 228 10^3/cmm (157-399); Red Blood Count 3.76 10^6/uL (3.85-5.65); Red Cell Distribution Width 18.2 % (12.1-15.1); White Blood Count 6.32 10^3/uL (3.29-11.43)
[2023-12-11 09:46] LABS: Alanine Aminotransferase 8 U/L (0-33); Albumin Level 3.9 g/dL (3.5-5.2); Alkaline Phosphatase 79 U/L (35-105); Anion Gap 14.5 (5-19); Aspartate Amino Transferase 14 U/L (0-32); Blood Urea Nitrogen 22 mg/dL (8-23); Calcium 8.5 mg/dL (8.5-10.5); Carbon Dioxide 26 mmol/L (22-29); Chloride 104 mmol/L (98-107); Creatinine Clr Calc Pharmacy 38.2265; Globulin 2.4 g/dL (1.3-4.6); Glomerular Filtration Rate 34.6 mL/min (90-130); Glucose 105 mg/dL (65-115); Lactate Dehydrogenase 191 U/L (135-214); Osmolality Calculated 294 mOsm/kg (285-295); Potassium 4.5 mmol/L (3.5-5.1); Sodium 140 mmol/L (136-145); Thyroid Stimulating Hormone 2.55 uIU/mL (0.27-4.20); Total Bilirubin 0.4 mg/dL (0.15-1.2); Total Protein 6.3 g/dL (6.6-8.7)
[2023-12-11] MEDS: pembrolizumab 200 MG in sodium chloride 0.9% 250 ML 516 MG IV (10:40)
== END 2023-12-11 23:59 | disposition home or self-care (01) ==
PROVIDERS: Internal Medicine Medical Oncology; PCP Family Medicine; Visit Provider Internal Medicine Hematology & Oncology
DX: C34.32 Malignant neoplasm of lower lobe, left bronchus or lung; D50.9 Iron deficiency anemia, unspecified; Z51.12 Encounter for antineoplastic immunotherapy; E03.9 Hypothyroidism, unspecified; Z79.899 Other long term (current) drug therapy
CPT/HCPCS: 80053; 83615; 84443; 85025; 96413; 99214; A4222; J7050; J9271

== ENCOUNTER → 2023-12-18 08:03 | Outpatient (BNVA) | payer MEDICARE, MEDICAID, SELFPAY | PROVIDERS: PCP Family Medicine; Visit Provider Internal Medicine Medical Oncology | DX: E03.9 Hypothyroidism, unspecified; C34.32 Malignant neoplasm of lower lobe, left bronchus or lung; D50.9 Iron deficiency anemia, unspecified; R79.89 Other specified abnormal findings of blood chemistry; E83.42 Hypomagnesemia; Z79.899 Other long term (current) drug therapy; M79.2 Neuralgia and neuritis, unspecified; E53.8 Deficiency of other specified B group vitamins | CPT/HCPCS: 80053; 82306; 82310; 82607; 82746; 83735; 83970; 84443; 85025 ==

== ENCOUNTER → 2023-12-25 12:46 | Outpatient (BNVA) | payer MEDICARE, MEDICAID, SELFPAY | PROVIDERS: PCP Family Medicine; Visit Provider Internal Medicine Rheumatology | DX: M05.79 Rheumatoid arthritis with rheumatoid factor of multiple sites without organ or systems involvement (principal); Z79.899 Other long term (current) drug therapy; Z71.85 Encounter for immunization safety counseling; R91.8 Other nonspecific abnormal finding of lung field; M76.61 Achilles tendinitis, right leg; C34.32 Malignant neoplasm of lower lobe, left bronchus or lung; M76.62 Achilles tendinitis, left leg | CPT/HCPCS: 99214 ==

== ENCOUNTER 2024-01-01 09:02 | Oncology outpatient (recurring) (ONCR) | payer MEDICARE, MEDICAID, SELFPAY ==
[2024-01-01 09:31] LABS: Basophils % 0.2 %; Eosinophils # 0.1 10^3/uL (0.0-0.8); Eosinophils % 1.6 %; Hematocrit 34.7 % (36-47); Lymphocytes # 2.4 10^3/uL (0.8-4.8); Lymphocytes % 29.7 %; Mean Corpuscular HGB Conc 32.6 g/dL (30-55); Mean Corpuscular Hemoglobin 30.5 pg (27-33); Mean Corpuscular Volume 93.5 fl (85-98); Mean Platelet Volume 9.9 fL (7.4-10.4); Monocytes # 0.7 10^3/uL (0.2-0.9); Monocytes % 8.2 %; Neutrophils # 4.84 10^3/uL (1.8-7.7); Neutrophils % 60.1 %; Nucleated Red Blood Cells % 0 %; Platelet Count 243 10^3/cmm (157-399); Red Blood Count 3.71 10^6/uL (3.85-5.65); Red Cell Distribution Width 16.3 % (12.1-15.1); White Blood Count 8.07 10^3/uL (3.29-11.43)
[2024-01-01 10:16] LABS: Alanine Aminotransferase 7 U/L (0-33); Albumin Level 3.8 g/dL (3.5-5.2); Alkaline Phosphatase 81 U/L (35-105); Anion Gap 15.2 (5-19); Aspartate Amino Transferase 13 U/L (0-32); Blood Urea Nitrogen 25 mg/dL (8-23); Carbon Dioxide 26 mmol/L (22-29); Chloride 106 mmol/L (98-107); Creatinine Clr Calc Pharmacy 38.4349; Globulin 2.2 g/dL (1.3-4.6); Glomerular Filtration Rate 34.6 mL/min (90-130); Glucose 77 mg/dL (65-115); Osmolality Calculated 297 mOsm/kg (285-295); Potassium 5.2 mmol/L (3.5-5.1); Sodium 142 mmol/L (136-145); Thyroid Stimulating Hormone 3.29 uIU/mL (0.27-4.20); Total Bilirubin 0.3 mg/dL (0.15-1.2)
[2024-01-01] MEDS: pembrolizumab 200 MG in sodium chloride 0.9% 250 ML 516 MG IV (10:53)
[2024-01-01 11:36] VITALS: BP 138/84; PULSE 73; RESP 16; TEMP 36.5; O2SAT 96
== END 2024-01-01 23:59 | disposition home or self-care (01) ==
PROVIDERS: Internal Medicine Medical Oncology; PCP Family Medicine; Visit Provider Internal Medicine Hematology & Oncology
DX: Z51.12 Encounter for antineoplastic immunotherapy (principal); C34.32 Malignant neoplasm of lower lobe, left bronchus or lung; Z87.891 Personal history of nicotine dependence; Z79.891 Long term (current) use of opiate analgesic; E03.9 Hypothyroidism, unspecified; D50.9 Iron deficiency anemia, unspecified; Z79.899 Other long term (current) drug therapy; M05.79 Rheumatoid arthritis with rheumatoid factor of multiple sites without organ or systems involvement
CPT/HCPCS: 80053; 84443; 85025; 96413; 99214; J7050; J9271

== ENCOUNTER 2024-01-18 10:11 | Oncology outpatient (recurring) (ONCR) | payer MEDICARE, MEDICAID, SELFPAY ==
--- NOTE | 2024-01-18 13:02 | PC.NURSE ---
patient to go to ER after PET scan to have port deaccessed.
== END 2024-01-21 13:56 | disposition home or self-care (01) ==
PROVIDERS: PCP Family Medicine; Visit Provider Internal Medicine Medical Oncology
DX: Z45.2 Encounter for adjustment and management of vascular access device (principal)

== ENCOUNTER 2024-01-18 15:14 | Emergency (ER) | payer MEDICARE, MEDICAID, SELFPAY ==
[2024-01-18 15:28] VITALS: BP 109/66; PULSE 66; RESP 18; TEMP 36.8; O2SAT 98; BMI 25.3
[2024-01-18 15:33] VITALS: BP 109/66; PULSE 66; RESP 18; TEMP 36.8; O2SAT 98
--- NOTE | 2024-01-18 15:33 | ED_ITS ---
HPI - General Adult General: Chief complaint: General Medical Stated complaint: needs deaccessed from port Time Seen by Provider: 01/18/24 15:31 Source: patient Mode of arrival: ambulatory Limitations: no limitations History of Present Illness: 68-year-old female who states that she w as getting a PET scan today she had her port accessed and oncology by time her PET scan was over oncology was close n eeds to have her port be accessed. She has no other complaints at this time Associated symptoms: Deny chest pain, dyspnea or rash Related Data Home Medications Medication Instructions Recorded Confirmed albuterol sulfate 90 mcg/actuation 90 inh inhalation Q6H PRN Wheezing 11/12/23 01/01/24 aerosol inhaler (Proventil HFA) clopidogrel 75 mg tablet 75 mg PO DAILY 11/12/23 01/01/24 dexlansoprazole 30 mg 30 mg PO DAILY 11/12/23 01/01/24 capsule,biphase delayed release dicyclomine 10 mg capsule 10 mg PO TID 11/12/23 01/01/24 fluticasone furoate 200 1 inh inhalation DAILY 11/12/23 01/01/24 mcg-vilanterol 25 mcg/dose inhalation powder (Breo Ellipta) furosemide 20 mg tablet See Rx Instructions .Route 11/12/23 01/01/24 .COMPLEX PRN Edema olmesartan 40 mg tablet 40 mg PO DAILY 11/12/23 01/01/24 sucralfate 1 gram tablet 1 mg PO DAILY 11/12/23 01/01/24 clonidine HCl 0.1 mg tablet mg PO BID 11/26/23 01/01/24 Previous Rx's Medication Instructions Recorded blood sugar diagnostic (OneTouch #100 ea 02/09/20 Ultra Blue Test Strip) zolpidem 10 mg tablet (Ambien) 10 mg PO .qhs SLEEP #30 tabs 10/22/23 amlodipine 10 mg tablet 10 mg PO DAILY #30 tabs 11/12/23 prednisone 5 mg tablet 5 mg PO DIRECTED #30 tabs 11/26/23 gabapentin 100 mg capsule 200 mg (2 x 100 mg) PO TID #90 caps 12/03/23 fentanyl 50 mcg/hr transdermal 1 patch transdermal Q72H 30 days 01/01/24 patch #10 ea metoprolol tartrate 25 mg tablet See Rx Instructions .Route 12/05/24 .COMPLEX #180 tabs Allergies Allergy/AdvReac Type Severity Reaction Status Date / Time aspirin Allergy ALGY-Difficulty Verified 01/01/24 09:31 Breathing cyclobenzaprine Allergy ANGRY Verified 01/01/24 09:31 [From Flexeril] hydromorphone [From Dilaudid] Allergy ALGY-Anaphy Verified 01/01/24 09:31 laxis morphine Allergy ALGY-Anaphy Verified 01/01/24 09:31 laxis oxycodone [From OxyContin] Allergy ADR-Irritab Verified 01/01/24 09:31 le Penicillins Allergy ALGY-Anaphy Verified 01/01/24 09:31 laxis Sulfa (Sulfonamide Allergy ALGY-Anaphy Verified 01/01/24 09:31 Antibiotics) laxis ketorolac [From Toradol] AdvReac Unknown abdominal Verified 01/01/24 09:31 pain Alpha Gal Allergy Unknown Uncoded 01/01/24 09:31 Review of Systems Const: Denies: fever(s) or chills Card: Denies: chest pain Resp: Denies: dyspnea GI: Denies: abdominal pain Skin/Breast: Denies: rash PFSH ED PFSH: Medical History Non-small cell lung cancer Squamous cell carcinoma of left lung Lung nodules COPD (chronic obstructive pulmonary disease) History of hepatitis B B12 deficiency Iron deficiency anemia History of nephrolithiasis High risk medication use Seropositive rheumatoid arthritis of multiple sites Ulcer Recurrent cystitis Enrolled in chronic care management Opioid contract exists History of tobacco use Spondylolisthesis at L5-S1 level Lumbar post-laminectomy syndrome Hyperlipidemia Pt had severe muscle cramps with statins and Zetia. Reactive airway disease Hypertension Surgical History History of lobectomy of lung LL lobectomy due to Cancer...02/14/23 Spfd Hx of appendectomy H/O: hysterectomy History of cholecystectomy H/O gastric bypass (~2000) H/O left wrist surgery Status post lumbar spine surgery for decompression of spinal cord (~1991) History of lumbar fusion (2006) Status post lumbar spine surgery for decompression of spinal cord (~1995) Family History Grandmother Breast cancer Maternal Cancer Mother Heart abnormality, Onset Age: 47 aneurysm ruptured CAD (coronary artery disease) at 57 of heart aneurysm Cancer Father Abdominal aneurysm, Onset Age: 67 of the same Hypertension Family/Other CAD (coronary artery disease) Cancer Brother CAD (coronary artery disease) always had heart problems Diabetes Lung disease Brother Diabetes Grandfather Stroke Other Aneurysm of abdominal aorta Denies family history of Clotting disorder Dementia Chronic kidney disease (CKD) Suicide Anesthesia complication Bleeding disorder Social History Smoking and tobacco/nicotine status: former use of tobacco/nicotine Quit status (tobacco/nicotine): has quit using Year quit tobacco: January 2023 Former quit date comment: smoked 35 years Alcohol intake: never Substance/Drug Use: never Caregiver/support person: Yes Lives independently: Yes Household members: children Marital status: Legally Current occupational status: disabled Current occupation: disabled Female Reproductive History: Spontaneous abortions: No Physical Exam Const: COMMON NORMALS: no acute distress HENMT: COMMON NORMALS: normocephalic HEAD & SCALP: normocephalic Eye: COMMON NORMALS: conjunctivae normal CONJUNCTIVA: Yes conjunctivae normal Chest: OTHER: Port in place that she has no redness or bleeding Resp: COMMON NORMALS: normal respiratory effort Extremity: COMMON NORMALS: normal to inspection Course Vital Signs: Vital signs: Vital Signs Temperature 98.2 F 01/18/24 15:28 Pulse Rate 66 01/18/24 15:28 Respiratory Rate 18 01/18/24 15:28 Blood Pressure 109/66 01/18/24 15:28 Pulse Oximetry 98 01/18/24 15:28 Oxygen Delivery Me thod Room Air 01/18/24 15:28 MDM - General Adult Medical Decision Making Patient presents to have her port be accessed nurse today access port she stable for discharge follow-up oncology No radiology studies performed this visit Discharge Plan Discharge Patient Disposition: Home Clinical Impression: Encounter to [facility] implanted intravenous (IV) port Condition: Stable Prescriptions: No Action zolpidem [Ambien] 10 mg tablet 10 mg PO .qhs Qty: 30 1RF prednisone 5 mg tablet 5 mg PO DIRECTED Qty: 30 2RF amlodipine 10 mg tablet 10 mg PO DAILY Qty: 30 5RF clonidine HCl 0.1 mg tablet PO BID gabapentin 100 mg capsule 200 mg PO TID Qty: 90 1RF fentanyl 50 mcg/hr patch 72 hour 1 patch transdermal Q72H 30 Days Qty: 10 0RF (DME) OneTouch Ultra Blue Test Strip Strip See Rx Instructions .ROUTE .MEDSUPPLY Qty: 100 3RF Rx Instructions: As directed metoprolol tartrate 25 mg tablet See Rx Instructions .ROUTE .COMPLEX Qty: 180 0RF Dose Instruction: TAKE 1 TABLET BY MOUTH TWICE A DAY Rx Instructions: TAKE 1 TABLET BY MOUTH TWICE A DAY sucralfate 1 gram tablet 1 mg PO DAILY clopidogrel 75 mg tablet 75 mg PO DAILY albuterol sulfate [Proventil HFA] 90 mcg/actuation HFA aerosol inhaler 90 inh INHALATION Q6H PRN (Reason: Wheezing) dicyclomine 10 mg capsule 10 mg PO TID olmesartan 40 mg tablet 40 mg PO DAILY dexlansoprazole 30 mg capsule,biphase delayed releas 30 mg PO DAILY fluticasone furoate-vilanterol [Breo Ellipta] 200-25 mcg/dose blister with device 1 inh INHALATION DAILY furosemide 20 mg tablet See Rx Instructions .ROUTE .COMPLEX PRN (Reason: Edema) Rx Instructions: TAKE 1 TABLET BY MOUTH DAILY NEEDED FOR EDEMA PATIENT NEEDS A FOLLOW UP APPT FOR FURTHER REFILLS Discharge Orders: Discharge ED (Routine); Ordered 01/18/24 Ordered By: Sherry Jean Referrals: Reno Jacob DO [Primary Care Provider] - Discharge Diet: Advance as tolerated Discharge Activity: Resume usual activity Coding Level of Care Code ED [employer] 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
== END 2024-01-18 15:37 | disposition home or self-care (01) ==
PROVIDERS: Emergency Provider Emergency Medicine; PCP Family Medicine
DX: Z45.2 Encounter for adjustment and management of vascular access device (principal); Z79.02 Long term (current) use of antithrombotics/antiplatelets; Z87.891 Personal history of nicotine dependence; J44.9 Chronic obstructive pulmonary disease, unspecified; I10 Essential (primary) hypertension; E78.5 Hyperlipidemia, unspecified
CPT/HCPCS: 99281

== ENCOUNTER 2024-01-22 08:03 | Oncology outpatient (recurring) (ONCR) | payer MEDICARE, MEDICAID, SELFPAY ==
--- NOTE | 2024-01-18 11:30 | PETR_ITS ---
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 Then, PET images were obtained. Attenuation corrected images were constructed using the CT scan. Fused images of PET and CT were reviewed. The standardized uptake values (SUV) reported below are maximum values within a region of interest, expressed in gm/ml. Exam includes orbital meatal line to mid-thigh. SUV normalization method: BodyWeight Radiopharmaceutical: 10.5 mCi F-18 FDG (Fluorodeoxyglucose), IV. Time of imaging post radiopharmaceutical administration: 48 minutes Injection site: chest port COMPARISON: PT PET skull to thigh SUBS [id number] 10/16/2023 9:39 AM FINDINGS: Tubes, catheters and devices: Right-sided Port-A-Cath terminates in the right atrium. Brain: Visualized brain has normal physiologic uptake. Pharynx: No abnormal uptake. Larynx: No abnormal uptake. Lungs, pleura and trachea: Decreased FDG uptake corresponding to the posterior pleural surface between the left 6th and 7th ribs, now with SUV max 3.7, previously 5.8. Prior left lower lobectomy. Calcified granuloma in the left upper lobe. Heart: Normal physiologic uptake. Mediastinal space: No abnormal uptake. Diaphragm: Small hiatal hernia. Esophagus: Some FDG uptake along the right lateral aspect of the distal esophagus is seen with SUV max 3.8. Surgical anastomosis between the esophagus and small bowel. Liver: No abnormal uptake. Gallbladder and biliary ducts: Cholecystectomy. Pancreas: No abnormal uptake. Spleen: No abnormal uptake. Adrenal glands: No abnormal uptake. Kidneys and ureters: Normal physiologic uptake. Stomach and bowel: Increased FDG uptake involving proximal small bowel loops may be inflammatory. Changes of prior gastrectomy. Reproductive: Hysterectomy. Vasculature: Stent in the right external iliac artery. Lymph nodes: No abnormal uptake. No lymphadenopathy in the head, neck, chest, abdomen, pelvis, and extremities. Skeleton: Spinal fixation hardware in the lumbar spine. Soft tissues: Bilateral breast implants. METRICS: Mediastinal blood pool: SUV max is 2.1 Liver uptake: SUV max is 3.1 PET/PET skull to thigh SUBS [id number] IMPRESSION: 1. Decreased FDG uptake corresponding to the posterior pleural surface between the left 6th and 7th ribs. 2. Mild FDG uptake along the right lateral aspect of the distal esophagus/hiatal hernia. This could be inflammatory. This could be correlated with endoscopy to exclude neoplasm.
[2024-01-22 08:16] LABS: Basophils # 0.1 10^3/uL (0.0-0.1); Basophils % 0.6 %; Eosinophils # 0.2 10^3/uL (0.0-0.8); Eosinophils % 2.5 %; Hematocrit 38.4 % (36-47); Lymphocytes # 2.1 10^3/uL (0.8-4.8); Lymphocytes % 26.3 %; Mean Corpuscular Hemoglobin 31.1 pg (27-33); Mean Platelet Volume 9.8 fL (7.4-10.4); Monocytes # 0.7 10^3/uL (0.2-0.9); Monocytes % 9.3 %; Neutrophils # 4.85 10^3/uL (1.8-7.7); Nucleated Red Blood Cells % 0 %; Platelet Count 224 10^3/cmm (157-399); Red Blood Count 3.96 10^6/uL (3.85-5.65); Red Cell Distribution Width 15.4 % (12.1-15.1); White Blood Count 7.95 10^3/uL (3.29-11.43)
[2024-01-22 08:45] LABS: Alanine Aminotransferase 7 U/L (0-33); Albumin Level 4.1 g/dL (3.5-5.2); Alkaline Phosphatase 102 U/L (35-105); Anion Gap 15.6 (5-19); Aspartate Amino Transferase 14 U/L (0-32); Blood Urea Nitrogen 24 mg/dL (8-23); Calcium 8.8 mg/dL (8.5-10.5); Carbon Dioxide 24 mmol/L (22-29); Chloride 107 mmol/L (98-107); Creatinine Clr Calc Pharmacy 38.4349; Globulin 2.4 g/dL (1.3-4.6); Glomerular Filtration Rate 34.6 mL/min (90-130); Glucose 129 mg/dL (65-115); Osmolality Calculated 300 mOsm/kg (285-295); Potassium 4.6 mmol/L (3.5-5.1); Sodium 142 mmol/L (136-145); Thyroid Stimulating Hormone 2.53 uIU/mL (0.27-4.20); Total Bilirubin 0.2 mg/dL (0.15-1.2); Total Protein 6.5 g/dL (6.6-8.7)
[2024-01-22] MEDS: pembrolizumab 200 MG in sodium chloride 0.9% 250 ML 516 MG IV (10:24)
[2024-01-22] MEDS: sodium chloride 0.9% 500 ML IV (11:04)
[2024-01-22 11:39] VITALS: BP 175/83; PULSE 61; RESP 15; TEMP 36.6; O2SAT 97
== END 2024-01-22 23:59 | disposition home or self-care (01) ==
LOC: RAD 08:03 → ONCMED 08:05 → RAD 08:05 → ONCMED 09:06
PROVIDERS: PCP Family Medicine; Visit Provider Internal Medicine Medical Oncology
DX: Z53.9 Procedure and treatment not carried out, unspecified reason (principal); C34.32 Malignant neoplasm of lower lobe, left bronchus or lung; Z79.899 Other long term (current) drug therapy; Z51.12 Encounter for antineoplastic immunotherapy; R93.89 Abnormal findings on diagnostic imaging of other specified body structures; Z79.891 Long term (current) use of opiate analgesic; Z87.891 Personal history of nicotine dependence
CPT/HCPCS: 78815; 80053; 84443; 85025; 96360; 96361; 96413; 99214; A4222; A9552; J7040; J7050; J9271

== ENCOUNTER 2024-02-12 07:52 | Oncology outpatient (recurring) (ONCR) | payer MEDICARE, MEDICAID, SELFPAY ==
[2024-02-12 08:36] LABS: Basophils # 0.1 10^3/uL (0.0-0.1); Basophils % 0.5 %; Eosinophils # 0.2 10^3/uL (0.0-0.8); Eosinophils % 2.4 %; Hematocrit 37.5 % (36-47); Lymphocytes # 2.2 10^3/uL (0.8-4.8); Lymphocytes % 22.2 %; Mean Corpuscular Hemoglobin 29.9 pg (27-33); Mean Corpuscular Volume 93.5 fl (85-98); Monocytes % 9.8 %; Neutrophils # 6.33 10^3/uL (1.8-7.7); Neutrophils % 64.7 %; Nucleated Red Blood Cells % 0 %; Platelet Count 229 10^3/cmm (157-399); Red Blood Count 4.01 10^6/uL (3.85-5.65); Red Cell Distribution Width 14.6 % (12.1-15.1)
[2024-02-12 09:10] LABS: Alanine Aminotransferase 9 U/L (0-33); Albumin Level 3.9 g/dL (3.5-5.2); Alkaline Phosphatase 104 U/L (35-105); Anion Gap 15.9 (5-19); Aspartate Amino Transferase 12 U/L (0-32); Blood Urea Nitrogen 31 mg/dL (8-23); Calcium 8.7 mg/dL (8.5-10.5); Carbon Dioxide 26 mmol/L (22-29); Chloride 104 mmol/L (98-107); Globulin 2.5 g/dL (1.3-4.6); Glomerular Filtration Rate 34.6 mL/min (90-130); Glucose 89 mg/dL (65-115); Osmolality Calculated 298 mOsm/kg (285-295); Potassium 4.9 mmol/L (3.5-5.1); Sodium 141 mmol/L (136-145); Thyroid Stimulating Hormone 3.06 uIU/mL (0.27-4.20); Total Bilirubin 0.3 mg/dL (0.15-1.2); Total Protein 6.4 g/dL (6.6-8.7)
[2024-02-12] MEDS: pembrolizumab 200 MG in sodium chloride 0.9% 250 ML 516 MG IV (10:20)
[2024-02-12 10:55] LABS: Bilirubin Urine Negative (Negative); Blood Urine 1+ (Negative); Glucose Urine UA Negative (Normal); Ketones Urine Negative (Negative); Leukocyte Esterase Urine 3+ (Negative); Nitrate Urine Positive (Negative); Protein Urine Trace (Negative); Specific Gravity, Urine 1.011 (1.005-1.030); Urine Appearance Cloudy (CLEAR); Urine Color Yellow (Yellow); Urobilinogen Urine 0.2 mg/dL (Negative); pH Urine 5.5 (5-7)
[2024-02-12 11:00] LABS: Add Urine Microscopic? YES; Bacteria Urine 3+ /hpf; Hyaline Casts Urine 2.05 /lpf; Squamous Epithelial Cell Urine 0-5 /hpf (0-5); WBC Urine >100 /hpf (0-5)
[2024-02-12 11:01] LABS: Add Urine Culture? Yes
== END 2024-02-12 23:59 | disposition home or self-care (01) ==
PROVIDERS: Nurse Practitioner Family; PCP Family Medicine; Visit Provider Internal Medicine Medical Oncology
DX: C34.32 Malignant neoplasm of lower lobe, left bronchus or lung; Z51.12 Encounter for antineoplastic immunotherapy; R30.9 Painful micturition, unspecified; Z79.899 Other long term (current) drug therapy
CPT/HCPCS: 80053; 81001; 84443; 85025; 87077; 87086; 87186; 96413; 99214; A4222; J7050; J9271

== ENCOUNTER 2024-03-04 09:01 | Oncology outpatient (recurring) (ONCR) | payer MEDICARE, MEDICAID, SELFPAY ==
[2024-02-19] MEDS: sodium chloride 0.9% 1,000 ML 999 ML IV (14:05)
[2024-02-19 15:03] VITALS: BP 143/74; PULSE 84; RESP 18; TEMP 36; O2SAT 99
[2024-03-04 09:29] LABS: Basophils % 0.3 %; Eosinophils # 0.1 10^3/uL (0.0-0.8); Eosinophils % 0.9 %; Hematocrit 38.1 % (36-47); Lymphocytes # 1.6 10^3/uL (0.8-4.8); Lymphocytes % 17.5 %; Mean Corpuscular Volume 93.6 fl (85-98); Mean Platelet Volume 9.7 fL (7.4-10.4); Monocytes # 0.4 10^3/uL (0.2-0.9); Monocytes % 4.3 %; Neutrophils # 7.15 10^3/uL (1.8-7.7); Neutrophils % 76.8 %; Nucleated Red Blood Cells % 0 %; Platelet Count 248 10^3/cmm (157-399); Red Blood Count 4.07 10^6/uL (3.85-5.65); Red Cell Distribution Width 14.5 % (12.1-15.1); White Blood Count 9.31 10^3/uL (3.29-11.43)
[2024-03-04 09:53] LABS: Alanine Aminotransferase 16 U/L (0-33); Albumin Level 4.2 g/dL (3.5-5.2); Alkaline Phosphatase 105 U/L (35-105); Anion Gap 14.1 (5-19); Aspartate Amino Transferase 16 U/L (0-32); Blood Urea Nitrogen 26 mg/dL (8-23); Carbon Dioxide 25 mmol/L (22-29); Chloride 105 mmol/L (98-107); Globulin 2.9 g/dL (1.3-4.6); Glomerular Filtration Rate 40.9 mL/min (90-130); Glucose 105 mg/dL (65-115); Lactate Dehydrogenase 193 U/L (135-214); Osmolality Calculated 293 mOsm/kg (285-295); Potassium 5.1 mmol/L (3.5-5.1); Sodium 139 mmol/L (136-145); Thyroid Stimulating Hormone 3.07 uIU/mL (0.27-4.20); Total Bilirubin 0.2 mg/dL (0.15-1.2); Total Protein 7.1 g/dL (6.6-8.7)
[2024-03-04 11:24] LABS: Magnesium 2.2 mg/dL (1.7-2.3)
[2024-03-04] MEDS: FOLIC ACID IV (11:40)
[2024-03-04] MEDS: THIAMINE IV (11:40)
[2024-03-04] MEDS: [UNRECOGNIZED DRUG - OTHER] IV (11:40)
[2024-03-04] MEDS: MULTIVITAMIN IV (11:40)
[2024-03-04] MEDS: pembrolizumab 200 MG in sodium chloride 0.9% 250 ML 516 MG IV (14:02)
== END 2024-03-04 23:59 | disposition home or self-care (01) ==
PROVIDERS: Nurse Practitioner Family; PCP Family Medicine; Visit Provider Internal Medicine Medical Oncology
DX: Z53.9 Procedure and treatment not carried out, unspecified reason (principal); C34.32 Malignant neoplasm of lower lobe, left bronchus or lung; Z79.899 Other long term (current) drug therapy; Z51.11 Encounter for antineoplastic chemotherapy; Z51.12 Encounter for antineoplastic immunotherapy; R25.2 Cramp and spasm; Z87.891 Personal history of nicotine dependence; Z90.2 Acquired absence of lung [part of]
CPT/HCPCS: 80053; 83615; 83735; 84443; 85025; 96360; 96365; 96366; 96413; 99214; A4222; J3411; J3490; J7030; J7050; J9271

== ENCOUNTER 2024-03-11 12:50 | Outpatient (CLI) | payer MEDICARE, MEDICAID, SELFPAY ==
[2024-03-11 13:40] LABS: Albumin Level 4.3 g/dL (3.5-5.2); Blood Urea Nitrogen 29 mg/dL (8-23); Calcium 8.9 mg/dL (8.5-10.5); Carbon Dioxide 25 mmol/L (22-29); Chloride 105 mmol/L (98-107); Glomerular Filtration Rate 34.6 mL/min (90-130); Glucose 68 mg/dL (65-115); Phosphorus 3.4 mg/dL (2.5-4.5); Sodium 140 mmol/L (136-145)
[2024-03-11 13:44] LABS: Creatinine Urine, Random 123 mg/dL (28-217); Microalbum Creatinine Ratio Ur 8 mg/dL (0-20); Microalbumin Random Urine 1 ug/dL (0-20)
[2024-03-11 13:54] LABS: Parathyroid Hormone 61.5 pg/mL (15-65)
[2024-03-11 13:57] LABS: 25 Hydroxy Vitamin D 26 ng/mL (30-100)
== END 2024-03-11 12:51 | disposition home or self-care (01) ==
LOC: LAB 12:52
PROVIDERS: PCP Family Medicine; Visit Provider Nurse Practitioner Family
DX: N18.32 Chronic kidney disease, stage 3b (principal)
CPT/HCPCS: 36415; 80069; 82044; 82306; 82310; 83970

== ENCOUNTER 2024-03-27 09:36 | Outpatient (CLI) | payer MEDICARE, MEDICAID, SELFPAY ==
--- NOTE | 2024-03-27 10:00 | CT_ITS ---
WS: [id number] CT CHEST ANGIOGRAPHY WITH REFORMATS HISTORY: severe right sided chest wall pain TECHNIQUE: Contiguous axial images are obtained through the chest during arterial injection of intravenous contrast. Images are reconstructed to evaluate the pulmonary arteries. MIP imaging also reviewed. All CT scans at [facility] use at least one of these dose optimization techniques: automated exposure control; mA and/or kV adjustment per patient size (includes targeted exams where dose is matched to clinical indication); or iterative reconstruction. CONTRAST: Omnipaque 350; 100 mL IV. DLP: 320.66 mGy.cm COMPARISON: 11/12/2023 Good opacification of the pulmonary arteries. No filling defect or pulmonary embolism identified. Near complete LEFT lower lobectomy. Hyperexpanded LEFT upper lobe. Mild volume loss in the LEFT thorax. Benign granuloma LEFT lower lobe. Additional right-sided calcified granulomata. No pulmonary mass or pneumonia. No pericardial or pleural effusions. Mild LEFT heart enlargement. No RIGHT heart strain. No mediastinal or hilar adenopathy. Moderate atherosclerosis thoracic aorta. Right-sided Mediport. Bilateral breast implants. Prior cholecystectomy. No adrenal mass. Moderate-sized hiatal hernia. There does appear to be prior gastric surgery which may be fundoplication. Mild increase in thoracic kyphosis. Disc spaces are narrowed. No destructive bone lesions. Postsurgical changes involving the ribs in the posterior LEFT thorax. CT/CT angio chest PE protcl [id number] IMPRESSION: 1. No pulmonary embolism. 2. Volume loss in the LEFT thorax from partial LEFT lower lobectomy. 3. No recurrent mass or adenopathy. 4. Prior cholecystectomy. 5. Mild LEFT heart enlargement.
[2024-03-27] MEDS: iohexol 350 mg/mL 500 mL Btl (per mL) IV (10:18)
== END 2024-03-27 09:37 | disposition home or self-care (01) ==
LOC: RAD 09:39
PROVIDERS: PCP Family Medicine; Visit Provider Nurse Practitioner
DX: R07.89 Other chest pain (principal); R91.8 Other nonspecific abnormal finding of lung field; Z90.49 Acquired absence of other specified parts of digestive tract; I51.7 Cardiomegaly; Z98.890 Other specified postprocedural states; J84.10 Pulmonary fibrosis, unspecified; J98.4 Other disorders of lung; I70.0 Atherosclerosis of aorta; Z98.82 Breast implant status; K44.9 Diaphragmatic hernia without obstruction or gangrene; M40.294 Other kyphosis, thoracic region; R93.7 Abnormal findings on diagnostic imaging of other parts of musculoskeletal system; R93.89 Abnormal findings on diagnostic imaging of other specified body structures
CPT/HCPCS: 71275

== ENCOUNTER 2024-04-01 13:05 | Outpatient (CLI) | payer MEDICARE, MEDICAID, SELFPAY ==
--- NOTE | 2024-04-01 13:11 | MR_ITS ---
WS: [id number] MRI CERVICAL SPINE NONCONTRAST HISTORY: NECK PAIN COMPARISON: None available. Technique: Multiplanar, multisequence noncontrast imaging of the cervical spine. Mild increase in the cervical lordosis. Posterior alignment is normal. Signal within the cervical cord is normal. Visualized posterior fossa is unremarkable. Craniocervical junction, C1 and C2 relationship, odontoid process and soft tissues are normal. C2-C3: Normal. C3-C4: Mild bilateral facet arthritis. Minimal LEFT foraminal narrowing due to osteophyte. C4-C5: Normal. C5-C6: Small disc osteophyte complexes bilaterally in the neural foramen causing minimal narrowing. Mild facet arthritis. C6-C7: Small central disc protrusion with small foraminal osteophytes. Minimal foraminal narrowing. C7-T1: Normal. Paraspinal soft tissue are normal. MR/MR cervical spin wo con* [id number] IMPRESSION: 1. No high-grade central or foraminal stenosis. 2. No destructive bone lesions. 3. Small central disc protrusion and foraminal osteophytes at C6-7. No signifi cant stenosis. 4. Minimal LEFT foraminal narrowing at C3-4 and bilaterally at C5-6.
--- NOTE | 2024-04-01 13:11 | MR_ITS ---
WS: [id number] MRI LUMBAR SPINE NONCONTRAST HISTORY: BACK PAIN COMPARISON: 12/26/2021 TECHNIQUE: Sagittal and axial multisequence imaging is submitted. Extensive image degradation by susceptibility artifact from the lower lumbar hardware. Posterior lumbar fixation from L4-S1. Posterior alignment is difficult to visualize completely. Upper lumbar vertebral bodies are normally aligned. Disc spaces are obscured by artifact. Conus terminates normally at L1-2 disc level. L1-L2: Mild facet arthritis. Mild ligamentum flavum hypertrophy. No stenosis. L2-L3: Disc space is obscured. L3-L4: Disc space is obscured. L4-L5: Disc space is obscured. L5-S1: Disc space is obscured. Visualized paravertebral soft tissues are negative. MR/MR lumbar spine wo con* [id number] IMPRESSION: 1. Study is significantly degraded by extensive susceptibility artifact from t he prior lumbar fusion. 2. No stenosis at L1-2. Otherwise disc spaces cannot be evaluated adequately.
== END 2024-04-01 13:06 | disposition home or self-care (01) ==
LOC: RAD 13:07
PROVIDERS: PCP Family Medicine; Visit Provider Neurological Surgery
DX: M54.6 Pain in thoracic spine (principal); M47.892 Other spondylosis, cervical region; Z98.1 Arthrodesis status; M47.896 Other spondylosis, lumbar region; M50.223 Other cervical disc displacement at C6-C7 level; M25.78 Osteophyte, vertebrae; M48.02 Spinal stenosis, cervical region; R93.7 Abnormal findings on diagnostic imaging of other parts of musculoskeletal system
CPT/HCPCS: 72141; 72148

== ENCOUNTER 2024-04-04 09:12 | Oncology outpatient (recurring) (ONCR) | payer MEDICARE, MEDICAID, SELFPAY ==
[2024-03-27] MEDS: alteplase 1 mg/mL SDV 2 mL 2 MG INTRACATH (08:18)
--- NOTE | 2024-03-27 09:14 | PC.PHAR ---
STANLEY CAME TO MY OFFICE THIS MORNING TO DISCUSS PAIN TX OPTIONS FOR THIS PATIENT. PER STANLEY, PATIENT IS IN AN EXTREME AMOUNT OF PAIN WE CAN'T EVEN TOUCH HER SHES HURTING SO BAD SATNLEY FEELS HER ONLY ACUTE OPTION FOR PAIN TREATMENT IS DEMEROL. PATIENT IS REFUSING MORPHINE AND DILAUDID THESE HAVE NOT WORKED FOR HER IN THE PAST. STANLEY ALSO WANTS TO GIVE HER A FENTANYL PATCH. AFTER REVIEWING HER RX HISTORY AND CONSIDERING SHE HAS CANCER PAIN, I AGREED TO THIS WELL. STANLEY IS IN DISCUSSION WITH ER OVER SENDING HER THERE FOR UNCONTROLLED PAIN AND IMAGING.
[2024-03-27 09:19] LABS: Basophils % 0.3 %; Eosinophils # 0.2 10^3/uL (0.0-0.8); Eosinophils % 1.3 %; Hematocrit 34.9 % (36-47); Lymphocytes # 3.2 10^3/uL (0.8-4.8); Lymphocytes % 26.7 %; Mean Corpuscular HGB Conc 32.4 g/dL (30-55); Mean Corpuscular Hemoglobin 29.6 pg (27-33); Mean Corpuscular Volume 91.4 fl (85-98); Mean Platelet Volume 9.6 fL (7.4-10.4); Monocytes % 8.2 %; Neutrophils # 7.48 10^3/uL (1.8-7.7); Neutrophils % 63.1 %; Nucleated Red Blood Cells % 0 %; Platelet Count 281 10^3/cmm (157-399); Red Blood Count 3.82 10^6/uL (3.85-5.65); Red Cell Distribution Width 14.7 % (12.1-15.1); White Blood Count 11.88 10^3/uL (3.29-11.43)
[2024-03-27 09:33] VITALS: RESP 18; O2SAT 98
[2024-03-27] MEDS: meperidine 50 mg/mL INJ IVP ×2 (09:33→11:54)
[2024-03-27 09:58] LABS: Alanine Aminotransferase 10 U/L (0-33); Albumin Level 3.7 g/dL (3.5-5.2); Alkaline Phosphatase 81 U/L (35-105); Anion Gap 16.3 (5-19); Aspartate Amino Transferase 8 U/L (0-32); Blood Urea Nitrogen 32 mg/dL (8-23); Calcium 8.6 mg/dL (8.5-10.5); Carbon Dioxide 25 mmol/L (22-29); Chloride 103 mmol/L (98-107); Creatinine Clr Calc Pharmacy 41.1803; Globulin 2.7 g/dL (1.3-4.6); Glomerular Filtration Rate 37.5 mL/min (90-130); Glucose 87 mg/dL (65-115); Osmolality Calculated 296 mOsm/kg (285-295); Potassium 4.3 mmol/L (3.5-5.1); Sodium 140 mmol/L (136-145); Thyroid Stimulating Hormone 2.52 uIU/mL (0.27-4.20); Total Bilirubin 0.2 mg/dL (0.15-1.2); Total Protein 6.4 g/dL (6.6-8.7)
[2024-03-27] MEDS: fentaNYL 50 mcg Patch 1 PATCH TRANSDERMA (10:44)
--- NOTE | 2024-03-27 10:44 | PC.NURSE ---
1044- Patient reports no current Fentanyl patches on at this time. Nurse applied Fentanyl 50mcg patch to the left anterior chest. Patient verbalized understanding to removed in 72 hours. Dated and timed. - Dana Cam
[2024-03-27 11:54] VITALS: RESP 18; O2SAT 98
[2024-03-27 12:00] VITALS: BP 184/96; PULSE 76; RESP 18; TEMP 36.6; O2SAT 98
[2024-03-31 08:56] VITALS: RESP 18
[2024-03-31] MEDS: meperidine 50 mg/mL INJ 25 MG IM (08:56)
[2024-03-31] MEDS: sodium chloride 0.9% 500 ML 999 ML IV (10:57)
[2024-03-31 10:58] VITALS: RESP 18
[2024-03-31] MEDS: meperidine 50 mg/mL INJ IVP (10:58)
[2024-03-31] MEDS: dexamethasone 10 mg/mL INJ 20 MG IVP (11:07)
[2024-03-31] MEDS: sodium chloride 0.9% 50 ML 150 ML IV (11:09)
--- NOTE | 2024-04-04 09:30 | PETR_ITS ---
PROCEDURE INFORMATION: Exam: PET/CT Skull Base to Mid-thigh Exam date and time: 04/04/2024 10:22 AM Age: 68 years old Clinical indication: Restaging of lung cancer after prior left lower lobectomy currently on immunotherapy; Follow-up oncological assessment; Prior surgery; Surgery date: 6+ months; Surgery type: L spine port. LABS AND CLINICAL REPORTS: Glucose: 112 mg/dl Treatment strategy for malignancy (PET staging): Restaging (PS) TECHNIQUE: Imaging protocol: Following at least four-hour fasting and following the injection of radiopharmaceutical, low dose CT images were obtained. Then, PET images were obtained. Attenuation corrected images were constructed using the CT scan. Fused images of PET and CT were reviewed. The standardized uptake values (SUV) reported below are maximum values within a region of interest, expressed in gm/ml. Exam includes orbital meatal line to mid-thigh. SUV normalization method: BodyWeight Radiopharmaceutical: 11 mCi F-18 FDG (Fluorodeoxyglucose), IV. Time of imaging post radiopharmaceutical administration: 46 minutes Injection site: PORT COMPARISON: PT PET skull to thigh SUBS [id number] 01/18/2024, CTA chest 03/27/2024 FINDINGS: Tubes, catheters and devices: Port catheter placed via the right internal jugular vein terminates in the right atrium. Brain: Normal physiologic uptake. Pharynx: No abnormal uptake. Larynx: No abnormal uptake. Lungs, pleura and trachea: No abnormal uptake. Stable findings after left lower lobectomy. No suspicious lung nodules or masses. Stable calcified granuloma in the left upper lobe. No pleural effusion. Heart: No abnormal uptake. No cardiomegaly. There is no pericardial effusion. Mediastinal space: No abnormal uptake. Stable mild mediastinal shift to the left. There stable small hiatal hernia. Liver: No abnormal uptake. Maximum uptake is 2.5 SUV. Gallbladder and biliary ducts: No abnormal uptake. Status post cholecystectomy Pancreas: No abnormal uptake. Spleen: No abnormal uptake. No splenomegaly. Adrenal glands: No abnormal uptake. No nodules. Kidneys and ureters: Normal physiologic uptake. No hydronephrosis. Stomach and bowel: Small focus of intense uptake of 8.6 SUV on axial image 197 in the right mid abdomen in the expected location of the distal ileum with no corresponding CT abnormality is of indeterminate nature. Increased uptake in multiple loops of small bowel in the left mid abdomen and in the right pelvis with no corresponding CT abnormality is benign. Short segments of increased uptake in the sigmoid colon are likely benign. Mild diverticulosis of the sigmoid colon. Intraperitoneal and retroperitoneal spaces: No abnormal uptake. No ascites. Bladder: Normal physiologic uptake. Reproductive: No abnormal uptake. The uterus is absent post surgically. Vasculature: No abnormal uptake. No abdominal aortic aneurysm. Stent in the right external iliac artery. Lymph nodes: No FDG avid lymphadenopathy in the neck, chest, abdomen, pelvis, and extremities. Skeleton: Diffusely increased synovial uptake in the shoulders and to the lesser degree in the hips is new since prior exam compatible with benign inflammatory finding. Status post L4 and L5 posterior laminectomy with L4-S1 fusion with bilateral transpedicular internal fixation. Soft tissues: No abnormal uptake in the visualized head, neck, chest, abdomen, pelvis, and extremities. Bilateral breast implants are in place. PET/PET skull to thigh SUBS [id number] IMPRESSION: In comparison with the prior exam on 01/18/2024: 1. New small focal uptake in the small bowel in the right mid abdomen with no corresponding CT abnormality is indeterminate, probably benign. Otherwise the exam remains negative with no evidence of recurrent malignancy; 2. New increased synovial uptake in the shoulders and to the lesser degree in the hip joints is suggestive of benign inflammatory finding that may be potentially induced by immunotherapy.
== END 2024-04-04 23:59 | disposition home or self-care (01) ==
PROVIDERS: Nurse Practitioner Family; PCP Family Medicine; Visit Provider Nurse Practitioner
DX: Z53.9 Procedure and treatment not carried out, unspecified reason; C34.32 Malignant neoplasm of lower lobe, left bronchus or lung; G89.3 Neoplasm related pain (acute) (chronic); Z79.899 Other long term (current) drug therapy
CPT/HCPCS: 36591; 36593; 78815; 80053; 84443; 85025; 96365; 96372; 96374; 96375; 96376; 99214; A9552; J1100; J2175; J2997; J7040

== ENCOUNTER → 2024-04-14 10:34 | Outpatient (BNVA) | payer MEDICARE, MEDICAID, SELFPAY | PROVIDERS: PCP Family Medicine; Visit Provider Family Medicine | DX: R07.9 Chest pain, unspecified (principal); I70.0 Atherosclerosis of aorta; J84.10 Pulmonary fibrosis, unspecified | CPT/HCPCS: 71045; 80053; 82607; 82728; 82746; 83540; 84439; 84443; 85025; 85045; 85651; 86140 ==

== ENCOUNTER 2024-04-24 14:30 | Oncology outpatient (recurring) (ONCR) | payer MEDICARE, MEDICAID, SELFPAY ==
[2024-04-08 11:08] LABS: Basophils % 0.2 %; Eosinophils % 0.3 %; Hematocrit 34.5 % (36-47); Lymphocytes # 1.3 10^3/uL (0.8-4.8); Lymphocytes % 10.4 %; Mean Corpuscular HGB Conc 31.6 g/dL (30-55); Mean Corpuscular Hemoglobin 29.5 pg (27-33); Mean Corpuscular Volume 93.5 fl (85-98); Monocytes # 0.5 10^3/uL (0.2-0.9); Monocytes % 4.2 %; Neutrophils # 10.33 10^3/uL (1.8-7.7); Neutrophils % 84.3 %; Nucleated Red Blood Cells % 0 %; Platelet Count 289 10^3/cmm (157-399); Red Blood Count 3.69 10^6/uL (3.85-5.65); Red Cell Distribution Width 15.6 % (12.1-15.1); White Blood Count 12.26 10^3/uL (3.29-11.43)
[2024-04-08 11:32] LABS: Alanine Aminotransferase 9 U/L (0-33); Albumin Level 3.5 g/dL (3.5-5.2); Alkaline Phosphatase 71 U/L (35-105); Anion Gap 14.9 (5-19); Aspartate Amino Transferase 9 U/L (0-32); Blood Urea Nitrogen 36 mg/dL (8-23); Calcium 8.3 mg/dL (8.5-10.5); Carbon Dioxide 23 mmol/L (22-29); Chloride 103 mmol/L (98-107); Globulin 2.6 g/dL (1.3-4.6); Glomerular Filtration Rate 34.6 mL/min (90-130); Glucose 270 mg/dL (65-115); Osmolality Calculated 300 mOsm/kg (285-295); Potassium 4.9 mmol/L (3.5-5.1); Sodium 136 mmol/L (136-145); Total Bilirubin 0.3 mg/dL (0.15-1.2); Total Protein 6.1 g/dL (6.6-8.7)
[2024-04-24 15:14] LABS: Basophils % 0.1 %; Eosinophils # 0.1 10^3/uL (0.0-0.8); Eosinophils % 1.2 %; Hematocrit 32.9 % (36-47); Lymphocytes # 1.7 10^3/uL (0.8-4.8); Lymphocytes % 22.4 %; Mean Corpuscular HGB Conc 32.5 g/dL (30-55); Mean Corpuscular Hemoglobin 29.6 pg (27-33); Mean Corpuscular Volume 91.1 fl (85-98); Mean Platelet Volume 9.7 fL (7.4-10.4); Monocytes # 0.7 10^3/uL (0.2-0.9); Monocytes % 8.4 %; Neutrophils % 67.3 %; Nucleated Red Blood Cells % 0 %; Platelet Count 243 10^3/cmm (157-399); Red Blood Count 3.61 10^6/uL (3.85-5.65); Red Cell Distribution Width 15.7 % (12.1-15.1); White Blood Count 7.73 10^3/uL (3.29-11.43)
[2024-04-24 15:32] LABS: Alanine Aminotransferase 11 U/L (0-33); Albumin Level 3.5 g/dL (3.5-5.2); Alkaline Phosphatase 62 U/L (35-105); Anion Gap 14.3 (5-19); Aspartate Amino Transferase 13 U/L (0-32); Blood Urea Nitrogen 37 mg/dL (8-23); Calcium 8.4 mg/dL (8.5-10.5); Carbon Dioxide 28 mmol/L (22-29); Chloride 102 mmol/L (98-107); Globulin 2.7 g/dL (1.3-4.6); Glomerular Filtration Rate 37.5 mL/min (90-130); Glucose 107 mg/dL (65-115); Osmolality Calculated 299 mOsm/kg (285-295); Potassium 4.3 mmol/L (3.5-5.1); Sodium 140 mmol/L (136-145); Total Bilirubin 0.2 mg/dL (0.15-1.2); Total Protein 6.2 g/dL (6.6-8.7)
[2024-04-24 17:02] VITALS: RESP 18
[2024-04-24] MEDS: meperidine 50 mg/mL INJ 25 MG IVP (17:02)
--- NOTE | 2024-04-24 17:03 | PC.NURSE ---
Demerol 25mg IVP given slowly with Demerol 25mg wasted by Bita Mackenzie RN and myself.mm
[2024-04-24 17:22] LABS: Bilirubin Urine Negative (Negative); Blood Urine Negative (Negative); Glucose Urine UA Negative (Normal); Ketones Urine Negative (Negative); Leukocyte Esterase Urine Negative (Negative); Nitrate Urine Negative (Negative); Protein Urine Negative (Negative); Specific Gravity, Urine 1.015 (1.005-1.030); Urine Appearance Clear (CLEAR); Urine Color Yellow (Yellow); Urobilinogen Urine 0.2 mg/dL (Negative)
[2024-04-24 17:27] LABS: Add Urine Microscopic? YES; Bacteria Urine None Seen /hpf; RBC Urine 0-2 /hpf (0-2); Squamous Epithelial Cell Urine 0-5 /hpf (0-5); WBC Urine 0-5 /hpf (0-5)
[2024-04-24 17:29] LABS: Creatine Phosphokinase 35 U/L (26-192); Magnesium 2.2 mg/dL (1.7-2.3)
[2024-04-24 17:29] LABS: Add Urine Culture? No
== END 2024-05-05 23:59 | disposition home or self-care (01) ==
PROVIDERS: Nurse Practitioner; Nurse Practitioner Family; PCP Family Medicine; Visit Provider Internal Medicine
DX: Z53.9 Procedure and treatment not carried out, unspecified reason; C34.32 Malignant neoplasm of lower lobe, left bronchus or lung; M89.9 Disorder of bone, unspecified; M79.10 Myalgia, unspecified site; M62.81 Muscle weakness (generalized); Z79.899 Other long term (current) drug therapy; Z79.52 Long term (current) use of systemic steroids
CPT/HCPCS: 36415; 36591; 80053; 81001; 82550; 83735; 83874; 85025; 96374; 99214; 99215; J2175

== ENCOUNTER → 2024-05-06 09:28 | Outpatient (BNVA) | payer MEDICARE, MEDICAID, SELFPAY | PROVIDERS: PCP Family Medicine; Visit Provider Nurse Practitioner Family | DX: L57.8 Other skin changes due to chronic exposure to nonionizing radiation (principal); L81.4 Other melanin hyperpigmentation; L82.1 Other seborrheic keratosis; D22.39 Melanocytic nevi of other parts of face; L82.0 Inflamed seborrheic keratosis; L53.8 Other specified erythematous conditions; Z78.9 Other specified health status; L29.89 Other pruritus; L57.0 Actinic keratosis | CPT/HCPCS: 17000; 17110; 99213 ==

== ENCOUNTER 2024-05-23 08:47 | Oncology outpatient (recurring) (ONCR) | payer MEDICARE, MEDICAID, SELFPAY ==
[2024-05-08 13:40] LABS: Basophils % 0.2 %; Eosinophils % 0.1 %; Hematocrit 37.9 % (36-47); Lymphocytes # 1.8 10^3/uL (0.8-4.8); Lymphocytes % 17.5 %; Mean Corpuscular HGB Conc 32.2 g/dL (30-55); Mean Corpuscular Volume 93.1 fl (85-98); Mean Platelet Volume 9.3 fL (7.4-10.4); Monocytes # 0.9 10^3/uL (0.2-0.9); Monocytes % 8.5 %; Neutrophils # 7.69 10^3/uL (1.8-7.7); Nucleated Red Blood Cells % 0 %; Platelet Count 303 10^3/cmm (157-399); Red Blood Count 4.07 10^6/uL (3.85-5.65); Red Cell Distribution Width 15.7 % (12.1-15.1); White Blood Count 10.52 10^3/uL (3.29-11.43)
[2024-05-08 13:59] LABS: Alanine Aminotransferase 14 U/L (0-33); Albumin Level 3.8 g/dL (3.5-5.2); Alkaline Phosphatase 73 U/L (35-105); Anion Gap 13.3 (5-19); Aspartate Amino Transferase 12 U/L (0-32); Blood Urea Nitrogen 28 mg/dL (8-23); Carbon Dioxide 26 mmol/L (22-29); Chloride 103 mmol/L (98-107); Globulin 2.5 g/dL (1.3-4.6); Glomerular Filtration Rate 37.5 mL/min (90-130); Glucose 80 mg/dL (65-115); Osmolality Calculated 290 mOsm/kg (285-295); Potassium 4.3 mmol/L (3.5-5.1); Sodium 138 mmol/L (136-145); Total Bilirubin 0.2 mg/dL (0.15-1.2); Total Protein 6.3 g/dL (6.6-8.7)
[2024-05-23 09:15] LABS: Basophils % 0.3 %; Eosinophils % 0.2 %; Hematocrit 37.1 % (36-47); Lymphocytes # 1.5 10^3/uL (0.8-4.8); Lymphocytes % 11.7 %; Mean Corpuscular HGB Conc 31.5 g/dL (30-55); Mean Corpuscular Hemoglobin 28.8 pg (27-33); Mean Corpuscular Volume 91.4 fl (85-98); Mean Platelet Volume 9.6 fL (7.4-10.4); Monocytes # 0.5 10^3/uL (0.2-0.9); Monocytes % 3.9 %; Neutrophils # 10.38 10^3/uL (1.8-7.7); Neutrophils % 82.8 %; Nucleated Red Blood Cells % 0 %; Platelet Count 257 10^3/cmm (157-399); Red Blood Count 4.06 10^6/uL (3.85-5.65); Red Cell Distribution Width 15.9 % (12.1-15.1); White Blood Count 12.53 10^3/uL (3.29-11.43)
[2024-05-23 09:20] LABS: Erythrocyte Sedimentation Rate 24 mm/hr (0-15)
[2024-05-23 09:32] LABS: Alanine Aminotransferase 8 U/L (0-33); Albumin Level 3.7 g/dL (3.5-5.2); Alkaline Phosphatase 65 U/L (35-105); Anion Gap 14.7 (5-19); Aspartate Amino Transferase 10 U/L (0-32); Blood Urea Nitrogen 31 mg/dL (8-23); Calcium 8.8 mg/dL (8.5-10.5); Carbon Dioxide 25 mmol/L (22-29); Chloride 102 mmol/L (98-107); Creatinine Clr Calc Pharmacy 39.2687; Globulin 2.6 g/dL (1.3-4.6); Glomerular Filtration Rate 34.6 mL/min (90-130); Glucose 154 mg/dL (65-115); Lactate Dehydrogenase 193 U/L (135-214); Osmolality Calculated 294 mOsm/kg (285-295); Potassium 4.7 mmol/L (3.5-5.1); Sodium 137 mmol/L (136-145); Total Bilirubin 0.2 mg/dL (0.15-1.2); Total Protein 6.3 g/dL (6.6-8.7); Uric Acid 6.1 mg/dL (2.4-5.7)
== END 2024-06-04 23:59 | disposition home or self-care (01) ==
PROVIDERS: Nurse Practitioner Family; PCP Family Medicine; Visit Provider Internal Medicine
DX: C34.32 Malignant neoplasm of lower lobe, left bronchus or lung (principal); R03.0 Elevated blood-pressure reading, without diagnosis of hypertension; M25.50 Pain in unspecified joint; M79.0 Rheumatism, unspecified; Z92.25 Personal history of immunosuppression therapy; Z92.21 Personal history of antineoplastic chemotherapy; Z79.899 Other long term (current) drug therapy
CPT/HCPCS: 36591; 80053; 83615; 84550; 85025; 85651; 86140; 99213; 99214

== ENCOUNTER → 2024-06-04 10:14 | Outpatient (BNVA) | payer MEDICARE, MEDICAID, SELFPAY | PROVIDERS: PCP Family Medicine; Visit Provider Internal Medicine Rheumatology | DX: M05.79 Rheumatoid arthritis with rheumatoid factor of multiple sites without organ or systems involvement (principal); Z79.899 Other long term (current) drug therapy; Z71.85 Encounter for immunization safety counseling; R91.8 Other nonspecific abnormal finding of lung field | CPT/HCPCS: 99214 ==

== ENCOUNTER 2024-06-10 10:48 | Outpatient (CLI) | payer OTHER, MEDICAID, SELFPAY ==
--- NOTE | 2024-06-10 10:52 | CT_ITS ---
WS: [id number] CT ABDOMEN WITH CONTRAST HISTORY: UPPR ABDOMINAL PAIN, LEFT upper pain. History of lung cancer. Contiguous single phase 5 mm axial imaging performed to the abdomen. Oral contrast has been provided. Coronal and sagittal reformats are submitted. All CT scans at [facility] use at least one of these dose optimization techniques: automated exposure control; mA and/or kV adjustment per patient size (includes targeted exams where dose is matched to clinical indication); or iterative reconstruction. IV CONTRAST: Omnipaque 350; 100 mL IV. Oral contrast: No DLP: 206.65 mGy.cm COMPARISON: 11/01/2023 Lower thorax: Bilateral breast implants. Lung bases are clear. Small hiatal hernia. Postsurgical changes at the GE junction are similar to prior studies. Liver/biliary system: Normal size liver with mild intrahepatic duct dilatation. Similar to the prior study of 04/22/2023. Gallbladder: Prior cholecystectomy. Pancreas: Normal size pancreas and pancreatic duct. No adjacent inflammation. Spleen: Normal size spleen. No mass or infarct. Adrenal glands: Normal. Right kidney: Low normal size kidney with scattered areas of cortical thinning. No obstruction. Left kidney: Normal size. No obstruction. Small extrarenal pelvis. Aorta: Extensive calcification within the abdominal aorta. There is mild ectasia and dilatation of the aorta with a maximum diameter of 3.0 cm. SMA and celiac axis are both intact. Lymphadenopathy: None. Free fluid: None. GI tract: Visualized GI tract in the abdomen is negative. No obstructive pattern. Abdominal wall: Unremarkable abdominal wall. No hernia. Visualized osseous structures: Lumbar fusion hardware. No destructive bone lesions. CT/CT abdomen w con* [id number] IMPRESSION: 1. No acute abdominal findings. 2. Bilateral breast implants. 3. Prior cholecystectomy with mild intrahepatic duct dilatation, similar to . 4. Ectasia and mild dilatation abdominal aorta up to 3.0 cm. 5. No renal obstruction. 6. Postsurgical changes at the GE junction are stable.
[2024-06-10] MEDS: iohexol 350 mg/mL 500 mL Btl (per mL) IV (11:48)
== END 2024-06-10 10:49 | disposition home or self-care (01) ==
PROVIDERS: PCP Family Medicine; Visit Provider Nurse Practitioner
DX: R10.10 Upper abdominal pain, unspecified (principal); Z98.82 Breast implant status; Z90.49 Acquired absence of other specified parts of digestive tract; I77.811 Abdominal aortic ectasia; Z98.890 Other specified postprocedural states; K44.9 Diaphragmatic hernia without obstruction or gangrene; R93.2 Abnormal findings on diagnostic imaging of liver and biliary tract; R93.421 Abnormal radiologic findings on diagnostic imaging of right kidney; R93.89 Abnormal findings on diagnostic imaging of other specified body structures; I70.0 Atherosclerosis of aorta; Z98.1 Arthrodesis status
CPT/HCPCS: 74160

== ENCOUNTER 2024-06-10 11:45 | Emergency (ER) | payer OTHER, MEDICAID, SELFPAY ==
[2024-06-10] VITALS (7 sets, daily range): BP systolic 98–182; BP diastolic 62–91; PULSE 64–82; RESP 15–19; O2SAT 94–100; BMI 26.6
--- NOTE | 2024-06-10 11:53 | ECG_ITS ---
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 Measurements Intervals [place] Rate: 71 P: 74 IA: 173 QRS: 1 QRSD: 87 T: 60 QT: 383 QTc: 418 Interpretive Statements SINUS RHYTHM Compared to ECG 11/14/2023 12:50:58 Myocardial infarct finding no longer present Electronically Signed On 06-11-2024 17:45:49 CDT by Apolinar Lara M.D. [email or web address]
--- NOTE | 2024-06-10 12:03 | XR_ITS ---
WS: [id number] XR chest 1V portable [id number] REASON FOR EXAM: cp FINDINGS: The chest is essentially unchanged compared to 04/14/2024. Chemotherapy infusion port over the right chest which is accessed. Infusion catheter from the port trans right internal jugular to the distal superior vena cava. Minimal tortuosity of the thoracic aorta with moderate arch calcification. The heart size is within normal limits. No acute pulmonary parenchymal or pleural abnormality is identified. Bony thorax is intact with minimal degenerative spondylosis in the mid and lower thoracic spine. XR/XR chest 1V portable [id number] IMPRESSION: Stable chest with no acute abnormality.
--- NOTE | 2024-06-10 12:12 | W.ED.CHESTPA ---
HPI - Chest Pain General: Chief Complaint: Chest Pain Stated Complaint: Chest Pain Time Seen by Provider: 06/10/24 11:54 History of Present Illness: 68-year-old female past medical history of lung cancer status postsurgical resection, chemotherapy, radiation therapy currently under surveillance, history of DVT compliant with her Eliquis, is presenting with intermittent chest pains over the past week or so nonexertional nonpleuritic associated with no fever or cough. No abdominal pain nausea or vomiting. This morning she had her port accessed to obtain a CT of the abdomen to evaluate her left upper abdominal hernia when she had an episode of pressure-like chest pain that has since essentially resolved and now just feels minimal pressure associated with no nausea no diaphoresis. She has no history of CAD, she had a negative stress test approximately a year ago at [facility]. No history of cardiac cath. Associated symptoms: Deny abdominal pain, dyspnea, fever(s), nausea or vomiting Related Data Home Medications ?Medication ?Instructions ?Recorded ?Confirmed furosemide 20 mg tablet 20 mg PO DAILY PRN Edema 11/12/23 06/10/24 cholecalciferol (vitamin D3) 25 25 mcg PO DAILY 03/27/24 06/10/24 mcg (1,000 unit) capsule albendazole 200 mg tablet See Rx Instructions .Route .COMPLEX 06/10/24 06/10/24 albuterol sulfate 90 mcg/actuation 1 puff inhalation Q6H PRN 06/10/24 06/10/24 aerosol inhaler Shortness Of Breath Or Wheezing clonidine HCl 0.1 mg tablet 0.1 mg PO TID PRN bp 06/10/24 06/10/24 fluticasone furoate 200 1 inh inhalation BID 06/10/24 06/10/24 mcg-vilanterol 25 mcg/dose inhalation powder (Breo Ellipta) hydrocodone 5 mg-acetaminophen 325 1 - 2 tab PO Q4H PRN Pain 06/10/24 06/10/24 mg tablet ivermectin 3 mg tablet See Rx Instructions .Route .COMPLEX 06/10/24 06/10/24 lidocaine 5 % topical patch 1 patch topical Q24H 06/10/24 06/10/24 methocarbamol 750 mg tablet 750 mg PO TID PRN Spasms 06/10/24 06/10/24 olmesartan 40 mg tablet 40 mg PO DAILY 06/10/24 06/10/24 zolpidem 10 mg tablet (Ambien) 10 mg PO .qhs PRN SLEEP 06/10/24 06/10/24 Previous Rx's ?Medication ?Instructions ?Recorded apixaban 5 mg tablet (Eliquis) 5 mg PO BID #60 tabs 04/14/24 dexlansoprazole 30 mg 30 mg PO DAILY #90 caps 06/04/24 capsule,biphase delayed release leflunomide 20 mg tablet 20 mg PO DAILY #30 tabs 06/04/24 prednisone 10 mg tablet 10 mg PO DIRECTED #51 tabs 06/04/24 Allergies Allergy/AdvReac Type Severity Reaction Status Date / Time aspirin Allergy ALGY-Difficulty Verified 06/10/24 11:54 Breathing cyclobenzaprine (From Allergy ANGRY Verified 06/10/24 11:54 Flexeril) hydromorphone (From Dilaudid) Allergy ALGY-Anaphy Verified 06/10/24 11:54 laxis morphine Allergy ALGY-Anaphy Verified 06/10/24 11:54 laxis oxycodone (From OxyContin) Allergy ADR-Irritab Verified 06/10/24 11:54 le Penicillins Allergy ALGY-Anaphy Verified 06/10/24 11:54 laxis Sulfa (Sulfonamide Allergy ALGY-Anaphy Verified 06/10/24 11:54 Antibiotics) laxis ketorolac (From Toradol) AdvReac Unknown abdominal Verified 06/10/24 11:54 pain Alpha Gal Allergy Unknown Uncoded 06/05/24 14:06 Review of Systems Const: Denies: fever(s) or chills Eyes: Denies: change in vision ENMT: Denies: throat pain Card: Reports: chest pain Resp: Denies: dyspnea, productive cough or non-productive cough GI: Denies: abdominal pain, nausea, vomiting or diarrhea : Denies: flank pain, difficulty voiding or dysuria Skin/Breast: Denies: rash Neuro: Denies: headache(s) Jose Juan/Lymph: Denies: easy bruising PFSH ED PFSH: Medical History (Updated 06/10/24 @ 15:21 by Cruz Hernandez MD) Non-small cell lung cancer Squamous cell carcinoma of left lung Lung nodules COPD (chronic obstructive pulmonary disease) History of hepatitis B B12 deficiency Iron deficiency anemia History of nephrolithiasis High risk medication use Seropositive rheumatoid arthritis of multiple sites Ulcer Recurrent cystitis Enrolled in chronic care management Opioid contract exists History of tobacco use Spondylolisthesis at L5-S1 level Lumbar post-laminectomy syndrome Hyperlipidemia Pt had severe muscle cramps with statins and Zetia. Reactive airway disease Hypertension Surgical History History of lobectomy of lung LL lobectomy due to Cancer...02/14/23 Spfd Hx of appendectomy H/O: hysterectomy History of cholecystectomy H/O gastric bypass (~2000) H/O left wrist surgery Status post lumbar spine surgery for decompression of spinal cord (~1991) History of lumbar fusion (2006) Status post lumbar spine surgery for decompression of spinal cord (~1995) Family History Grandmother Breast cancer Maternal Cancer Mother Heart abnormality, Onset Age: 47 aneurysm ruptured CAD (coronary artery disease) at 57 of heart aneurysm Cancer Father Abdominal aneurysm, Onset Age: 67 of the same Hypertension Family/Other CAD (coronary artery disease) Cancer Brother CAD (coronary artery disease) always had heart problems Diabetes Lung disease Brother Diabetes Grandfather Stroke Other Aneurysm of abdominal aorta Denies family history of Clotting disorder Dementia Chronic kidney disease (CKD) Suicide Anesthesia complication Bleeding disorder Social History Smoking and tobacco/nicotine status: never used tobacco/nicotine Quit status (tobacco/nicotine): has quit using Year quit tobacco: January 2023 Former quit date comment: smoked 35 years Alcohol intake: never Substance/Drug Use: never Caregiver/support person: Yes Lives independently: Yes Household members: children Marital status: Legally Current occupational status: disabled Current occupation: disabled Female Reproductive History: Spontaneous abortions: No Physical Exam Const: COMMON NORMALS: no acute distress, patient oriented x3 and alert HENMT: COMMON NORMALS: normocephalic and atraumatic HEAD & SCALP: normocephalic and atraumatic Eye: COMMON NORMALS: Equal, round and reactive pupils present and EOMs intact bilaterally PUPIL: Yes Equal, round and reactive pupils present Neck/C-Spine: COMMON NORMALS: full ROM Chest: OTHER: Right chest port in place with no signs of erythema edema or warmth or infection. Resp: COMMON NORMALS: normal respiratory effort, No retractions, No use of accessory muscles and clear to auscultation bilaterally EFFORT & INSPECTION: Yes able to speak in complete sentences AUSCULTATION: clear to auscultation bilaterally Cardio: COMMON NORMALS: regular rate and regular rhythm RATE: regular rate RHYTHM: regular rhythm GI: COMMON NORMALS: Normal to inspection, nondistended, normoactive bowel sounds present, Soft to palpation and non-tender PALPATION: Yes Soft to palpation : COMMON NORMALS: Yes no CVA tenderness BLADDER/KIDNEY EXAM: Yes no CVA tenderness Back/Pelvis: COMMON NORMALS: no CVA tenderness Extremity: COMMON NORMALS: no clubbing, cyanosis or edema, no calf tenderness and no pedal edema Neuro: COMMON NORMALS: patient oriented x3, moves all extremities, no focal motor deficits and no sensory deficits noted SENSORIUM/ORIENTATION: Yes alert Skin: COMMON NORMALS: no rashes or lesions noted GENERAL SKIN EXAM: no rashes or lesions noted Course Vital Signs: Vital signs: Vital Signs Pulse Rate 72 06/10/24 11:46 Respiratory Rate 19 H 06/10/24 12:00 Blood Pressure 182/89 06/10/24 12:00 Pulse Oximetry 99 06/10/24 12:00 MDM - Chest Pain Medical Decision Making Workup remarkable for no leukocytosis, no significant anemia on the CBC. Troponin is stable x 2 and likely mildly elevated secondary to her CKD but the horizontal troponin rules out myocardial injury or infarction. D-dimer negative rules out pulmonary embolism. Patient was reassessed following the completion of the workup, she is comfortable feels improved and essentially has no symptoms at this time. Her vital signs are normal she would like to go home and she is stable for discharge at this time, she is to follow-up with her needle grinder. Lab Data 06/10/24 12:54 06/10/24 12:54 Radiology Impressions Chest X-Ray 06/10/24 12:03 IMPRESSION: Stable chest with no acute abnormality. Laboratory Results WBC 9.95 10^3/uL (3.29-11.43) 06/10/24 12:54 RBC 4.11 10^6/uL (3.85-5.65) 06/10/24 12:54 Hgb 11.70 g/dL (11.27-16.99) 06/10/24 12:54 Hct 37.5 % (36-47) 06/10/24 12:54 MCV 91.2 fl (85-98) 06/10/24 12:54 MCH 28.5 pg (27-33) 06/10/24 12:54 MCHC 31.2 g/dL (30-55) 06/10/24 12:54 RDW 15.9 % (12.1-15.1) H 06/10/24 12:54 Plt Count 261 10^3/cmm (157-399) 06/10/24 12:54 MPV 9.4 fL (7.4-10.4) 06/10/24 12:54 Neut % (Auto) 75.3 % 06/10/24 12:54 Lymph % (Auto) 16.4 % 06/10/24 12:54 Dickson % (Auto) 7.1 % 06/10/24 12:54 Eos % (Auto) 0.2 % 06/10/24 12:54 Baso % (Auto) 0.3 % 06/10/24 12:54 Neut # (Auto) 7.49 10^3/uL (1.8-7.7) 06/10/24 12:54 Lymph # (Auto) 1.6 10^3/uL (0.8-4.8) 06/10/24 12:54 Dickson # (Auto) 0.7 10^3/uL (0.2-0.9) 06/10/24 12:54 Eos # (Auto) 0.0 10^3/uL (0.0-0.8) 06/10/24 12:54 Baso # (Auto) 0.0 10^3/uL (0.0-0.1) 06/10/24 12:54 Nucleated RBC % (auto) 0 % 06/10/24 12:54 Nucleated RBCs # 0.0 /100WBC 06/10/24 12:54 D-Dimer 0.55 ug/mLFEU (0-0.59) 06/10/24 12:54 Sodium 135 mmol/L (136-145) L 06/10/24 12:54 Potassium 4.6 mmol/L (3.5-5.1) 06/10/24 12:54 Chloride 99 mmol/L (98-107) 06/10/24 12:54 Carbon Dioxide 26 mmol/L (22-29) 06/10/24 12:54 Anion Gap 14.6 (5-19) 06/10/24 12:54 BUN 32 mg/dL (8-23) H 06/10/24 12:54 Creatinine 1.4 mg/dL (0.5-0.9) H 06/10/24 12:54 GFR Calculation 37.5 mL/min (90-130) L 06/10/24 12:54 Glucose 97 mg/dL (65-115) 06/10/24 12:54 Calculated Osmolality 287 mOsm/kg (285-295) 06/10/24 12:54 Calcium 8.8 mg/dL (8.5-10.5) 06/10/24 12:54 Total Bilirubin 0.4 mg/dL (0.15-1.2) 06/10/24 12:54 AST 11 U/L (0-32) 06/10/24 12:54 ALT 7 U/L (0-33) 06/10/24 12:54 Alkaline Phosphatase 71 U/L (35-105) 06/10/24 12:54 Troponin T Baseline 21 ng/L (0-10) H 06/10/24 12:54 Troponin T 120 Minute 20.94 ng/L (0-10) H 06/10/24 14:36 Delta Troponin T -0.06 ABS# (0-10) L 06/10/24 14:36 NT-Pro-B Natriuret Pep 622 pg/mL (0-125) H 06/10/24 12:54 Total Protein 6.1 g/dL (6.6-8.7) L 06/10/24 12:54 Albumin 3.8 g/dL (3.5-5.2) 06/10/24 12:54 Globulin 2.3 g/dL (1.3-4.6) 06/10/24 12:54 All radiology interpretation(s) finalized by discharge Discharge Plan Discharge Patient Disposition: Home Clinical Impression: Chest pain, precordial Condition: Stable Prescriptions: No Action leflunomide 20 mg tablet 20 mg PO DAILY Qty: 30 3RF dexlansoprazole 30 mg capsule,biphase delayed releas 30 mg PO DAILY Qty: 90 1RF prednisone 10 mg tablet 10 mg PO DIRECTED Qty: 51 0RF Rx Instructions: Take 2.5 tablets daily x5 days, then 2 tablets QD x5 days, then 1.5 tablets daily x 10 days, then stay on 1 tablet daily. cholecalciferol (vitamin D3) 25 mcg (1,000 unit) capsule 25 mcg PO DAILY Eliquis 5 mg tablet 5 mg PO BID Qty: 60 5RF furosemide 20 mg tablet 20 mg PO DAILY PRN (Reason: Edema) ivermectin 3 mg tablet See Rx Instructions .ROUTE .COMPLEX Rx Instructions: TAKE FIVE TABLETS BY MOUTH once. May repeat in 14 days. clonidine HCl 0.1 mg tablet 0.1 mg PO TID PRN (Reason: bp) methocarbamol 750 mg tablet 750 mg PO TID PRN (Reason: Spasms) albendazole 200 mg tablet See Rx Instructions .ROUTE .COMPLEX Rx Instructions: TAKE 2 TABLETS BY MOUTH EVERY DAY FOR TWO DAYS THEN REPEAT in 14 DAYS. lidocaine 5 % adhesive patch,medicated 1 patch topical Q24H albuterol sulfate 90 mcg/actuation HFA aerosol inhaler 1 puff INHALATION Q6H PRN (Reason: Shortness Of Breath Or Wheezing) olmesartan 40 mg tablet 40 mg PO DAILY fluticasone furoate-vilanterol [Breo Ellipta] 200-25 mcg/dose blister with device 1 inh INHALATION BID hydrocodone-acetaminophen 5-325 mg tablet 1 - 2 tab PO Q4H PRN (Reason: Pain) zolpidem [Ambien] 10 mg tablet 10 mg PO .qhs PRN (Reason: SLEEP) Discharge Orders: Discharge ED (Routine); Ordered 06/10/24 Ordered By: Cruz Hernandez Referrals: Reno Jacob DO [Primary Care Provider, Family Practice] Patient Instructions: Chest Pain (ED) Print Language: Vietnamese Coding Level of Care Code ED Layer Out for Cindi Schmitz
[2024-06-10 13:01] LABS: Basophils % 0.3 %; Eosinophils % 0.2 %; Hematocrit 37.5 % (36-47); Lymphocytes # 1.6 10^3/uL (0.8-4.8); Lymphocytes % 16.4 %; Mean Corpuscular HGB Conc 31.2 g/dL (30-55); Mean Corpuscular Hemoglobin 28.5 pg (27-33); Mean Corpuscular Volume 91.2 fl (85-98); Mean Platelet Volume 9.4 fL (7.4-10.4); Monocytes # 0.7 10^3/uL (0.2-0.9); Monocytes % 7.1 %; Neutrophils # 7.49 10^3/uL (1.8-7.7); Neutrophils % 75.3 %; Nucleated Red Blood Cells % 0 %; Platelet Count 261 10^3/cmm (157-399); Red Blood Count 4.11 10^6/uL (3.85-5.65); Red Cell Distribution Width 15.9 % (12.1-15.1); White Blood Count 9.95 10^3/uL (3.29-11.43)
[2024-06-10 13:14] LABS: D Dimer 0.55 ug/mLFEU (0-0.59)
[2024-06-10 13:17] LABS: Troponin(5th) Baseline 21 ng/L (0-10)
[2024-06-10 13:28] LABS: Alanine Aminotransferase 7 U/L (0-33); Albumin Level 3.8 g/dL (3.5-5.2); Alkaline Phosphatase 71 U/L (35-105); Anion Gap 14.6 (5-19); Aspartate Amino Transferase 11 U/L (0-32); Blood Urea Nitrogen 32 mg/dL (8-23); Calcium 8.8 mg/dL (8.5-10.5); Carbon Dioxide 26 mmol/L (22-29); Chloride 99 mmol/L (98-107); Creatinine Clr Calc Pharmacy 41.7387; Globulin 2.3 g/dL (1.3-4.6); Glomerular Filtration Rate 37.5 mL/min (90-130); Glucose 97 mg/dL (65-115); NT Pro B Type Natriuretic Pept 622 pg/mL (0-125); Osmolality Calculated 287 mOsm/kg (285-295); Potassium 4.6 mmol/L (3.5-5.1); Sodium 135 mmol/L (136-145); Total Bilirubin 0.4 mg/dL (0.15-1.2); Total Protein 6.1 g/dL (6.6-8.7)
[2024-06-10 15:12] LABS: Troponin 5 2HR 20.94 ng/L (0-10)
[2024-06-10 15:13] LABS: Troponin 5 2HR Delta -0.06 ABS# (0-10)
== END 2024-06-10 15:54 | disposition home or self-care (01) ==
PROVIDERS: Emergency Provider Emergency Medicine; PCP Family Medicine
DX: R07.2 Precordial pain (principal); Z79.01 Long term (current) use of anticoagulants; Z87.891 Personal history of nicotine dependence; I10 Essential (primary) hypertension; E78.5 Hyperlipidemia, unspecified; J44.9 Chronic obstructive pulmonary disease, unspecified; Z85.118 Personal history of other malignant neoplasm of bronchus and lung
CPT/HCPCS: 36591; 71045; 80053; 83880; 84484; 85025; 85378; 93005; 99285

== ENCOUNTER 2024-07-04 07:46 | Outpatient (CLI) | payer OTHER, MEDICAID, SELFPAY ==
--- NOTE | 2024-07-04 07:47 | MM_ITS ---
WS: [id number] BILATERAL 3D TOMOSYNTHESIS DIGITAL SCREENING MAMMOGRAPHY WITH CAD CLINICAL INFORMATION: SCREENING HISTORY: Screening mammogram. No current complaints. History of breast reduction. COMPARISON: 2020 TECHNIQUE: Bilateral CC and MLO views. FINDINGS: Bilateral breast implants. Scattered fibroglandular densities bilaterally. No suspicious focal mass, asymmetry, calcifications, or architectural distortion. No evidence of malignancy. Punctate and lucent centered calcifications. Vascular calcifications. MM/MM [facility] tomosynthesis [id number] IMPRESSION: DENSITY: There are scattered areas of fibroglandular density. BI-RADS: 2 - Benign. FOLLOW UP: 1 Year Follow-up Recommend return to annual screening mammography.
== END 2024-07-04 07:47 | disposition home or self-care (01) ==
LOC: RAD 07:46
PROVIDERS: PCP Family Medicine; Visit Provider Neurological Surgery
DX: Z12.31 Encounter for screening mammogram for malignant neoplasm of breast (principal); R92.323 Mammographic fibroglandular density, bilateral breasts; R92.1 Mammographic calcification found on diagnostic imaging of breast
CPT/HCPCS: 77063; 77067

== ENCOUNTER 2024-07-04 08:00 | Oncology outpatient (recurring) (ONCR) | payer OTHER, MEDICAID, SELFPAY ==
[2024-06-05 13:59] LABS: Basophils % 0.2 %; Hematocrit 38.5 % (36-47); Lymphocytes # 1.6 10^3/uL (0.8-4.8); Lymphocytes % 11.9 %; Mean Corpuscular HGB Conc 31.9 g/dL (30-55); Mean Corpuscular Hemoglobin 29.4 pg (27-33); Mean Corpuscular Volume 91.9 fl (85-98); Mean Platelet Volume 9.5 fL (7.4-10.4); Monocytes # 0.7 10^3/uL (0.2-0.9); Neutrophils # 11.13 10^3/uL (1.8-7.7); Nucleated Red Blood Cells % 0 %; Platelet Count 282 10^3/cmm (157-399); Red Blood Count 4.19 10^6/uL (3.85-5.65); Red Cell Distribution Width 15.8 % (12.1-15.1); White Blood Count 13.57 10^3/uL (3.29-11.43)
[2024-06-05 14:16] LABS: Alanine Aminotransferase 6 U/L (0-33); Albumin Level 3.8 g/dL (3.5-5.2); Alkaline Phosphatase 68 U/L (35-105); Anion Gap 14.3 (5-19); Aspartate Amino Transferase 10 U/L (0-32); Blood Urea Nitrogen 34 mg/dL (8-23); Calcium 8.8 mg/dL (8.5-10.5); Carbon Dioxide 25 mmol/L (22-29); Chloride 103 mmol/L (98-107); Globulin 2.7 g/dL (1.3-4.6); Glomerular Filtration Rate 37.5 mL/min (90-130); Glucose 133 mg/dL (65-115); Osmolality Calculated 296 mOsm/kg (285-295); Potassium 4.3 mmol/L (3.5-5.1); Sodium 138 mmol/L (136-145); Total Bilirubin 0.2 mg/dL (0.15-1.2); Total Protein 6.5 g/dL (6.6-8.7)
== END 2024-07-05 23:59 | disposition home or self-care (01) ==
LOC: RAD 07-05 00:01 → ONCMED 07-07 09:17
PROVIDERS: Internal Medicine; PCP Family Medicine; Visit Provider Nurse Practitioner
DX: Z53.9 Procedure and treatment not carried out, unspecified reason (principal)
CPT/HCPCS: 36591; 80053; 85025; 99213

== ENCOUNTER 2024-07-10 14:11 | Oncology outpatient (recurring) (ONCR) | payer OTHER, MEDICAID, SELFPAY ==
--- NOTE | 2024-07-07 13:44 | CT_ITS ---
WS: [id number] CT chest w con* [id number] HISTORY: LUNG NODULES TECHNIQUE: Axial imaging performed through the thorax. Coronal and sagittal reformats are submitted. All CT scans at [facility] use at least one of these dose optimization techniques: automated exposure control; mA and/or kV adjustment per patient size (includes targeted exams where dose is matched to clinical indication); or iterative reconstruction. CONTRAST: Omnipaque 350; 100 mL IV. DLP: 350.38 mGy.cm COMPARISON: 03/27/2024, 11/01/2023, PET/CT 04/04/2024 Lungs and central airway: Status post LEFT lower lobectomy. 2 mm noncalcified micronodule RIGHT lower lobe has been present on prior exams. Benign granuloma LEFT lower lobe. Postsurgical pleural thickening in the LEFT lower thorax. No masses or nodules are identified. Pleura: Mild pleural thickening posterior medial LEFT thorax, postsurgical. Heart and pericardium: Normal size heart with no pericardial effusion. Mediastinum and heri: No mediastinum or hilar adenopathy. Vessels: Moderate atherosclerotic plaque aorta. Normal size pulmonary artery. Chest wall and lower neck: Bilateral breast implants. RIGHT jugular Mediport. Upper abdomen: Large hiatal hernia. Postsurgical changes at the GE junction. No adrenal mass. Very slight thickening of the LEFT adrenal gland. Similar to prior studies. Prior cholecystectomy. Moderate atherosclerotic plaque in the suprarenal aorta. Cortical thinning of each kidney. Osseous structures: Increase in thoracic kyphosis. No destructive bone lesions. CT/CT chest w con* [id number] IMPRESSION: 1. Status post LEFT lower lobectomy. 2. No new or enlarging pulmonary nodule or mass. No metastatic disease identif ied. 3. Long-term stability micronodule RIGHT lower lobe. 4. No pathologically enlarged lymph nodes. 5. Extensive atherosclerotic plaque within the thoracic aorta and suprarenal a bdominal aorta.
[2024-07-07] MEDS: iohexol 350 mg/mL 500 mL Btl (per mL) IV (14:15)
[2024-07-07 14:49] LABS: Basophils # 0.1 10^3/uL (0.0-0.1); Basophils % 0.7 %; Eosinophils % 0.5 %; Hematocrit 36.6 % (36-47); Lymphocytes # 1.6 10^3/uL (0.8-4.8); Lymphocytes % 20.9 %; Mean Corpuscular HGB Conc 31.4 g/dL (30-55); Mean Corpuscular Hemoglobin 29.1 pg (27-33); Mean Corpuscular Volume 92.7 fl (85-98); Mean Platelet Volume 9.7 fL (7.4-10.4); Monocytes # 0.7 10^3/uL (0.2-0.9); Monocytes % 9.3 %; Neutrophils # 5.18 10^3/uL (1.8-7.7); Neutrophils % 68.1 %; Nucleated Red Blood Cells % 0 %; Platelet Count 255 10^3/cmm (157-399); Red Blood Count 3.95 10^6/uL (3.85-5.65); Red Cell Distribution Width 15.9 % (12.1-15.1); White Blood Count 7.61 10^3/uL (3.29-11.43)
[2024-07-07 15:08] LABS: Alanine Aminotransferase 7 U/L (0-33); Albumin Level 3.5 g/dL (3.5-5.2); Alkaline Phosphatase 84 U/L (35-105); Anion Gap 14.8 (5-19); Aspartate Amino Transferase 17 U/L (0-32); Blood Urea Nitrogen 29 mg/dL (8-23); Calcium 8.3 mg/dL (8.5-10.5); Carbon Dioxide 23 mmol/L (22-29); Chloride 104 mmol/L (98-107); Globulin 2.7 g/dL (1.3-4.6); Glomerular Filtration Rate 34.6 mL/min (90-130); Glucose 90 mg/dL (65-115); Osmolality Calculated 289 mOsm/kg (285-295); Potassium 4.8 mmol/L (3.5-5.1); Sodium 137 mmol/L (136-145); Total Bilirubin 0.3 mg/dL (0.15-1.2); Total Protein 6.2 g/dL (6.6-8.7)
[2024-07-10 16:20] LABS: Blood Urea Nitrogen 24 mg/dL (8-23); Ferritin 166 ng/mL (15-150); Glomerular Filtration Rate 37.5 mL/min (90-130); Iron 25 ug/dL (37-145); Magnesium 2.5 mg/dL (1.7-2.3); Percent Saturation 9.8 % (20-50); Total Iron Binding Capacity 254 mcg/dl; Unsaturated Iron Binding 229 ug/dL (112-347)
[2024-07-10 16:33] LABS: 25 Hydroxy Vitamin D 49 ng/mL (30-100); Vitamin B12 493 pg/mL (232-1245)
[2024-07-10 16:40] LABS: Folate Level 16.2 ng/mL (4.8-37.3)
[2024-07-14 13:45] LABS: Vitamin B1(Thiamin) Plas/Ser <6 nmol/L (8-30)
== END 2024-08-04 23:59 | disposition home or self-care (01) ==
PROVIDERS: Nurse Practitioner Family; PCP Family Medicine; Visit Provider Internal Medicine
DX: Z53.9 Procedure and treatment not carried out, unspecified reason; Z08 Encounter for follow-up examination after completed treatment for malignant neoplasm; Z85.118 Personal history of other malignant neoplasm of bronchus and lung; Z92.25 Personal history of immunosuppression therapy; M05.9 Rheumatoid arthritis with rheumatoid factor, unspecified; M25.50 Pain in unspecified joint; Z79.52 Long term (current) use of systemic steroids; Z79.899 Other long term (current) drug therapy; Z98.84 Bariatric surgery status; E55.9 Vitamin D deficiency, unspecified; D64.9 Anemia, unspecified; L29.9 Pruritus, unspecified
CPT/HCPCS: 36591; 71260; 80053; 82306; 82565; 82607; 82728; 82746; 83540; 83550; 83735; 84425; 84520; 85025; 99213

== ENCOUNTER 2024-08-18 09:04 | Outpatient (CLI) | payer OTHER, MEDICAID, SELFPAY ==
[2024-08-18 10:07] LABS: Hematocrit 37.0 % (36-47); Hemoglobin 11.60 g/dL (11.27-16.99); Mean Corpuscular HGB Conc 31.4 g/dL (30-55); Mean Corpuscular Hemoglobin 28.1 pg (27-33); Mean Corpuscular Volume 89.6 fl (85-98); Nucleated Red Blood Cells % 0 %; Platelet Count 302 10^3/cmm (157-399); Red Blood Count 4.13 10^6/uL (3.85-5.65); White Blood Count 6.26 10^3/uL (3.29-11.43)
[2024-08-18 10:24] LABS: Creatinine Urine, Random 146 mg/dL (28-217); Microalbum Creatinine Ratio Ur 7 mg/dL (0-20)
[2024-08-18 10:27] LABS: Calcium 8.9 mg/dL (8.5-10.5)
[2024-08-18 10:28] LABS: Albumin Level 3.8 g/dL (3.5-5.2); Anion Gap 18.1 (5-19); Blood Urea Nitrogen 28 mg/dL (8-23); Calcium 8.8 mg/dL (8.5-10.5); Carbon Dioxide 23 mmol/L (22-29); Chloride 103 mmol/L (98-107); Glucose 100 mg/dL (65-115); Potassium 4.1 mmol/L (3.5-5.1); Sodium 140 mmol/L (136-145)
== END 2024-08-18 09:05 | disposition home or self-care (01) ==
LOC: LAB 09:09
PROVIDERS: PCP Family Medicine; Visit Provider Registered Nurse
DX: N18.32 Chronic kidney disease, stage 3b (principal)
CPT/HCPCS: 36415; 80069; 82044; 82306; 82310; 83970; 85025

== ENCOUNTER 2024-09-24 08:24 | Oncology outpatient (recurring) (ONCR) | payer OTHER, MEDICAID, SELFPAY | END 2024-10-05 23:59 | disposition home or self-care (01) | PROVIDERS: PCP Family Medicine; Visit Provider Internal Medicine | DX: Z45.2 Encounter for adjustment and management of vascular access device (principal); Z95.828 Presence of other vascular implants and grafts | CPT/HCPCS: 96523 ==

== ENCOUNTER → 2024-10-23 10:15 | Outpatient (BNVA) | payer MEDICARE, MEDICAID, SELFPAY | PROVIDERS: PCP Family Medicine; Visit Provider Internal Medicine Rheumatology | DX: M05.79 Rheumatoid arthritis with rheumatoid factor of multiple sites without organ or systems involvement (principal); Z79.899 Other long term (current) drug therapy; Z71.85 Encounter for immunization safety counseling; R91.8 Other nonspecific abnormal finding of lung field; Z98.890 Other specified postprocedural states; M76.62 Achilles tendinitis, left leg; M76.61 Achilles tendinitis, right leg; M54.59 Other low back pain; G89.29 Other chronic pain; Z98.1 Arthrodesis status; Z98.84 Bariatric surgery status; C34.32 Malignant neoplasm of lower lobe, left bronchus or lung; Z90.2 Acquired absence of lung [part of] | CPT/HCPCS: 99214 ==

== ENCOUNTER 2024-11-06 09:26 | Oncology outpatient (recurring) (ONCR) | payer OTHER, MEDICAID, SELFPAY ==
--- NOTE | 2024-11-05 12:00 | CTR_ITS ---
PROCEDURE INFORMATION: Exam: CT Chest With Contrast; Diagnostic Exam date and time: 11/05/2024 12:46 PM Age: 69 years old Clinical indication: Condition or disease; Lung condition and disease; Cancer of the lung; Bilateral; Unspecified; Prior surgery; Surgery date: 6+ months; Surgery type: Port, appy, gb, hyst; Lung cancer, C/O right breast pain TECHNIQUE: Imaging protocol: Diagnostic computed tomography of the chest with contrast. Radiation optimization: All CT scans at this facility use at least one of these dose optimization techniques: automated exposure control; mA and/or kV adjustment per patient size (includes targeted exams where dose is matched to clinical indication); or iterative reconstruction. Contrast material: OMNI 350; Contrast volume: 100 ml; Contrast route: INTRAVENOUS (IV); COMPARISON: CT chest w con* [id number] 07/07/2024 2:10 PM RADIATION DOSE METRICS: Total DLP (mGy-cm): 757.05 FINDINGS: Tubes, catheters and devices: Right IJ Port-A-Cath terminates in the proximal right atrium. Lungs: There is a small ground-glass nodule measuring 5 mm in the peripheral right lower lobe, stable, on image 34 of series 4. There is a stable small calcified nodule within the peripheral left lower lobe. There is linear scarring within the medial left lung base, stable. Linear pleural margin suture line at the superomedial left upper lobe is unchanged. Pleural spaces: There is stable mild asymmetric elevation of the left hemidiaphragm status post partial pneumonectomy. Heart: Unremarkable. No cardiomegaly. No pericardial effusion. Coronary arteries: There is no prominent coronary artery calcification. Lymph nodes: Unremarkable. No enlarged lymph nodes. Vasculature: There is marginal atherosclerotic calcification of the normal caliber thoracic aorta. Bones/joints: There is no acute osseous abnormalities appreciated. There is an old posterior right 8th rib fracture. Soft tissues: Unremarkable. PROCEDURE INFORMATION: Exam: CT Abdomen And Pelvis With Contrast Exam date and time: 11/05/2024 12:46 PM Age: 69 years old Clinical indication: Condition or disease; Lung condition and disease; Cancer of the lung; Bilateral; Unspecified; Prior surgery; Surgery date: 6+ months; Surgery type: Port, appy, gb, hyst; Lung cancer, C/O right breast pain TECHNIQUE: Imaging protocol: Computed tomography of the abdomen and pelvis with contrast. Radiation optimization: All CT scans at this facility use at least one of these dose optimization techniques: automated exposure control; mA and/or kV adjustment per patient size (includes targeted exams where dose is matched to clinical indication); or iterative reconstruction. Contrast material: OMNI 350; Contrast volume: 100 ml; Contrast route: INTRAVENOUS (IV); COMPARISON: CT abdomen w con* [id number] 06/10/2024 11:33 AM RADIATION DOSE METRICS: Total DLP (mGy-cm): 757.05 FINDINGS: Diaphragm: Postsurgical changes of a gastrojejunal bypass are present. There is a small retrocardiac hiatal hernia. Liver: Mild stable periportal intrahepatic and extrahepatic biliary dilatation is stable likely physiologic post cholecystectomy. Gallbladder and biliary ducts: Cholecystectomy. Pancreas: Normal. No ductal dilation. Spleen: Normal. No splenomegaly. Adrenal glands: Normal. No mass. Kidneys and ureters: There is a small extrarenal pelvis present bilaterally. There are small sub cm cortical hypodensities statistically most likely representing benign cysts. Stomach and bowel: Luminal contrast has traversed the majority of the small bowel. There is mild diverticulosis of the sigmoid colon. Appendix: No evidence of appendicitis. Intraperitoneal space: Unremarkable. No free air. No significant fluid collection. Vasculature: There is moderate atherosclerotic calcification within a normal caliber abdominal aorta extending into the iliac vessels. The abdominal aorta maximal caliber remains at 3 cm. There is poor definition of the proximal aspects of the common iliac artery secondary to artifact related to fusion hardware of the lumbar spine. There is a right external iliac artery stent. Lymph nodes: Unremarkable. No enlarged lymph nodes. Urinary bladder: The bladder is incompletely distended. Reproductive: Unremarkable as visualized. Bones/joints: There is no acute osseous abnormality appreciated. Inferior lumbar spine posterior decompressive laminectomies and transpedicular fusion hardware remains in place. Soft tissues: Unremarkable. CT/CT chest abdpel w/*[id number] IMPRESSION: Stable small right lower lobe pulmonary nodule. This likely represents benign scarring given its long-term stability as previously reported. IMPRESSION: 1. No acute process. 2. Moderate atherosclerotic disease. 3. Sigmoid colon diverticulosis.
[2024-11-05] MEDS: iohexol 350 mg/mL 500 mL Btl (per mL) IV (12:58)
[2024-11-05] MEDS: iohexol 350 mg/mL 500 mL Btl (per mL) PO (12:58)
[2024-11-05 13:07] LABS: Hematocrit 38.6 % (36-47); Hemoglobin 12.40 g/dL (11.27-16.99); Mean Corpuscular HGB Conc 32.1 g/dL (30-55); Mean Corpuscular Hemoglobin 29.2 pg (27-33); Mean Corpuscular Volume 90.8 fl (85-98); Nucleated Red Blood Cells % 0 %; Platelet Count 236 10^3/cmm (157-399); Red Blood Count 4.25 10^6/uL (3.85-5.65); White Blood Count 7.86 10^3/uL (3.29-11.43)
[2024-11-05 13:30] LABS: Alanine Aminotransferase 8 U/L (0-33); Albumin Level 3.8 g/dL (3.5-5.2); Alkaline Phosphatase 106 U/L (35-105); Anion Gap 13.4 (5-19); Aspartate Amino Transferase 13 U/L (0-32); Blood Urea Nitrogen 25 mg/dL (8-23); Calcium 8.9 mg/dL (8.5-10.5); Carbon Dioxide 24 mmol/L (22-29); Chloride 100 mmol/L (98-107); Globulin 2.6 g/dL (1.3-4.6); Glucose 122 mg/dL (65-115); Osmolality Calculated 282 mOsm/kg (285-295); Potassium 4.4 mmol/L (3.5-5.1); Sodium 133 mmol/L (136-145); Total Protein 6.4 g/dL (6.6-8.7)
== END 2024-12-05 23:59 | disposition home or self-care (01) ==
PROVIDERS: PCP Family Medicine; Visit Provider Internal Medicine
DX: Z08 Encounter for follow-up examination after completed treatment for malignant neoplasm (principal); Z85.118 Personal history of other malignant neoplasm of bronchus and lung; M05.9 Rheumatoid arthritis with rheumatoid factor, unspecified; R05.9 Cough, unspecified; R13.19 Other dysphagia; Z92.21 Personal history of antineoplastic chemotherapy; Z92.25 Personal history of immunosuppression therapy
CPT/HCPCS: 36591; 71260; 74177; 80053; 82306; 83615; 85025; 96523; 99214

== ENCOUNTER 2025-01-06 08:16 | Oncology outpatient (recurring) (ONCR) | payer MEDICARE, MEDICAID, SELFPAY | END 2025-02-04 23:59 | disposition home or self-care (01) | PROVIDERS: PCP Family Medicine; Visit Provider Internal Medicine | DX: Z08 Encounter for follow-up examination after completed treatment for malignant neoplasm (principal); Z85.118 Personal history of other malignant neoplasm of bronchus and lung; M05.9 Rheumatoid arthritis with rheumatoid factor, unspecified; R05.9 Cough, unspecified; R13.19 Other dysphagia; Z92.21 Personal history of antineoplastic chemotherapy; Z92.25 Personal history of immunosuppression therapy; Z45.2 Encounter for adjustment and management of vascular access device; Z95.828 Presence of other vascular implants and grafts; C34.32 Malignant neoplasm of lower lobe, left bronchus or lung; M79.10 Myalgia, unspecified site; D64.9 Anemia, unspecified; R91.8 Other nonspecific abnormal finding of lung field; J98.4 Other disorders of lung; I70.0 Atherosclerosis of aorta; K44.9 Diaphragmatic hernia without obstruction or gangrene; R93.2 Abnormal findings on diagnostic imaging of liver and biliary tract; N28.89 Other specified disorders of kidney and ureter; R93.89 Abnormal findings on diagnostic imaging of other specified body structures; K57.30 Diverticulosis of large intestine without perforation or abscess without bleeding; Z96.89 Presence of other specified functional implants; Z90.49 Acquired absence of other specified parts of digestive tract; Z98.890 Other specified postprocedural states; Z90.2 Acquired absence of lung [part of]; Z87.81 Personal history of (healed) traumatic fracture | CPT/HCPCS: 96523 ==